=== PATIENT | male | born 1960 | race Caucasian/White ===

== ENCOUNTER 2020-10-26 06:40 | Outpatient (CLI) | payer OTHER, SELFPAY ==
[2020-10-26 07:15] LABS: Hematocrit 46.7 % (42.0-52.0); Hemoglobin 15.9 g/dL (14.0-18.0); Immature Platelet Fraction Pct 8.7 % (0.9-11.2); Mean Corpuscular Hemoglobin 32.8 pg (26-34); Mean Corpuscular Volume 96.3 fl (80-100); Mean Platelet Volume 10.9 fl (7.4-10.4); Platelet Count Result 134 k/mm3 (150-375); Red Blood Count 4.85 M/mm3 (4.6-6.20); Red Cell Distribution Width 12.6 % (11.5-14.5); White Blood Count 5.7 K/mm3 (4.5-10.0)
[2020-10-26 08:42] LABS: Alanine Aminotransferase 38 U/L (4-50); Albumin Level 4.2 g/dL (3.5-5.1); Alkaline Phosphatase 73 U/L (38-126); Anion Gap 7 mmol/L (8-16); Aspartate Amino Transferase 55 U/L (17-59); Blood Urea Nitrogen 16 mg/dL (9-20); Calcium 9.3 mg/dL (8.4-10.2); Carbon Dioxide 23 mmol/L (22-30); Chloride 107 mmol/L (98-107); Cholesterol 165 mg/dL (0-200); Estimated Glomerular Filt Rate 56; Glucose 143 mg/dL (75-110); HDL Direct 31 mg/dL; Potassium 4.2 mmol/L (3.4-5.0); Sodium 137 mmol/L (137-145); Triglycerides 310 mg/dL (<150)
[2020-10-26 08:54] LABS: LDL Cholesterol Direct 66 mg/dL
[2020-10-26 09:29] LABS: Prostate Specific Antigen 0.2 ng/mL (< OR = 4.0)
[2020-10-26 09:40] LABS: Hemoglobin A1C 5.9 % (<5.7)
[2020-10-31 12:25] LABS: Testosterone Free 77.5 pg/mL (35.0-155.0); Testosterone Total 871 ng/dL (250-1100)
== END 2020-10-26 09:24 | disposition home or self-care (01) ==
PROVIDERS: PCP Physician Assistant; Visit Provider Physician Assistant
DX: Z12.5 Encounter for screening for malignant neoplasm of prostate (principal); R73.9 Hyperglycemia, unspecified; I10 Essential (primary) hypertension; Z00.00 Encounter for general adult medical examination without abnormal findings
CPT/HCPCS: 36415; 80053; 80061; 83036; 83735; 84153; 84402; 84403; 84443; 85027; 85055; G0103

== ENCOUNTER 2022-03-13 07:41 | Outpatient (CLI) | payer OTHER, SELFPAY | END 2022-03-13 07:42 | disposition home or self-care (01) | LOC: ANHAUDASC 08:04 | PROVIDERS: PCP Physician Assistant; Visit Provider Physician Assistant | DX: H90.3 Sensorineural hearing loss, bilateral (principal) | CPT/HCPCS: 92557; 92567 ==

== ENCOUNTER 2022-05-23 00:15 | Day surgery (SDC) | payer OTHER, SELFPAY ==
[2022-05-22 14:51] VITALS: BMI 31.6
[2022-05-23] VITALS (8 sets, daily range): BP systolic 124–142; BP diastolic 81–93; PULSE 62–73; RESP 13–20; TEMP 36.6–36.7; O2SAT 94–98; BMI 31.4
[2022-05-23 08:57] LABS: Basophils Percent Auto 0.6 % (0.2-1.2); Eosinophils Absolute Auto 0.1 K/mm3 (0-0.3); Eosinophils Percent Auto 1.5 % (0-4.4); Hematocrit 44.1 % (42.0-52.0); Hemoglobin 15.3 g/dL (14.0-18.0); Immature Granulocyte Absolute 0.02 K/mm3 (0.00-0.031); Immature Granulocyte Percent A 0.4 % (0-0.5); Immature Platelet Fraction Pct 9.9 % (0.9-11.2); Lymphocytes Absolute Auto 1.78 K/mm3 (0.9-3.2); Lymphocytes Percent Auto 33.1 % (18.3-44.2); Mean Corpuscular HGB Conc 34.7 g/dl (32-36); Mean Corpuscular Hemoglobin 33.5 pg (26-34); Mean Corpuscular Volume 96.5 fl (80-100); Mean Platelet Volume 11.5 fl (7.4-10.4); Monocytes Absolute Auto 0.5 K/mm3 (0.1-0.6); Monocytes Percent Auto 8.9 % (2.6-8.5); Neutrophils Percent Auto 55.5 % (45.5-73.1); Platelet Count Result 138 k/mm3 (150-375); Red Blood Count 4.57 M/mm3 (4.6-6.20); Red Cell Distribution Width 13.2 % (11.5-14.5); White Blood Count 5.4 K/mm3 (4.5-10.0)
[2022-05-23 09:04] LABS: INR 1.2; Prothrombin Time 15.1 Seconds (11.1-14.7)
[2022-05-23 09:07] LABS: Anion Gap 10 mmol/L (8-16); Blood Urea Nitrogen 11 mg/dL (9-20); Calcium 9.1 mg/dL (8.4-10.2); Carbon Dioxide 24 mmol/L (22-30); Chloride 106 mmol/L (98-107); Estimated CRCL calculation 86 ml/min; Estimated Glomerular Filt Rate > 60; Glucose 151 mg/dL (65-110); Potassium 4.1 mmol/L (3.4-5.0); Sodium 140 mmol/L (137-145)
--- NOTE | 2022-05-23 11:33 | WPDMODSED ---
Moderate Sedation Note-Pt Data Patient Data Diagnosis: permanently implanted dual-chamber pacemaker at [facility] Present Complaint: no complaint Procedure to be performed/Plan: pacemaker generator change Allergies Allergy/AdvReac Type Severity Reaction Status Date / Time No Known Allergies Allergy Unverified 05/23/22 08:55 Home Medications Medication Instructions Recorded Confirmed Type aspirin 81 mg tablet,delayed 81 mg PO DAILY 05/02/20 05/22/22 History release hydrochlorothiazide 12.5 mg tablet 12.5 mg PO DAILY #30 tabs 11/06/21 05/22/22 Rx lisinopril 40 mg tablet 40 mg PO DAILY #30 tabs 11/06/21 05/22/22 Rx Sedation/Anesthesia: No previous sedation/anesthesia problems (including family history). [facility] Past Medical History Medical History Gout Heart disease Hypertension Inguinal hernia Pacemaker Umbilical hernia Family History Family History Sibling Family history of migraine headaches Patient's sister is in good health Patient's brother is in good health Father Hypertension Mother Family history of lung cancer Patient's mother is Other Cerebrovascular accident Family history of cardiovascular disease Social History Social History Smoking status: Never smoker Alcohol intake: current Alcohol use details: once a month Living arrangements: with family Additional living arrangements comments: Girl friend Gender identity (if verbalized by the patient): Male Spiritual care concerns: No Mod Sed Physical Exam Physical Exam Pre Procedural Exam: Normal: Neck, Throat, Airway, Lungs, Heart Size, Heart Rate, Heart Rhythm, Neuro Exam and Extremities and Variation: Appearance ( overweight gentleman no apparent distress) Hours since solid foods: 12 Hours since liquid intake: 12 Mallampati Classification: class II Internal Medicine - PN: Obj Da Vital Signs Vital Signs: Vital Signs - 24 hr 05/23/22 08:56 Temperature 36.7 C Pulse Rate 68 Respiratory Rate 13 Blood Pressure 142/91 H Pulse Oximetry 98 Oxygen Delivery Room Air Labs 05/23/22 08:50 05/23/22 08:50 Labs: Laboratory Results - last 24 hr 05/23/22 05/23/22 05/23/22 08:50 08:50 08:50 WBC 5.4 RBC 4.57 L Hgb 15.3 Hct 44.1 MCV 96.5 MCH 33.5 MCHC 34.7 RDW 13.2 Plt Count 138 L MPV 11.5 H Immature Gran % (Auto) 0.4 Neut % (Auto) 55.5 Lymph % (Auto) 33.1 Vilas % (Auto) 8.9 H Eos % (Auto) 1.5 Baso % (Auto) 0.6 Lymph # (Auto) 1.78 [place] # (Auto) 0.5 Eos # (Auto) 0.1 Baso # (Auto) 0.0 Abs Immat Gran (auto) 0.02 Absolute Neuts (auto) 3.0 Absolute Nucleated RBC 0.0 Nucleated RBC % 0.0 % Immature Plt Fraction 9.9 PT 15.1 H INR 1.2 Sodium 140 Potassium 4.1 Chloride 106 Carbon Dioxide 24 Anion Gap 10 BUN 11 D Creatinine 1.00 Estim Creat Clear Calc 86 Estimated GFR > 60 Glucose 151 H Calcium 9.1 ASA Classification/Sedation ASA Classification/Sedation ASA Class: II Emergent: No Risks: Risks, benefits and alternatives explained and patient/family accepted plan for sedation. Patient re-evaluated immediately prior to sedation.
--- NOTE | 2022-05-23 11:34 | WPDCARDPROC ---
Cardiac Cath Procedure Note Date of procedure:: 05/23/22 Performing physician:: Arron Mason MD Indication:: permanent pacemaker at [facility] Brief clinical history:: this is a 62-year-old man with chronic complete heart block who has a chronically implanted dual-chamber pacemaker. The device on routine follow-up is been found to be at [facility] admitted today electively for generator change Procedure Procedure performed:: placement of temporary transvenous pacemaker explantation of depleted pulse generator implantation of new pulse generator using existing leads Sedation/Medication given:: fentanyl 50 mg Versed 2 mg case start time 10:27 a.m. case end time case end time 11:29 a.m. sedation provided by Marielena Morales RN, trained observer Access site:: right femoral vein chronic left subclavian pocket Estimated blood loss:: minimal Procedure note:: patient was brought to the cardiac catheterization lab in the postabsorptive state where initially the right femoral triangle was prepared and draped in the normal fashion. Anesthesia was provided with 1% lidocaine infiltrated locally. Using the modified Seldinger technique the femoral vein was punctured and a 5 Estonian vascular sheath was placed. I then used 5 Estonian balloon tipped the temporary pacemaker wire under fluoroscopic visualization in the venous circulation advanced through the right atrium across the tricuspid valve and into the inferior free wall of the right ventricle. The pacing and sensing performance was demonstrated to be excellent. The device was then turned on at a backup rate of 50 beats per minute output of 2 mA. I then broke scrub while the thorax was being prepped. The left anterior chest wall was prepped and draped in the usual fashion. I was re scrubbing between the groin and thoracic portion of the procedure. I then provided 1% lidocaine infiltrated locally above the chronically implanted device. A PlasmaBlade was used to make an incision above that device and used to provide electrocautery as well. The fibrous capsule was encountered and opened with a PlasmaBlade. The device was removed there was a retention stitch that was cut. Following this the device in the attached leads were removed and block and where intact visually unremarkable in appearance. The leads were disconnected from the device using the torque wrench and the leads were placed into the new pulse generator and secured using the torque wrench. The pocket was then irrigated with Ancef infused saline. The new generator in the chronic leads were placed back into the pocket which was then closed in layers I used 2 0 Vicryl in interrupted fashion for the subcutaneous tissue and then 4-0 Vicryl in a running subcuticular fashion for the skin. The wound was then treated with some bio glue and covered with a Aquacel A dressing. The procedure was then terminated the patient tolerated procedure well. The temporary pacing wire was then removed under fluoroscopic visualization. The explanted device is a [employer] dual-chamber device originally implanted June 17, 2012. The new pacemaker is a OpTrip MRI 2272 dual-chamber pacemaker serial 3. [id number]. Device is programmed in the DDD mode lower rate limit 60 upper rate limit 120 av delay 200/150 millisecond. BET The chronically implanted atrial lead is a [employer] bipolar Optisense 1999/52cm serial number [id number]. The P-wave sensed at 1.5 threshold 0.5 volts at 0.4 milliseconds impedance 380 Ohms. Chronically implanted ventricular lead is a [employer] Tendril [id number]. serial number [id number]. R-waves are not sensed he is dependent threshold is 1.0 volts at 1 milliseconds impedance 380. Findings:: As above Conclusion:: 1. successful uncomplicated placement of temporary transvenous pacing wire from the right femoral vein to protect the rhythm during pacemaker generator change in this pacemaker
--- NOTE | 2022-05-23 14:35 | SUR.PHASEII ---
1417 Patient was discharged home via wheelchair to private vehicle. Discharge instructions were reviewed and patient and significant other Ayah had no further questions. VSS and patient had no complaints.
== END 2022-05-23 14:17 | disposition home or self-care (01) ==
PROVIDERS: PCP Physician Assistant; Visit Provider Specialist
PROC: 0JPT0PZ Removal of Cardiac Rhythm Related Device from Trunk Subcutaneous Tissue and Fascia, Open Approach (ICD-10-PCS; CPT 33228; principal; 2022-05-23 10:00)
DX: Z45.010 Encounter for checking and testing of cardiac pacemaker pulse generator [battery] (principal); I44.2 Atrioventricular block, complete; Z79.82 Long term (current) use of aspirin
CPT/HCPCS: 33228; 36415; 80048; 85025; 85055; 85610; C1785; C1894; J0690; J1644; J2250; J3010; J7040

== ENCOUNTER 2023-01-29 12:34 | Outpatient (CLI) | payer OTHER, SELFPAY ==
--- NOTE | 2023-02-19 14:49 | WPDSLEEPSTUD ---
Sleep Study Date of Study: 01/29/23 Ordering Provider: Piyush Peguero PA-C Interpreting Physician: Cici Valencia MD Sleep Study Type: Split Polysomnogram Height: 1.85 m Weight: 108.862 kg Body Mass Index: 31.6 Neck Circumference (inches): 18 [place]: 13 Reason for Sleep Study history of obstructive sleep apnea, needs a repeat study to requalify for CPAP Sleep History Tevin Huber is a 62-year-old man with history of obstructive sleep apnea, had a positive test in 2016. He could not adapt to using a CPAP mask. He has hypertension and a pacemaker. He is here for a split nght study to re-qualify for CPAP. He does not awaken from sleep feeling short of breath. He does not awaken at night with heartburn, belching or coughing. He always snores loudly enough that others complain. He frequently has difficulty sleeping with a cold. He constantly has breathing problems at night reported to him by others. He rarely sweats excessively at night. He does not notice his heart pounding or beating irregularly night. He occasionally falls asleep during the day, occasionally falls asleep involuntarily but never while driving. Does not have loss of muscle tone with strong emotion. Does not have daytime difficulties due to excessive sleepiness. 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 He does not feel paralyzed on waking or falling asleep. He does not have vivid dreamlike scenes upon awakening or falling asleep. Does not feel afraid to go to sleep. He rarely has nightmares. He rarely remembers his dreams. He occasionally has racing thoughts. He rarely feels sad or depressed. He occasionally has anxiety. He rarely has muscular tension. He rarely notices parts of his body jerking. He rarely kicks at night. He does not notice crawling or aching feelings in his legs. He has no leg pain during the night. He denies morning jaw pain or grinding his teeth during sleep. He rarely is bothered by pain during the day. He is not awakened by pain at night. He rarely wakes up feeling stiff in the morning. He rarely wakes up with sore or achy muscles. Does not wake up with pain in the neck, spine or other joints. He has fatigue. Normal bedtime is Between 10:00 p.m. and 11:00 p.m., falling asleep instantly. He wakes up between 2 and 3 times during the night to go to the bathroom, sometimes get something to drink such as limb in aid. He stays awake for 15-30 minutes. He returns to sleep, wakes for the day at 5:00 a.m.. His weekend schedule is similar, same bedtime between 10 and 11:00 p.m., waking at 6:00 a.m.. He estimates getting between 5-6 hours of sleep. He takes naps in the afternoon or evening. A short nap lasting 10 or 15 minutes may be refreshing. He feels better in the morning compared to other times of day. Habits: Never smoked tobacco. Caffeine 1-3 servings per day. No recreational substances. [facility] Past Medical History Medical History (Updated 02/19/23 @ 15:13 by Cici Valencia MD) Gout Heart disease Hypertension Inguinal hernia Obstructive sleep apnea Pacemaker Umbilical hernia Family History Family History Sibling Family history of migraine headaches Patient's sister is in good health Patient's brother is in good health Father Hypertension Mother Family history of lung cancer Patient's mother is Other Cerebrovascular accident Family history of cardiovascular disease Social History Social History Smoking status: Never smoker Alcohol intake: current Alcohol use details: once a month Substance use: unknown Lack of Transportation: No Lack of Food: Never True Current Housing: I Have Housing Concerned About Future Housing: No Difficulty Paying Gas/Electric Bills: No Difficulty Paying for Meds: No Currently Unemployed: No Education: High School Diploma/G
[2023-02-20 14:07] VITALS: BMI 31.6
== END 2023-01-30 08:11 | disposition home or self-care (01) ==
LOC: ANHCSM 12:35
PROVIDERS: PCP Physician Assistant; Visit Provider Physician Assistant
DX: G47.33 Obstructive sleep apnea (adult) (pediatric) (principal)
CPT/HCPCS: 95811

== ENCOUNTER 2023-04-02 09:12 | Outpatient (CLI) | payer OTHER, SELFPAY ==
--- NOTE | 2023-04-21 17:43 | WPDSLEEPSTUD ---
Sleep Study Date of Study: 04/02/23 Ordering Provider: Piyush Peguero PA-C Interpreting Physician: Patience Ramos, DO Sleep Study Type: BiPAP Titration Height: 1.85 m Weight: 104.78 kg Body Mass Index: 30.4 Neck Circumference (inches): 18 Butler: 13 Reason for Sleep Study The patient had a split night study on 01/29/2023 that showed an AHI of 52.2 with desaturation down to 75%. He was titrated to CPAP 19 cm H2O with incomplete resolution of his sleep apnea. It was recommended that he get a BPAP Titration starting at 10/6 cm H2O. Sleep History Tevin Huber is a? 62-year-old man with history of obstructive sleep apnea, had a positive test in 2016.? He could not adapt to using a CPAP mask. He has hypertension and a pacemaker.? He is here for a split nght study to re-qualify for CPAP.? He does not awaken from sleep feeling short of breath.? He does not awaken at night with heartburn, belching or coughing. ? He always snores loudly enough that others complain.? He frequently has difficulty sleeping with a cold.? He constantly has breathing problems at night reported to him by others.? He rarely sweats excessively at night.? He does not notice his heart pounding or beating irregularly night.? He occasionally falls asleep during the day, occasionally falls asleep involuntarily but never while driving.? Does not have loss of muscle tone with strong emotion.? Does not have daytime difficulties due to excessive sleepiness. ? 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 ? He does not feel paralyzed on waking or falling asleep.? He does not have vivid dreamlike scenes upon awakening or falling asleep.? Does not feel afraid to go to sleep.? He rarely has nightmares.? He rarely remembers his dreams.? He occasionally has racing thoughts.? He rarely feels sad or depressed.? He occasionally has anxiety.? He rarely has muscular tension.? He rarely notices parts of his body jerking.? He rarely kicks at night.? He does not notice crawling or aching feelings in his legs.? He has no leg pain during the night.? He denies morning jaw pain or grinding his teeth during sleep.? He rarely is bothered by pain during the day.? He is not awakened by pain at night.? He rarely wakes up feeling stiff in the morning.? He rarely wakes up with sore or achy muscles.? Does not wake up with pain in the neck, spine or other joints. He has fatigue. Normal bedtime is between 10:00 p.m. and 11:00 p.m., falling asleep instantly.? He wakes up between 2 and 3 times during the night to go to the bathroom, sometimes get something to drink such as lemonade.? He stays awake for 15-30 minutes.? He returns to sleep, wakes for the day at 5:00 a.m..? His weekend schedule is similar, same bedtime between 10 and 11:00 p.m., waking at 6:00 a.m..? He estimates getting between 5-6 hours of sleep.? He takes naps in the afternoon or evening.? A short nap lasting 10 or 15 minutes may be refreshing.? He feels better in the morning compared to other times of day. Habits:? ? Never smoked tobacco.? Caffeine 1-3 servings per day.? No recreational substances. [facility] Past Medical History Medical History Gout Heart disease Hypertension Inguinal hernia Obstructive sleep apnea Pacemaker Umbilical hernia Family History Family History Sibling Family history of migraine headaches Patient's sister is in good health Patient's brother is in good health Father Hypertension Mother Family history of lung cancer Patient's mother is Other Cerebrovascular accident Family history of cardiovascular disease Social History Social History Smoking status: Never smoker Alcohol intake: current Alcohol use details: once a month Substance use: unknown Lack of Transportation: No Lack of Food: Never True Current Housing: I Have Ho
[2023-04-21 17:58] VITALS: BMI 30.4
== END 2023-04-03 07:24 | disposition home or self-care (01) ==
LOC: ANHCSM 09:12
PROVIDERS: PCP Physician Assistant; Visit Provider Physician Assistant
DX: G47.61 Periodic limb movement disorder (principal); G47.33 Obstructive sleep apnea (adult) (pediatric)
CPT/HCPCS: 95811

== ENCOUNTER 2023-05-12 14:12 | Outpatient (CLI) | payer OTHER, SELFPAY ==
[2023-05-12 15:11] LABS: Iron 48 ug/dL (49-181)
[2023-05-12 15:20] LABS: Percent Iron Saturation 10 % (20-50)
== END 2023-05-12 14:13 | disposition home or self-care (01) ==
PROVIDERS: PCP Physician Assistant; Visit Provider Internal Medicine Gastroenterology
DX: K74.69 Other cirrhosis of liver (principal)
CPT/HCPCS: 36415; 83540; 83550

== ENCOUNTER 2023-06-03 00:24 | Day surgery (SDC) | payer OTHER, SELFPAY ==
[2023-05-19 14:18] VITALS: BMI 31.6
[2023-06-03 13:23] VITALS: BP 116/75; PULSE 78; RESP 16; TEMP 36.5; O2SAT 99; BMI 30.7
--- NOTE | 2023-06-03 13:26 | PM.HPGS ---
History of Present Illness History of Present Illness Consent: Risks, benefits, and alternatives have been discussed and questions answered. Patient agrees to proceed with procedure. Chief complaint: Esophageal varices Narrative: Tevin Huber is a 63 year old male Was recently found to have cirrhosis and esophageal varices. This happened While he was traveling and developed hematemesis. An emergency EGD revealed varices which were banded. He had a workup for liver disease and no etiology was found. He was advised to have a follow-up EGD within a few weeks. Review of Systems Review of Systems: All systems reviewed & are unremarkable except as noted in HPI and below PMFSH Past Medical History Medical History Gout Heart disease Hypertension Inguinal hernia Obstructive sleep apnea Pacemaker Umbilical hernia Family History Family History Sibling Family history of migraine headaches Patient's sister is in good health Patient's brother is in good health Father Hypertension Mother Family history of lung cancer Patient's mother is Other Cerebrovascular accident Family history of cardiovascular disease Social History Social History Smoking status: Never smoker Alcohol intake: current Alcohol use details: monthly Substance use: never Substance use type: does not use Lack of Transportation: No Lack of Food: Never True Current Housing: I Have Housing Concerned About Future Housing: No Difficulty Paying Gas/Electric Bills: No Difficulty Paying for Meds: No Currently Unemployed: No Education: High School Diploma/GED Difficulty w/ Childcare or Family Care: No Living arrangements: with family Additional living arrangements comments: Girl friend Gender identity (if verbalized by the patient): Male Spiritual care concerns: No Meds Home Medications and Allergies Home Medications Medication Instructions Recorded Confirmed Type aspirin 81 mg tablet,delayed 81 mg PO DAILY 05/02/20 06/03/23 History release hydrochlorothiazide 12.5 mg tablet 12.5 mg PO DAILY #30 tabs 12/05/22 06/03/23 Rx lisinopril 40 mg tablet 40 mg PO DAILY #30 tabs 12/31/22 06/03/23 Rx pantoprazole 40 mg tablet,delayed 40 mg PO QAM #90 tabs 04/21/23 06/03/23 Rx release Allergies Allergy/AdvReac Type Severity Reaction Status Date / Time No Known Allergies Allergy Verified 06/03/23 13:21 Vital Signs Vital Signs - 24 hr 06/03/23 13:23 Temperature 36.5 C Pulse Rate 78 Respiratory Rate 16 Blood Pressure 116/75 Pulse Oximetry 99 Oxygen Delivery Room Air Exam Const: General: alert Orientation/consciousness: patient oriented x3 Resp: Auscultation: clear to auscultation bilaterally Cardio: Rhythm: regular rhythm GI: GI Palp: Yes Soft to palpation and No Tenderness to palpation present (GI) Neuro: General: patient oriented x3 Assessment and Plan Assessment and plan (1) Esophageal varices: Qualifiers: Esophageal varices type: idiopathic Esophageal varices bleeding: with bleeding Qualified Code(s): I85.01 - Esophageal varices with bleeding Code(s): I85.00 - Esophageal varices without bleeding Status: Acute Assessment and Plan: EGD with possible biopsy or dilatation or cautery.
[2023-06-03] MEDS: LACTATED RINGERS 1,000 ML 150 ML IV CONT (13:37)
--- NOTE | 2023-06-03 14:07 | WPDANESEPPF ---
Anes - Initial Pre Proc Eval Procedure: Operation Date: 06/03/23 14:30 Proposed Procedures p Esophagogastroduodenoscopy - Jose Antonio Latham MD Date/Time: 06/03/23 14:07 Surgeon: Jose Antonio Latham MD Pre Op Diagnosis: Esophageal varices Patient Data Age: 63 Gender: M Height: 1.85 m Weight: 105.8 kg Last Vital Signs Temp 97.7 F 06/03/23 13:23 Pulse 78 06/03/23 13:23 Resp 16 06/03/23 13:23 BP 116/75 06/03/23 13:23 Pulse Ox 99 06/03/23 13:23 O2 Del Method Room Air 06/03/23 13:23 Allergies Allergy/AdvReac Type Severity Reaction Status Date / Time No Known Allergies Allergy Verified 06/03/23 13:21 Home Medications Medication Instructions Recorded Confirmed Type aspirin 81 mg tablet,delayed 81 mg PO DAILY 05/02/20 06/03/23 History release hydrochlorothiazide 12.5 mg tablet 12.5 mg PO DAILY #30 tabs 12/05/22 06/03/23 Rx lisinopril 40 mg tablet 40 mg PO DAILY #30 tabs 12/31/22 06/03/23 Rx pantoprazole 40 mg tablet,delayed 40 mg PO QAM #90 tabs 04/21/23 06/03/23 Rx release Patient hx anesthesia problems: none Family hx anesthesia problems: none Results Review: All pre-operative results and documents have been reviewed as part of the pre-operative evaluation. [facility] Past Medical History Medical History Gout Heart disease Hypertension Inguinal hernia Obstructive sleep apnea Pacemaker Umbilical hernia Family History Family History Sibling Family history of migraine headaches Patient's sister is in good health Patient's brother is in good health Father Hypertension Mother Family history of lung cancer Patient's mother is Other Cerebrovascular accident Family history of cardiovascular disease Social History Social History Smoking status: Never smoker Alcohol intake: current Alcohol use details: monthly Substance use: never Substance use type: does not use Lack of Transportation: No Lack of Food: Never True Current Housing: I Have Housing Concerned About Future Housing: No Difficulty Paying Gas/Electric Bills: No Difficulty Paying for Meds: No Currently Unemployed: No Education: High School Diploma/GED Difficulty w/ Childcare or Family Care: No Living arrangements: with family Additional living arrangements comments: Girl friend Gender identity (if verbalized by the patient): Male Spiritual care concerns: No Anes - Eval Final PreProcedure Day of Procedure 06/03/23 14:07 Patient weight: obese Heart: regular rate and rhythm Lungs: clear to auscultation Airway: Mallampati scale class II Neurological: alert and oriented Last oral intake: >/= 8 hours ASA classification: III Emergent: no Anesthetic plan: proceed Anesthesia type and monitoring: general GIVS and standard monitoring Results Review: All pre-operative results and documents have been reviewed as part of the pre-operative evaluation. Informed Consent: The patient's anesthetic plan and its attendant risks and benefits were discussed with the patient/family/POA. Questions were solicited and answers provided to the satisfaction of the patient/family/POA.
[2023-06-03 14:41] VITALS: BP 100/61; PULSE 72; RESP 16; O2SAT 92
[2023-06-03 14:51] VITALS: BP 109/64; PULSE 68; RESP 22; O2SAT 94
[2023-06-03 15:01] VITALS: BP 111/75; PULSE 60; RESP 18; O2SAT 96
== END 2023-06-03 15:16 | disposition home or self-care (01) ==
PROVIDERS: PCP Physician Assistant; Visit Provider Internal Medicine Gastroenterology
PROC: 0DJ08ZZ Inspection of Upper Intestinal Tract, Via Natural or Artificial Opening Endoscopic (ICD-10-PCS; CPT 43235; principal; 2023-06-03 14:30)
DX: I85.00 Esophageal varices without bleeding (principal); K29.70 Gastritis, unspecified, without bleeding; K74.60 Unspecified cirrhosis of liver; I10 Essential (primary) hypertension; G47.33 Obstructive sleep apnea (adult) (pediatric); E66.9 Obesity, unspecified; Z68.30 Body mass index [BMI] 30.0-30.9, adult; Z79.82 Long term (current) use of aspirin; Z95.0 Presence of cardiac pacemaker; Z86.79 Personal history of other diseases of the circulatory system; Z82.49 Family history of ischemic heart disease and other diseases of the circulatory system; Z80.1 Family history of malignant neoplasm of trachea, bronchus and lung
CPT/HCPCS: 43235; J2704; J7120

== ENCOUNTER 2023-06-26 08:26 | Outpatient (CLI) | payer OTHER, SELFPAY ==
[2023-06-26 12:10] LABS: Basophils Absolute Auto 0.1 K/mm3 (0.0-0.1); Basophils Percent Auto 1.2 % (0.2-1.2); Eosinophils Absolute Auto 0.1 K/mm3 (0-0.3); Eosinophils Percent Auto 1.6 % (0-4.4); Hematocrit 36.7 % (42.0-52.0); Hemoglobin 10.8 g/dL (14.0-18.0); Immature Granulocyte Absolute 0.01 K/mm3 (0.00-0.031); Immature Granulocyte Percent A 0.2 % (0-0.5); Lymphocytes Absolute Auto 1.46 K/mm3 (0.9-3.2); Lymphocytes Percent Auto 33.7 % (18.3-44.2); Mean Corpuscular HGB Conc 29.4 g/dl (32-36); Mean Corpuscular Hemoglobin 27.8 pg (26-34); Mean Corpuscular Volume 94.3 fl (80-100); Mean Platelet Volume 12.3 fl (7.4-10.4); Monocytes Absolute Auto 0.5 K/mm3 (0.1-0.6); Monocytes Percent Auto 10.4 % (2.6-8.5); Neutrophils Absolute Auto 2.3 K/mm3 (1.3-6.7); Neutrophils Percent Auto 52.9 % (45.5-73.1); Platelet Count Result 155 k/mm3 (150-375); Red Blood Count 3.89 M/mm3 (4.6-6.20); Red Cell Distribution Width 16.9 % (11.5-14.5); White Blood Count 4.3 K/mm3 (4.5-10.0)
[2023-06-26 12:28] LABS: Alanine Aminotransferase 26 U/L (6-50); Albumin Level 3.8 g/dL (3.5-5.1); Alkaline Phosphatase 107 U/L (38-126); Anion Gap 10 mmol/L (8-16); Aspartate Amino Transferase 64 U/L (17-59); Blood Urea Nitrogen 16 mg/dL (9-20); Calcium 8.6 mg/dL (8.4-10.2); Carbon Dioxide 23 mmol/L (22-30); Chloride 106 mmol/L (98-107); Cholesterol 136 mg/dL (0-200); Estimated Glomerular Filt Rate > 60; Glucose 151 mg/dL (65-110); HDL Direct 22 mg/dL; Potassium 4.3 mmol/L (3.4-5.0); Sodium 139 mmol/L (137-145); Triglycerides 388 mg/dL (<150)
[2023-06-26 12:37] LABS: Platelet Estimate Adequate (Adequate)
[2023-06-26 12:38] LABS: Anisocytosis 1+ (NORMAL); Hypochromasia 1+ (NORMAL); Polychromasia 1+ (NORMAL); Schistocytes None Seen (NORMAL)
[2023-06-26 13:13] LABS: Prostate Specific Antigen 0.2 ng/mL (< OR = 4.0)
[2023-06-26 13:14] LABS: Hemoglobin A1C 6.6 % (<5.7)
[2023-06-27 09:05] LABS: LDL Cholesterol Direct 47 mg/dL
== END 2023-06-26 08:27 | disposition home or self-care (01) ==
PROVIDERS: PCP Physician Assistant; Visit Provider Physician Assistant
DX: Z00.00 Encounter for general adult medical examination without abnormal findings (principal); R73.9 Hyperglycemia, unspecified; Z12.5 Encounter for screening for malignant neoplasm of prostate
CPT/HCPCS: 36415; 80053; 80061; 83036; 84153; 84443; 85025; G0103

== ENCOUNTER 2023-09-11 07:51 | Outpatient (CLI) | payer OTHER, SELFPAY ==
--- NOTE | ~2023-09-11 | CT_ITS ---
EXAMINATION: CT abdomen w con DATE: 09/11/2023 08:21 INDICATION: Cirrhosis of the liver. TECHNIQUE: Computed tomography (CT) of the abdomen was performed with 100 mL Omnipaque 350 intravenou s contrast. Automated exposure control and iterative reconstruction technique were employed. The dose -length product was 1922.48 mGy-cm. COMPARISON: None. FINDINGS: The visualized portions of the lung bases demonstrate mild atelectasis. No pleural effusion . Cardiomegaly is noted. There are coronary artery calcifications. No pericardial effusion. There are pacer wires in right atrium and right ventricle. Paraesophageal varices are noted. The liver demonst rates hypertrophy of left lateral segment and surface irregularity, consistent with cirrhosis. There is no evidence of hepatocellular carcinoma. There are gallstones in the gallbladder, which is normal in size. The spleen is moderately enlarged. The pancreas, adrenal glands, and kidneys are normal. The re are no dilated loops of bowel. There are no pathologically enlarged lymph nodes. There is no free intraperitoneal fluid. There is mild thoracic and lumbar spondylosis. IMPRESSION: 1. Cirrhosis of the liver with portal venous hypertension. 2. Cholelithiasis. Reviewed, dictated and finalized at location A.
[2023-09-11 08:15] LABS: Estimated Glomerular Filt Rate > 60
== END 2023-09-11 07:52 | disposition home or self-care (01) ==
LOC: ANHIMG 07:53
PROVIDERS: PCP Physician Assistant
DX: K74.60 Unspecified cirrhosis of liver (principal); K76.6 Portal hypertension; K80.20 Calculus of gallbladder without cholecystitis without obstruction
CPT/HCPCS: 74160; Q9967

== ENCOUNTER 2023-10-12 07:48 | Outpatient (CLI) | payer OTHER, SELFPAY ==
[2023-10-12 08:31] LABS: Basophils Percent Auto 0.5 % (0.2-1.2); Eosinophils Absolute Auto 0.1 K/mm3 (0-0.3); Hematocrit 39.6 % (42.0-52.0); Hemoglobin 12.1 g/dL (14.0-18.0); Immature Granulocyte Absolute 0.02 K/mm3 (0.00-0.031); Immature Granulocyte Percent A 0.5 % (0-0.5); Lymphocytes Absolute Auto 1.21 K/mm3 (0.9-3.2); Lymphocytes Percent Auto 29.7 % (18.3-44.2); Mean Corpuscular HGB Conc 30.6 g/dl (32-36); Mean Corpuscular Hemoglobin 28.3 pg (26-34); Mean Corpuscular Volume 92.5 fl (80-100); Mean Platelet Volume 12.2 fl (7.4-10.4); Monocytes Absolute Auto 0.5 K/mm3 (0.1-0.6); Monocytes Percent Auto 11.1 % (2.6-8.5); Neutrophils Absolute Auto 2.3 K/mm3 (1.3-6.7); Neutrophils Percent Auto 56.2 % (45.5-73.1); Platelet Count Result 109 k/mm3 (150-375); Red Blood Count 4.28 M/mm3 (4.6-6.20); Red Cell Distribution Width 15.9 % (11.5-14.5); White Blood Count 4.1 K/mm3 (4.5-10.0)
[2023-10-12 08:43] LABS: INR 1.3; Prothrombin Time 16.5 Seconds (11.1-14.7)
[2023-10-12 08:56] LABS: Alanine Aminotransferase 25 U/L (6-50); Albumin Level 4.2 g/dL (3.5-5.1); Alkaline Phosphatase 110 U/L (38-126); Anion Gap 11 mmol/L (4-12); Aspartate Amino Transferase 48 U/L (17-59); Bilirubin,Total 1.1 mg/dL (0.2-1.3); Blood Urea Nitrogen 12 mg/dL (9-20); Calcium 9.2 mg/dL (8.4-10.2); Carbon Dioxide 19 mmol/L (22-30); Chloride 108 mmol/L (98-107); Estimated Glomerular Filt Rate > 60; Glucose 188 mg/dL (65-110); Potassium 4.1 mmol/L (3.4-5.0); Sodium 138 mmol/L (137-145)
[2023-10-12 09:51] LABS: HAV RESULT Negative (Negative)
[2023-10-12 10:05] LABS: Hepatitis B Surface Anti Res Positive
[2023-10-14 11:19] LABS: Alpha Fetoprotein Tumor Marker 3.7 ng/mL (<6.1)
[2023-10-15 03:08] LABS: Hepatitis A Antibody Total REACTIVE (NON-REACTIVE)
== END 2023-10-12 07:49 | disposition home or self-care (01) ==
PROVIDERS: PCP Physician Assistant; Visit Provider Internal Medicine Gastroenterology
DX: Z11.59 Encounter for screening for other viral diseases (principal); K74.60 Unspecified cirrhosis of liver
CPT/HCPCS: 36415; 80053; 82105; 82248; 85025; 85610; 86706; 86708; 86709

== ENCOUNTER 2023-10-20 06:55 | Inpatient (IN) | payer OTHER, SELFPAY ==
[2023-10-20] VITALS (15 sets, daily range): BP systolic 98–139; BP diastolic 61–93; PULSE 65–89; RESP 11–23; TEMP 36.2–36.7; O2SAT 95–99; BMI 32.3
[2023-10-20] MEDS: ONDANSETRON INJ 4 MG/2 ML VIAL IV PUSH (07:29)
--- NOTE | 2023-10-20 07:29 | ED.ABDPAIN ---
HPI - Abdominal Pain General Chief Complaint: Abdominal Pain Stated Complaint: dark stools, abd pain, esophageal varasies Time Seen by Provider: 10/20/23 07:12 History of Present Illness HPI narrative: With history of non alcoholic cirrhosis presented to the emergency department for evaluation for dark tarry stool and upset stomach. Patient does have a prior history of esophageal varices and GI bleed. Patient's most recent bleed was back in March. Patient did have some varices banded in June. Patient follows up with Dr. Latham. Patient noticed some black tarry stool this morning and presented to the ED with complaint of nausea with out vomiting. Patient states he is not on any blood thinners. Related Data Home Medications Medication Instructions Recorded Confirmed aspirin 81 mg tablet,delayed 81 mg PO DAILY 05/02/20 10/20/23 release carvedilol 3.125 mg tablet 3.125 mg PO Q12H 10/15/23 10/20/23 Allergies Allergy/AdvReac Type Severity Reaction Status Date / Time No Known Allergies Allergy Verified 10/20/23 10:56 Review of Systems Review of Systems: All systems reviewed & are unremarkable except as noted in HPI and below PMFSH Past Medical History Medical History (Updated 10/20/23 @ 11:38 by Alberto Adamson MD) Acute blood loss anemia Gout Heart disease Hypertension Inguinal hernia Obstructive sleep apnea Pacemaker Thrombocytopenia Umbilical hernia Family History Family History Sibling Family history of migraine headaches Patient's sister is in good health Patient's brother is in good health Father Hypertension Mother Family history of lung cancer Patient's mother is Other Cerebrovascular accident Family history of cardiovascular disease Social History Social History Smoking status: Never smoker Alcohol intake: current Alcohol use details: monthly Substance use: never Substance use type: does not use Do You Feel Safe in your Home?: Yes Lack of Transportation: No Lack of Food: Never True Current Housing: I Have Housing Concerned About Future Housing: No Difficulty Paying Gas/Electric Bills: No Difficulty Paying for Meds: No Currently Unemployed: No Education: High School Diploma/GED Difficulty w/ Childcare or Family Care: No Living arrangements: with family Additional living arrangements comments: Girl friend Gender identity (if verbalized by the patient): Male Spiritual care concerns: No Exam Narrative: APPEARANCE: Well appearing, no pain, no distress, well-nourished. HEAD: normocephalic, atraumatic. EYES: PERRLA/EOMI, conjunctivae clear. NOSE: Normal no drainage EARS:TMS clear with good light reflex. THROAT: Pharynx clear, no exudate. NECK: Supple. No adenopathy, no masses. RESPIRATORY: Airway patent, respirations nonlabored. Clear to auscultation bilaterally, no rales, rhonchi, wheezing. CARDIOVASCULAR: Regular rate and rhythm without murmurs rubs or gallops. ABDOMINAL: Upper abdominal discomfort with palpation MUSCULOSKELETAL: Moves all extremities. Strength/ROM intact, No edema, No calf tenderness. NEURO: Alert. Cranial nerves II through XII intact. Grossly intact SKIN: Warm, dry. Normal Color Course Course Emergency Course: GI was consulted and patient was admitted for anticipated emergent upper endoscopy Vital Signs Vital signs: Vital Signs Temperature 97.6 F 10/20/23 07:16 Pulse Rate 70 10/20/23 07:16 Respiratory Rate 12 10/20/23 07:16 Blood Pressure 119/81 10/20/23 07:16 Pulse Oximetry 99 10/20/23 07:16 Oxygen Delivery Room Air 10/20/23 07:16 Temperature 97.2 F L 10/20/23 10:59 Pulse Rate 74 10/20/23 14:00 Respiratory Rate 18 10/20/23 12:28 Blood Pressure 109/65 10/20/23 12:28 Pulse Oximetry 97 10/20/23 12:28 Oxygen Delivery
[2023-10-20] MEDS: PANTOPRAZOLE SODIUM IV 40 MG VIAL 80 MG IV PUSH (07:33)
[2023-10-20 07:36] LABS: Basophils Percent Auto 0.6 % (0.2-1.2); Eosinophils Absolute Auto 0.1 K/mm3 (0-0.3); Eosinophils Percent Auto 0.9 % (0-4.4); Hematocrit 36.2 % (42.0-52.0); Hemoglobin 11.5 g/dL (14.0-18.0); Immature Granulocyte Absolute 0.03 K/mm3 (0.00-0.031); Immature Granulocyte Percent A 0.6 % (0-0.5); Lymphocytes Absolute Auto 1.19 K/mm3 (0.9-3.2); Mean Corpuscular HGB Conc 31.8 g/dl (32-36); Mean Corpuscular Hemoglobin 29.5 pg (26-34); Mean Corpuscular Volume 92.8 fl (80-100); Monocytes Absolute Auto 0.6 K/mm3 (0.1-0.6); Monocytes Percent Auto 10.5 % (2.6-8.5); Neutrophils Absolute Auto 3.6 K/mm3 (1.3-6.7); Neutrophils Percent Auto 65.4 % (45.5-73.1); Platelet Count Result 147 k/mm3 (150-375); Red Cell Distribution Width 16.2 % (11.5-14.5); White Blood Count 5.4 K/mm3 (4.5-10.0)
[2023-10-20] MEDS: SODIUM CHLORIDE 0.9% IV 1,000 ML 999 ML IV CONT (07:39)
[2023-10-20] MEDS: METOCLOPRAMIDE HCL INJ 10 MG/2 ML VIAL IV PUSH (07:40)
[2023-10-20 07:47] LABS: Alanine Aminotransferase 35 U/L (6-50); Albumin Level 3.9 g/dL (3.5-5.1); Alkaline Phosphatase 99 U/L (38-126); Anion Gap 8 mmol/L (4-12); Aspartate Amino Transferase 77 U/L (17-59); Bilirubin,Total 1.1 mg/dL (0.2-1.3); Blood Urea Nitrogen 21 mg/dL (9-20); Calcium 8.5 mg/dL (8.4-10.2); Carbon Dioxide 20 mmol/L (22-30); Chloride 106 mmol/L (98-107); Estimated CRCL calculation 86 ml/min; Estimated Glomerular Filt Rate > 60; Glucose 243 mg/dL (65-110); Sodium 134 mmol/L (137-145)
[2023-10-20 07:48] LABS: Lactic Acid Reflex 2.9 mmol/L (0.7-2.0)
[2023-10-20 07:53] LABS: INR 1.3; Prothrombin Time 17.1 Seconds (11.1-14.7)
[2023-10-20 07:54] LABS: Partial Thromboplastin Time 31.4 Seconds (22.3-36.8)
[2023-10-20] MEDS: OCTREOTIDE ACETATE 50 MCG/ML VIAL IV PUSH (08:17)
[2023-10-20] MEDS: PANTOPRAZOLE SODIUM IV 80 MG in SODIUM CHLORIDE 0.9% IV 500 ML 50 MG IV CONT (08:20)
--- NOTE | 2023-10-20 08:28 | PC.NURSE ---
Pt reports the last time he ate or drank was 189910/19/23
[2023-10-20] MEDS: SODIUM CHLORIDE 0.9% IV 1,000 ML 125 ML IV CONT (08:31)
[2023-10-20 09:28] LABS: Hematocrit 35.9 % (42.0-52.0); Hemoglobin 11.1 g/dL (14.0-18.0)
--- NOTE | 2023-10-20 10:31 | ADMGEN ---
This patient, Tevin Huber, was admitted to Intensive Care Unit-10 @ 1025. Patient/family oriented to hospital policies and general routines including ID bracelet, bed and alarms, visiting hours, pain management, procedures, bathroom and other care routines, personal items, smoking policy, room service/diet, and visiting hours. Information on how to activate the Rapid Response Team has been discussed. Patient/Family are encouraged to report perceived risks to care and to ask questions if they do not understand what they are told or what they should do.
[2023-10-20 10:34] LABS: Reflex Lactic Acid Yes or No Add Lactic
--- NOTE | 2023-10-20 10:45 | PC.NURSE ---
To GI Lab @ 3191, IV x2 18 gauge Locked. Report given to ZEE Nance
[2023-10-20] MEDS: LACTATED RINGERS 1,000 ML 150 ML IV CONT (10:55)
--- NOTE | 2023-10-20 11:13 | WPDANESEPPF ---
Anes - Initial Pre Proc Eval Procedure: Operation Date: 10/20/23 14:30 Proposed Procedures p Esophagogastroduodenoscopy - Alberto Adamson MD Date/Time: 10/20/23 11:13 Surgeon: Nelly Clemons MD Pre Op Diagnosis: bleeding Patient Data Age: 63 Gender: M Height: 1.85 m Weight: 111 kg Last Vital Signs Temp 97.2 F L 10/20/23 10:59 Pulse 70 10/20/23 10:59 Resp 18 10/20/23 10:59 BP 110/64 10/20/23 10:59 Pulse Ox 97 10/20/23 10:59 O2 Del Method Room Air 10/20/23 10:59 Allergies Allergy/AdvReac Type Severity Reaction Status Date / Time No Known Allergies Allergy Verified 10/20/23 10:56 Home Medications Medication Instructions Recorded Confirmed Type aspirin 81 mg tablet,delayed 81 mg PO DAILY 05/02/20 10/20/23 History release hydrochlorothiazide 12.5 mg tablet 12.5 mg PO DAILY #30 tabs 12/05/22 10/20/23 Rx lisinopril 40 mg tablet 40 mg PO DAILY #30 tabs 12/31/22 10/20/23 Rx pantoprazole 40 mg tablet,delayed 40 mg PO QAM #90 tabs 04/21/23 10/20/23 Rx release carvedilol 3.125 mg tablet 3.125 mg PO Q12H 10/15/23 10/20/23 History Laboratory Tests 10/20/23 10/20/23 07:25 09:06 WBC 5.4 K/mm3 (4.5-10.0) RBC 3.90 L M/mm3 (4.6-6.20) Hgb 11.5 L g/dL 11.1 L g/dL (14.0-18.0) (14.0-18.0) Hct 36.2 L % 35.9 L % (42.0-52.0) (42.0-52.0) MCV 92.8 fl (80-100) MCH 29.5 pg (26-34) MCHC 31.8 L g/dl (32-36) RDW 16.2 H % (11.5-14.5) Plt Count 147 L k/mm3 (150-375) MPV 12.0 H fl (7.4-10.4) Immature Gran % (Auto) 0.6 H % (0-0.5) Neut % (Auto) 65.4 % (45.5-73.1) Lymph % (Auto) 22.0 % (18.3-44.2) [place] % (Auto) 10.5 H % (2.6-8.5) Eos % (Auto) 0.9 % (0-4.4) Baso % (Auto) 0.6 % (0.2-1.2) Lymph # (Auto) 1.19 K/mm3 (0.9-3.2) [place] # (Auto) 0.6 K/mm3 (0.1-0.6) Eos # (Auto) 0.1 K/mm3 (0-0.3) Baso # (Auto) 0.0 K/mm3 (0.0-0.1) Abs Immat Gran (auto) 0.03 K/mm3 (0.00-0.031) Absolute Neuts (auto) 3.6 K/mm3 (1.3-6.7) Absolute Nucleated RBC 0.000 K/mm3 (0.0-0.012) Nucleated RBC % 0.0 % (0.0-0.2) PT 17.1 H Seconds (11.1-14.7) INR 1.3 APTT 31.4 Seconds (22.3-36.8) Sodium 134 L mmol/L (137-145) Potassium 5.0 mmol/L (3.4-5.0) Chloride 106 mmol/L (98-107) Carbon Dioxide 20 L mmol/L (22-30) Anion Gap 8 mmol/L (4-12) BUN 21 H mg/dL (9-20) Creatinine 1.00 mg/dL (0.7-1.3) Estim Creat Clear Calc 86 ml/min Estimated GFR > 60 (59 - ) Glucose 243 H mg/dL (65-110) Lactic Acid 2.9 H mmol/L (0.7-2.0) Calcium 8.5 mg/dL (8.4-10.2) Total Bilirubin 1.1 mg/dL (0.2-1.3) AST 77 H U/L (17-59) ALT 35 U/L (6-50) Alkaline Phosphatase 99 U/L (38-126) Total Protein 8.0 g/dL (6.3-8.2) Albumin 3.9 g/dL (3.5-5.1) Blood Type B Positive Antibody Screen Negative Patient hx anesthesia problems: none Family hx anesthesia problems: none Results Review: All pre-operative results and documents have been reviewed as part of the pre-operative evaluation. [facility] Past Medical History Medical History Gout Heart disease Hypertension Inguinal hernia Obstructive sleep apnea Pacemaker Umbilical hernia Family History Family History Sibling Family history of migraine headaches Patient's sister is in good health Patient's brother is in good health Father Hypertension Mother Family history of lung cancer Patient's mother is Other Cerebrovascular accident Family history of cardiovascular disease Social History Social History (Reviewed 09/09/23 @ 13:46 by Bobbi Cr CM
--- NOTE | 2023-10-20 11:32 | WPDGICN ---
Assessment and Plan Assessment and plan (1) Acute upper gastrointestinal bleeding: Code(s): K92.2 - Gastrointestinal hemorrhage, unspecified Status: Acute Assessment and Plan: will proceed with urgent EGD he has known bleeding from esophageal varices on iv octreotide and protonix, antibiotics ICU admission more recommendations after egd (2) Cryptogenic cirrhosis: Code(s): K74.69 - Other cirrhosis of liver Status: Acute Assessment and Plan: already established with hepatology at [facility] probably yadav (3) Esophageal varices: Qualifiers: Esophageal varices type: idiopathic Esophageal varices bleeding: with bleeding Qualified Code(s): I85.01 - Esophageal varices with bleeding Code(s): I85.00 - Esophageal varices without bleeding Status: Acute (4) Acute blood loss anemia: Code(s): D62 - Acute posthemorrhagic anemia Status: Acute Assessment and Plan: monitor for more signs of bleeding hgb 11 (5) Thrombocytopenia: Code(s): D69.6 - Thrombocytopenia, unspecified Status: Acute Assessment and Plan: from liver disease monitor (6) Hypertension: Qualifiers: Hypertension type: primary hypertension Qualified Code(s): I10 - Essential (primary) hypertension Code(s): I10 - Essential (primary) hypertension Status: Acute GI Consult Note Consult date/time: 10/20/23 11:32 Reason for consult: hematemesis, melena, cirrhosis, esophageal varices HPI: Tevin Huber is a 63 year old male with history of HTN, pre-DM, new diagnosis of cirrhosis 03/2023 when he was on vacation in [place] and presented with new onset of hematemesis that required hospitalization in ICU, EGD showed 4 cords of grade 2 esophageal varices with stigmata of bleeding. He has seen Dr Latham, complete work up negative for any etiology, last EGD 05/2023 with grade II EV required one banding, no more bleeding since. Last month he saw hepatology at [facility], etiology most likely is yadav (no alcohol use). He woke up to day with dark tarry stool and also hematemesis, came to ER. Started on octreotide and protonix drip and admitted to ICU. hgb 11, creat 1, bun 21, ast 77, plat 147, bili 1.1. Review of Systems Constitutional: Constitutional: Denies chills Eyes: Eyes: Denies blurry vision ENT: Reports Normal hearing present Cardiovascular: Cardiovascular: Denies chest pain Respiratory: Respiratory: Denies cough Gastrointestinal: Gastrointestinal: Reports hematemesis Genitourinary: Genitourinary: Denies dysuria Musculoskeletal: Musculoskeletal: Denies neck pain Integumentary/Breasts: Skin/Breast: Denies rash Neurologic: Denies Abnormal speech present Psychiatric: Psychiatric: Denies behavioral changes [facility] Past Medical History Medical History (Updated 10/20/23 @ 11:38 by Alberto Adamson MD) Acute blood loss anemia Gout Heart disease Hypertension Inguinal hernia Obstructive sleep apnea Pacemaker Thrombocytopenia Umbilical hernia Family History Family History Sibling Family history of migraine headaches Patient's sister is in good health Patient's brother is in good health Father Hypertension Mother Family history of lung cancer Patient's mother is Other Cerebrovascular accident Family history of cardiovascular disease Social History Social History Smoking status: Never smoker Alcohol intake: current Alcohol use details: monthly Substance use: never Substance use type: does not use Do You Feel Safe in your Home?: Yes Lack of Transportation: No Lack of Food: Never True Current Housing: I Have Housing Concerned About Future Housing: No Difficulty Paying Gas/Electric Bills: No Difficulty Paying for Meds: No Currently Unemployed: No Education: High Scho
[2023-10-20] MEDS: cefTRIAXone 2 GM/NS 100 ML 2 GM/100 ML BAG IVPB (12:42)
--- NOTE | 2023-10-20 12:55 | PC.NURSE ---
Returned from GI Lab @ 8052. Report received from EZE Nance
[2023-10-20 13:03] LABS: Lactic Acid 2.8 mmol/L (0.7-2.0)
--- NOTE | 2023-10-20 14:20 | PM.IMHP ---
H&P: HPI History of Present Illness Date/Time: 10/20/23 14:20 Chief Complaint: Abdominal pain and dark stools. Narrative: This is a very pleasant 63-year-old male with cirrhosis of the liver (suspected MUÑOZ) and history of GI bleed related to esophageal varices, hypertension, and prediabetes who presented to the emergency department for evaluation of abdominal pain dark stools. The patient provides the following history. She did not sleep well last night mild upset stomach which seemed to be worse when he got up this morning at 04:00 to get ready for work. He passed a dark, tarry stools and reports having significant nausea thereafter. He came to the ED immediately as he had similar symptoms last year due to variceal bleeding which led to his cirrhosis diagnosis. While in the emergency department he had an episode of hematemesis and he was taken for urgent EGD. In the ED: Vital signs were stable on arrival. Labs were significant for WBC count of 5.4, hemoglobin 11.1, platelet 147, INR 1.3, sodium 134, BUN 21, creatinine 1.00, glucose 243, lactic acid 2.9, AST 77. He was started on octreotide and pantoprazole and was taken for urgent EGD per Dr. Adamson. Grade 2 varices were present the distal esophagus with stigmata to suggest recent bleeding status post band ligation and mild gastritis. At the time of my evaluation he is resting comfortably and feels much better than he did earlier today. He has no current complaints and specifically denies chest pain, shortness of breath, abdominal pain, and nausea. He has not had any further episodes of dark stools. Review of Systems Review of Systems: 12 systems were reviewed and are negative except for as per HPI. [facility] Past Medical History Medical History (Updated 10/20/23 @ 22:24 by Evi Calhoun PA-C) Cirrhosis of liver Suspected MUÑOZ per [facility] hepatology Esophageal varices Heart disease Hypertension Obstructive sleep apnea on CPAP Prediabetes Pseudogout Thrombocytopenia Surgical History Surgical History (Updated 10/20/23 @ 17:52 by Evi Calhoun PA-C) History of inguinal hernia repair History of permanent cardiac pacemaker placement (2021) History of umbilical hernia repair History of vasectomy Family History Family History Sibling Family history of migraine headaches Patient's sister is in good health Patient's brother is in good health Father Hypertension Mother Family history of lung cancer Patient's mother is Other Cerebrovascular accident Family history of cardiovascular disease Social History Social History (Updated 10/20/23 @ 17:55 by Evi Calhoun PA-C) Social History: Surrogate medical decision maker: Ayah Mason, significant other. Code status: Full code. Smoking status: Never smoker Alcohol intake: current Alcohol use details: monthly Substance use: never Substance use type: does not use Do You Feel Safe in your Home?: Yes Lack of Transportation: No Lack of Food: Never True Current Housing: I Have Housing Concerned About Future Housing: No Difficulty Paying Gas/Electric Bills: No Difficulty Paying for Meds: No Currently Unemployed: No Education: High School Diploma/GED Difficulty w/ Childcare or Family Care: No Living arrangements: with family Additional living arrangements comments: Lives with significant other. 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 Spiritual care concerns: No Meds Home Medications and Allergies Home Medications Medication Instructions Recorded Confirmed Type aspirin 81 mg tablet,delayed 81 mg PO DAILY 05/02/20 10/20/23 History release hydrochlorothiazide 12.5 mg tablet 12.5 mg PO DAILY #30 tabs 12/05/22 10/20/23 Rx lisinopril 40 mg tablet 40 mg PO DAILY #30 tabs 12/31/22 10/20/23 Rx pantoprazole 40 mg tablet,delayed 40 mg PO QAM #90
[2023-10-20] MEDS: PANTOPRAZOLE SODIUM IV 40 MG VIAL IV PUSH (20:07)
[2023-10-20 20:18] LABS: Hematocrit 33.7 % (42.0-52.0); Hemoglobin 10.6 g/dL (14.0-18.0)
[2023-10-20 20:42] LABS: Glucose Point of Care 154 mg/dl (65-105)
[2023-10-20 21:29] LABS: Hemoglobin A1C 6.9 % (<5.7)
[2023-10-21] VITALS (20 sets, daily range): BP systolic 110–151; BP diastolic 53–73; PULSE 65–101; RESP 14–18; TEMP 36.1–37.1; O2SAT 94–99
[2023-10-21 04:21] LABS: Hematocrit 33.3 % (42.0-52.0); Hemoglobin 10.5 g/dL (14.0-18.0); Immature Platelet Fraction Pct 6.9 % (0.9-11.2); Mean Corpuscular HGB Conc 31.5 g/dl (32-36); Mean Corpuscular Hemoglobin 29.6 pg (26-34); Mean Corpuscular Volume 93.8 fl (80-100); Mean Platelet Volume 11.8 fl (7.4-10.4); Platelet Count Result 109 k/mm3 (150-375); Red Blood Count 3.55 M/mm3 (4.6-6.20); Red Cell Distribution Width 16.2 % (11.5-14.5); White Blood Count 5.5 K/mm3 (4.5-10.0)
[2023-10-21 04:31] LABS: Alanine Aminotransferase 91 U/L (6-50); Albumin Level 3.6 g/dL (3.5-5.1); Alkaline Phosphatase 107 U/L (38-126); Anion Gap 10 mmol/L (4-12); Aspartate Amino Transferase 227 U/L (17-59); Bilirubin,Total 1.9 mg/dL (0.2-1.3); Blood Urea Nitrogen 17 mg/dL (9-20); Calcium 8.5 mg/dL (8.4-10.2); Carbon Dioxide 21 mmol/L (22-30); Chloride 108 mmol/L (98-107); Estimated CRCL calculation 78 ml/min; Estimated Glomerular Filt Rate > 60; Glucose 182 mg/dL (65-110); Magnesium 1.8 mg/dL (1.6-2.3); Potassium 4.2 mmol/L (3.4-5.0); Sodium 139 mmol/L (137-145)
[2023-10-21] MEDS: carvediloL 3.125 MG TABLET PO ×2 (05:38→17:29)
[2023-10-21 08:15] LABS: Glucose Point of Care 189 mg/dl (65-105)
[2023-10-21] MEDS: PANTOPRAZOLE SODIUM IV 40 MG VIAL IV PUSH ×2 (09:30→21:03)
[2023-10-21 11:57] LABS: Glucose Point of Care 196 mg/dl (65-105)
[2023-10-21] MEDS: cefTRIAXone 2 GM/NS 100 ML 2 GM/100 ML BAG IVPB (13:52)
--- NOTE | 2023-10-21 14:31 | WPDGIPROGNO ---
Progress Note: A&P Assessment and Plan (1) Esophageal varices: Code(s): I85.00 - Esophageal varices without bleeding Status: Acute Assessment and Plan: this was cause of bleeding, no more active bleeding during scope, banded x2 octreotide another day protonix daily will advance diet egd in 6 weeks (2) Upper GI bleed: Code(s): K92.2 - Gastrointestinal hemorrhage, unspecified Status: Acute Assessment and Plan: resolved (3) Cirrhosis of liver: Code(s): K74.60 - Unspecified cirrhosis of liver Status: Acute Assessment and Plan: probably yadav already established with [facility] hepatology (4) Type 2 diabetes mellitus: Code(s): E11.9 - Type 2 diabetes mellitus without complications Status: Acute (5) Acute blood loss anemia: Code(s): D62 - Acute posthemorrhagic anemia Status: Acute Assessment and Plan: h/h stable at 10 (6) Hypertension: Qualifiers: Hypertension type: primary hypertension Qualified Code(s): I10 - Essential (primary) hypertension Code(s): I10 - Essential (primary) hypertension Status: Acute Subjective Date/time seen: 10/21/23 14:31 Interval history: urgent EGD yesterday with stigmata of bleeding (red wai sign) in esophageal varices s/p banding no more bleeding since and doing ok denies abdominal pain Review of Systems Review of Systems: All systems reviewed & are unremarkable except as noted in HPI and below Exam Const: General: comfortable HENMT: Face/Nose/Sinus: Normal nares present Eyes: Sclera: sclerae normal Neck: Neck: supple Resp: Effort & Inspection: normal respiratory effort Cardio: Rate: regular rate GI: GI Palp: Yes Soft to palpation and No Tenderness to palpation present (GI) Auscultation: normal bowel sounds Skin: General skin exam: no rashes or lesions noted Neuro: Speech: normal speech Motor exam (neuro): 5/5 motor strength present throughout Sensory Exam: normal sensation Extrem: General: normal to inspection Psych: Mental Status: mental status grossly normal Objective Data Vital Signs Vital Signs: Vital Signs - 24 hr 10/20/23 16:00 10/20/23 16:00 10/20/23 16:00 Temperature 97.8 F Pulse Rate 70 70 70 Respiratory Rate 15 15 Blood Pressure 138/93 H Pulse Oximetry 99 99 Oxygen Delivery Room Air 10/20/23 18:30 10/20/23 18:00 10/20/23 20:20 Temperature 98.0 F Pulse Rate 72 68 81 Respiratory Rate 15 Blood Pressure 139/76 Pulse Oximetry 97 Oxygen Delivery 10/20/23 20:00 10/20/23 22:00 10/20/23 20:00 Temperature Pulse Rate 85 89 89 Respiratory Rate 15 Blood Pressure Pulse Oximetry 97 Oxygen Delivery Room Air 10/21/23 00:00 10/21/23 00:00 10/21/23 00:00 Temperature 97.6 F Pulse Rate 89 94 96 Respiratory Rate 15 15 Blood Pressure 151/64 H Pulse Oximetry 97 99 Oxygen Delivery Room Air 10/21/23 04:00 10/21/23 04:16 10/21/23 05:38 Temperature 98.8 F Pulse Rate 96 89 98 Respiratory Rate 15 15 Blood Pressure 110/69 Pulse Oximetry 99 96 Oxygen Delivery Room Air 10/21/23 02:00 10/21/23 04:00 10/21/23 06:22 Temperature Pulse Rate 65 88 79 Respiratory Rate Blood Pressure Pulse Oximetry Oxygen Delivery 10/21/23 07:29 10/21/23 11:33 10/21/23 08:00 Temperature 97 F L 97.7 F Pulse Rate 78 73 77 Respiratory Rate 14 16 Blood Pressure 131/68 120/68 Pulse Oximetry 97 98 Oxygen Delivery 10/21/23 08:00 10/21/23 10:00 10/21/23 12:00 Temperature Pulse Rate 73 Respiratory Rate Blood Pressure Pulse Oximetry Oxygen Delivery Room Air Room Air 10/21/23 12:00 Temperature Pulse Rate 79 Respiratory Rate Blood Pressure Pulse Oximetry Oxygen Delivery Intake/Output Intake/Output: Intake & Output 10/18/23 10/19/23 10/20/23 10/21/23 23:59 23:59 23:59 23:59 Intake Total 2873.8 1787.8 Output Total 800 Balance
--- NOTE | 2023-10-21 16:51 | PM.IMPN ---
Progress Note: A&P Assessment and Plan (1) Upper GI bleed: Code(s): K92.2 - Gastrointestinal hemorrhage, unspecified Status: Acute Assessment and Plan: Pt had emergent EGD showing oscar varices with banding Pt is on protonix IV and octreotide IV and iv fluids Hb is stable at 10 GI rounding continue to watch in the hospital Pt denies alcohol history of MUÑOZ watch hb levels (2) Esophageal varices: Code(s): I85.00 - Esophageal varices without bleeding Status: Acute Assessment and Plan: Pt had emergent EGD showing oscar varices with banding Pt is on protonix IV and octreotide IV Hb is stable at 10 GI rounding continue to watch in the hospital Pt denies alcohol history of MUÑOZ (3) Cirrhosis of liver: Code(s): K74.60 - Unspecified cirrhosis of liver Status: Acute Assessment and Plan: history of MUÑOZ (4) Prediabetes: Code(s): R73.03 - Prediabetes Status: Acute Assessment and Plan: Watching blood sugar levels (5) Thrombocytopenia: Code(s): D69.6 - Thrombocytopenia, unspecified Status: Acute Assessment and Plan: Watching plts (6) Obstructive sleep apnea on CPAP: Code(s): G47.33 - Obstructive sleep apnea (adult) (pediatric) Status: Acute Plan The patient presented to the emergency department for evaluation of epigastric discomfort, dark stools, and hematemesis as detailed in HPI. Labs, imaging, EKG, and all reports were personally reviewed. He was taken for urgent EGD per Dr. Adamson who noted stigmata of recent bleeding from esophageal varices which were banded and mild gastritis. He recommends continuing octreotide drip for 72 hours in addition to ceftriaxone. Hemoglobin and hematocrit will be trended and he will be transfused if indicated. No evidence to suggest decompensated cirrhosis. Mild thrombocytopenia is related to his liver disease and will be monitored. Random glucose was 243. Subjective Date/time seen: 10/21/23 16:51 Interval history: Pt admitted with hematemesis Pt had emergent EGD showing oscar varices with banding Pt denies any compliants Review of Systems Review of Systems: Continue to watch on full liquids today No acute issues today Exam Narrative: General: Well-developed gentleman Respiratory: Lungs are clear to auscultation bilaterally. Cardiovascular: Regular rate and rhythm with S1-S2. Gastrointestinal: Abdomen is soft, nontender, and nondistended with positive bowel sounds. Skin: Warm and dry. Extremities: No cyanosis, clubbing, or edema. Radial and pedal pulses intact. Neurological: Alert. Cranial nerves 2-12 are grossly intact. No gross focal deficits to casual conversation. Psychiatric: Pleasant and cooperative with normal mood and affect. Judgment and insight intact. He is in good spirits. Objective Data Vital Signs Vital Signs: Vital Signs - 24 hr 10/20/23 18:30 10/20/23 18:00 10/20/23 20:20 Temperature 36.7 C Pulse Rate 72 68 81 Respiratory Rate 15 Blood Pressure 139/76 Pulse Oximetry 97 Oxygen Delivery 10/20/23 20:00 10/20/23 22:00 10/20/23 20:00 Temperature Pulse Rate 85 89 89 Respiratory Rate 15 Blood Pressure Pulse Oximetry 97 Oxygen Delivery Room Air 10/21/23 00:00 10/21/23 00:00 10/21/23 00:00 Temperature 36.4 C Pulse Rate 89 94 96 Respiratory Rate 15 15 Blood Pressure 151/64 H Pulse Oximetry 97 99 Oxygen Delivery Room Air 10/21/23 04:00 10/21/23 04:16 10/21/23 05:38 Temperature 37.1 C Pulse Rate 96 89 98 Respiratory Rate 15 15 Blood Pressure 110/69 Pulse Oximetry 99 96 Oxygen Delivery Room Air 10/21/23 02:00 10/21/23 04:00 10/21/23 06:22 Temperature Pulse Rate 65 88 79 Respiratory Rate Blood Pressure Pulse Oximetry Oxygen Delivery 10/21/23 07:29 10/21/23 11:33 10/21/23 08:00 Temperature 36.1 C L 36.5 C Pulse Rate 78 73 77
[2023-10-21 18:32] LABS: Glucose Point of Care 168 mg/dl (65-105)
[2023-10-21 20:52] LABS: Glucose Point of Care 196 mg/dl (65-105)
[2023-10-22] VITALS (12 sets, daily range): BP systolic 114–127; BP diastolic 60–69; PULSE 79–99; RESP 16–18; TEMP 36.2–37.5; O2SAT 92–96
[2023-10-22 04:57] LABS: Hematocrit 32.5 % (42.0-52.0); Hemoglobin 10.3 g/dL (14.0-18.0); Mean Corpuscular HGB Conc 31.7 g/dl (32-36); Mean Corpuscular Hemoglobin 29.6 pg (26-34); Mean Corpuscular Volume 93.4 fl (80-100); Mean Platelet Volume 12.1 fl (7.4-10.4); Platelet Count Result 106 k/mm3 (150-375); Red Blood Count 3.48 M/mm3 (4.6-6.20); Red Cell Distribution Width 16.3 % (11.5-14.5); White Blood Count 8.4 K/mm3 (4.5-10.0)
[2023-10-22] MEDS: carvediloL 3.125 MG TABLET PO (05:19)
[2023-10-22 05:20] LABS: Anion Gap 11 mmol/L (4-12); Blood Urea Nitrogen 15 mg/dL (9-20); Calcium 8.1 mg/dL (8.4-10.2); Carbon Dioxide 20 mmol/L (22-30); Chloride 104 mmol/L (98-107); Estimated CRCL calculation 71 ml/min; Estimated Glomerular Filt Rate > 60; Glucose 189 mg/dL (65-110); Potassium 3.7 mmol/L (3.4-5.0); Sodium 135 mmol/L (137-145)
[2023-10-22] MEDS: PANTOPRAZOLE SODIUM IV 40 MG VIAL IV PUSH (08:00)
[2023-10-22 09:16] LABS: Glucose Point of Care 194 mg/dl (65-105)
--- NOTE | 2023-10-22 11:52 | PM.IMPN ---
Progress Note: A&P Assessment and Plan (1) Obstructive sleep apnea on CPAP: Code(s): G47.33 - Obstructive sleep apnea (adult) (pediatric) Status: Acute (2) Upper GI bleed: Code(s): K92.2 - Gastrointestinal hemorrhage, unspecified Status: Acute Assessment and Plan: Pt had emergent EGD showing oscar varices with banding Pt is on protonix IV and octreotide IV and iv rocephin Hb is stable at 10 GI rounding continue to watch in the hospital Pt denies alcohol history of MUÑOZ watch hb levels pt doing well post banding advance diet today hopeful DC today or tomorrow continue present treatment (3) Esophageal varices: Code(s): I85.00 - Esophageal varices without bleeding Status: Acute Assessment and Plan: Pt had emergent EGD showing oscar varices with banding Pt is on protonix IV and octreotide IV Hb is stable at 10 GI rounding continue to watch in the hospital Pt denies alcohol history of MUÑOZ (4) Cirrhosis of liver: Code(s): K74.60 - Unspecified cirrhosis of liver Status: Acute Assessment and Plan: history of MUÑOZ (5) Prediabetes: Code(s): R73.03 - Prediabetes Status: Acute Assessment and Plan: Watching blood sugar levels (6) Thrombocytopenia: Code(s): D69.6 - Thrombocytopenia, unspecified Status: Acute Assessment and Plan: Watching plts Subjective Date/time seen: 10/22/23 11:52 Interval history: Pt admitted with hematemesis Pt had emergent EGD showing oscar varices with banding Pt denies any compliants Pt is advancing to DM diet today no mention of any abdominal pains Review of Systems Review of Systems: pt is doing well no acute issues Exam Narrative: General: Well-developed gentleman Respiratory: Lungs are clear to auscultation bilaterally. Cardiovascular: Regular rate and rhythm with S1-S2. Gastrointestinal: Abdomen is soft, nontender, and nondistended with positive bowel sounds. Skin: Warm and dry. Extremities: No cyanosis, clubbing, or edema. Radial and pedal pulses intact. Neurological: Alert. Cranial nerves 2-12 are grossly intact. No gross focal deficits to casual conversation. Psychiatric: Pleasant and cooperative with normal mood and affect. Judgment and insight intact. He is in good spirits. Objective Data Vital Signs Vital Signs: Vital Signs - 24 hr 10/21/23 12:00 10/21/23 12:00 10/21/23 15:25 Temperature 36.6 C Pulse Rate 79 79 Respiratory Rate 18 Blood Pressure 127/73 Pulse Oximetry 96 Oxygen Delivery Room Air 10/21/23 17:29 10/21/23 14:00 10/21/23 16:00 Temperature Pulse Rate 86 90 82 Respiratory Rate Blood Pressure Pulse Oximetry Oxygen Delivery 10/21/23 16:00 10/21/23 18:00 10/21/23 20:19 Temperature 37.0 C Pulse Rate 78 92 Respiratory Rate 18 Blood Pressure 127/68 Pulse Oximetry 95 Oxygen Delivery Room Air 10/21/23 20:00 10/21/23 20:00 10/21/23 21:34 Temperature Pulse Rate 98 98 100 Respiratory Rate 18 Blood Pressure Pulse Oximetry 95 Oxygen Delivery Room Air 10/21/23 23:50 10/22/23 00:00 10/22/23 00:00 Temperature 36.3 C L Pulse Rate 101 H 99 99 Respiratory Rate 18 18 Blood Pressure 116/53 L Pulse Oximetry 94 94 Oxygen Delivery CPAP 10/22/23 02:00 10/22/23 04:00 10/22/23 04:00 Temperature Pulse Rate 84 79 79 Respiratory Rate 18 Blood Pressure Pulse Oximetry 94 Oxygen Delivery CPAP 10/22/23 05:15 10/22/23 05:19 10/22/23 06:00 Temperature 36.2 C L Pulse Rate 81 94 87 Respiratory Rate 18 Blood Pressure 127/65 Pulse Oximetry 96 Oxygen Delivery 10/22/23 07:31 10/22/23 08:00 10/22/23 08:00 Temperature 37.0 C Pulse Rate 96 88 96 Respiratory Rate 16 16 Blood Pressure 114/69 Pulse Oximetry 95 95 Oxygen Delivery Room Air 10/22/23 08:40 Temperature Pulse Rate Respiratory Rate Blo
[2023-10-22] MEDS: cefTRIAXone 2 GM/NS 100 ML 2 GM/100 ML BAG IVPB (13:04)
--- NOTE | 2023-10-22 14:31 | WPDGIPROGNO ---
Progress Note: A&P Assessment and Plan (1) Esophageal varices: Code(s): I85.00 - Esophageal varices without bleeding Status: Acute Assessment and Plan: this was cause of bleeding, no more active bleeding during scope, banded x2 ok to discontinue octreotide today and he can go home protonix daily tolerating diet egd in 6 weeks (2) Upper GI bleed: Code(s): K92.2 - Gastrointestinal hemorrhage, unspecified Status: Acute Assessment and Plan: resolved (3) Cirrhosis of liver: Code(s): K74.60 - Unspecified cirrhosis of liver Status: Acute Assessment and Plan: probably yadav already established with [facility] hepatology, will need follow-up (4) Type 2 diabetes mellitus: Code(s): E11.9 - Type 2 diabetes mellitus without complications Status: Acute (5) Acute blood loss anemia: Code(s): D62 - Acute posthemorrhagic anemia Status: Acute Assessment and Plan: h/h stable at 10, no more bleeding (6) Hypertension: Qualifiers: Hypertension type: primary hypertension Qualified Code(s): I10 - Essential (primary) hypertension Code(s): I10 - Essential (primary) hypertension Status: Acute Subjective Date/time seen: 10/22/23 14:31 Interval history: doing great, no more bleeding since admission, tolerating diet Review of Systems Review of Systems: All systems reviewed & are unremarkable except as noted in HPI and below Exam Const: General: comfortable HENMT: Face/Nose/Sinus: Normal nares present Eyes: Sclera: sclerae normal Neck: Neck: supple Resp: Effort & Inspection: normal respiratory effort Cardio: Rate: regular rate GI: GI Palp: Yes Soft to palpation and No Tenderness to palpation present (GI) Auscultation: normal bowel sounds Skin: General skin exam: no rashes or lesions noted Neuro: Speech: normal speech Motor exam (neuro): 5/5 motor strength present throughout Sensory Exam: normal sensation Extrem: General: normal to inspection Psych: Mental Status: mental status grossly normal Objective Data Vital Signs Vital Signs: Vital Signs - 24 hr 10/21/23 15:25 10/21/23 17:29 10/21/23 16:00 Temperature 98 F Pulse Rate 79 86 82 Respiratory Rate 18 Blood Pressure 127/73 Pulse Oximetry 96 Oxygen Delivery 10/21/23 16:00 10/21/23 18:00 10/21/23 20:19 Temperature 98.6 F Pulse Rate 78 92 Respiratory Rate 18 Blood Pressure 127/68 Pulse Oximetry 95 Oxygen Delivery Room Air 10/21/23 20:00 10/21/23 20:00 10/21/23 21:34 Temperature Pulse Rate 98 98 100 Respiratory Rate 18 Blood Pressure Pulse Oximetry 95 Oxygen Delivery Room Air 10/21/23 23:50 10/22/23 00:00 10/22/23 00:00 Temperature 97.4 F L Pulse Rate 101 H 99 99 Respiratory Rate 18 18 Blood Pressure 116/53 L Pulse Oximetry 94 94 Oxygen Delivery CPAP 10/22/23 02:00 10/22/23 04:00 10/22/23 04:00 Temperature Pulse Rate 84 79 79 Respiratory Rate 18 Blood Pressure Pulse Oximetry 94 Oxygen Delivery CPAP 10/22/23 05:15 10/22/23 05:19 10/22/23 06:00 Temperature 97.2 F L Pulse Rate 81 94 87 Respiratory Rate 18 Blood Pressure 127/65 Pulse Oximetry 96 Oxygen Delivery 10/22/23 07:31 10/22/23 08:00 10/22/23 08:00 Temperature 98.6 F Pulse Rate 96 88 96 Respiratory Rate 16 16 Blood Pressure 114/69 Pulse Oximetry 95 95 Oxygen Delivery Room Air 10/22/23 08:40 10/22/23 12:00 Temperature 98.6 F Pulse Rate 83 Respiratory Rate 18 Blood Pressure 114/60 Pulse Oximetry 92 95 Oxygen Delivery Room Air Intake/Output Intake/Output: Intake & Output 10/19/23 10/20/23 10/21/23 10/22/23 23:59 23:59 23:59 23:59 Intake Total 2873.8 3727.8 1440 Output Total 800 Balance 2073.8 3727.8 1440 Meds/Results Medications: Active Medications Generic Name Dose Route Start Last Admin Trade Name Freq PRN Reason Stop Dose Admin Ca
[2023-10-22 16:26] LABS: Glucose Point of Care 183 mg/dl (65-105)
--- NOTE | 2023-10-22 17:26 | PM.DS ---
DS: Admitting Diagnosis Discharge Date 10/22/2023 Admitting Diagnosis Abdominal pain and dark stools. DS: Discharge Diagnosis Discharge Diagnosis (1) Obstructive sleep apnea on CPAP: Code(s): G47.33 - Obstructive sleep apnea (adult) (pediatric) Status: Acute (2) Upper GI bleed: Code(s): K92.2 - Gastrointestinal hemorrhage, unspecified Status: Acute Assessment and Plan: Pt had emergent EGD showing oscar varices with banding Pt is on protonix IV and octreotide IV and iv rocephin Hb is stable at 10 GI rounding continue to watch in the hospital Pt denies alcohol history of MUÑOZ watch hb levels pt doing well post banding advance diet today hopeful DC today stop iv s (3) Esophageal varices: Code(s): I85.00 - Esophageal varices without bleeding Status: Acute Assessment and Plan: Pt had emergent EGD showing oscar varices with banding Pt is on protonix IV and octreotide IV Hb is stable at 10 GI rounding continue to watch in the hospital Pt denies alcohol history of MUÑOZ (4) Cirrhosis of liver: Code(s): K74.60 - Unspecified cirrhosis of liver Status: Acute Assessment and Plan: history of MUÑOZ (5) Prediabetes: Code(s): R73.03 - Prediabetes Status: Acute Assessment and Plan: Watching blood sugar levels (6) Thrombocytopenia: Code(s): D69.6 - Thrombocytopenia, unspecified Status: Acute Assessment and Plan: Watching plts DS: Summary Hospital Course Hospital Course: Pt admitted with hematemesis Pt had emergent EGD showing oscar varices with banding Pt denies any compliants Pt is advancing to DM diet today no mention of any abdominal pains Time Spent with Patient Time attestation: Total time spent providing and/or coordinating discharge services:40 minutes on day of DC Exam Narrative: General: Well-developed gentleman Respiratory: Lungs are clear to auscultation bilaterally. Cardiovascular: Regular rate and rhythm with S1-S2. Gastrointestinal: Abdomen is soft, nontender, and nondistended with positive bowel sounds. Skin: Warm and dry. Extremities: No cyanosis, clubbing, or edema. Radial and pedal pulses intact. Neurological: Alert. Cranial nerves 2-12 are grossly intact. No gross focal deficits to casual conversation. Psychiatric: Pleasant and cooperative with normal mood and affect. Judgment and insight intact. He is in good spirits. DS: Data Data Completed and Pending Labs on day of discharge: Labs from last 24 hours 10/22/23 10/22/23 10/22/23 15:37 07:37 04:15 WBC 8.4 RBC 3.48 L Hgb 10.3 L Hct 32.5 L MCV 93.4 MCH 29.6 MCHC 31.7 L RDW 16.3 H Plt Count 106 L MPV 12.1 H Sodium 135 L Potassium 3.7 Chloride 104 Carbon Dioxide 20 L Anion Gap 11 BUN 15 Creatinine 1.20 Estim Creat Clear Calc 71 Estimated GFR > 60 Glucose 189 H POC Capillary Glucose 183 H 194 H Calcium 8.1 L 10/21/23 10/21/23 20:48 15:59 WBC RBC Hgb Hct MCV MCH MCHC RDW Plt Count MPV Sodium Potassium Chloride Carbon Dioxide Anion Gap BUN Creatinine Estim Creat Clear Calc Estimated GFR Glucose POC Capillary Glucose 196 H 168 H Calcium Discharge Plan Discharge Attending physician on discharge: Nelly Clemons Consulting providers: Alberto Adamson Discharging Clinician: Nelly Clemons Anticipated Discharge Date/Time: 10/22/23 17:24 Patient Disposition: Home, Self-Care Activity: as tolerated Diet: bland Patient Instructions: Antibiotic Form, Gastrointestinal Bleeding (DC), Cirrhosis of the Liver (DC), Hemochromatosis (DC) Stand Alone Forms: General Discharge Information Follow-up/Referrals: Piyush Peguero PA-C [Primary Care Provider] - Alberto Adamson MD [Physician] - (rpt EGD in 6 weeks time ) Disch
[2023-10-22 20:27] LABS: Glucose Point of Care 184 mg/dl (65-105)
== END 2023-10-22 18:14 | disposition home or self-care (01) | DRG 370 ==
LOC: ANHED 08:07 → ANHIMU 09:05 → ANHICU 09:46 → ANHIMU 18:50
PROVIDERS: Internal Medicine Gastroenterology; Physician Assistant; Admitting Provider Family Medicine; Emergency Provider Emergency Medicine; PCP Physician Assistant; Visit Provider Family Medicine
PROC: 0DJ08ZZ Inspection of Upper Intestinal Tract, Via Natural or Artificial Opening Endoscopic (ICD-10-PCS; CPT 43235; principal; 2023-10-20 14:30)
DX: I85.01 Esophageal varices with bleeding (principal); G47.33 Obstructive sleep apnea (adult) (pediatric); K75.81 Nonalcoholic steatohepatitis (NASH); R73.03 Prediabetes; D69.6 Thrombocytopenia, unspecified; K92.1 Melena; I10 Essential (primary) hypertension; K29.70 Gastritis, unspecified, without bleeding; K74.69 Other cirrhosis of liver; Z95.0 Presence of cardiac pacemaker; Z79.82 Long term (current) use of aspirin
CPT/HCPCS: 36415; 80048; 80053; 82948; 83036; 83605; 83735; 85014; 85018; 85025; 85027; 85055; 85610; 85730; 86850; 86900; 86901; 96361; 96374; 96375; 99285; A9270; C9113; J0330; J0696; J2354; J2405; J2704; J2765; J7030; J7040; J7120

== ENCOUNTER 2023-12-01 00:13 | Day surgery (SDC) | payer OTHER, SELFPAY ==
[2023-11-16 10:44] VITALS: BMI 31.1
[2023-12-01 13:45] VITALS: BP 116/74; PULSE 61; RESP 61; TEMP 36.1; O2SAT 98
[2023-12-01] MEDS: LACTATED RINGERS 1,000 ML 150 ML IV CONT (13:55)
--- NOTE | 2023-12-01 14:06 | WPDANESEPPF ---
Anes - Initial Pre Proc Eval Procedure: Operation Date: 12/01/23 15:00 Proposed Procedures p Esophagogastroduodenoscopy - Alberto Adamson MD Date/Time: 12/01/23 14:06 Surgeon: Alberto Adamson MD Pre Op Diagnosis: Esophageal varices Patient Data Age: 63 Gender: M Height: 1.85 m Weight: 107.3 kg Last Vital Signs Temp 97 F L 12/01/23 13:45 Pulse 61 12/01/23 13:45 Resp 61 H 12/01/23 13:45 BP 116/74 12/01/23 13:45 Pulse Ox 98 12/01/23 13:45 O2 Del Method Room Air 12/01/23 13:45 Allergies Allergy/AdvReac Type Severity Reaction Status Date / Time No Known Allergies Allergy Verified 12/01/23 13:44 Home Medications Medication Instructions Recorded Confirmed Type hydrochlorothiazide 12.5 mg tablet 12.5 mg PO DAILY #30 tabs 12/05/22 11/16/23 Rx lisinopril 40 mg tablet 40 mg PO DAILY #30 tabs 12/31/22 11/16/23 Rx carvedilol 3.125 mg tablet 3.125 mg PO Q12H 10/15/23 11/16/23 History pantoprazole 40 mg tablet,delayed 40 mg PO QAM #90 tabs 11/24/23 Rx release Patient hx anesthesia problems: none Family hx anesthesia problems: none Results Review: All pre-operative results and documents have been reviewed as part of the pre-operative evaluation. [facility] Past Medical History Medical History Cirrhosis of liver Suspected MUÑOZ per [facility] hepatology Esophageal varices Heart disease Hypertension Obstructive sleep apnea on CPAP Prediabetes Pseudogout Thrombocytopenia Surgical History Surgical History History of inguinal hernia repair History of permanent cardiac pacemaker placement (2021) History of umbilical hernia repair History of vasectomy Family History Family History Sibling Family history of migraine headaches Patient's sister is in good health Patient's brother is in good health Father Hypertension Mother Family history of lung cancer Patient's mother is Other Cerebrovascular accident Family history of cardiovascular disease Social History Social History Social History: Surrogate medical decision maker: Ayah Mason, significant other. Code status: Full code. Smoking status: Never smoker Alcohol intake: current Alcohol use details: monthly Substance use: never Substance use type: does not use Do You Feel Safe in your Home?: Yes Lack of Transportation: No Lack of Food: Never True Current Housing: I Have Housing Concerned About Future Housing: No Difficulty Paying Gas/Electric Bills: No Difficulty Paying for Meds: No Currently Unemployed: No Education: High School Diploma/GED Difficulty w/ Childcare or Family Care: No Living arrangements: with family Additional living arrangements comments: Lives with significant other. 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 Spiritual care concerns: No Anes - Eval Final PreProcedure Day of Procedure 12/01/23 14:06 Patient weight: obese Heart: regular rate and rhythm Lungs: clear to auscultation Airway: Mallampati scale and special considerations (Missing many in the post aspect, upper and lower. ) Neurological: alert and oriented Last oral intake: >/= 8 hours ASA classification: III Emergent: no Anesthetic plan: proceed Anesthesia type and monitoring: general GIVS and standard monitoring Results Review: All pre-operative results and documents have been reviewed as part of the pre-operative evaluation. Hx of MUÑOZ/varices, hx of anemia, now for f/u of varices. HTN, hyperlipidemia, YOGESH on CPAP (severe per pt). Informed Consent: The patient's anesthetic plan and its attendant risks and benefits were discussed with the patient/family/POA. Questions were solic
--- NOTE | 2023-12-01 14:11 | PM.HPGS ---
History of Present Illness History of Present Illness Consent: Risks, benefits, and alternatives have been discussed and questions answered. Patient agrees to proceed with procedure. Chief complaint: Esophageal varices Narrative: Tevin Huber is a 63 year old male with known history of bleeding EV s/p banding, no issues since last hospitalization. Here for another EGD to reassess. Review of Systems Review of Systems: All systems reviewed & are unremarkable except as noted in HPI and below PMFSH Past Medical History Medical History Cirrhosis of liver Suspected MUÑOZ per [facility] Esophageal varices Heart disease Hypertension Obstructive sleep apnea on CPAP Prediabetes Pseudogout Thrombocytopenia Surgical History Surgical History History of inguinal hernia repair History of permanent cardiac pacemaker placement (2021) History of umbilical hernia repair History of vasectomy Family History Family History Sibling Family history of migraine headaches Patient's sister is in good health Patient's brother is in good health Father Hypertension Mother Family history of lung cancer Patient's mother is Other Cerebrovascular accident Family history of cardiovascular disease Social History Social History Social History: Surrogate medical decision maker: Ayah Mason, significant other. Code status: Full code. Smoking status: Never smoker Alcohol intake: current Alcohol use details: monthly Substance use: never Substance use type: does not use Do You Feel Safe in your Home?: Yes Lack of Transportation: No Lack of Food: Never True Current Housing: I Have Housing Concerned About Future Housing: No Difficulty Paying Gas/Electric Bills: No Difficulty Paying for Meds: No Currently Unemployed: No Education: High School Diploma/GED Difficulty w/ Childcare or Family Care: No Living arrangements: with family Additional living arrangements comments: Lives with significant other. 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 Spiritual care concerns: No Meds Home Medications and Allergies Home Medications Medication Instructions Recorded Confirmed Type hydrochlorothiazide 12.5 mg tablet 12.5 mg PO DAILY #30 tabs 12/05/22 11/16/23 Rx lisinopril 40 mg tablet 40 mg PO DAILY #30 tabs 12/31/22 11/16/23 Rx carvedilol 3.125 mg tablet 3.125 mg PO Q12H 10/15/23 11/16/23 History pantoprazole 40 mg tablet,delayed 40 mg PO QAM #90 tabs 11/24/23 Rx release Allergies Allergy/AdvReac Type Severity Reaction Status Date / Time No Known Allergies Allergy Verified 12/01/23 13:44 Vital Signs Vital Signs - 24 hr 12/01/23 13:45 Temperature 97 F L Pulse Rate 61 Respiratory Rate 61 H Blood Pressure 116/74 Pulse Oximetry 98 Oxygen Delivery Room Air Exam Const: General: comfortable and no acute distress HENMT: Face/Nose/Sinus: Normal nares present Eyes: General: appearance normal, both eyes and all related structures Neck: Neck: no JVD Resp: Auscultation: clear to auscultation bilaterally Cardio: Rate: regular rate Rhythm: regular rhythm GI: Inspection: non-distended GI Palp: Yes Soft to palpation Skin: General skin exam: normal color Neuro: General: gait normal Speech: normal speech Extrem: General: normal to inspection Psych: Mental Status: mental status grossly normal Assessment and Plan Assessment and plan (1) Esophageal varices: Code(s): I85.00 - Esophageal varices without bleeding Status: Acute Assessment and Plan: egd to assess on coreg (2) Cirrhosis of liver: Code(s): K74.60 - Unspecified cirrhosis of liver
[2023-12-01 14:23] VITALS: BP 97/63; PULSE 68; RESP 17; O2SAT 97
[2023-12-01 14:33] VITALS: BP 102/61; PULSE 63; RESP 17; O2SAT 97
[2023-12-01 14:43] VITALS: BP 102/65; PULSE 60; RESP 16; O2SAT 97
== END 2023-12-01 14:52 | disposition home or self-care (01) ==
PROVIDERS: PCP Physician Assistant; Visit Provider Internal Medicine Gastroenterology
PROC: 0DJ08ZZ Inspection of Upper Intestinal Tract, Via Natural or Artificial Opening Endoscopic (ICD-10-PCS; CPT 43235; principal; 2023-12-01 15:00)
DX: K74.60 Unspecified cirrhosis of liver (principal); I85.10 Secondary esophageal varices without bleeding; K29.70 Gastritis, unspecified, without bleeding; I10 Essential (primary) hypertension; G47.33 Obstructive sleep apnea (adult) (pediatric); Z99.89 Dependence on other enabling machines and devices
CPT/HCPCS: 43235; J2001; J2704; J7120

== ENCOUNTER 2024-02-12 13:39 | Outpatient (CLI) | payer OTHER, SELFPAY ==
[2024-02-12 14:39] LABS: Iron 51 ug/dL (49-181)
[2024-02-12 14:44] LABS: Basophils Absolute Auto 0.1 K/mm3 (0.0-0.1); Basophils Percent Auto 1.3 % (0.2-1.2); Eosinophils Absolute Auto 0.1 K/mm3 (0-0.3); Eosinophils Percent Auto 1.8 % (0-4.4); Hematocrit 31.3 % (42.0-52.0); Hemoglobin 9.4 g/dL (14.0-18.0); Immature Granulocyte Absolute 0.02 K/mm3 (0.00-0.031); Immature Granulocyte Percent A 0.5 % (0-0.5); Lymphocytes Absolute Auto 1.08 K/mm3 (0.9-3.2); Mean Corpuscular Hemoglobin 26.9 pg (26-34); Mean Corpuscular Volume 89.4 fl (80-100); Mean Platelet Volume 11.8 fl (7.4-10.4); Monocytes Absolute Auto 0.4 K/mm3 (0.1-0.6); Neutrophils Absolute Auto 2.3 K/mm3 (1.3-6.7); Neutrophils Percent Auto 58.4 % (45.5-73.1); Platelet Count Result 142 k/mm3 (150-375); Red Cell Distribution Width 15.6 % (11.5-14.5)
[2024-02-12 14:45] LABS: Alanine Aminotransferase 23 U/L (6-50); Albumin Level 3.8 g/dL (3.5-5.1); Alkaline Phosphatase 117 U/L (38-126); Anion Gap 11 mmol/L (4-12); Aspartate Amino Transferase 64 U/L (17-59); Bilirubin,Total 1.2 mg/dL (0.2-1.3); Blood Urea Nitrogen 12 mg/dL (9-20); Calcium 8.7 mg/dL (8.4-10.2); Carbon Dioxide 23 mmol/L (22-30); Chloride 101 mmol/L (98-107); Estimated Glomerular Filt Rate > 60; Glucose 229 mg/dL (65-110); Potassium 4.3 mmol/L (3.4-5.0); Sodium 135 mmol/L (137-145)
[2024-02-12 14:50] LABS: Percent Iron Saturation 11 % (20-50)
[2024-02-12 15:07] LABS: Creatinine Urine 90.9 mg/dL
[2024-02-12 15:10] LABS: MALB Creatinine Ratio 9.8 mg/g (0-30); Microalbumin Urine Random 8.9 mg/L (0-16.7)
[2024-02-12 15:15] LABS: Ferritin 9.87 ng/mL (11.1-264)
[2024-02-12 15:46] LABS: Folic Acid 5.4 ng/mL (2.76->20)
[2024-02-15 13:21] LABS: Hemoglobin A1C 6.7 % (<5.7)
== END 2024-02-12 13:40 | disposition home or self-care (01) ==
LOC: ANHGOSHLAB 13:40
PROVIDERS: PCP Clinical Nurse Specialist; Visit Provider Clinical Nurse Specialist
DX: R74.8 Abnormal levels of other serum enzymes (principal); D64.9 Anemia, unspecified; D69.6 Thrombocytopenia, unspecified; E11.9 Type 2 diabetes mellitus without complications; I10 Essential (primary) hypertension; K74.60 Unspecified cirrhosis of liver
CPT/HCPCS: 36415; 80053; 82043; 82607; 82728; 82746; 83036; 83540; 83550; 84443; 85025

== ENCOUNTER 2024-02-24 14:21 | Outpatient (CLI) | payer OTHER, SELFPAY ==
--- NOTE | ~2024-02-24 | US_ITS ---
COMPLETE ABDOMINAL ULTRASOUND Ordering provider: Neena Conway History: . CIRRHOSIS OF LIVER WITHOUT ASCITES . Comparison: None. FINDINGS: LIVER: Hepatomegaly. Echogenicity suggestive of fat infiltration. No focal hepatic lesions or perihep atic fluid collections are identified. Portal vein flow is normal. GALLBLADDER: Distended. Unremarkable. No evidence for stones, sludge, gallbladder wall thickening or pericholecystic fluid collections. A negative sonographic Lagunas's sign was noted. BILIARY DUCTS: No evidence for intra or extrahepatic biliary dilation. Common bile duct measures 4 mm in diameter which is within normal limits. PANCREAS: Not well demonstrated. UPPER ABDOMINAL AORTA: Normal in caliber. IVC: Patent. FREE FLUID: None. IMPRESSION: Hepatomegaly with fat infiltration. Distended gallbladder with no stones. Otherwise, Unremarkable com plete ultrasound of the abdomen. Reviewed, dictated and finalized at location A. IMPRESSION: Hepatomegaly with fat infiltration. Distended gallbladder with no stones. Other laguerre, Unremarkable complete ultrasound of the abdomen.
== END 2024-02-24 14:22 | disposition home or self-care (01) ==
LOC: ANHIMG 14:22
PROVIDERS: PCP Clinical Nurse Specialist
DX: K74.60 Unspecified cirrhosis of liver (principal)
CPT/HCPCS: 76705

== ENCOUNTER 2024-05-13 10:19 | Outpatient (CLI) | payer OTHER, SELFPAY ==
[2024-05-13 14:36] LABS: Basophils Percent Auto 1.1 % (0.2-1.2); Eosinophils Absolute Auto 0.1 K/mm3 (0-0.3); Eosinophils Percent Auto 1.4 % (0-4.4); Hematocrit 33.1 % (42.0-52.0); Hemoglobin 9.7 g/dL (14.0-18.0); Immature Granulocyte Absolute 0.01 K/mm3 (0.00-0.031); Immature Granulocyte Percent A 0.3 % (0-0.5); Lymphocytes Absolute Auto 1.21 K/mm3 (0.9-3.2); Lymphocytes Percent Auto 33.2 % (18.3-44.2); Mean Corpuscular HGB Conc 29.3 g/dl (32-36); Mean Corpuscular Volume 88.7 fl (80-100); Mean Platelet Volume 12.2 fl (7.4-10.4); Monocytes Absolute Auto 0.4 K/mm3 (0.1-0.6); Monocytes Percent Auto 10.4 % (2.6-8.5); Neutrophils Percent Auto 53.6 % (45.5-73.1); Platelet Count Result 130 k/mm3 (150-375); Red Blood Count 3.73 M/mm3 (4.6-6.20); Red Cell Distribution Width 15.9 % (11.5-14.5); White Blood Count 3.7 K/mm3 (4.5-10.0)
[2024-05-13 15:01] LABS: Anion Gap 9 mmol/L (4-12); Blood Urea Nitrogen 16 mg/dL (9-20); Calcium 8.8 mg/dL (8.4-10.2); Carbon Dioxide 23 mmol/L (22-30); Chloride 103 mmol/L (98-107); Estimated Glomerular Filt Rate 55; Glucose 242 mg/dL (65-110); Potassium 4.5 mmol/L (3.4-5.0); Sodium 135 mmol/L (137-145)
[2024-05-13 15:04] LABS: Hypochromasia 1+; Platelet Estimate Slightly Decreased (Adequate); Schistocytes None Seen
[2024-05-13 15:28] LABS: Hemoglobin A1C 8.3 % (<5.7)
== END 2024-05-13 10:20 | disposition home or self-care (01) ==
LOC: ANHGOSHLAB 10:21
PROVIDERS: PCP Clinical Nurse Specialist; Visit Provider Clinical Nurse Specialist
DX: D69.6 Thrombocytopenia, unspecified (principal); D64.9 Anemia, unspecified; E11.9 Type 2 diabetes mellitus without complications
CPT/HCPCS: 36415; 80048; 83036; 85025

== ENCOUNTER 2024-06-27 15:25 | Outpatient (CLI) | payer OTHER, SELFPAY ==
[2024-06-27 16:16] LABS: Basophils Percent Auto 0.7 % (0.2-1.2); Eosinophils Percent Auto 0.7 % (0-4.4); Hematocrit 24.7 % (42.0-52.0); Hemoglobin 7.1 g/dL (14.0-18.0); Immature Granulocyte Absolute 0.02 K/mm3 (0.00-0.031); Immature Granulocyte Percent A 0.4 % (0-0.5); Lymphocytes Absolute Auto 1.51 K/mm3 (0.9-3.2); Lymphocytes Percent Auto 26.7 % (18.3-44.2); Mean Corpuscular HGB Conc 28.7 g/dl (32-36); Mean Corpuscular Hemoglobin 25.5 pg (26-34); Mean Corpuscular Volume 88.8 fl (80-100); Mean Platelet Volume 11.7 fl (7.4-10.4); Monocytes Absolute Auto 0.7 K/mm3 (0.1-0.6); Monocytes Percent Auto 11.5 % (2.6-8.5); Neutrophils Absolute Auto 3.4 K/mm3 (1.3-6.7); Platelet Count Result 155 k/mm3 (150-375); Red Blood Count 2.78 M/mm3 (4.6-6.20); White Blood Count 5.7 K/mm3 (4.5-10.0)
[2024-06-27 17:04] LABS: Anion Gap 12 mmol/L (4-12); Blood Urea Nitrogen 19 mg/dL (9-20); Calcium 8.4 mg/dL (8.4-10.2); Carbon Dioxide 20 mmol/L (22-30); Chloride 106 mmol/L (98-107); Estimated Glomerular Filt Rate 58; Glucose 123 mg/dL (65-110); Potassium 4.5 mmol/L (3.4-5.0); Sodium 138 mmol/L (137-145)
[2024-06-27 17:13] LABS: Anisocytosis 2+; Hypochromasia 1+; Platelet Estimate Adequate (Adequate)
[2024-06-27 17:14] LABS: Schistocytes None Seen
--- OUTSIDE RECORDS SUMMARY | 2024-06-30 14:34 | XMS_ITS | Encounter Summary ---
Author Organization [facility] Address [address] [place] [id number] Care Team Providers Care Plumbing Hardware Assembler Name Role Phone Yeyo Barrera MD Primary Care Provider [phone] No, Physician Primary Care Provider [phone] Piyush Peguero Primary Care Provider Encounter Details Date Type Department Care Team (Late st Contact Info) Description 06/17/2016 Orders Only [facility] ProviderKriss MD [address] [place] [id number] Social History Tobacco Use Types Packs/Day Years Used Date Smoking Tobacco: Never Alcohol Use Standard Drinks/Week Comments Yes 0 (1 standard drink = 0.6 oz pur e alcohol) Sex and Gender Information Value Date Recorded Sex Assigned at Not on file 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 Historical Provider [facility] Final Result documented in this encounter Visit Diagnoses Not on filedocumented in this encounter Care Teams Plumbing Hardware Assembler Relationship Specialty Start Date End Date Yeyo Barrera MD PCP - General 07/13/12 09/28/18 No, Physician PCP - General 09/29/18 11/26/20 Piyush Peguero PA [address] [address] PCP - General Physician Poultry Offal Worker 11/27/20 documented as of this encounter
--- OUTSIDE RECORDS SUMMARY | 2024-06-30 14:34 | XMS_ITS | Clinical Summary ---
Author Organization [facility] Address [address] [place] [phone] Care Team Providers Care Team Truck Driver Name Role Phone Piyush Peguero Primary Care Provider Allergies No known active allergies Medications aspirin 81 mg enteric coated tablet Take 81 mg by mouth daily Active lisinopriL (PRINIVIL,ZESTRI L) 40 mg tablet Take 40 mg by mouth daily 11/23/2020 Active hydroCHLOROthiaz ashwin (HYDRODIURIL) 12.5 mg tablet Take 12.5 mg by mouth daily 11/23/2020 Active Active Problems Problem Noted Date Diagnosed Date Presence of cardiac pacemaker 11/18/2018 Overview (12/17/2023): Otoole Assurity Dual Pacemaker. Dx: CHB. DOI 05/23/2022. Chronic leads 06/17/2012. [place] remote monitoring, office pacer checks Q1 yr. Complete atrioventricular block (CMS/HCC) 2013 Overview (09/11/2016): Complete atrioventricular block Patient with cardiac pacemaker 05/23/2014 Overview (05/23/2022): Otoole Assurity Dual Pacemaker. Dx: CHB. DOI 05/23/2022. Chronic leads 06/17/2012. [place] remote monitoring, office pacer checks Q1 yr. Essential hypertension 05/23/2014 Overview (09/11/2016): Essential hypertension Encounters Date Type Department Care Team Description 06/22/2024 Orders Only [facility] Cardiology [address] [place] [address] [place] [phone] Arron Mason MD NICM (nonischemic cardiomyopathy) (CMS/HCC) (HCC) (Primary Dx); ICD (implantable cardioverter-defibrilla tor) in place; Ventricular fibrillation (CMS/HCC) (HCC); NSVT (nonsustained ventricular tachycardia) (HCC) 06/21/2024 8:00 AM CLAIMS COORDINATOR Ancillary Procedure [facility] Cardiology [address] [place] [address] [place] [phone] Complete atrioventricular block (CMS/HCC) (HCC) from Last 3 Months Surgical History Surgery Date Site/Laterality Comments VENTRAL HERNIA REPAIR Ventral Hernia Repair INSERT / REPLACE / REMOVE PACEMAKER Medical History Medical History Date Comments Hypertension Family History Relation Name Status Comments Mother (Age 54) lung/brain cancer Social History Tobacco Use Types Packs/Day Years Used Date Smoking Tobacco: Never Smokeless Tobacco: Never Alcohol Use Standard Drinks/Week Comments Yes 0 (1 standard drink = 0.6 oz pur e alcohol) Personal Safety Answer Date Recorded Getting School Help Needed Not on file 05/21 Sex and Gender Information Value Date Recorded Sex Assigned at Not on file Legal Sex Male 12:19 AM CLAIMS COORDINATOR Gender Identity Not on file Sexual Orientation Not on file Obstetrics History Last Filed Vital Signs Vital Sign Reading Time Taken Comments Blood Pressure 120/80 05/14/2022 12:07 PM CLAIMS COORDINATOR Pulse 76 05/14/2022 12:07 PM CLAIMS COORDINATOR Temperature - - Respiratory Rate - - Oxygen Saturation 96% 05/14/2022 12:07 PM CLAIMS COORDINATOR Inhaled Oxygen Concentration - - Weight 108.9 kg (240 lb) 05/14/2022 12:07 PM CLAIMS COORDINATOR per pt Height 185.4 cm (6' 1 ) 05/14/2022 12:07 PM CLAIMS COORDINATOR Body Mass Index 31.66 05/14/2022 12:07 PM CLAIMS COORDINATOR Plan of Treatment Health Maintenance Due Date Last Done Comments Colon Cancer Screening-Colonoscopy 1959 Depression Screening 1959 Fall Risk Assessment 1959 Hepatitis C Screening 1959 Prostate Cancer Screening-PSA 1959 Hepatitis B Screening 1977 Zoster Vaccine (1 of 2) 2009 Influenza Vaccine (#1) 2024 06/18/2010 Abdominal Aortic Aneurysm (AAA) Screen 2024 Pneumococcal vaccine 65+ (1 of 1 - PCV) 2024 Well Visit 65+ 2024 DTaP/Tdap/Td Vaccine (2 - Td or Tdap) 10/03/2028 Insurance [facility] H[facility]/PPO Address: [address] [place] [address] [place] [address] [facility] HMO/PPO Address: [address] [address] [place] [address] [facility] HMO/PPO Address: [address] [address] Care Teams Team Truck Driver Relationship Specialty Start Date End Date Piyush Peguero PA [address] [facility] [address] [place], [place] [id number] PCP - General Physician Depot Agent 11/27/20
--- OUTSIDE RECORDS SUMMARY | 2024-06-30 14:34 | XMS_ITS | Patient Health Summary ---
Author Organization [facility] Address [address] [place] [address] Care Team Providers Care Nitro Man Name Role Phone Piyush Peguero PA-C Primary Care Provide r Note from [facility],non-owned Affiliates and Associated Physician Practices is amultiple site organization consisting of ambulatory clinics and hospital sitesin [place], [place], [place] and [place]. This disclosure is being madepursuant to the Care Everywhere program and may not contain all information available regarding this patient. Last updated 18.[facility] Allergies No known active allergies Medications * Be aware that medications may not be up to date on this document. Alwaysverify current medications with the patient. * lisinopril (Prinivil; Zestril) 40 MG tablet(Started 08/16/2023) Take 1 (one) tablet by mouth once daily * hydroCHLOROthiazide 12.5 MG(Started 08/16/2023) Take 1 (one) tablet by mouth once daily * pantoprazole EC (Protonix) 40 MG tablet(Started 08/17/2023) Take 1 (one) tablet by mouth every morning * Magnesium 500 MG * carvedilol (Coreg) 3.125 MG tablet(Started 09/01/2023) Take 1 (one) tablet by mouth 2 times daily 11 refills by 08/31/2024 Social History Tobacco Use Types Packs/Day Years Used Date Smoking Tobacco: Never Smokeless Tobacco: Never Tobacco Cessation:Counseling Given: Not Answered Alcohol Use Standard Drinks/Week Comments Not Currently 0 (1 standard drink = 0.6 oz pur e alcohol) Sex and Gender Information Value Date Recorded Sex Assigned at Not on file Gender Identity Not on file Sexual Orientation Not on file Last Filed Vital Signs Vital Sign Reading Time Taken Comments Blood Pressure 123/83 03/08/2024 9:47 AM CDT Pulse 66 03/08/2024 9:47 AM CDT Temperature 36.8 ??C (98.2 ??F) 09/01/2023 11:24 AM C DT Respiratory Rate - - Oxygen Saturation 99% 03/08/2024 9:47 AM CDT Inhaled Oxygen Concentration - - Weight 110 kg (242 lb 6.4 oz) 03/08/2024 9:47 AM CDT Height 185.4 cm (6' 1 ) 03/08/2024 9:47 AM CDT Body Mass Index 31.98 03/08/2024 9:47 AM CDT Procedures * TSH (EXTERNAL RESULT ENTRY)(Performed 06/26/2023) * PSA TOTAL (EXTERNAL RESULT ENTRY)(Performed 06/26/2023) * LIPID PROFILE (EXTERAL RESULT ENTRY)(Performed 06/26/2023) * HEMOGLOBIN A1C (EXTERNAL RESULT ENTRY)(Performed 06/26/2023) * COMP MET PANEL (EXTERNAL RESULT ENTRY)(Performed 06/26/2023) * CBC W DIFF (EXTERNAL RESULT ENTRY)(Performed 06/26/2023) * IRON/SATURATION (EXTERNAL RESULT ENTRY)(Performed 05/12/2023) Results * (ABNORMAL) CBC W DIFF (EXTERNAL RESULT ENTRY) (06/26/2023 8:42 AM GM MOBILE) WBC (EXTERNAL RESULT) 4.3(A) 10^3/ul OTHER LAB Hemoglobin (EXTERNAL RESULT) 10.8(A) g/dl OTHER LAB Hematocrit (EXTERNAL RESULT) 36.7(A) % OTHER LAB Platelets (EXTERNAL RESULT) 155 10^3/ul OTHER LAB Neutrophil Absolute (EXTERNAL RESULT) 2.3 10^3/ul OTHER LAB Blood BLOOD SPECIMEN / Unknown 06/26/2023 8:42 AM GM MOBILE Historical Provider MD LAB - HEMATOLOGY ORDERABLES OTHER LAB * (ABNORMAL) COMP MET PANEL (EXTERNAL RESULT ENTRY) (06/26/2023 8:42 AM GM MOBILE) Glucose (EXTERNAL) 151(A) mg/dL OTHER LAB Sodium (EXTERNAL RESULT) 139 mmol/L OTHER LAB Potassium (EXTERNAL RESULT) 4.3 mmol/L OTHER LAB Chloride (EXTERNAL RESULT) 106 mmol/L OTHER LAB CO2 (EXTERNAL) 23 mmol/L OTHER LAB Calcium (EXTERNAL RESULT) 8.6 mg/dL OTHER LAB Anion Gap (EXTERNAL RESULT) 10 mmol/L OTHER LAB BUN (EXTERNAL RESULT) 16 mg/dL OTHER LAB Creatinine (EXTERNAL RESULT) 1.10 mg/dl OTHER LAB Alkaline Phosphatase (EXTERNAL RESULT) 107 U/L OTHER LAB ALT (EXTERNAL RESULT) 26 U/L OTHER LAB AST (EXTERNAL RESULT) 64(A) U/L OTHER LAB Protein Total (EXTERNAL RESULT) 8.0 gm/dL OTHER LAB Albumin (EXTERNAL RESULT) 3.8 gm/dL OTHER LAB Bilirubin Total (EXTERNAL RESULT) 1.0 mg/dL OTHER LAB eGFR MDRD (EXTERNAL RESULT) >60 mL/min/1.7 3m2 OTHER LAB eGFR (EXTERNAL) OTHER LAB Blood BLOOD SPECIMEN / Unknown 06/26/2023 8:42 AM GM MOBILE Historical Provider LAB - CHEMISTRY O SCOTT Performing Organization Address City/[facility] Co de Phone Number OTHER LAB * PSA TOTAL (EXTERNAL RESULT ENTRY) (06/26/2023 8:42 AM GM MOBILE) Pathologist [facility] PSA Total (EXTERNAL RESULT) 0.2 0.00 - 4.00 NG/ML OTHER LAB Blood BLOOD SPECIMEN / Unknown 06/26/2023 8:42 AM GM MOBILE Historical Provider LAB - CHEMISTRY O RDERAJORGE OTHER LAB * (ABNORMAL) LIPID PROFILE (EXTERAL RESULT ENTRY) (06/26/2023 8:42 AM GM MOBILE) Cholesterol (EXTERNAL RESULT) 136 mg/dL OTHER LAB Triglycerides (EXTERNAL RESULT) 388(A) mg/dL OTHER LAB HDL (EXTERNAL RESULT) 22 mg/dL OTHER LAB LDL (EXTERNAL RESULT) 47 mg/dL OTHER LAB VLDL (EXTERNAL RESULT) OTHER LAB Chol HDL Ratio (External Result) OTHER LAB Blood BLOOD SPECIMEN / Unknown 06/26/2023 8:42 AM GM MOBILE Historical Provider MD LAB - CHEMISTRY O RDERABLES OTHER LAB * TSH (EXTERNAL RESULT ENTRY) (06/26/2023 8:42 AM GM MOBILE) TSH (EXTERNAL RESULT) 1.770 uIU/mL OTHER LAB Blood BLOOD SPECIMEN / Unknown 06/26/2023 8:42 AM GM MOBILE Historical Provider LAB - CHEMISTRY O RDERABLES OTHER LAB * (ABNORMAL) HEMOGLOBIN A1C (EXTERNAL RESULT ENTRY) (06/26/2023 8:42 AM GM MOBILE) Hemoglobin A1c (EXTERNAL RESULT) 6.6(A) % OTHER LAB Blood BLOOD SPECIMEN / Unknown 06/26/2023 8:42 AM GM MOBILE Historical Provider LAB - CHEMISTRY O RDERABLES Performing Organization Address City/[facility]/ZIP Co de Phone Number OTHER LAB * (ABNORMAL) IRON/SATURATION (EXTERNAL RESULT ENTRY) (05/12/2023 2:21 PM GM MOBILE) Iron (EXTERNAL RESULT) 48(A) mcg/dl OTHER LAB Transferrin (EXTERNAL RESULT) OTHER LAB Transferrin Saturation (EXTERNAL RESULT) 10(A) % OTHER LAB Blood BLOOD SPECIMEN / Unknown 05/12/2023 2:21 PM GM MOBILE Historical Provider LAB - CHEMISTRY O RDERABLES OTHER LAB Care Teams Nitro Man Relationship Specialty Start Date End Date Piyush Peguero PA-C [address] [place] [address] PCP - General Physician Staff Radiologist 06/04/23
--- OUTSIDE RECORDS SUMMARY | 2024-06-30 14:34 | XMS_ITS | Referral Summary ---
Author Organization [facility] Address [address] [place] [phone] Care Team Providers Care Diet Counselor Name Role Phone Piyush Peguero Primary Care Provider Encounters Date Type Department Care Team Description 06/22/2024 Orders Only [facility] Cardiology [address] [place] [phone] Arron Mason MD NICM (nonischemic cardiomyopathy) (CMS/HCC) (HCC) (Primary Dx); ICD (implantable cardioverter-defibrilla tor) in place; Ventricular fibrillation (CMS/HCC) (HCC); NSVT (nonsustained ventricular tachycardia) (HCC) 06/21/2024 8:00 AM ASSISTANT STRENGTH COACH Ancillary Procedure [facility] Cardiology [address] [place] [phone] Complete atrioventricular block (CMS/HCC) (HCC) from Last 3 Months Allergies No known active allergies Medications aspirin [...] Dx: CHB. DOI 05/23/2022. Chronic leads 06/17/2012. [place] remote monitoring, office pacer checks Q1 yr. Complete atrioventricular block (CMS/HCC) 2013 Overview (09/11/2016): Complete atrioventricular block Patient with cardiac pacemaker 05/23/2014 Overview (05/23/2022): Otoole Assurity Dual Pacemaker. Dx: CHB. DOI 05/23/2022. Chronic leads 06/17/2012. [place] remote monitoring, office pacer checks Q1 yr. Essential hypertension 05/23/2014 Overview (09/11/2016): Essential hypertension Social History Tobacco Use Types Packs/Day Years Used Date Smoking Tobacco: Never Smokeless Tobacco: Never Alcohol Use Standard Drinks/Week Comments Yes 0 (1 standard drink = 0.6 oz pur e alcohol) Personal Safety Answer Date Recorded Getting School Help Needed Not on file 05/21 Sex and Gender Information Value Date Recorded Sex Assigned at Not on file Legal Sex Male 12:19 AM ASSISTANT STRENGTH COACH Gender Identity Not on file Sexual Orientation Not on file Last Filed Vital Signs Vital Sign Reading Time Taken Comments Blood Pressure 120/80 05/14/2022 12:07 PM ASSISTANT STRENGTH COACH Pulse 76 05/14/2022 12:07 PM ASSISTANT STRENGTH COACH Temperature - - Respiratory Rate - - Oxygen Saturation 96% 05/14/2022 12:07 PM ASSISTANT STRENGTH COACH Inhaled Oxygen Concentration - - Weight 108.9 kg (240 lb) 05/14/2022 12:07 PM ASSISTANT STRENGTH COACH per pt Height 185.4 cm (6' 1 ) 05/14/2022 12:07 PM ASSISTANT STRENGTH COACH Body Mass Index 31.66 05/14/2022 12:07 PM ASSISTANT STRENGTH COACH Plan of Treatment Not on file Insurance [facility] H[facility]/PPO Address: [address] [address] [facility] H[facility]/PPO Address: [place] [address] [facility] H[facility]/PPO Address: [place] [address] Care Teams Diet Counselor Relationship Specialty Start Date End Date Piyush Peguero PA [address] [address] PCP - General Physician Information Systems Audit Manager 11/27/20
--- OUTSIDE RECORDS SUMMARY | 2024-06-30 14:34 | XMS_ITS | Clinical Summary ---
Author Organization [facility] Address [address] [address] Care Team Providers Care Speech Clinician Name Role Phone Piyush Peguero PA-C Primary Care Provide r Source Comments [facility],non-owned Affiliates and Associated Physician Practices is amultiple site organization consisting of ambulatory clinics and hospital sitesin [place] and [place]. This disclosure is being madepursuant to the Care Everywhere program and may not contain all information available regarding this patient. Last updated 18.[facility] Allergies No known active allergies Medications * Be aware that medications may not be up to date on this document. Alwaysverify current medications with the patient. Medication Sig Dispensed Refills Start Date End Date Status lisinopril (Prinivil; Zestril) 40 MG tablet Take 1 (one) tablet by mouth once daily 08/16/2023 Active hydroCHLOROthiazide 12.5 MG Take 1 (one) tablet by mouth once daily 08/16/2023 Active pantoprazole EC (Protonix) 40 MG tablet Take 1 (one) tablet by mouth every morning 08/17/2023 Active Magnesium 500 MG Active carvedilol (Coreg) 3.125 MG tablet Take 1 (one) tablet by mouth 2 times daily 60 tablet 11 09/01/2023 08/31/2024 Active Social History Tobacco Use Types Packs/Day Years [...] Mass Index 31.98 03/08/2024 9:47 AM CDT Plan of Treatment Upcoming Encounters Date Type Department Care Team (Late st Contact Info) Description 09/13/2024 10:00 AM CDT Office Visit [facility] [address] [place] [address], [facility] [place] [address] Jerrell Ashley MD [address] [place] [phone] Health Maintenance Due Date Last Done Comments COLOGUARD (AGES 45-75) - COL ON CA SCREENING 1959 COLON MONITORING 1959 COLONOSCOPY - COLON CA SCREENING 1959 CT COLONOGRAPHY - COLON CA SCREENING 1959 Colorectal Cancer Screening 1959 FIT - COLON CA SCREENING 1959 FLEX SIG - COLON CA SCREENING 1959 HIV SCREENING 1974 HEPATITIS C SCREENING 04/29/1977 DTAP/TDAP/TD VACCINES (1 - Tdap) 1978 PNEUMOCOCCAL VACCINE 50+ (1 of 2 - PCV) 1978 ZOSTER VACCINE (1 of 2) 2009 HEPATITIS B VACCINE (1 of 3 - Risk 3-dose series) 2019 Respiratory Syncytial Virus (RSV) Vaccine Pt: or over 60 yrs (1 - Risk 60-74 years 1-dose series) 2019 COVID-19 VACCINE (1 - 2023-2 5 season) 2024 INFLUENZA VACCINE (#1) 2024 DEPRESSION SCREENING 06/08/2024 SCREENING FOR DIABETES 06/26/2026 06/26/2023 LIPID TESTING 06/26/2028 06/26/2023 HIB VACCINE Aged Out No longer eligi ble based on patient's age to complete this topic HPV VACCINE Aged Out No longer eligi ble based on patient's age to complete this topic MENINGOCOCCAL (Group B) VACCINE Aged Out No longer eligible based on patient's age to complete this topic MENINGOCOCCAL VACCINE Aged Out No joellen sung eligible based on patient's age to complete this topic Goals Goal Patient Goal Type Associated Problems Recent Progress Patient-Stated? Author Medication Management General On track( 024 11:19 AM CDT) Gabbie Mueller RN Note: Expected end date: ongoing Interventions: Take all medications as prescribed Let your doctor know right away about any changes in your medications Make sure to request a refill of your medication at least one week prior to your last dose Procedures Procedure Name Priority Date/Time Associated Diagnosis Comments HEMOGLOBIN A1C (EXTERNAL RESULT ENTRY) Routine 06/26/2023 8:42 AM BIOLOGICAL SCIENCES INSTRUCTOR LIPID PROFILE (EXTERAL RESULT ENTRY) Routine 06/26/2023 8:42 AM BIOLOGICAL SCIENCES INSTRUCTOR from Last 3 Months or Most Recently Relevant to Health Maintenance Results * (ABNORMAL) LIPID PROFILE (EXTERAL RESULT ENTRY) (06/26/2023 8:42 AM BIOLOGICAL SCIENCES INSTRUCTOR) Cholesterol (EXTERNAL RESULT) 136 mg/dL OTHER LAB Triglycerides (EXTERNAL RESULT) 388(A) mg/dL OTHER LAB HDL (EXTERNAL RESULT) 22 mg/dL OTHER LAB LDL (EXTERNAL RESULT) 47 mg/dL OTHER LAB VLDL (EXTERNAL RESULT) OTHER LAB Chol HDL Ratio (External Result) OTHER LAB Blood BLOOD SPECIMEN / Unknown 06/26/2023 8:42 AM BIOLOGICAL SCIENCES INSTRUCTOR Historical Provider LAB - CHEMISTRY O RDERABLES OTHER LAB * (ABNORMAL) HEMOGLOBIN A1C (EXTERNAL RESULT ENTRY) (06/26/2023 8:42 AM BIOLOGICAL SCIENCES INSTRUCTOR) Hemoglobin A1c (EXTERNAL RESULT) 6.6(A) % OTHER LAB Blood BLOOD SPECIMEN / Unknown 06/26/2023 8:42 AM BIOLOGICAL SCIENCES INSTRUCTOR Historical Provider LAB - CHEMISTRY O RDERABLES OTHER LAB from Last 3 Months or Most Recently Relevant to Health Maintenance Care Teams Speech Clinician Relationship Specialty Start Date End Date Piyush Peguero PA-C [address] [place] [address] PCP - General Physician Dairy Helper 06/04/23
--- OUTSIDE RECORDS SUMMARY | 2024-06-30 14:34 | XMS_ITS | Referral Summary ---
Author Organization [facility] Address [address] [place] [address] Care Team Providers Care Senior Loan Officer Name Role Phone Piyush Peguero PA-C Primary Care Provide r Source Comments [facility] [employer],non-owned Affiliates and Associated Physician Practices is amultiple site organization consisting of ambulatory clinics and hospital sitesin [place], [place], [place] and [place]. This disclosure is being madepursuant to the Care Everywhere program and may not contain all information available regarding this patient. Last updated 18.[facility] Allergies No known active allergies Medications * [...] Description 09/13/2024 10:00 AM CDT Office Visit [facility] [address] [place] [address], [facility] [place] [address] Jerrell Ashley MD [address] [place] [phone] Goals Goal Patient Goal Type Associated Problems Recent Progress Patient-Stated? Author Medication Management General On track( 024 11:19 AM CDT) Gabbie Mueller, RN Note: Expected end date: ongoing Interventions: Take all medications as prescribed Let your doctor know right away about any changes in your medications Make sure to request a refill of your medication at least one week prior to your last dose Procedures Procedure Name Priority Date/Time Associated Diagnosis Comments HEMOGLOBIN A1C (EXTERNAL RESULT ENTRY) Routine 06/26/2023 8:42 AM CARGO ROUTER LIPID PROFILE (EXTERAL RESULT ENTRY) Routine 06/26/2023 8:42 AM CARGO ROUTER from Last 3 Months or Most Recently Relevant to Health Maintenance Results * (ABNORMAL) LIPID PROFILE (EXTERAL RESULT ENTRY) (06/26/2023 8:42 AM CARGO ROUTER) Cholesterol (EXTERNAL RESULT) 136 mg/dL OTHER LAB Triglycerides (EXTERNAL RESULT) 388(A) mg/dL OTHER LAB HDL (EXTERNAL RESULT) 22 mg/dL OTHER LAB LDL (EXTERNAL RESULT) 47 mg/dL OTHER LAB VLDL (EXTERNAL RESULT) OTHER LAB Chol HDL Ratio (External Result) OTHER LAB Blood BLOOD SPECIMEN / Unknown 06/26/2023 8:42 AM CARGO ROUTER Historical Provider LAB - CHEMISTRY O RDERABLES OTHER LAB * (ABNORMAL) HEMOGLOBIN A1C (EXTERNAL RESULT ENTRY) (06/26/2023 8:42 AM CARGO ROUTER) Hemoglobin A1c (EXTERNAL RESULT) 6.6(A) % OTHER LAB Blood BLOOD SPECIMEN / Unknown 06/26/2023 8:42 AM CARGO ROUTER Historical Provider LAB - CHEMISTRY O RDERABLES Performing Organization Address City/[facility] Co de Phone Number OTHER LAB from Last 3 Months or Most Recently Relevant to Health Maintenance Care Teams Senior Loan Officer Relationship Specialty Start Date End Date Piyush Peguero PA-C [address] [place] [address] PCP - General Physician Automation Software Engineer 06/04/23
== END 2024-06-27 15:26 | disposition home or self-care (01) ==
LOC: ANHGOSHLAB 15:27
PROVIDERS: PCP Internal Medicine; Visit Provider Internal Medicine
DX: E11.65 Type 2 diabetes mellitus with hyperglycemia (principal); I85.01 Esophageal varices with bleeding; D69.6 Thrombocytopenia, unspecified
CPT/HCPCS: 36415; 80048; 85025

== ENCOUNTER 2024-06-28 16:16 | Outpatient (CLI) | payer OTHER, SELFPAY ==
[2024-06-28 16:49] LABS: Hemoglobin A1C 7.2 % (<5.7)
[2024-06-28 17:04] LABS: Creatinine Urine 73.2 mg/dL
[2024-06-28 18:08] LABS: Microalbumin Urine Random < 6.0 mg/L (0-16.7)
[2024-06-28 20:52] LABS: MALB Creatinine Ratio < 8.2 mg/g (0-30)
--- OUTSIDE RECORDS SUMMARY | 2024-06-30 20:01 | XMS_ITS | Referral Summary ---
Author Organization [facility] Address [address] [place] [phone] Care Team Providers Care Stagecraft Professor Name Role Phone Piyush Peguero Primary Care Provider Encounters Date Type Department Care Team Description 06/22/2024 Orders Only [facility] Cardiology [address] [place] [phone] Arron Mason MD NICM (nonischemic cardiomyopathy) (CMS/HCC) (HCC) (Primary Dx); ICD (implantable cardioverter-defibrilla tor) in place; Ventricular fibrillation (CMS/HCC) (HCC); NSVT (nonsustained ventricular tachycardia) (HCC) 06/21/2024 8:00 AM WIND TURBINE SERVICE TECHNICIAN Ancillary Procedure [facility] Cardiology [address] [place] [phone] Complete atrioventricular block (CMS/HCC) (HCC) from [...] on file Legal Sex Male 12:19 AM WIND TURBINE SERVICE TECHNICIAN Gender Identity Not on file Sexual Orientation Not on file Last Filed Vital Signs Vital Sign Reading Time Taken Comments Blood Pressure 120/80 05/14/2022 12:07 PM WIND TURBINE SERVICE TECHNICIAN Pulse 76 05/14/2022 12:07 PM WIND TURBINE SERVICE TECHNICIAN Temperature - - Respiratory Rate - - Oxygen Saturation 96% 05/14/2022 12:07 PM WIND TURBINE SERVICE TECHNICIAN Inhaled Oxygen Concentration - - Weight 108.9 kg (240 lb) 05/14/2022 12:07 PM WIND TURBINE SERVICE TECHNICIAN per pt Height 185.4 cm (6' 1 ) 05/14/2022 12:07 PM WIND TURBINE SERVICE TECHNICIAN Body Mass Index 31.66 05/14/2022 12:07 PM WIND TURBINE SERVICE TECHNICIAN Plan of Treatment Not on file Insurance [facility] Care Teams Stagecraft Professor Relationship Specialty Start Date End Date Piyush Peguero PA [address] [address] PCP - General Physician Pressroom Foreman 11/27/20
--- OUTSIDE RECORDS SUMMARY | 2024-06-30 20:01 | XMS_ITS | Clinical Summary ---
Author Organization [facility] Address [address] [place] [phone] Care Team Providers Care Chemical Laboratory Technician Name Role Phone Piyush Peguero Primary Care [...] Dx: CHB. DOI 05/23/2022. Chronic leads 06/17/2012. [place] remote monitoring, office pacer checks Q1 yr. Complete atrioventricular block (CMS/HCC) 2013 Overview (09/11/2016): Complete atrioventricular block Patient with cardiac pacemaker 05/23/2014 Overview (05/23/2022): [place] Assurity Dual Pacemaker. Dx: CHB. DOI 05/23/2022. Chronic leads 06/17/2012. [place] remote monitoring, office pacer checks Q1 yr. Essential hypertension 05/23/2014 Overview (09/11/2016): Essential hypertension Encounters Date Type Department Care Team Description 06/22/2024 Orders Only [facility] Cardiology [address] [place] [address] [place] [phone] Arron Mason MD NICM (nonischemic cardiomyopathy) (CMS/HCC) (HCC) (Primary Dx); ICD (implantable cardioverter-defibrilla tor) in place; Ventricular fibrillation (CMS/HCC) (HCC); NSVT (nonsustained ventricular tachycardia) (HCC) 06/21/2024 8:00 AM DIRECTOR OF UNDERGRADUATE ADMISSIONS Ancillary Procedure [facility] Cardiology [address] [place] [address] [place] [phone] Complete atrioventricular block (CMS/HCC) (HCC) from Last [...] on file Legal Sex Male 12:19 AM DIRECTOR OF UNDERGRADUATE ADMISSIONS Gender Identity Not on file Sexual Orientation Not on file Obstetrics History Last Filed Vital Signs Vital Sign Reading Time Taken Comments Blood Pressure 120/80 05/14/2022 12:07 PM DIRECTOR OF UNDERGRADUATE ADMISSIONS Pulse 76 05/14/2022 12:07 PM DIRECTOR OF UNDERGRADUATE ADMISSIONS Temperature - - Respiratory Rate - - Oxygen Saturation 96% 05/14/2022 12:07 PM DIRECTOR OF UNDERGRADUATE ADMISSIONS Inhaled Oxygen Concentration - - Weight 108.9 kg (240 lb) 05/14/2022 12:07 PM DIRECTOR OF UNDERGRADUATE ADMISSIONS per pt Height 185.4 cm (6' 1 ) 05/14/2022 12:07 PM DIRECTOR OF UNDERGRADUATE ADMISSIONS Body Mass Index 31.66 05/14/2022 12:07 PM DIRECTOR OF UNDERGRADUATE ADMISSIONS Plan of Treatment Health Maintenance Due Date [...] (2 - Td or Tdap) 10/03/2028 Insurance [facility] [address] [place] [address] [facility] [place] [address] [facility] Care Teams Chemical Laboratory Technician Relationship Specialty Start Date End Date Piyush Peguero PA [address] [facility] [address] [place], [place] [id number] PCP - General Physician Discotheque Dancer 11/27/20
--- OUTSIDE RECORDS SUMMARY | 2024-06-30 20:01 | XMS_ITS | Patient Health Summary ---
Author Organization [facility] Address [address] [place] [address] Care Team Providers Care Certified Dietary Manager Name Role Phone Piyush Peguero PA-C Primary Care Provide r Note from [facility],non-owned Affiliates and Associated Physician Practices is amultiple site organization consisting of ambulatory clinics and hospital sitesin [place], [place], [place] and [place]. This disclosure is being madepursuant to the Care Everywhere program and may not contain all information available regarding this patient. Last updated 18.[facility] Allergies No known active allergies Medications * [...] DIFF (EXTERNAL RESULT ENTRY) (06/26/2023 8:42 AM SALES AGENT CASUALTY INSURANCE) WBC (EXTERNAL RESULT) 4.3(A) 10^3/ul OTHER LAB Hemoglobin (EXTERNAL RESULT) 10.8(A) g/dl OTHER LAB Hematocrit (EXTERNAL RESULT) 36.7(A) % OTHER LAB Platelets (EXTERNAL RESULT) 155 10^3/ul OTHER LAB Neutrophil Absolute (EXTERNAL RESULT) 2.3 10^3/ul OTHER LAB Blood BLOOD SPECIMEN / Unknown 06/26/2023 8:42 AM SALES AGENT CASUALTY INSURANCE Historical Provider MD LAB - HEMATOLOGY ORDERABLES OTHER LAB * (ABNORMAL) COMP MET PANEL (EXTERNAL RESULT ENTRY) (06/26/2023 8:42 AM SALES AGENT CASUALTY INSURANCE) Glucose (EXTERNAL) 151(A) mg/dL OTHER LAB Sodium [...] BLOOD SPECIMEN / Unknown 06/26/2023 8:42 AM SALES AGENT CASUALTY INSURANCE Historical Provider LAB - CHEMISTRY O SCOTT Performing Organization Address City/[facility] Co de Phone Number OTHER LAB * PSA TOTAL (EXTERNAL RESULT ENTRY) (06/26/2023 8:42 AM SALES AGENT CASUALTY INSURANCE) Pathologist [facility] PSA Total (EXTERNAL RESULT) 0.2 0.00 - 4.00 NG/ML OTHER LAB Blood BLOOD SPECIMEN / Unknown 06/26/2023 8:42 AM SALES AGENT CASUALTY INSURANCE Historical Provider LAB - CHEMISTRY O RDERAJORGE OTHER LAB * (ABNORMAL) LIPID PROFILE (EXTERAL RESULT ENTRY) (06/26/2023 8:42 AM SALES AGENT CASUALTY INSURANCE) Cholesterol (EXTERNAL RESULT) 136 mg/dL OTHER LAB Triglycerides (EXTERNAL RESULT) 388(A) mg/dL OTHER LAB HDL (EXTERNAL RESULT) 22 mg/dL OTHER LAB LDL (EXTERNAL RESULT) 47 mg/dL OTHER LAB VLDL (EXTERNAL RESULT) OTHER LAB Chol HDL Ratio (External Result) OTHER LAB Blood BLOOD SPECIMEN / Unknown 06/26/2023 8:42 AM SALES AGENT CASUALTY INSURANCE Historical Provider MD LAB - CHEMISTRY O RDERABLES OTHER LAB * TSH (EXTERNAL RESULT ENTRY) (06/26/2023 8:42 AM SALES AGENT CASUALTY INSURANCE) TSH (EXTERNAL RESULT) 1.770 uIU/mL OTHER LAB Blood BLOOD SPECIMEN / Unknown 06/26/2023 8:42 AM SALES AGENT CASUALTY INSURANCE Historical Provider LAB - CHEMISTRY O RDERABLES OTHER LAB * (ABNORMAL) HEMOGLOBIN A1C (EXTERNAL RESULT ENTRY) (06/26/2023 8:42 AM SALES AGENT CASUALTY INSURANCE) Hemoglobin A1c (EXTERNAL RESULT) 6.6(A) % OTHER LAB Blood BLOOD SPECIMEN / Unknown 06/26/2023 8:42 AM SALES AGENT CASUALTY INSURANCE Historical Provider LAB - CHEMISTRY O RDERABLES Performing Organization Address City/[facility]/ZIP Co de Phone Number OTHER LAB * (ABNORMAL) IRON/SATURATION (EXTERNAL RESULT ENTRY) (05/12/2023 2:21 PM SALES AGENT CASUALTY INSURANCE) Iron (EXTERNAL RESULT) 48(A) mcg/dl OTHER LAB Transferrin (EXTERNAL RESULT) OTHER LAB Transferrin Saturation (EXTERNAL RESULT) 10(A) % OTHER LAB Blood BLOOD SPECIMEN / Unknown 05/12/2023 2:21 PM SALES AGENT CASUALTY INSURANCE Historical Provider LAB - CHEMISTRY O RDERABLES OTHER LAB Care Teams Certified Dietary Manager Relationship Specialty Start Date End Date Piyush Peguero PA-C [address] [place] [address] PCP - General Physician Director Of Communications 06/04/23
--- OUTSIDE RECORDS SUMMARY | 2024-06-30 20:01 | XMS_ITS | Encounter Summary ---
Author Organization [facility] Address [address] [facility] [address] [place] [address] Care Team Providers Care Stock Mover Name Role Phone Yeyo Barrera MD Primary Care Provider [phone] No, Physician Primary Care Provider [phone] Piyush Peguero Primary Care Provider Encounter Details Date Type Department Care Team (Late st Contact Info) Description 06/17/2016 Orders Only [facility] ProviderKriss MD [address] [place] [address] Social History Tobacco Use Types Packs/Day Years Used Date Smoking Tobacco: Never Alcohol Use Standard Drinks/Week Comments Yes 0 (1 standard drink = 0.6 oz pur e alcohol) Sex and Gender Information Value Date Recorded Sex Assigned at Not on file Legal Sex Male 12:19 AM LIGHTING DESIGNER Gender Identity Not on file Sexual Orientation [...] on filedocumented in this encounter Care Teams Stock Mover Relationship Specialty Start Date End Date Yeyo Barrera MD PCP - General 07/13/12 09/28/18 No, Physician PCP - General 09/29/18 11/26/20 Piyush Peguero PA [address] [address] PCP - General Physician Web Development Manager 11/27/20 documented as of this encounter
--- OUTSIDE RECORDS SUMMARY | 2024-06-30 20:01 | XMS_ITS | Referral Summary ---
Author Organization [facility] Address [address] [place] [address] Care Team Providers Care Carpet Binder Name Role Phone Piyush Peguero PA-C Primary Care Provide r Source Comments [facility],non-owned Affiliates and Associated Physician Practices is amultiple site organization consisting of ambulatory clinics and hospital sitesin [place], [place], [place] and [place]. This disclosure is being madepursuant to the Care Everywhere program and may not contain all information available regarding this patient. Last updated 18.[facility] Allergies No known active allergies Medications * [...] Office Visit [facility] [address] [place] [address], [facility] [place] [address] Jerrell Ashley MD [address] [place] [phone] Goals Goal Patient Goal Type Associated Problems [...] (EXTERNAL RESULT ENTRY) Routine 06/26/2023 8:42 AM FILM LOADER LIPID PROFILE (EXTERAL RESULT ENTRY) Routine 06/26/2023 8:42 AM FILM LOADER from Last 3 Months or Most Recently Relevant to Health Maintenance Results * (ABNORMAL) LIPID PROFILE (EXTERAL RESULT ENTRY) (06/26/2023 8:42 AM FILM LOADER) Cholesterol (EXTERNAL RESULT) 136 mg/dL OTHER LAB Triglycerides (EXTERNAL RESULT) 388(A) mg/dL OTHER LAB HDL (EXTERNAL RESULT) 22 mg/dL OTHER LAB LDL (EXTERNAL RESULT) 47 mg/dL OTHER LAB VLDL (EXTERNAL RESULT) OTHER LAB Chol HDL Ratio (External Result) OTHER LAB Blood BLOOD SPECIMEN / Unknown 06/26/2023 8:42 AM FILM LOADER Historical Provider LAB - CHEMISTRY O RDERABLES OTHER LAB * (ABNORMAL) HEMOGLOBIN A1C (EXTERNAL RESULT ENTRY) (06/26/2023 8:42 AM FILM LOADER) Hemoglobin A1c (EXTERNAL RESULT) 6.6(A) % OTHER LAB Blood BLOOD SPECIMEN / Unknown 06/26/2023 8:42 AM FILM LOADER Historical Provider LAB - CHEMISTRY O RDERABLES Performing Organization Address City/[facility] Co de Phone Number OTHER LAB from Last 3 Months or Most Recently Relevant to Health Maintenance Care Teams Carpet Binder Relationship Specialty Start Date End Date Piyush Peguero PA-C [address] [facility] [address] [place] [address] PCP - General Physician Construction Rigger 06/04/23
--- OUTSIDE RECORDS SUMMARY | 2024-06-30 20:01 | XMS_ITS | Clinical Summary ---
Author Organization [facility] Address [address] [place] [address] Care Team Providers Care Oracle Database Manager Name Role Phone Piyush Peguero PA-C Primary Care Provide r Source Comments [facility],non-owned Affiliates and Associated Physician Practices is amultiple site organization consisting of ambulatory clinics and hospital sitesin [place], [place], [place] and [place]. This disclosure is being madepursuant to the Care Everywhere program and may not contain all information available regarding this patient. Last updated 18.[facility] Allergies No known active allergies Medications * [...] Office Visit [facility] - [facility] [address] [place] [address], [facility] [place] [address] Jerrell Ashley MD [address] [place] [phone] Health Maintenance Due Date Last Done Comments [...] (EXTERNAL RESULT ENTRY) Routine 06/26/2023 8:42 AM SPECIAL INSPECTOR LIPID PROFILE (EXTERAL RESULT ENTRY) Routine 06/26/2023 8:42 AM SPECIAL INSPECTOR from Last 3 Months or Most Recently Relevant to Health Maintenance Results * (ABNORMAL) LIPID PROFILE (EXTERAL RESULT ENTRY) (06/26/2023 8:42 AM SPECIAL INSPECTOR) Cholesterol (EXTERNAL RESULT) 136 mg/dL OTHER LAB Triglycerides (EXTERNAL RESULT) 388(A) mg/dL OTHER LAB HDL (EXTERNAL RESULT) 22 mg/dL OTHER LAB LDL (EXTERNAL RESULT) 47 mg/dL OTHER LAB VLDL (EXTERNAL RESULT) OTHER LAB Chol HDL Ratio (External Result) OTHER LAB Blood BLOOD SPECIMEN / Unknown 06/26/2023 8:42 AM SPECIAL INSPECTOR Historical Provider LAB - CHEMISTRY O RDERABLES OTHER LAB * (ABNORMAL) HEMOGLOBIN A1C (EXTERNAL RESULT ENTRY) (06/26/2023 8:42 AM SPECIAL INSPECTOR) Hemoglobin A1c (EXTERNAL RESULT) 6.6(A) % OTHER LAB Blood BLOOD SPECIMEN / Unknown 06/26/2023 8:42 AM SPECIAL INSPECTOR Historical Provider LAB - CHEMISTRY O RDERABLES OTHER LAB from Last 3 Months or Most Recently Relevant to Health Maintenance Care Teams Oracle Database Manager Relationship Specialty Start Date End Date Piyush Peguero PA-C [address] [place] [address] PCP - General Physician Order Puller 06/04/23
== END 2024-06-28 16:17 | disposition home or self-care (01) ==
LOC: ANHLAB 16:19
PROVIDERS: PCP Internal Medicine; Visit Provider Clinical Nurse Specialist
DX: E11.9 Type 2 diabetes mellitus without complications (principal)
CPT/HCPCS: 36415; 82043; 83036

== ENCOUNTER 2024-06-29 07:09 | Outpatient (RCR) | payer OTHER, SELFPAY ==
[2024-06-29] VITALS (10 sets, daily range): BP systolic 110–142; BP diastolic 55–76; PULSE 63–85; RESP 14–20; TEMP 36.6–37.1; O2SAT 96–100
--- NOTE | 2024-06-29 16:15 | PC.NURSE ---
Transfusion complete at 1600. No s/s transfusion reaction. No resp distress or c/o. Post transfusion instructions reviewed and given to pt
== END 2024-09-27 23:59 | disposition home or self-care (01) ==
LOC: ANHCPCTRAN 07:09
PROVIDERS: PCP Internal Medicine; Visit Provider Internal Medicine
DX: D64.9 Anemia, unspecified (principal)
CPT/HCPCS: 36415; 36430; 86850; 86900; 86901; 86923; P9016

== ENCOUNTER 2024-07-05 11:44 | Outpatient (CLI) | payer OTHER, SELFPAY ==
--- OUTSIDE RECORDS SUMMARY | 2024-07-05 12:50 | XMS_ITS | Referral Summary ---
Author Organization [facility] Address [address] [place] [address] Care Team Providers Care Multimedia Developer Name Role Phone Piyush Peguero PA-C Primary Care Provide r Source Comments [facility],non-owned Affiliates and Associated Physician Practices is amultiple site organization consisting of ambulatory clinics and hospital sitesin [place], [place], [place] and [place]. This disclosure is being madepursuant to the Care Everywhere program and may not contain all information available regarding this patient. Last updated 18.[facility] Allergies No known active allergies Medications * [...] Office Visit [facility] [address] [place] [address], [facility] [place] [address] Jerrell Ashley MD [address] [place] [phone] Goals Goal Patient Goal Type Associated Problems [...] (EXTERNAL RESULT ENTRY) Routine 06/26/2023 8:42 AM OUTBOUND TELEMARKETING REPRESENTATIVE LIPID PROFILE (EXTERAL RESULT ENTRY) Routine 06/26/2023 8:42 AM OUTBOUND TELEMARKETING REPRESENTATIVE from Last 3 Months or Most Recently Relevant to Health Maintenance Results * (ABNORMAL) LIPID PROFILE (EXTERAL RESULT ENTRY) (06/26/2023 8:42 AM OUTBOUND TELEMARKETING REPRESENTATIVE) Cholesterol (EXTERNAL RESULT) 136 mg/dL OTHER LAB Triglycerides (EXTERNAL RESULT) 388(A) mg/dL OTHER LAB HDL (EXTERNAL RESULT) 22 mg/dL OTHER LAB LDL (EXTERNAL RESULT) 47 mg/dL OTHER LAB VLDL (EXTERNAL RESULT) OTHER LAB Chol HDL Ratio (External Result) OTHER LAB Blood BLOOD SPECIMEN / Unknown 06/26/2023 8:42 AM OUTBOUND TELEMARKETING REPRESENTATIVE Historical Provider LAB - CHEMISTRY O RDERABLES OTHER LAB * (ABNORMAL) HEMOGLOBIN A1C (EXTERNAL RESULT ENTRY) (06/26/2023 8:42 AM OUTBOUND TELEMARKETING REPRESENTATIVE) Hemoglobin A1c (EXTERNAL RESULT) 6.6(A) % OTHER LAB Blood BLOOD SPECIMEN / Unknown 06/26/2023 8:42 AM OUTBOUND TELEMARKETING REPRESENTATIVE Historical Provider LAB - CHEMISTRY O RDERABLES Performing Organization Address City/[facility] Co de Phone Number OTHER LAB from Last 3 Months or Most Recently Relevant to Health Maintenance Care Teams Multimedia Developer Relationship Specialty Start Date End Date Piyush Peguero PA-C [address] [place] [address] PCP - General Physician Automatic Packer Operator 06/04/23
--- OUTSIDE RECORDS SUMMARY | 2024-07-05 12:50 | XMS_ITS | Patient Health Summary ---
Author Organization [facility] Address [address] [place] [address] Care Team Providers Care Buckle Sewer Name Role Phone Piyush Peguero PA-C Primary Care Provide r Note from [facility],non-owned Affiliates and Associated Physician Practices is amultiple site organization consisting of ambulatory clinics and hospital sitesin [place], [place], [place]. This disclosure is being madepursuant to the Care Everywhere program and may not contain all information available regarding this patient. Last updated 18.[facility] Allergies No known active allergies Medications * [...] DIFF (EXTERNAL RESULT ENTRY) (06/26/2023 8:42 AM RESOURCE MANAGEMENT SPECIALIST) WBC (EXTERNAL RESULT) 4.3(A) 10^3/ul OTHER LAB Hemoglobin (EXTERNAL RESULT) 10.8(A) g/dl OTHER LAB Hematocrit (EXTERNAL RESULT) 36.7(A) % OTHER LAB Platelets (EXTERNAL RESULT) 155 10^3/ul OTHER LAB Neutrophil Absolute (EXTERNAL RESULT) 2.3 10^3/ul OTHER LAB Blood BLOOD SPECIMEN / Unknown 06/26/2023 8:42 AM RESOURCE MANAGEMENT SPECIALIST Historical Provider MD LAB - HEMATOLOGY ORDERABLES OTHER LAB * (ABNORMAL) COMP MET PANEL (EXTERNAL RESULT ENTRY) (06/26/2023 8:42 AM RESOURCE MANAGEMENT SPECIALIST) Glucose (EXTERNAL) 151(A) mg/dL OTHER LAB Sodium [...] BLOOD SPECIMEN / Unknown 06/26/2023 8:42 AM RESOURCE MANAGEMENT SPECIALIST Historical Provider LAB - CHEMISTRY O SCOTT Performing Organization Address City/[facility] Co de Phone Number OTHER LAB * PSA TOTAL (EXTERNAL RESULT ENTRY) (06/26/2023 8:42 AM RESOURCE MANAGEMENT SPECIALIST) Pathologist [facility] PSA Total (EXTERNAL RESULT) 0.2 0.00 - 4.00 NG/ML OTHER LAB Blood BLOOD SPECIMEN / Unknown 06/26/2023 8:42 AM RESOURCE MANAGEMENT SPECIALIST Historical Provider LAB - CHEMISTRY O RDERAJORGE OTHER LAB * (ABNORMAL) LIPID PROFILE (EXTERAL RESULT ENTRY) (06/26/2023 8:42 AM RESOURCE MANAGEMENT SPECIALIST) Cholesterol (EXTERNAL RESULT) 136 mg/dL OTHER LAB Triglycerides (EXTERNAL RESULT) 388(A) mg/dL OTHER LAB HDL (EXTERNAL RESULT) 22 mg/dL OTHER LAB LDL (EXTERNAL RESULT) 47 mg/dL OTHER LAB VLDL (EXTERNAL RESULT) OTHER LAB Chol HDL Ratio (External Result) OTHER LAB Blood BLOOD SPECIMEN / Unknown 06/26/2023 8:42 AM RESOURCE MANAGEMENT SPECIALIST Historical Provider MD LAB - CHEMISTRY O RDERABLES OTHER LAB * TSH (EXTERNAL RESULT ENTRY) (06/26/2023 8:42 AM RESOURCE MANAGEMENT SPECIALIST) TSH (EXTERNAL RESULT) 1.770 uIU/mL OTHER LAB Blood BLOOD SPECIMEN / Unknown 06/26/2023 8:42 AM RESOURCE MANAGEMENT SPECIALIST Historical Provider LAB - CHEMISTRY O RDERABLES OTHER LAB * (ABNORMAL) HEMOGLOBIN A1C (EXTERNAL RESULT ENTRY) (06/26/2023 8:42 AM RESOURCE MANAGEMENT SPECIALIST) Hemoglobin A1c (EXTERNAL RESULT) 6.6(A) % OTHER LAB Blood BLOOD SPECIMEN / Unknown 06/26/2023 8:42 AM RESOURCE MANAGEMENT SPECIALIST Historical Provider LAB - CHEMISTRY O RDERABLES Performing Organization Address City/[facility]/ZIP Co de Phone Number OTHER LAB * (ABNORMAL) IRON/SATURATION (EXTERNAL RESULT ENTRY) (05/12/2023 2:21 PM RESOURCE MANAGEMENT SPECIALIST) Iron (EXTERNAL RESULT) 48(A) mcg/dl OTHER LAB Transferrin (EXTERNAL RESULT) OTHER LAB Transferrin Saturation (EXTERNAL RESULT) 10(A) % OTHER LAB Blood BLOOD SPECIMEN / Unknown 05/12/2023 2:21 PM RESOURCE MANAGEMENT SPECIALIST Historical Provider LAB - CHEMISTRY O RDERABLES OTHER LAB Care Teams Buckle Sewer Relationship Specialty Start Date End Date Piyush Peguero PA-C [address] [place] [address] PCP - General Physician Cryptozoologist 06/04/23
--- OUTSIDE RECORDS SUMMARY | 2024-07-05 12:50 | XMS_ITS | Clinical Summary ---
Author Organization [facility] Address [address] [place] [phone] Care Team Providers Care Mc Kay Machine Operator Name Role Phone Piyush Peguero Primary Care [...] Dx: CHB. DOI 05/23/2022. Chronic leads 06/17/2012. [place] remote monitoring, office pacer checks Q1 yr. Complete atrioventricular block (CMS/HCC) 2013 Overview (09/11/2016): Complete atrioventricular block Patient with cardiac pacemaker 05/23/2014 Overview (05/23/2022): [place] Assurity Dual Pacemaker. Dx: CHB. DOI 05/23/2022. Chronic leads 06/17/2012. [place] remote monitoring, office pacer checks Q1 yr. Essential hypertension 05/23/2014 Overview (09/11/2016): Essential hypertension Encounters Date Type Department Care Team Description 06/22/2024 Orders Only [facility] Cardiology [address] [place] [address] [place] [phone] Arron Mason MD NICM (nonischemic cardiomyopathy) (CMS/HCC) (HCC) (Primary Dx); ICD (implantable cardioverter-defibrilla tor) in place; Ventricular fibrillation (CMS/HCC) (HCC); NSVT (nonsustained ventricular tachycardia) (HCC) 06/21/2024 8:00 AM MACHINE STONE POLISHER Ancillary Procedure [facility] Cardiology [address] [place] [address] [place] [phone] Complete atrioventricular block (CMS/HCC) (HCC) from Last [...] on file Legal Sex Male 12:19 AM MACHINE STONE POLISHER Gender Identity Not on file Sexual Orientation Not on file Obstetrics History Last Filed Vital Signs Vital Sign Reading Time Taken Comments Blood Pressure 120/80 05/14/2022 12:07 PM MACHINE STONE POLISHER Pulse 76 05/14/2022 12:07 PM MACHINE STONE POLISHER Temperature - - Respiratory Rate - - Oxygen Saturation 96% 05/14/2022 12:07 PM MACHINE STONE POLISHER Inhaled Oxygen Concentration - - Weight 108.9 kg (240 lb) 05/14/2022 12:07 PM MACHINE STONE POLISHER per pt Height 185.4 cm (6' 1 ) 05/14/2022 12:07 PM MACHINE STONE POLISHER Body Mass Index 31.66 05/14/2022 12:07 PM MACHINE STONE POLISHER Plan of Treatment Health Maintenance Due Date [...] (2 - Td or Tdap) 10/03/2028 Insurance [facility] H[facility]/PPO Address: [address] [place] [address] [place] [address] [facility] H[facility]/PPO Address: [address] [address] [place] [address] [facility] H[facility]/PPO Address: [address] [address] Care Teams Mc Kay Machine Operator Relationship Specialty Start Date End Date Piyush Peguero PA [address] [facility] [address] [place], [place] [phone] PCP - General Physician Member Services Coordinator 11/27/20
--- OUTSIDE RECORDS SUMMARY | 2024-07-05 12:50 | XMS_ITS | Encounter Summary ---
Author Organization [facility] Address [address] [facility] [address] [place] [address] Care Team Providers Care Social Services Coordinator Name Role Phone Yeyo Barrera MD Primary Care Provider [phone] No, Physician Primary Care Provider Piyush Peguero Primary Care Provider Encounter Details Date Type Department Care Team (Late st Contact Info) Description 06/17/2016 Orders Only [facility] ProviderKriss MD [address] [place] [address] Social History Tobacco Use Types Packs/Day Years Used Date Smoking Tobacco: Never Alcohol Use Standard Drinks/Week Comments Yes 0 (1 standard drink = 0.6 oz pur e alcohol) Sex and Gender Information Value Date Recorded Sex Assigned at Not on file Legal Sex Male 12:19 AM MANAGER ED Gender Identity Not on file Sexual Orientation [...] on filedocumented in this encounter Care Teams Social Services Coordinator Relationship Specialty Start Date End Date Yeyo Barrera MD PCP - General 07/13/12 09/28/18 No, Physician PCP - General 09/29/18 11/26/20 Piyush Peguero PA [address] [address] PCP - General Physician Power And Recovery Supervisor 11/27/20 documented as of this encounter
--- OUTSIDE RECORDS SUMMARY | 2024-07-05 12:50 | XMS_ITS | Clinical Summary ---
Author Organization [facility] Address [address] [place] [address] Care Team Providers Care Counter Caser Name Role Phone Piyush Peguero PA-C Primary Care Provide r Source Comments [facility],non-owned Affiliates and Associated Physician Practices is amultiple site organization consisting of ambulatory clinics and hospital sitesin [place], [place], [place] and [place]. This disclosure is being madepursuant to the Care Everywhere program and may not contain all information available regarding this patient. Last updated 18.[facility] Allergies No known active allergies Medications * [...] Office Visit [facility] [address] [place] [address], [facility] [place] [address] Jerrell Ashley MD [address] [place] [phone] Health Maintenance Due Date Last Done Comments [...] (EXTERNAL RESULT ENTRY) Routine 06/26/2023 8:42 AM GUNITE NOZZLE OPERATOR LIPID PROFILE (EXTERAL RESULT ENTRY) Routine 06/26/2023 8:42 AM GUNITE NOZZLE OPERATOR from Last 3 Months or Most Recently Relevant to Health Maintenance Results * (ABNORMAL) LIPID PROFILE (EXTERAL RESULT ENTRY) (06/26/2023 8:42 AM GUNITE NOZZLE OPERATOR) Cholesterol (EXTERNAL RESULT) 136 mg/dL OTHER LAB Triglycerides (EXTERNAL RESULT) 388(A) mg/dL OTHER LAB HDL (EXTERNAL RESULT) 22 mg/dL OTHER LAB LDL (EXTERNAL RESULT) 47 mg/dL OTHER LAB VLDL (EXTERNAL RESULT) OTHER LAB Chol HDL Ratio (External Result) OTHER LAB Blood BLOOD SPECIMEN / Unknown 06/26/2023 8:42 AM GUNITE NOZZLE OPERATOR Historical Provider LAB - CHEMISTRY O RDERABLES OTHER LAB * (ABNORMAL) HEMOGLOBIN A1C (EXTERNAL RESULT ENTRY) (06/26/2023 8:42 AM GUNITE NOZZLE OPERATOR) Hemoglobin A1c (EXTERNAL RESULT) 6.6(A) % OTHER LAB Blood BLOOD SPECIMEN / Unknown 06/26/2023 8:42 AM GUNITE NOZZLE OPERATOR Historical Provider LAB - CHEMISTRY O RDERABLES OTHER LAB from Last 3 Months or Most Recently Relevant to Health Maintenance Care Teams Counter Caser Relationship Specialty Start Date End Date Piyush Peguero PA-C [address] [place] [address] PCP - General Physician Appraiser Real Estate 06/04/23
--- OUTSIDE RECORDS SUMMARY | 2024-07-05 12:50 | XMS_ITS | Referral Summary ---
Author Organization [facility] Address [address] [place] [phone] Care Team Providers Care Chinchilla Machine Operator Name Role Phone Piyush Peguero Primary Care Provider Encounters Date Type Department Care Team Description 06/22/2024 Orders Only [facility] [address] [place] [phone] Arron Mason MD NICM (nonischemic cardiomyopathy) (CMS/HCC) (HCC) (Primary Dx); ICD (implantable cardioverter-defibrilla tor) in place; Ventricular fibrillation (CMS/HCC) (HCC); NSVT (nonsustained ventricular tachycardia) (HCC) 06/21/2024 8:00 AM BULLDOZER MECHANIC Ancillary Procedure [facility] [address] [place] [phone] Complete atrioventricular block (CMS/HCC) (HCC) from [...] on file Legal Sex Male 12:19 AM BULLDOZER MECHANIC Gender Identity Not on file Sexual Orientation Not on file Last Filed Vital Signs Vital Sign Reading Time Taken Comments Blood Pressure 120/80 05/14/2022 12:07 PM BULLDOZER MECHANIC Pulse 76 05/14/2022 12:07 PM BULLDOZER MECHANIC Temperature - - Respiratory Rate - - Oxygen Saturation 96% 05/14/2022 12:07 PM BULLDOZER MECHANIC Inhaled Oxygen Concentration - - Weight 108.9 kg (240 lb) 05/14/2022 12:07 PM BULLDOZER MECHANIC per pt Height 185.4 cm (6' 1 ) 05/14/2022 12:07 PM BULLDOZER MECHANIC Body Mass Index 31.66 05/14/2022 12:07 PM BULLDOZER MECHANIC Plan of Treatment Not on file Insurance [facility] Care Teams Chinchilla Machine Operator Relationship Specialty Start Date End Date Piyush Peguero PA [address] [address] PCP - General Physician Die Cast Engineer 11/27/20
[2024-07-05 19:39] LABS: Hematocrit 28.7 % (42.0-52.0); Hemoglobin 9.1 g/dL (14.0-18.0)
[2024-07-05 20:13] LABS: Anion Gap 10 mmol/L (4-12); Blood Urea Nitrogen 11 mg/dL (9-20); Calcium 8.7 mg/dL (8.4-10.2); Carbon Dioxide 22 mmol/L (22-30); Chloride 103 mmol/L (98-107); Estimated Glomerular Filt Rate > 60; Glucose 145 mg/dL (65-110); Potassium 4.1 mmol/L (3.4-5.0); Sodium 135 mmol/L (137-145)
== END 2024-07-05 11:45 | disposition home or self-care (01) ==
LOC: ANHASCLAB 11:46
PROVIDERS: Clinical Nurse Specialist; Internal Medicine Gastroenterology; PCP Internal Medicine; Visit Provider Internal Medicine
DX: D64.9 Anemia, unspecified (principal); E11.9 Type 2 diabetes mellitus without complications
CPT/HCPCS: 36415; 80048; 85014; 85018

== ENCOUNTER 2024-07-08 03:05 | Day surgery (SDC) | payer OTHER, SELFPAY ==
[2024-07-04 10:05] VITALS: BMI 31.0
--- OUTSIDE RECORDS SUMMARY | 2024-07-08 03:08 | XMS_ITS | Clinical Summary ---
Author Organization [facility] Address [address] [place] [phone] Care Team Providers Care Selenium Plant Operator Name Role Phone Piyush Peguero Primary [...] Dx: CHB. DOI 05/23/2022. Chronic leads 06/17/2012. [place] remote monitoring, office pacer checks Q1 yr. Complete atrioventricular block (CMS/HCC) 2013 Overview (09/11/2016): Complete atrioventricular block Patient with cardiac pacemaker 05/23/2014 Overview (05/23/2022): [place] Assurity Dual Pacemaker. Dx: CHB. DOI 05/23/2022. Chronic leads 06/17/2012. [place] remote monitoring, office pacer checks Q1 yr. Essential hypertension 05/23/2014 Overview (09/11/2016): Essential hypertension Encounters Date Type Department Care Team Description 07/07/2024 Telephone [facility] [address] [place] [address] Arron Mason MD 06/22/2024 Orders Only [facility] [address] [place] [address] [place] [phone] Arron Mason MD NICM (nonischemic cardiomyopathy) (CMS/HCC) (HCC) (Primary Dx); ICD (implantable cardioverter-defibrilla tor) in place; Ventricular fibrillation (CMS/HCC) (HCC); NSVT (nonsustained ventricular tachycardia) (HCC) 06/21/2024 8:00 AM SEQUINS SLINGER Ancillary Procedure [facility] [address] [place] [address] [place] [phone] Complete atrioventricular block (CMS/HCC) (HCC) from [...] on file Legal Sex Male 12:19 AM SEQUINS SLINGER Gender Identity Not on file Sexual Orientation Not on file Obstetrics History Last Filed Vital Signs Vital Sign Reading Time Taken Comments Blood Pressure 120/80 05/14/2022 12:07 PM SEQUINS SLINGER Pulse 76 05/14/2022 12:07 PM SEQUINS SLINGER Temperature - - Respiratory Rate - - Oxygen Saturation 96% 05/14/2022 12:07 PM SEQUINS SLINGER Inhaled Oxygen Concentration - - Weight 108.9 kg (240 lb) 05/14/2022 12:07 PM SEQUINS SLINGER per pt Height 185.4 cm (6' 1 ) 05/14/2022 12:07 PM SEQUINS SLINGER Body Mass Index 31.66 05/14/2022 12:07 PM SEQUINS SLINGER Plan of Treatment Health Maintenance Due Date [...] (2 - Td or Tdap) 10/03/2028 Insurance [facility] Address: [address] [address] [place] [address] [facility] Address: [address] [address] [place] [address] [facility] Address: [address] [address] Care Teams Selenium Plant Operator Relationship Specialty Start Date End Date Piyush Peguero PA [address] [facility] [address] [place] [address] PCP - General Physician Iron Bender 11/27/20
--- OUTSIDE RECORDS SUMMARY | 2024-07-08 03:09 | XMS_ITS | Referral Summary ---
Author Organization [facility] Address [address] [place] [address] Care Team Providers Care Loom Doffer Name Role Phone Piyush Peguero PA-C Primary Care Provide r Source Comments [facility],non-owned Affiliates and Associated Physician Practices is amultiple site organization consisting of ambulatory clinics and hospital sitesin [place], [place], [place] and [place]. This disclosure is being madepursuant to the Care Everywhere program and may not contain all information available regarding this patient. Last updated 18.[facility] Allergies No known active allergies Medications * [...] Office Visit [facility] [address] [place] [address], [facility] [place] [address] Jerrell Ashley MD [address] [place] [phone] Goals Goal Patient Goal Type Associated Problems [...] (EXTERNAL RESULT ENTRY) Routine 06/26/2023 8:42 AM PROCESSING ANALYST LIPID PROFILE (EXTERAL RESULT ENTRY) Routine 06/26/2023 8:42 AM PROCESSING ANALYST from Last 3 Months or Most Recently Relevant to Health Maintenance Results * (ABNORMAL) LIPID PROFILE (EXTERAL RESULT ENTRY) (06/26/2023 8:42 AM PROCESSING ANALYST) Cholesterol (EXTERNAL RESULT) 136 mg/dL OTHER LAB Triglycerides (EXTERNAL RESULT) 388(A) mg/dL OTHER LAB HDL (EXTERNAL RESULT) 22 mg/dL OTHER LAB LDL (EXTERNAL RESULT) 47 mg/dL OTHER LAB VLDL (EXTERNAL RESULT) OTHER LAB Chol HDL Ratio (External Result) OTHER LAB Blood BLOOD SPECIMEN / Unknown 06/26/2023 8:42 AM PROCESSING ANALYST Historical Provider LAB - CHEMISTRY O RDERABLES OTHER LAB * (ABNORMAL) HEMOGLOBIN A1C (EXTERNAL RESULT ENTRY) (06/26/2023 8:42 AM PROCESSING ANALYST) Hemoglobin A1c (EXTERNAL RESULT) 6.6(A) % OTHER LAB Blood BLOOD SPECIMEN / Unknown 06/26/2023 8:42 AM PROCESSING ANALYST Historical Provider LAB - CHEMISTRY O RDERABLES Performing Organization Address City/[facility] Co de Phone Number OTHER LAB from Last 3 Months or Most Recently Relevant to Health Maintenance Care Teams Loom Doffer Relationship Specialty Start Date End Date Piyush Peguero PA-C [address] [facility] [address] [facility] [address] [place] [address] PCP - General Physician Reverser 06/04/23
--- OUTSIDE RECORDS SUMMARY | 2024-07-08 03:09 | XMS_ITS | Referral Summary ---
Author Organization [facility] Address [address] [place] [phone] Care Team Providers Care Manager Of Applications Development Name Role Phone Piyush Peguero Primary Care Provider Encounters Date Type Department Care Team Description 07/07/2024 Telephone [facility] [address] [facility] [address] [place] [phone] Arron Mason MD 06/22/2024 Orders Only [facility]iology [address] [place] [address] [place] [phone] Arron Mason MD NICM (nonischemic cardiomyopathy) (CMS/HCC) (HCC) (Primary Dx); ICD (implantable cardioverter-defibrilla tor) in place; Ventricular fibrillation (CMS/HCC) (HCC); NSVT (nonsustained ventricular tachycardia) (HCC) 06/21/2024 8:00 AM FLOWER GROWER Ancillary Procedure [facility] [address] [place] [address] [place] [phone] Complete atrioventricular block (CMS/HCC) (HCC) from [...] on file Legal Sex Male 12:19 AM FLOWER GROWER Gender Identity Not on file Sexual Orientation Not on file Last Filed Vital Signs Vital Sign Reading Time Taken Comments Blood Pressure 120/80 05/14/2022 12:07 PM FLOWER GROWER Pulse 76 05/14/2022 12:07 PM FLOWER GROWER Temperature - - Respiratory Rate - - Oxygen Saturation 96% 05/14/2022 12:07 PM FLOWER GROWER Inhaled Oxygen Concentration - - Weight 108.9 kg (240 lb) 05/14/2022 12:07 PM FLOWER GROWER per pt Height 185.4 cm (6' 1 ) 05/14/2022 12:07 PM FLOWER GROWER Body Mass Index 31.66 05/14/2022 12:07 PM FLOWER GROWER Plan of Treatment Not on file Insurance [facility] Care Teams Manager Of Applications Development Relationship Specialty Start Date End Date Piyush Peguero PA [address] [facility] [address] [place] [address] PCP - General Physician Senior Salesforce Developer 11/27/20
--- OUTSIDE RECORDS SUMMARY | 2024-07-08 03:09 | XMS_ITS | Encounter Summary ---
Author Organization [facility] Address [address] [place] [address] Care Team Providers Care Newsperson Name Role Phone Piyush Peguero Primary Care Provider Encounter Details Date Type Department Care Team (Late st Contact Info) Description 07/07/2024 Telephone [facility] Cardiology [address] [place] [address] Arron Mason MD [address] [place] [address] Social History Tobacco Use Types Packs/Day Years Used Date Smoking Tobacco: Never Smokeless Tobacco: Never Alcohol Use Standard Drinks/Week Comments Yes 0 (1 standard drink = 0.6 oz pur e alcohol) Personal Safety Answer Date Recorded Getting School Help Needed Not on file 05/21 Sex and Gender Information Value Date Recorded Sex Assigned at Not on file Legal Sex Male 12:19 AM COMPUTER PROJECT MANAGER Gender Identity Not on file Sexual Orientation Not on file documented as of this encounter Miscellaneous Notes * Telephone Encounter - Kierra Dillon RN - 07/07/2024 11:51 AM COMPUTER PROJECT MANAGER Will forward to Abi for assistance. UTER PROJECT MANAGER * Telephone Encounter - Kyra Holloway - 07/07/2024 11:45 AM CST Jeannine called from [facility] states she faxed a CRMD form on 07/04 and 07/06. Pt is scheduledtomorrow at 9:30 am. Requesting call with an update. Contact: UTER PROJECT MANAGER documented in this encounter Plan of Treatment Not on file documented as of this encounter Visit Diagnoses Not on filedocumented in this encounter Care Teams Newsperson Relationship Specialty Start Date End Date Piyush Peguero PA [address] [facility] [address] [place] [address] PCP - General Physician Stacker Attendant 11/27/20 documented as of this encounter
--- OUTSIDE RECORDS SUMMARY | 2024-07-08 03:09 | XMS_ITS | Clinical Summary ---
Author Organization [facility] Address [address] [place] [address] Care Team Providers Care Pilot Safety Inspector Name Role Phone Piyush Peguero PA-C Primary Care Provide r Source Comments [facility] [employer],non-owned Affiliates and Associated Physician Practices is amultiple site organization consisting of ambulatory clinics and hospital sitesin [place], [place], [place] and [place]. This disclosure is being madepursuant to the Care Everywhere program and may not contain all information available regarding this patient. Last updated 18.[facility] Allergies No known active allergies Medications * [...] Office Visit [facility] [address] [place] [address], [facility] [place] [address] Jerrell Ashley MD [address] [place] [phone] Health Maintenance Due Date Last Done Comments [...] (EXTERNAL RESULT ENTRY) Routine 06/26/2023 8:42 AM GIS ANALYST LIPID PROFILE (EXTERAL RESULT ENTRY) Routine 06/26/2023 8:42 AM GIS ANALYST from Last 3 Months or Most Recently Relevant to Health Maintenance Results * (ABNORMAL) LIPID PROFILE (EXTERAL RESULT ENTRY) (06/26/2023 8:42 AM GIS ANALYST) Cholesterol (EXTERNAL RESULT) 136 mg/dL OTHER LAB Triglycerides (EXTERNAL RESULT) 388(A) mg/dL OTHER LAB HDL (EXTERNAL RESULT) 22 mg/dL OTHER LAB LDL (EXTERNAL RESULT) 47 mg/dL OTHER LAB VLDL (EXTERNAL RESULT) OTHER LAB Chol HDL Ratio (External Result) OTHER LAB Blood BLOOD SPECIMEN / Unknown 06/26/2023 8:42 AM GIS ANALYST Historical Provider LAB - CHEMISTRY O RDERABLES OTHER LAB * (ABNORMAL) HEMOGLOBIN A1C (EXTERNAL RESULT ENTRY) (06/26/2023 8:42 AM GIS ANALYST) Hemoglobin A1c (EXTERNAL RESULT) 6.6(A) % OTHER LAB Blood BLOOD SPECIMEN / Unknown 06/26/2023 8:42 AM GIS ANALYST Historical Provider LAB - CHEMISTRY O RDERABLES OTHER LAB from Last 3 Months or Most Recently Relevant to Health Maintenance Care Teams Pilot Safety Inspector Relationship Specialty Start Date End Date Piyush Peguero PA-C [address] [place] [address] PCP - General Physician Carrier Blower 06/04/23
--- OUTSIDE RECORDS SUMMARY | 2024-07-08 03:09 | XMS_ITS | Encounter Summary ---
Author Organization [facility] Address [address] [facility] [address] [place] [address] Care Team Providers Care Thermodynamicist Name Role Phone Yeyo Barrera MD Primary Care Provider [phone] No, Physician Primary Care Provider [phone] Piyush Peguero Primary Care Provider Encounter Details Date Type Department Care Team (Late st Contact Info) Description 06/17/2016 Orders Only [facility] ProviderKriss MD [address] [place] [address] Social History Tobacco Use Types Packs/Day Years Used Date Smoking Tobacco: Never Alcohol Use Standard Drinks/Week Comments Yes 0 (1 standard drink = 0.6 oz pur e alcohol) Sex and Gender Information Value Date Recorded Sex Assigned at Not on file Legal Sex Male 12:19 AM METAL SHAPING MACHINE OPERATOR Gender Identity Not on file Sexual Orientation [...] on filedocumented in this encounter Care Teams Thermodynamicist Relationship Specialty Start Date End Date Yeyo Barrera MD PCP - General 07/13/12 09/28/18 No, Physician PCP - General 09/29/18 11/26/20 Piyush Peguero PA [address] [address] PCP - General Physician School Janitor 11/27/20 documented as of this encounter
--- OUTSIDE RECORDS SUMMARY | 2024-07-08 03:09 | XMS_ITS | Patient Health Summary ---
Author Organization [facility] Address [address] [place] [address] Care Team Providers Care Radio/Tv Technician Name Role Phone Piyush Peguero PA-C Primary Care Provide r Note from [facility],non-owned Affiliates and Associated Physician Practices is amultiple site organization consisting of ambulatory clinics and hospital sitesin [place], [place], [place] and [place]. This disclosure is being madepursuant to the Care Everywhere program and may not contain all information available regarding this patient. Last updated 18.[facility] Allergies No known active allergies Medications [...] DIFF (EXTERNAL RESULT ENTRY) (06/26/2023 8:42 AM CONDOMINIUM PROPERTY MANAGER) WBC (EXTERNAL RESULT) 4.3(A) 10^3/ul OTHER LAB Hemoglobin (EXTERNAL RESULT) 10.8(A) g/dl OTHER LAB Hematocrit (EXTERNAL RESULT) 36.7(A) % OTHER LAB Platelets (EXTERNAL RESULT) 155 10^3/ul OTHER LAB Neutrophil Absolute (EXTERNAL RESULT) 2.3 10^3/ul OTHER LAB Blood BLOOD SPECIMEN / Unknown 06/26/2023 8:42 AM CONDOMINIUM PROPERTY MANAGER Historical Provider MD LAB - HEMATOLOGY ORDERABLES OTHER LAB * (ABNORMAL) COMP MET PANEL (EXTERNAL RESULT ENTRY) (06/26/2023 8:42 AM CONDOMINIUM PROPERTY MANAGER) Glucose (EXTERNAL) 151(A) mg/dL OTHER LAB Sodium [...] BLOOD SPECIMEN / Unknown 06/26/2023 8:42 AM CONDOMINIUM PROPERTY MANAGER Historical Provider LAB - CHEMISTRY O SCOTT Performing Organization Address City/[facility] Co de Phone Number OTHER LAB * PSA TOTAL (EXTERNAL RESULT ENTRY) (06/26/2023 8:42 AM CONDOMINIUM PROPERTY MANAGER) Pathologist [facility] PSA Total (EXTERNAL RESULT) 0.2 0.00 - 4.00 NG/ML OTHER LAB Blood BLOOD SPECIMEN / Unknown 06/26/2023 8:42 AM CONDOMINIUM PROPERTY MANAGER Historical Provider LAB - CHEMISTRY O RDERAJORGE OTHER LAB * (ABNORMAL) LIPID PROFILE (EXTERAL RESULT ENTRY) (06/26/2023 8:42 AM CONDOMINIUM PROPERTY MANAGER) Cholesterol (EXTERNAL RESULT) 136 mg/dL OTHER LAB Triglycerides (EXTERNAL RESULT) 388(A) mg/dL OTHER LAB HDL (EXTERNAL RESULT) 22 mg/dL OTHER LAB LDL (EXTERNAL RESULT) 47 mg/dL OTHER LAB VLDL (EXTERNAL RESULT) OTHER LAB Chol HDL Ratio (External Result) OTHER LAB Blood BLOOD SPECIMEN / Unknown 06/26/2023 8:42 AM CONDOMINIUM PROPERTY MANAGER Historical Provider MD LAB - CHEMISTRY O RDERABLES OTHER LAB * TSH (EXTERNAL RESULT ENTRY) (06/26/2023 8:42 AM CONDOMINIUM PROPERTY MANAGER) TSH (EXTERNAL RESULT) 1.770 uIU/mL OTHER LAB Blood BLOOD SPECIMEN / Unknown 06/26/2023 8:42 AM CONDOMINIUM PROPERTY MANAGER Historical Provider LAB - CHEMISTRY O RDERABLES OTHER LAB * (ABNORMAL) HEMOGLOBIN A1C (EXTERNAL RESULT ENTRY) (06/26/2023 8:42 AM CONDOMINIUM PROPERTY MANAGER) Hemoglobin A1c (EXTERNAL RESULT) 6.6(A) % OTHER LAB Blood BLOOD SPECIMEN / Unknown 06/26/2023 8:42 AM CONDOMINIUM PROPERTY MANAGER Historical Provider LAB - CHEMISTRY O RDERABLES Performing Organization Address City/[facility]/ZIP Co de Phone Number OTHER LAB * (ABNORMAL) IRON/SATURATION (EXTERNAL RESULT ENTRY) (05/12/2023 2:21 PM CONDOMINIUM PROPERTY MANAGER) Iron (EXTERNAL RESULT) 48(A) mcg/dl OTHER LAB Transferrin (EXTERNAL RESULT) OTHER LAB Transferrin Saturation (EXTERNAL RESULT) 10(A) % OTHER LAB Blood BLOOD SPECIMEN / Unknown 05/12/2023 2:21 PM CONDOMINIUM PROPERTY MANAGER Historical Provider LAB - CHEMISTRY O RDERABLES OTHER LAB Care Teams Radio/Tv Technician Relationship Specialty Start Date End Date Piyush Peguero PA-C [address] [place] [address] PCP - General Physician Deputy Attorney General 06/04/23
[2024-07-08 09:05] VITALS: BP 123/71; PULSE 65; RESP 20; TEMP 36.4; O2SAT 97; BMI 30.7
[2024-07-08] MEDS: LACTATED RINGERS 1,000 ML 150 ML IV CONT (09:16)
[2024-07-08 09:18] LABS: Glucose Point of Care 138 mg/dl (65-105)
--- NOTE | 2024-07-08 09:37 | P.PNAN_ITS ---
Anes - Initial Pre Proc Eval Procedure: Operation Date: 07/08/24 10:00 Proposed Procedures p Esophagogastroduodenoscopy & Colonoscopy - Alberto Adamson MD Date/Time: 07/08/24 09:37 Surgeon: Alberto Adamson MD Pre Op Diagnosis: Cirrhosis of liver,anemia,esophageal varices Patient Data Age: 64 Gender: M Height: 1.85 m Weight: 105.56 kg Last Vital Signs Temp 36.4 C 07/08/24 09:05 Pulse 65 07/08/24 09:05 Resp 20 07/08/24 09:05 BP 123/71 07/08/24 09:05 Pulse Ox 97 07/08/24 09:05 O2 Del Method Room Air 07/08/24 09:05 Allergies Allergy/AdvReac Type Severity Reaction Status Date / Time No Known Allergies Allergy Verified 07/08/24 09:03 Home Medications ?Medication ?Instructions ?Recorded ?Confirmed ?Type carvedilol 3.125 mg tablet 3.125 mg PO Q12H 10/15/23 07/08/24 History blood sugar diagnostic (Blood #50 ea 12/07/23 06/27/24 Rx Glucose Test strips) blood-glucose meter #1 ea 12/07/23 06/27/24 Rx lancets 30 gauge (OneTouch Delica #100 ea 01/05/24 06/27/24 Rx Plus Lancet) pantoprazole 40 mg tablet,delayed 40 mg PO QAM #30 tabs 05/13/24 07/08/24 Rx release lisinopril 40 mg tablet 20 mg (1/2 x 40 mg) PO DAILY #30 06/27/24 07/08/24 Rx tabs semaglutide 0.25 mg or 0.5 mg (2 0.25 mg (0.368 mL) subcut WEEKLY 06/27/24 07/04/24 Rx mg/3 mL) subcutaneous pen injector #3 mL (OzTriPlayic) Laboratory Tests 07/08/24 09:15 POC Capillary Glucose 138 H mg/dl (65-105) Patient hx anesthesia problems: none Family hx anesthesia problems: none Results Review: All pre-operative results and documents have been reviewed as part of the pre- operative evaluation. [facility] Past Medical History Medical History Non-alcoholic cirrhosis Pancytopenia Prediabetes Pseudogout Esophageal varices Obstructive sleep apnea on CPAP Cirrhosis of liver Suspected MUÑOZ per [facility]ology Thrombocytopenia Hypertension Heart disease Surgical History Surgical History History of vasectomy History of inguinal hernia repair History of umbilical hernia repair History of permanent cardiac pacemaker placement (2021) Family History Family History Sibling Family history of migraine headaches Patient's sister is in good health Patient's brother is in good health Father Hypertension Mother Family history of lung cancer Patient's mother is Other Cerebrovascular accident Family history of cardiovascular disease Social History Social History Social History: Surrogate medical decision maker: Ayah Mason, significant other. Code status: Full code. Caffeine: pepsi Smoking status: Never smoker Alcohol intake: former Substance use: never Substance use type: does not use Do You Feel Safe in your Home?: Yes Lack of Transportation: No Lack of Food: Never True Current Housing: I Have Housing Concerned About Future Housing: No Difficulty Paying Gas/Electric Bills: No Difficulty Paying for Meds: No Currently Unemployed: No Education: High School Diploma/GED Difficulty w/ Childcare or Family Care: No Living arrangements: with family Additional living arrangements comments: Lives with significant other. 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 Gender identity (if verbalized by the patient): Male Sexual Orientation (if Verbalized by the Patient): Straight or Heterosexual Spiritual care concerns: No Agree to blood products: Yes Anes - Eval Final PreProcedure Day of Procedure 07/08/24 09:37 Patient weight: overweight Heart: regular rate and rhythm Lungs: clear to auscultation Airway: Mallampati scale class II Neurological: alert and oriented Last oral intake: >/= 8 hours ASA classification: IV Emergent: no Anesthetic plan: proceed Anesthesia type and monitoring: general GIVS and standard monitoring Results Review: All pre-operative results and documents have been reviewed as part of the pre- operative evaluation. Informed Consent: The patient's anesthetic plan and its attendant risks and benefits were discussed with the patient/family/POA. Questions were solicited and answers pro vided to the satisfaction of the patient/family/POA.
--- NOTE | 2024-07-08 09:49 | WPDHPUPDATE1 ---
History and Physical Update Update Date/Time: 07/08/24 09:49 History and Physical has been reviewed, including an updated exam of the patient. There are NO changes in the patient's condition. Risks, benefits, and alternatives have been discussed and questions answered. Patient agrees to proceed with procedure.
--- NOTE | 2024-07-08 10:02 | SUR.OPER ---
EGD END 856 COLONOSCOPY [id number]
[2024-07-08 10:37] VITALS: BP 103/58; PULSE 55; RESP 20; O2SAT 99
[2024-07-08 10:47] VITALS: BP 108/68; PULSE 62; RESP 14; O2SAT 99
[2024-07-08 10:57] VITALS: BP 114/69; PULSE 60; RESP 20; O2SAT 99
== END 2024-07-08 11:11 | disposition home or self-care (01) ==
PROVIDERS: PCP Internal Medicine; Visit Provider Internal Medicine Gastroenterology
PROC: 0DJ08ZZ Inspection of Upper Intestinal Tract, Via Natural or Artificial Opening Endoscopic (ICD-10-PCS; CPT 45378; principal; 2024-07-08 10:00)
DX: I85.00 Esophageal varices without bleeding (principal); D12.0 Benign neoplasm of cecum; D64.9 Anemia, unspecified; K75.81 Nonalcoholic steatohepatitis (NASH); E11.65 Type 2 diabetes mellitus with hyperglycemia; D61.818 Other pancytopenia; I11.9 Hypertensive heart disease without heart failure; D69.6 Thrombocytopenia, unspecified; G47.33 Obstructive sleep apnea (adult) (pediatric); Z79.85 Long-term (current) use of injectable non-insulin antidiabetic drugs; Z99.89 Dependence on other enabling machines and devices; Z98.890 Other specified postprocedural states; Z95.0 Presence of cardiac pacemaker; Z87.19 Personal history of other diseases of the digestive system; Z80.1 Family history of malignant neoplasm of trachea, bronchus and lung; Z82.49 Family history of ischemic heart disease and other diseases of the circulatory system
CPT/HCPCS: 43235; 45385; 82948; 88305; J2003; J2704; J7120

== ENCOUNTER 2024-07-19 10:36 | Outpatient (CLI) | payer OTHER, SELFPAY ==
--- OUTSIDE RECORDS SUMMARY | 2024-07-19 11:53 | XMS_ITS | Clinical Summary ---
Author Organization [facility] Address [address] [place] [address] Care Team Providers Care Riverine Assault Craft Crewman Name Role Phone Piyush Peguero PA-C Primary Care Provide r Source Comments [facility] Takes,non-owned Affiliates and Associated Physician Practices is amultiple site organization consisting of ambulatory clinics and hospital sitesin [place], [place], [place] and [place]. This disclosure is being madepursuant to the Care Everywhere program and may not contain all information available regarding this patient. Last updated 18.[facility] Takes Allergies No known active allergies Medications * [...] 66 03/08/2024 9:47 AM CDT Temperature 36.8 C (98.2 F) 09/01/2023 11:24 AM CDT Respiratory Rate - - Oxygen Saturation 99% 03/08/2024 9:47 AM CDT Inhaled Oxygen Concentration - - Weight 110 kg (242 lb 6.4 oz) 03/08/2024 9:47 AM CDT Height 185.4 cm (6' 1 ) 03/08/2024 9:47 AM CDT Body Mass Index 31.98 03/08/2024 9:47 AM CDT Plan of Treatment Upcoming Encounters Date Type Department Care Team (Late st Contact Info) Description 07/28/2024 9:15 AM YARD SWITCH OPERATOR Procedure visit [facility] - Dermatology [address] [place] [phone] Chantal Barton MD [address] [place] [address] [place] [address] 09/13/2024 10:00 AM CDT Office Visit [facility] - GI [address] [place] [phone] Jerrell Ashley MD [address] [place] [phone] Health Maintenance Due Date Last Done Comments [...] (EXTERNAL RESULT ENTRY) Routine 06/26/2023 8:42 AM YARD SWITCH OPERATOR LIPID PROFILE (EXTERAL RESULT ENTRY) Routine 06/26/2023 8:42 AM YARD SWITCH OPERATOR from Last 3 Months or Most Recently Relevant to Health Maintenance Results * (ABNORMAL) LIPID PROFILE (EXTERAL RESULT ENTRY) (06/26/2023 8:42 AM YARD SWITCH OPERATOR) Cholesterol (EXTERNAL RESULT) 136 mg/dL OTHER LAB Triglycerides (EXTERNAL RESULT) 388(A) mg/dL OTHER LAB HDL (EXTERNAL RESULT) 22 mg/dL OTHER LAB LDL (EXTERNAL RESULT) 47 mg/dL OTHER LAB VLDL (EXTERNAL RESULT) OTHER LAB Chol HDL Ratio (External Result) OTHER LAB Blood BLOOD SPECIMEN / Unknown 06/26/2023 8:42 AM YARD SWITCH OPERATOR Historical Provider LAB - CHEMISTRY O RDERAJORGE OTHER LAB * (ABNORMAL) HEMOGLOBIN A1C (EXTERNAL RESULT ENTRY) (06/26/2023 8:42 AM YARD SWITCH OPERATOR) Hemoglobin A1c (EXTERNAL RESULT) 6.6(A) % OTHER LAB Blood BLOOD SPECIMEN / Unknown 06/26/2023 8:42 AM YARD SWITCH OPERATOR Historical Provider LAB - CHEMISTRY O RDERAJORGE OTHER LAB from Last 3 Months or Most Recently Relevant to Health Maintenance Care Teams Riverine Assault Craft Crewman Relationship Specialty Start Date End Date Piyush Peguero PA-C [address] [place] [address] PCP - General Physician Belt Builder 06/04/23
--- OUTSIDE RECORDS SUMMARY | 2024-07-19 11:53 | XMS_ITS | Referral Summary ---
Author Organization [facility] Address [address] [place] [address] Care Team Providers Care Fish Cake Maker Name Role Phone Piyush Peguero PA-C Primary Care Provide r Source Comments [facility],non-owned Affiliates and Associated Physician Practices is amultiple site organization consisting of ambulatory clinics and hospital sitesin [place], [place], [place] and [place]. This disclosure is being madepursuant to the Care Everywhere program and may not contain all information available regarding this patient. Last updated 18.[facility] Allergies No known active allergies Medications * [...] st Contact Info) Description 07/28/2024 9:15 AM LITHOGRAPH DESIGNER Procedure visit [facility] - Dermatology [address] [place] [phone] Chantal Barton MD [address] [place] [address] [place] [address] 09/13/2024 10:00 AM CDT Office Visit [facility] - GI [address] [place] [phone] Jerrell Ashley MD [address] [place] [phone] Goals Goal Patient Goal Type Associated Problems [...] (EXTERNAL RESULT ENTRY) Routine 06/26/2023 8:42 AM LITHOGRAPH DESIGNER LIPID PROFILE (EXTERAL RESULT ENTRY) Routine 06/26/2023 8:42 AM LITHOGRAPH DESIGNER from Last 3 Months or Most Recently Relevant to Health Maintenance Results * (ABNORMAL) LIPID PROFILE (EXTERAL RESULT ENTRY) (06/26/2023 8:42 AM LITHOGRAPH DESIGNER) Cholesterol (EXTERNAL RESULT) 136 mg/dL OTHER LAB Triglycerides (EXTERNAL RESULT) 388(A) mg/dL OTHER LAB HDL (EXTERNAL RESULT) 22 mg/dL OTHER LAB LDL (EXTERNAL RESULT) 47 mg/dL OTHER LAB VLDL (EXTERNAL RESULT) OTHER LAB Chol HDL Ratio (External Result) OTHER LAB Blood BLOOD SPECIMEN / Unknown 06/26/2023 8:42 AM LITHOGRAPH DESIGNER Historical Provider LAB - CHEMISTRY O RDERABLES Performing Organization Address City/[facility]/ZIP Co de Phone Number OTHER LAB * (ABNORMAL) HEMOGLOBIN A1C (EXTERNAL RESULT ENTRY) (06/26/2023 8:42 AM LITHOGRAPH DESIGNER) Hemoglobin A1c (EXTERNAL RESULT) 6.6(A) % OTHER LAB Blood BLOOD SPECIMEN / Unknown 06/26/2023 8:42 AM LITHOGRAPH DESIGNER Historical Provider LAB - CHEMISTRY O RDERABLES OTHER LAB from Last 3 Months or Most Recently Relevant to Health Maintenance Care Teams Fish Cake Maker Relationship Specialty Start Date End Date Piyush Peguero PA-C [address] [place] [address] PCP - General Physician Games Dealer 06/04/23
--- OUTSIDE RECORDS SUMMARY | 2024-07-19 11:53 | XMS_ITS | Clinical Summary ---
Author Organization [facility] Address [address] [place] [phone] Care Team Providers Care Partnership Development Manager Name Role Phone Griffin Plaza DO Primary Care Provider [phone] Allergies No known active allergies Medications lisinopriL (PRINIVIL,ZEST RIL) 40 mg tablet Take 1 tablet (40 mg total) by mouth daily 1 Active hydroCHLOROthi azide (HYDRODIURIL) 12.5 mg tablet Take 1 tablet (12.5 mg total) by mouth daily 1 Active carvediloL (COREG) 3.125 mg tablet Take 1 tablet (3.125 mg total) by mouth 2 (two) times a day Active pantoprazole DR (PROTONIX) 40 mg EC tablet Take 1 tablet (40 mg total) by mouth every morning Active magnesium oxide 500 mg capsule Take by mouth Active Ozempic 0.25 mg or 0.5 mg (2 mg/3 mL) pen injector injection ADMINISTER 0.25 MG UNDER THE SKIN WEEKLY FOR 4 WEEKS 5 Active aspirin 81 mg enteric coated tablet Take 81 mg by mouth daily 07/15/19 25 Discontinu ed(Therapy completed) Active Problems Problem Noted Date Diagnosed Date [...] Encounters Date Type Department Care Team Description 07/15/2024 11:00 AM CHILD PROTECTIVE SERVICES SPECIALIST Office Visit [facility] Cardiology [address] [place] [address] [place] [phone] Arron Mason MD Essential hypertension (Primary Dx); Complete atrioventricular block (CMS/HCC) (HCC); Presence of cardiac pacemaker 07/15/2024 10:30 AM CHILD PROTECTIVE SERVICES SPECIALIST Ancillary Procedure [facility] Cardiology [address] [place] [address] [place] [phone] Complete atrioventricular block (CMS/HCC) (HCC); Presence of cardiac pacemaker 07/07/2024 Telephone [facility] Cardiology [address] [place] [address] [place] [phone] Arron Mason MD 06/22/2024 Orders Only [facility] Cardiology [address] [place] [address] [place] [phone] Arron Mason MD NICM (nonischemic cardiomyopathy) (CMS/HCC) (HCC) (Primary Dx); ICD (implantable cardioverter-defibrilla tor) in place; Ventricular fibrillation (CMS/HCC) (HCC); NSVT (nonsustained ventricular tachycardia) (HCC) 06/21/2024 8:00 AM CHILD PROTECTIVE SERVICES SPECIALIST Ancillary Procedure [facility] Cardiology [address] [place] [address] [place] [phone] Presence of cardiac pacemaker (Primary Dx); Complete atrioventricular block (CMS/HCC) (HCC) from Last 3 Months Surgical History Surgery Date Site/Laterality Comments VENTRAL HERNIA REPAIR Ventral Hernia Repair INSERT / REPLACE / REMOVE PACEMAKER Medical History Medical History Date Comments Hypertension NAFL (nonalcoholic fatty liver) Family History Relation Name Status Comments Mother (Age 54) lung/brain cancer Social History Tobacco Use Types Packs/Day Years Used Date Smoking Tobacco: Never Smokeless Tobacco: Never Alcohol Use Standard Drinks/Week Comments Yes 0 (1 standard drink = 0.6 oz pur e alcohol) Sex and Gender Information Value Date Recorded Sex Assigned at Not on file Legal Sex Male 12:19 AM CHILD PROTECTIVE SERVICES SPECIALIST Gender Identity Not on file Sexual Orientation Not on file Obstetrics History Last Filed Vital Signs Vital Sign Reading Time Taken Comments Blood Pressure 118/78 07/15/2024 10:51 AM CHILD PROTECTIVE SERVICES SPECIALIST Pulse 66 07/15/2024 10:51 AM CHILD PROTECTIVE SERVICES SPECIALIST Temperature - - Respiratory Rate - - Oxygen Saturation 97% 07/15/2024 10: 51 AM CHILD PROTECTIVE SERVICES SPECIALIST Inhaled Oxygen Concentration - - Weight 108.8 kg (239 lb 15.4 oz) 2024 10:51 AM CHILD PROTECTIVE SERVICES SPECIALIST Height 185.4 cm (6' 1 ) 07/15/2024 10:5 1 AM CHILD PROTECTIVE SERVICES SPECIALIST Body Mass Index 31.66 07/15/2024 10:51 AM CHILD PROTECTIVE SERVICES SPECIALIST Plan of Treatment Health Maintenance Due Date Last Done Comments Colon Cancer Screening-Colonoscopy 1959 Depression Screening 1959 Fall Risk Assessment 1959 Hepatitis C Screening 1959 Prostate Cancer Screening-PSA 1959 Hepatitis B Screening 1977 Zoster Vaccine (1 of 2) 2009 Influenza Vaccine (#1) 2024 06/18/2010 Pneumococcal vaccine 65+ (1 of 1 - PCV) 2024 Well Visit 65+ 2024 DTaP/Tdap/Td Vaccine (2 - Td or Tdap) 10/03/2028 Procedures Procedure Name Priority Date/Time Associated Diagnosis Comments POCT LIPID PANEL Routine 07/15/2024 10:5 5 AM CHILD PROTECTIVE SERVICES SPECIALIST Essential hypertension from Last 3 Months Results * POCT lipid panel (07/15/2024 10:55 AM CHILD PROTECTIVE SERVICES SPECIALIST) Cholesterol, POC 104 mg/dL Comment:GLU = 151 HDL, POC 17 mg/dL Triglycerides, POC 303 mg/dL LDL Cholesterol POC 26 mg/dL Chol/HDL Ratio, POC 1.6 Non-HDL Cholesterol, POC 187 mg/dL Cholesterol Total, POC 104 mg/dL Capillary blood 07/15/2024 1 0:55 AM CHILD PROTECTIVE SERVICES SPECIALIST Arron Mason MD POINT OF CARE TEST ORDER RUDOLPH Final Result from Last 3 Months Insurance [facility] Care Teams Partnership Development Manager Relationship Specialty Start Date End Date Griffin Plaza DO [address] [phone] PCP - General Internal Medicine 07/15/24
--- OUTSIDE RECORDS SUMMARY | 2024-07-19 11:53 | XMS_ITS | Encounter Summary ---
Author Organization [facility] Healthcare Address [address] [place] [address] Care Team Providers Care Keyboard Instrument Repairer Name Role Phone Piyush Peguero Primary Care Provider Griffin Plaza DO Primary Care Provider [phone] Encounter Details Date Type Department Care Team (Late st Contact Info) Description 07/07/2024 Telephone [facility] Cardiology [address] [place] [phone] Arron Mason MD [address] [place] [address] Social History Tobacco Use Types Packs/Day Years Used Date Smoking Tobacco: Never Smokeless Tobacco: Never Alcohol Use Standard Drinks/Week Comments Yes 0 (1 standard drink = 0.6 oz pur e alcohol) Sex and Gender Information Value Date Recorded Sex Assigned at Not on file Legal Sex Male 12:19 AM IT SUPPORT CONSULTANT Gender Identity Not on file Sexual Orientation Not on file documented as of this encounter Miscellaneous Notes * Telephone Encounter - Kierra Dillon RN - 07/07/2024 11:51 AM IT SUPPORT CONSULTANT Will forward to Abi for assistance. SUPPORT CONSULTANT * Telephone Encounter - Kyra Holloway - 07/07/2024 11:45 AM CST Jeannine called from [facility] she faxed a CRMD form on 07/04 and 07/06. Pt is scheduledtomorrow at 9:30 am. Requesting call with an update. Contact: SUPPORT CONSULTANT documented in this encounter Plan of Treatment Not on file documented as of this encounter Visit Diagnoses Not on filedocumented in this encounter Care Teams Keyboard Instrument Repairer Relationship Specialty Start Date End Date Piyush Peguero PA [address] [place], [place] [phone] PCP - General Physician Respiratory Physician 11/27/20 07/14/24 Griffin Plaza DO [address] [place] [address] PCP - General Internal Medicine 07/15/24 documented as of this encounter
--- OUTSIDE RECORDS SUMMARY | 2024-07-19 11:53 | XMS_ITS | Encounter Summary ---
Author Organization [facility] Address [address] [place] [address] [place] [phone] Care Team Providers Care Enterprise Account Manager Name Role Phone Yeyo Barrera MD Primary Care Provider No, Physician Primary Care Provider [phone] Piyush Peguero Primary Care Provider Griffin Plaza DO Primary Care Provider [phone] Encounter Details Date Type Department Care Team (Late st Contact Info) Description 06/17/2016 Orders Only [facility] ProviderKriss MD [address] [place] [phone] Social History Tobacco Use Types Packs/Day Years Used Date Smoking Tobacco: Never Alcohol Use Standard Drinks/Week Comments Yes 0 (1 standard drink = 0.6 oz pur e alcohol) Sex and Gender Information Value Date Recorded Sex Assigned at Not on file Legal Sex Male 12:19 AM VP CUSTOMER DEVELOPMENT Gender Identity Not on file Sexual Orientation [...] on filedocumented in this encounter Care Teams Enterprise Account Manager Relationship Specialty Start Date End Date Yeyo Barrera MD PCP - General 07/13/12 09/28/18 No, Physician PCP - General 09/29/18 11/26/20 Piyush Peguero PA [address] [facility] [address] [place] [address] PCP - General Physician Laundry Aide 11/27/20 07/14/24 Griffin Plaza DO [address] [facility] [address] [place] [address] PCP - General Internal Medicine 07/15/24 documented as of this encounter
--- OUTSIDE RECORDS SUMMARY | 2024-07-19 11:53 | XMS_ITS | Patient Health Summary ---
Author Organization [facility] Address [address] [place] [address] Care Team Providers Care Circular Shear Operator Name Role Phone Piyush Peguero PA-C Primary Care Provide r Note from [facility],non-owned Affiliates and Associated Physician Practices is amultiple site organization consisting of ambulatory clinics and hospital sitesin [place], [place], [place] and [place]. This disclosure is being madepursuant to the Care Everywhere program and may not contain all information available regarding this patient. Last updated 18.[facility] Allergies No known active allergies Medications * [...] DIFF (EXTERNAL RESULT ENTRY) (06/26/2023 8:42 AM RESTAURANT HOURLY TEAM MEMBER) WBC (EXTERNAL RESULT) 4.3(A) 10^3/ul OTHER LAB Hemoglobin (EXTERNAL RESULT) 10.8(A) g/dl OTHER LAB Hematocrit (EXTERNAL RESULT) 36.7(A) % OTHER LAB Platelets (EXTERNAL RESULT) 155 10^3/ul OTHER LAB Neutrophil Absolute (EXTERNAL RESULT) 2.3 10^3/ul OTHER LAB Blood BLOOD SPECIMEN / Unknown 06/26/2023 8:42 AM RESTAURANT HOURLY TEAM MEMBER Historical Provider LAB - HEMATOLOGY ORDERABLES OTHER LAB * (ABNORMAL) COMP MET PANEL (EXTERNAL RESULT ENTRY) (06/26/2023 8:42 AM RESTAURANT HOURLY TEAM MEMBER) Glucose (EXTERNAL) 151(A) mg/dL OTHER LAB Sodium [...] BLOOD SPECIMEN / Unknown 06/26/2023 8:42 AM RESTAURANT HOURLY TEAM MEMBER Historical Provider LAB - CHEMISTRY O TabletKioskERAJORGE OTHER LAB * PSA TOTAL (EXTERNAL RESULT ENTRY) (06/26/2023 8:42 AM RESTAURANT HOURLY TEAM MEMBER) Pathologist [facility] PSA Total (EXTERNAL RESULT) 0.2 0.00 - 4.00 NG/ML OTHER LAB Blood BLOOD SPECIMEN / Unknown 06/26/2023 8:42 AM RESTAURANT HOURLY TEAM MEMBER Historical Provider LAB - CHEMISTRY O RDERABLES OTHER LAB * (ABNORMAL) LIPID PROFILE (EXTERAL RESULT ENTRY) (06/26/2023 8:42 AM RESTAURANT HOURLY TEAM MEMBER) Pathologist [facility] Cholesterol (EXTERNAL RESULT) 136 mg/dL OTHER LAB Triglycerides (EXTERNAL RESULT) 388(A) mg/dL OTHER LAB HDL (EXTERNAL RESULT) 22 mg/dL OTHER LAB LDL (EXTERNAL RESULT) 47 mg/dL OTHER LAB VLDL (EXTERNAL RESULT) OTHER LAB Chol HDL Ratio (External Result) OTHER LAB Blood BLOOD SPECIMEN / Unknown 06/26/2023 8:42 AM RESTAURANT HOURLY TEAM MEMBER Historical Provider MD LAB - CHEMISTRY O RDERABLES OTHER LAB * TSH (EXTERNAL RESULT ENTRY) (06/26/2023 8:42 AM RESTAURANT HOURLY TEAM MEMBER) TSH (EXTERNAL RESULT) 1.770 uIU/mL OTHER LAB Blood BLOOD SPECIMEN / Unknown 06/26/2023 8:42 AM RESTAURANT HOURLY TEAM MEMBER Historical Provider LAB - CHEMISTRY O RDERABLES OTHER LAB * (ABNORMAL) HEMOGLOBIN A1C (EXTERNAL RESULT ENTRY) (06/26/2023 8:42 AM RESTAURANT HOURLY TEAM MEMBER) Hemoglobin A1c (EXTERNAL RESULT) 6.6(A) % OTHER LAB Blood BLOOD SPECIMEN / Unknown 06/26/2023 8:42 AM RESTAURANT HOURLY TEAM MEMBER Historical Provider LAB - CHEMISTRY O RDERABLES OTHER LAB * (ABNORMAL) IRON/SATURATION (EXTERNAL RESULT ENTRY) (05/12/2023 2:21 PM RESTAURANT HOURLY TEAM MEMBER) Iron (EXTERNAL RESULT) 48(A) mcg/dl OTHER LAB Transferrin (EXTERNAL RESULT) OTHER LAB Transferrin Saturation (EXTERNAL RESULT) 10(A) % OTHER LAB Blood BLOOD SPECIMEN / Unknown 05/12/2023 2:21 PM RESTAURANT HOURLY TEAM MEMBER Historical Provider LAB - CHEMISTRY O RDERABLES OTHER LAB Care Teams Circular Shear Operator Relationship Specialty Start Date End Date Piyush Peguero PA-C [address] [place] [address] PCP - General Physician Applications System Analyst 06/04/23
--- OUTSIDE RECORDS SUMMARY | 2024-07-19 11:53 | XMS_ITS | Referral Summary ---
Author Organization [facility] Address [address] [place] [phone] Care Team Providers Care Research Phlebotomist Name Role Phone Griffin Plaza DO Primary Care Provider [phone]- [phone] Encounters Date Type Department Care Team Description 07/15/2024 10:30 AM ANESTHESIA TECHNICIAN Ancillary Procedure [facility] Cardiology [address] [place] [phone] Complete atrioventricular block (CMS/HCC) (HCC); Presence of cardiac pacemaker 07/15/2024 11:00 AM ANESTHESIA TECHNICIAN Office Visit [facility] [address] [facility] [address] [place] [phone] Arron Mason MD Essential hypertension (Primary Dx); Complete atrioventricular block (CMS/HCC) (HCC); Presence of cardiac pacemaker 07/07/2024 Telephone [facility] [address] [place] [phone] Arron Mason MD 06/22/2024 Orders Only [facility]iology [address] [place] [address] [place] [phone] Arron Mason MD NICM (nonischemic cardiomyopathy) (CMS/HCC) (HCC) (Primary Dx); ICD (implantable cardioverter-defibrilla tor) in place; Ventricular fibrillation (CMS/HCC) (HCC); NSVT (nonsustained ventricular tachycardia) (HCC) 06/21/2024 8:00 AM ANESTHESIA TECHNICIAN Ancillary Procedure [facility] [address] [phone] Presence of cardiac pacemaker (Primary Dx); Complete atrioventricular block (CMS/HCC) (HCC) from Last 3 Months Allergies No known active allergies Medications lisinopriL [...] Dx: CHB. DOI 05/23/2022. Chronic leads 06/17/2012. [place] remote monitoring, office pacer checks Q1 yr. [...] on file Legal Sex Male 12:19 AM ANESTHESIA TECHNICIAN Gender Identity Not on file Sexual Orientation Not on file Last Filed Vital Signs Vital Sign Reading Time Taken Comments Blood Pressure 118/78 07/15/2024 10:51 AM ANESTHESIA TECHNICIAN Pulse 66 07/15/2024 10:51 AM ANESTHESIA TECHNICIAN Temperature - - Respiratory Rate - - Oxygen Saturation 97% 07/15/2024 10: 51 AM ANESTHESIA TECHNICIAN Inhaled Oxygen Concentration - - Weight 108.8 kg (239 lb 15.4 oz) 2024 10:51 AM ANESTHESIA TECHNICIAN Height 185.4 cm (6' 1 ) 07/15/2024 10:5 1 AM ANESTHESIA TECHNICIAN Body Mass Index 31.66 07/15/2024 10:51 AM ANESTHESIA TECHNICIAN Plan of Treatment Not on file Procedures Procedure Name Priority Date/Time Associated Diagnosis Comments POCT LIPID PANEL Routine 07/15/2024 10:5 5 AM ANESTHESIA TECHNICIAN Essential hypertension from Last 3 Months Results * POCT lipid panel (07/15/2024 10:55 AM ANESTHESIA TECHNICIAN) Cholesterol, POC 104 mg/dL Comment:GLU = 151 HDL, POC 17 mg/dL Triglycerides, POC 303 mg/dL LDL Cholesterol POC 26 mg/dL Chol/HDL Ratio, POC 1.6 Non-HDL Cholesterol, POC 187 mg/dL Cholesterol Total, POC 104 mg/dL Capillary blood 07/15/2024 1 0:55 AM ANESTHESIA TECHNICIAN Arron Mason MD POINT OF CARE TEST ORDER RUDOLPH Final Result from Last 3 Months Insurance [facility]PPO Address: [place] [address] [facility] Address: [place] [address] [facility]/PPO Address: [place] [address] Care Teams Research Phlebotomist Relationship Specialty Start Date End Date Griffin Plaza DO [address] [address] PCP - General Internal Medicine 07/15/24
[2024-07-19 19:31] LABS: Basophils Absolute Auto 0.1 K/mm3 (0.0-0.1); Basophils Percent Auto 1.2 % (0.2-1.2); Eosinophils Absolute Auto 0.1 K/mm3 (0-0.3); Eosinophils Percent Auto 2.5 % (0-4.4); Hematocrit 29.8 % (42.0-52.0); Hemoglobin 8.7 g/dL (14.0-18.0); Immature Granulocyte Absolute 0.01 K/mm3 (0.00-0.031); Immature Granulocyte Percent A 0.2 % (0-0.5); Lymphocytes Absolute Auto 1.15 K/mm3 (0.9-3.2); Lymphocytes Percent Auto 26.6 % (18.3-44.2); Mean Corpuscular HGB Conc 29.2 g/dl (32-36); Monocytes Absolute Auto 0.5 K/mm3 (0.1-0.6); Monocytes Percent Auto 12.3 % (2.6-8.5); Neutrophils Absolute Auto 2.5 K/mm3 (1.3-6.7); Neutrophils Percent Auto 57.2 % (45.5-73.1); Platelet Count Result 145 k/mm3 (150-375); Red Blood Count 3.35 M/mm3 (4.6-6.20); Red Cell Distribution Width 16.2 % (11.5-14.5); White Blood Count 4.3 K/mm3 (4.5-10.0)
[2024-07-19 20:19] LABS: Anisocytosis 1+; Ovalocytes 1+; Platelet Estimate Adequate (Adequate); Schistocytes None Seen
== END 2024-07-19 10:37 | disposition home or self-care (01) ==
LOC: ANHGOSHLAB 10:37
PROVIDERS: PCP Internal Medicine; Visit Provider Internal Medicine
DX: D61.818 Other pancytopenia (principal); R06.09 Other forms of dyspnea; R53.83 Other fatigue; D64.9 Anemia, unspecified
CPT/HCPCS: 36415; 82728; 84402; 84403; 85025

== ENCOUNTER 2024-08-19 06:01 | Outpatient (CLI) | payer OTHER, SELFPAY ==
--- NOTE | 2024-08-08 14:32 | PC.NURSE ---
Called patient and gave instructions for GIVENS capsule. Patient has a pacemaker. Dr. Youngblood made aware.
--- OUTSIDE RECORDS SUMMARY | 2024-08-19 06:03 | XMS_ITS | Clinical Summary ---
Author Organization [facility] Address [address] [place] [address] Care Team Providers Care Mac Developer Name Role Phone Piyush Peguero PA-C Primary Care Provide r Source Comments [facility],non-owned Affiliates and Associated Physician Practices is amultiple site organization consisting of ambulatory clinics and hospital sitesin [place], [place], [place] and [place]. This disclosure is being madepursuant to the Care Everywhere program and may not contain all information available regarding this patient. Last updated 18.[facility] Allergies No known active allergies Medications * Be aware that medications may not be up to date on this document. Alwaysverify current medications with the patient. Medication Sig Dispensed Refills Start Date End Date Status lisinopril (Prinivil; Zestril) 40 MG tablet Take 1 (one) tablet by mouth once daily 08/16/2023 Active hydroCHLOROthiazi de 12.5 MG Take 1 (one) tablet by mouth once daily 08/16/2023 Active pantoprazole EC (Protonix) 40 MG tablet Take 1 (one) tablet by mouth every morning 08/17/2023 Active Magnesium 500 MG Active carvedilol (Coreg) 3.125 MG tablet Take 1 (one) tablet by mouth 2 times daily 60 tablet 08/01/2024 08/01/2025 Active carvedilol (Coreg) 3.125 MG tablet Take 1 (one) tablet by mouth 2 times daily 60 tablet 11 09/01/2023 08/01/2024 Discontinued (Reorder) Encounters Date Type Department Care Team Description 08/01/2024 Refill [facility] [address] [place] [phone] Jerrell Ashley MD MEDICATION REFILL from Last 3 Months Social History Tobacco Use Types Packs/Day Years [...] Care Team (Late st Contact Info) Description 08/30/2024 9:30 AM CDT Procedure visit [facility] - Dermatology [facility], [facility] [address] [place] [phone] Chantal Barton MD [address] [place] [address] [address] [place] [address] 09/13/2024 10:00 AM CDT Office Visit [facility] [address] [place] [phone] Jerrell Ashley MD [address] [place] [phone] Health Maintenance Due Date Last Done Comments [...] to complete this topic MENINGOCOCCAL (Group B) VACC INE SHARED DECISION-MAKING Aged Out No longer eligibl e based on patient's age to complete this topic MENINGOCOCCAL GROUPS A/C/Y/W VACCINE Aged Out No longer eligible b ased on patient's age to complete this topic [...] (EXTERNAL RESULT ENTRY) Routine 06/26/2023 8:42 AM PIGS FEET CLEANER LIPID PROFILE (EXTERAL RESULT ENTRY) Routine 06/26/2023 8:42 AM PIGS FEET CLEANER from Last 3 Months or Most Recently Relevant to Health Maintenance Results * (ABNORMAL) LIPID PROFILE (EXTERAL RESULT ENTRY) (06/26/2023 8:42 AM PIGS FEET CLEANER) Cholesterol (EXTERNAL RESULT) 136 mg/dL OTHER LAB Triglycerides (EXTERNAL RESULT) 388(A) mg/dL OTHER LAB HDL (EXTERNAL RESULT) 22 mg/dL OTHER LAB LDL (EXTERNAL RESULT) 47 mg/dL OTHER LAB VLDL (EXTERNAL RESULT) OTHER LAB Chol HDL Ratio (External Result) OTHER LAB Blood BLOOD SPECIMEN / Unknown 06/26/2023 8:42 AM PIGS FEET CLEANER Historical Provider MD LAB - CHEMISTRY O RDERABLES Performing Organization Address City/[facility]/ZIP Co de Phone Number OTHER LAB * (ABNORMAL) HEMOGLOBIN A1C (EXTERNAL RESULT ENTRY) (06/26/2023 8:42 AM PIGS FEET CLEANER) Hemoglobin A1c (EXTERNAL RESULT) 6.6(A) % OTHER LAB Blood BLOOD SPECIMEN / Unknown 06/26/2023 8:42 AM PIGS FEET CLEANER Historical Provider MD LAB - CHEMISTRY O RDERABLES Performing Organization Address City/[facility]/ZIP Co de Phone Number OTHER LAB from Last 3 Months or Most Recently Relevant to Health Maintenance Care Teams Mac Developer Relationship Specialty Start Date End Date Piyush Peguero PA-C [address] [place] [address] PCP - General Physician Bakery Associate 06/04/23
--- OUTSIDE RECORDS SUMMARY | 2024-08-19 06:03 | XMS_ITS | Referral Summary ---
Author Organization [facility] Address [address] [place] [address] Care Team Providers Care Law Instructor Name Role Phone Piyush Peguero PA-C Primary Care Provide r Source Comments [facility],non-owned Affiliates and Associated Physician Practices is amultiple site organization consisting of ambulatory clinics and hospital sitesin [place], [place], [place] and [place]. This disclosure is being madepursuant to the Care Everywhere program and may not contain all information available regarding this patient. Last updated 18.[facility] Encounters Date Type Department Care Team Description 08/01/2024 Refill [facility] - [address] [place] [phone] Jerrell Ashley MD MEDICATION REFILL from Last 3 Months Allergies No known active allergies Medications * [...] mouth 2 times daily 60 tablet 11 08/01/2024 08/01/2025 Active carvedilol (Coreg) 3.125 MG tablet Take 1 (one) tablet by mouth 2 times daily 60 tablet 11 09/01/2023 08/01/2024 Discontinued (Reorder) Social History Tobacco Use Types Packs/Day Years [...] Procedure visit [facility] - Dermatology [facility] [address], [facility] [address] [place] [phone] Chantal Barton MD [address] [place] [address] [address] [place] [address] 09/13/2024 10:00 AM CDT Office Visit [facility] [place] [address] [place] [address], [place] [address] Jerrell Ashley MD [address] [place] [phone] Goals Goal Patient Goal Type Associated Problems [...] (EXTERNAL RESULT ENTRY) Routine 06/26/2023 8:42 AM TECHNICIANS AND TRADES WORKERS LIPID PROFILE (EXTERAL RESULT ENTRY) Routine 06/26/2023 8:42 AM TECHNICIANS AND TRADES WORKERS from Last 3 Months or Most Recently Relevant to Health Maintenance Results * (ABNORMAL) LIPID PROFILE (EXTERAL RESULT ENTRY) (06/26/2023 8:42 AM TECHNICIANS AND TRADES WORKERS) Cholesterol (EXTERNAL RESULT) 136 mg/dL OTHER LAB Triglycerides (EXTERNAL RESULT) 388(A) mg/dL OTHER LAB HDL (EXTERNAL RESULT) 22 mg/dL OTHER LAB LDL (EXTERNAL RESULT) 47 mg/dL OTHER LAB VLDL (EXTERNAL RESULT) OTHER LAB Chol HDL Ratio (External Result) OTHER LAB Blood BLOOD SPECIMEN / Unknown 06/26/2023 8:42 AM TECHNICIANS AND TRADES WORKERS Historical Provider MD LAB - CHEMISTRY O RDERABLES Performing Organization Address City/[facility] Co de Phone Number OTHER LAB * (ABNORMAL) HEMOGLOBIN A1C (EXTERNAL RESULT ENTRY) (06/26/2023 8:42 AM TECHNICIANS AND TRADES WORKERS) Hemoglobin A1c (EXTERNAL RESULT) 6.6(A) % OTHER LAB Blood BLOOD SPECIMEN / Unknown 06/26/2023 8:42 AM TECHNICIANS AND TRADES WORKERS Historical Provider MD LAB - CHEMISTRY O RDERABLES OTHER LAB from Last 3 Months or Most Recently Relevant to Health Maintenance Care Teams Law Instructor Relationship Specialty Start Date End Date Piyush Peguero PA-C [address] [place] [address] PCP - General Physician Tractor Operator Helper 06/04/23
--- OUTSIDE RECORDS SUMMARY | 2024-08-19 06:03 | XMS_ITS | Patient Health Summary ---
Author Organization [facility] Address [address] [place] [address] Care Team Providers Care Patients Transporter Name Role Phone Piyush Peguero PA-C Primary Care Provide r Note from [facility],non-owned Affiliates and Associated Physician Practices is amultiple site organization consisting of ambulatory clinics and hospital sitesin [place], [place], [place] and [place]. This disclosure is being madepursuant to the Care Everywhere program and may not contain all information available regarding this patient. Last updated 18.[facility] [employer] Allergies No known active allergies Medications * [...] MG * carvedilol (Coreg) 3.125 MG tablet(Started 08/01/2024) Take 1 (one) tablet by mouth 2 times daily 11 refills by 08/01/2025 Ended Medications* carvedilol (Coreg) 3.125 MG tablet(Started 09/01/2023) (Discontinued) Take 1 (one) tablet by mouth 2 [...] DIFF (EXTERNAL RESULT ENTRY) (06/26/2023 8:42 AM RCP) WBC (EXTERNAL RESULT) 4.3(A) 10^3/ul OTHER LAB Hemoglobin (EXTERNAL RESULT) 10.8(A) g/dl OTHER LAB Hematocrit (EXTERNAL RESULT) 36.7(A) % OTHER LAB Platelets (EXTERNAL RESULT) 155 10^3/ul OTHER LAB Neutrophil Absolute (EXTERNAL RESULT) 2.3 10^3/ul OTHER LAB Blood BLOOD SPECIMEN / Unknown 06/26/2023 8:42 AM RCP Historical Provider LAB - HEMATOLOGY ORDERABLES OTHER LAB * (ABNORMAL) COMP MET PANEL (EXTERNAL RESULT ENTRY) (06/26/2023 8:42 AM RCP) Glucose (EXTERNAL) 151(A) mg/dL OTHER LAB Sodium [...] BLOOD SPECIMEN / Unknown 06/26/2023 8:42 AM RCP Historical Provider LAB - CHEMISTRY O SCOTT Performing Organization Address City/[facility] Co de Phone Number OTHER LAB * PSA TOTAL (EXTERNAL RESULT ENTRY) (06/26/2023 8:42 AM RCP) Pathologist [facility] PSA Total (EXTERNAL RESULT) 0.2 0.00 - 4.00 NG/ML OTHER LAB Blood BLOOD SPECIMEN / Unknown 06/26/2023 8:42 AM RCP Historical Provider LAB - CHEMISTRY O RDERAJORGE OTHER LAB * (ABNORMAL) LIPID PROFILE (EXTERAL RESULT ENTRY) (06/26/2023 8:42 AM RCP) Cholesterol (EXTERNAL RESULT) 136 mg/dL OTHER LAB Triglycerides (EXTERNAL RESULT) 388(A) mg/dL OTHER LAB HDL (EXTERNAL RESULT) 22 mg/dL OTHER LAB LDL (EXTERNAL RESULT) 47 mg/dL OTHER LAB VLDL (EXTERNAL RESULT) OTHER LAB Chol HDL Ratio (External Result) OTHER LAB Blood BLOOD SPECIMEN / Unknown 06/26/2023 8:42 AM RCP Historical Provider LAB - CHEMISTRY O RDERABLES Performing Organization Address City/[facility] Co de Phone Number OTHER LAB * TSH (EXTERNAL RESULT ENTRY) (06/26/2023 8:42 AM RCP) TSH (EXTERNAL RESULT) 1.770 uIU/mL OTHER LAB Blood BLOOD SPECIMEN / Unknown 06/26/2023 8:42 AM RCP Historical Provider LAB - CHEMISTRY O RDERABLES Performing Organization Address [facility] Co de Phone Number OTHER LAB * (ABNORMAL) HEMOGLOBIN A1C (EXTERNAL RESULT ENTRY) (06/26/2023 8:42 AM RCP) Hemoglobin A1c (EXTERNAL RESULT) 6.6(A) % OTHER LAB Blood BLOOD SPECIMEN / Unknown 06/26/2023 8:42 AM RCP Historical Provider LAB - CHEMISTRY O RDERABLES Performing Organization Address [facility] de Phone Number OTHER LAB * (ABNORMAL) IRON/SATURATION (EXTERNAL RESULT ENTRY) (05/12/2023 2:21 PM RCP) Iron (EXTERNAL RESULT) 48(A) mcg/dl OTHER LAB Transferrin (EXTERNAL RESULT) OTHER LAB Transferrin Saturation (EXTERNAL RESULT) 10(A) % OTHER LAB Blood BLOOD SPECIMEN / Unknown 05/12/2023 2:21 PM RCP Historical Provider LAB - CHEMISTRY O RDERABLES Performing Organization Address [facility] Co de Phone Number OTHER LAB Care Teams Patients Transporter Relationship Specialty Start Date End Date Piyush Peguero PA-C [address] [place] [phone] PCP - General Physician Activity Leader 06/04/23
--- OUTSIDE RECORDS SUMMARY | 2024-08-19 06:03 | XMS_ITS | Clinical Summary ---
Author Organization [facility] Address [address] [place] [phone] Care Team Providers Care Sinker Winder Name Role Phone Griffin Plaza DO Primary Care Provider [phone]- [phone] Allergies No known active allergies Medications lisinopriL (PRINIVIL,ZESTR IL) 40 mg tablet Take 1 tablet (40 mg total) by mouth daily 1 Active hydroCHLOROthia zide (HYDRODIURIL) 12.5 mg tablet Take 1 tablet (12.5 mg total) by mouth daily 1 Active carvediloL (COREG) 3.125 mg tablet Take 1 tablet (3.125 mg total) by mouth 2 (two) times a day Active pantoprazole DR (PROTONIX) 40 mg EC tablet Take 1 tablet (40 mg total) by mouth every morning Active magnesium oxide 500 mg capsule Take by mouth A ctive Ozempic 0.25 mg or 0.5 mg (2 mg/3 mL) pen injector injection ADMINISTER 0.25 MG UNDER THE SKIN WEEKLY FOR 4 WEEKS 5 Active Active Problems Problem Noted Date Diagnosed Date Presence of cardiac pacemaker 11/18/2018 Overview (12/17/2023): [place] [employer] Dual Pacemaker. Dx: CHB. DOI 05/23/2022. Chronic leads 06/17/2012. [place] remote monitoring, office pacer checks Q1 yr. 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 Dx: CHB. DOI 05/23/2022. Chronic leads 06/17/2012. [place] remote monitoring, office pacer checks Q1 yr. Essential hypertension 05/23/2014 Overview (09/11/2016): Essential hypertension Encounters Date Type Department Care Team Description 07/15/2024 11:00 AM JUNIOR ACCOUNTANT Office Visit [facility] Cardiology [facility] [address] [place] [phone] Arron Mason MD Essential hypertension (Primary Dx); Complete atrioventricular block (HCC); Presence of cardiac pacemaker 07/15/2024 10:30 AM JUNIOR ACCOUNTANT Ancillary Procedure [facility] Cardiology [address] [place] [address] [address] [place] [phone] Complete atrioventricular block (HCC); Presence of cardiac pacemaker 07/07/2024 Telephone [facility] Cardiology [facility] [address] [place] [phone] Arron Mason MD 06/22/2024 Orders Only [facility] Cardiology [address] [place] [address] [place] [phone] Arron Mason MD NICM (nonischemic cardiomyopathy) (HCC) (Primary Dx); ICD (implantable cardioverter-defibrilla tor) in place; Ventricular fibrillation (HCC); NSVT (nonsustained ventricular tachycardia) (HCC) 06/21/2024 8:00 AM JUNIOR ACCOUNTANT Ancillary Procedure [facility] Cardiology [address] [place] [address] [place] [phone] Presence of cardiac pacemaker (Primary Dx); Complete atrioventricular block (HCC) from Last 3 Months Surgical History [...] on file Legal Sex Male 12:19 AM JUNIOR ACCOUNTANT Gender Identity Not on file Sexual Orientation Not on file Obstetrics History Last Filed Vital Signs Vital Sign Reading Time Taken Comments Blood Pressure 118/78 07/15/2024 10:51 AM JUNIOR ACCOUNTANT Pulse 66 07/15/2024 10:51 AM JUNIOR ACCOUNTANT Temperature - - Respiratory Rate - - Oxygen Saturation 97% 07/15/2024 10: 51 AM JUNIOR ACCOUNTANT Inhaled Oxygen Concentration - - Weight 108.8 kg (239 lb 15.4 oz) 2024 10:51 AM JUNIOR ACCOUNTANT Height 185.4 cm (6' 1 ) 07/15/2024 10:5 1 AM JUNIOR ACCOUNTANT Body Mass Index 31.66 07/15/2024 10:51 AM JUNIOR ACCOUNTANT Plan of Treatment Health Maintenance Due Date Last Done Comments Colon Cancer Screening-Colonoscopy 1959 Depression Screening 1959 Fall Risk Assessment 1959 Hepatitis C Screening 1959 Prostate Cancer Screening-PSA 1959 Hepatitis B Screening 1977 Pneumococcal vaccine 65+ (1 of 1 - PCV) 2009 Zoster Vaccine (1 of 2) 2009 Influenza Vaccine (#1) 2024 06/18/2010 Well Visit 65+ 2024 DTaP/Tdap/Td Vaccine (2 - Td or Tdap) 10/03/2028 Procedures Procedure Name Priority Date/Time Associated Diagnosis Comments POCT LIPID PANEL Routine 07/15/2024 10:5 5 AM JUNIOR ACCOUNTANT Essential hypertension DEVICE CHECK - REMOTE Routine 06/22/2024 11:02 AM JUNIOR ACCOUNTANT Complete atrioventricular block (HCC) from Last 3 Months Results * POCT lipid panel (07/15/2024 10:55 AM JUNIOR ACCOUNTANT) Cholesterol, POC 104 mg/dL Comment:GLU = 151 HDL, POC 17 mg/dL Triglycerides, POC 303 mg/dL LDL Cholesterol POC 26 mg/dL Chol/HDL Ratio, POC 1.6 Non-HDL Cholesterol, POC 187 mg/dL Cholesterol Total, POC 104 mg/dL Capillary blood 07/15/2024 1 0:55 AM JUNIOR ACCOUNTANT Arron Mason MD POINT OF CARE TEST ORDER RUDOLPH Final Result * DEVICE CHECK - REMOTE (06/22/2024 11:02 AM JUNIOR ACCOUNTANT) Anatomical Region Laterality Modality Other Narrative 07/22/2024 7:51 AM JUNIOR ACCOUNTANT [place] [employer] Dual Pacemaker. Dx: CHB. DOI 05/23/2022. Chronic leads 06/17/2012. [place] remote monitoring, office pacer checks Q1 yr. Routine DDD Pacemaker Remote. Transmission attached. Battery status: 2.99 V, 6.4 years remaining battery life to [employer]IER. Stable lead impedances, pacing and sensing thresholds. Presenting rhythm: A sensed/V paced AP-1.1%, WEAVER HAND-> 99% No AT/AF episodes noted. No Ventricular high rate episodes detected. Medications: Carvedilol 3.125 mg, lisinopril 40 mg See scanned report. Office pacemaker follow up: 13 months [place] remote f/u 10/18/24. Yuan Blackwell RN Arron Mason MD [facility] PROC EDURES Final Result from Last [place] [address] [facility] Member Subscriber Plan / Payer ( fective 2012-Present) Name:Tevin Huber Relation to Subscriber:Self Name:MayoTevin Aby Payer ID:[id number] (NAIC) Type:[facility] HMO/PPO Address: [place] [phone] Care Teams Sinker Winder Relationship Specialty Start Date End Date Griffin Plaza DO [address] [address] PCP - General Internal Medicine 07/15/24
--- OUTSIDE RECORDS SUMMARY | 2024-08-19 06:03 | XMS_ITS | Encounter Summary ---
Author Organization [facility] Address [address] [facility] [address] [place] [address] Care Team Providers Care Wildlife Enforcement Major Name Role Phone Yeyo Barrera MD Primary Care Provider [phone] No, Physician Primary Care Provider [phone] Piyush Peguero Primary Care Provider Griffin Plaza DO Primary Care Provider [phone] Encounter Details Date Type Department Care Team (Late st Contact Info) Description 06/17/2016 Orders Only [facility] ProviderKriss MD [address] [place] [address] Social History Tobacco Use Types Packs/Day Years Used Date Smoking Tobacco: Never Alcohol Use Standard Drinks/Week Comments Yes 0 (1 standard drink = 0.6 oz pur e alcohol) Sex and Gender Information Value Date Recorded Sex Assigned at Not on file Legal 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
--- OUTSIDE RECORDS SUMMARY | 2024-08-19 06:03 | XMS_ITS | Clinical Summary ---
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 Gender Identity Not on file Sexual Orientation Not on file Plan of Treatment Upcoming Encounters Date Type Department Care Team (Late st Contact Info) Description 09/20/2024 3:00 PM CDT Office Visit [facility] Oncology and Hematology - [place] [address] [facility] [address] [place] [address] Adryan Kauffman MD [address] [facility] [address] [place] [address] Health Maintenance Due Date Last Done Comments DTAP/TDAP/TD VACCINES (1 - Tdap) 1978 COLORECTAL SCREENING 2004 Colorectal Cancer Screening 2004 FIT-DNA Q 3 years 2004 FIT/FOBT Q 1 year 2004 Flex Sig/CT Colonography Q 5 years 2004 PNEUMOCOCCAL VACCINE 50+ YEARS (1 of 1 - PCV) 05/04/20 09 ZOSTER VACCINE (1 of 2) 2009 INFLUENZA VACCINE (#1) 2024 RSV VACCINE (60+ or ) (1 - 1-dose 75+ series) 2034 Insurance [facility] CHOICE [id number]
--- OUTSIDE RECORDS SUMMARY | 2024-08-19 06:03 | XMS_ITS | Referral Summary ---
Author Organization [facility] Address [address] [place] [phone] Care Team Providers Care Program Therapist Name Role Phone Griffin Plaza DO Primary Care Provider +1- [phone] Encounters Date Type Department Care Team Description 07/15/2024 10:30 AM NUTTER UP Ancillary Procedure [facility] Cardiology [address] [place] [address] [place] [phone] Complete atrioventricular block (HCC); Presence of cardiac pacemaker 07/15/2024 11:00 AM NUTTER UP Office Visit [facility] Cardiology [address] [place] [address] [place] [phone] Arron Mason MD Essential hypertension (Primary Dx); Complete atrioventricular block (HCC); Presence of cardiac pacemaker 07/07/2024 Telephone [facility] Cardiology [address] [place] [address] [place] [phone] Arron Mason MD 06/22/2024 Orders Only [facility] Cardiology [address] [place] [address] [place] [phone] Arron Mason MD NICM (nonischemic cardiomyopathy) (HCC) (Primary Dx); ICD (implantable cardioverter-defibrilla tor) in place; Ventricular fibrillation (HCC); NSVT (nonsustained ventricular tachycardia) (HCC) 06/21/2024 8:00 AM NUTTER UP Ancillary Procedure [facility] Cardiology [address] [place] [address] [place] [phone] Presence of cardiac pacemaker (Primary Dx); Complete atrioventricular block (HCC) from Last 3 Months Allergies No [...] on file Legal Sex Male 12:19 AM NUTTER UP Gender Identity Not on file Sexual Orientation Not on file Last Filed Vital Signs Vital Sign Reading Time Taken Comments Blood Pressure 118/78 07/15/2024 10:51 AM NUTTER UP Pulse 66 07/15/2024 10:51 AM NUTTER UP Temperature - - Respiratory Rate - - Oxygen Saturation 97% 07/15/2024 10: 51 AM NUTTER UP Inhaled Oxygen Concentration - - Weight 108.8 kg (239 lb 15.4 oz) 2024 10:51 AM NUTTER UP Height 185.4 cm (6' 1 ) 07/15/2024 10:5 1 AM NUTTER UP Body Mass Index 31.66 07/15/2024 10:51 AM NUTTER UP Plan of Treatment Not on file Procedures Procedure Name Priority Date/Time Associated Diagnosis Comments POCT LIPID PANEL Routine 07/15/2024 10:5 5 AM NUTTER UP Essential hypertension DEVICE CHECK - REMOTE Routine 06/22/2024 11:02 AM NUTTER UP Complete atrioventricular block (HCC) from Last 3 Months Results * POCT lipid panel (07/15/2024 10:55 AM NUTTER UP) Cholesterol, POC 104 mg/dL Comment:GLU = 151 HDL, POC 17 mg/dL Triglycerides, POC 303 mg/dL LDL Cholesterol POC 26 mg/dL Chol/HDL Ratio, POC 1.6 Non-HDL Cholesterol, POC 187 mg/dL Cholesterol Total, POC 104 mg/dL Capillary blood 07/15/2024 1 0:55 AM NUTTER UP Arron Mason MD POINT OF CARE TEST ORDER RUDOLPH Final Result * DEVICE CHECK - REMOTE (06/22/2024 11:02 AM NUTTER UP) Anatomical Region Laterality Modality Other Narrative 07/22/2024 7:51 AM NUTTER UP Otoole Assurity Dual Pacemaker. Dx: CHB. DOI 05/23/2022. Chronic leads 06/17/2012. [place] remote monitoring, office pacer checks Q1 yr. Routine DDD Pacemaker Remote. Transmission attached. Battery status: 2.99 V, 6.4 years remaining battery life to XAVIER. Stable lead impedances, pacing and sensing thresholds. Presenting rhythm: A sensed/V paced AP-1.1%, POLICE CAPTAIN SENIOR-> 99% No AT/AF episodes noted. No Ventricular high rate episodes detected. Medications: Carvedilol 3.125 mg, lisinopril 40 mg See scanned report. Office pacemaker follow up: 13 months [facility] f/u 10/18/24. Yuan Blackwell RN Arron Mason MD CV CARDIAC SERVICES PROC EDURES Final Result from Last [address] [place] [address] [facility] [place] [address] [facility] [place] [address] [place] [address] [facility] Care Teams Program Therapist Relationship Specialty Start Date End Date Griffin Plaza DO [address] [facility] [address] [place] [address] PCP - General Internal Medicine 07/15/24
--- NOTE | 2024-08-19 07:09 | SUR.OPER ---
Patient brought to GI Lab. Instructions for patient undergoing Capsule Endoscopy reviewed with patient. Consent form signed. Sensor array applied to patient's abdomen and connected to recorded. Patient swallowed capsule with 2 cups of water infused with Simethicone. Patient instructed they may have clear liquids at 0830 this AM and eat or drink at 1030 this AM. Patient instructed to return to GI Lab at 1500 this afternoon for removal of recording device and to call [phone] or to return to the hospital if any nausea and vomiting or abdominal pain is experienced.
--- NOTE | 2024-08-19 15:17 | SUR.PHASEII ---
Patient returned to the GI Lab at 1500 for recorder box removal. Patient voiced no complaints. States they have understanding of instructions. Patient left ambulatory.
== END 2024-08-19 06:02 | disposition home or self-care (01) ==
PROVIDERS: PCP Internal Medicine; Referring Provider Internal Medicine Gastroenterology; Visit Provider Internal Medicine Gastroenterology
PROC: 0DJ07ZZ Inspection of Upper Intestinal Tract, Via Natural or Artificial Opening (ICD-10-PCS; CPT 91110; principal; 2024-08-19 07:00)
DX: K74.60 Unspecified cirrhosis of liver (principal); D50.9 Iron deficiency anemia, unspecified
CPT/HCPCS: 91110

== ENCOUNTER 2024-09-08 13:47 | Outpatient (CLI) | payer OTHER, SELFPAY ==
--- OUTSIDE RECORDS SUMMARY | 2024-09-08 14:10 | XMS_ITS | Clinical Summary ---
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 Gender Identity Not on file Sexual Orientation Not on file Plan of Treatment Upcoming Encounters Date Type Department Care Team (Late st Contact Info) Description 09/20/2024 3:00 PM CDT Office Visit [facility] Oncology and Hematology - [place] [address] [facility] [address] [place] [address] Adryan Kauffman MD [address] [facility] [address] [place] [address] Health Maintenance Due Date Last Done Comments Pre-Diabetes and Diabetes Screening 1959 DTAP/TDAP/TD VACCINES (1 - Tdap) 1978 COLORECTAL SCREENING 2004 Colorectal Cancer Screening 2004 FIT-DNA Q 3 years 2004 FIT/FOBT Q 1 year 2004 Flex Sig/CT Colonography Q 5 years 2004 PNEUMOCOCCAL VACCINE 50+ YEARS (1 of 1 - PCV) 05/04/20 09 ZOSTER VACCINE (1 of 2) 2009 INFLUENZA VACCINE (#1) 2024 RSV VACCINE (60+ or ) (1 - 1-dose 75+ series) 2034 Insurance [facility] CHOICE [id number]
--- OUTSIDE RECORDS SUMMARY | 2024-09-08 14:10 | XMS_ITS | Encounter Summary ---
Author Organization [facility] Address [address] [facility] [address] [place] [address] Care Team Providers Care Kitman Name Role Phone Yeyo Barrera MD Primary Care Provider [phone] No, Physician Primary Care Provider [phone] Piyush Peguero Primary Care Provider Griffin Plaza DO Primary Care Provider [phone]- [phone] Encounter Details Date Type Department Care Team (Late st Contact Info) Description 06/17/2016 Orders Only [facility] ProviderKriss MD [address] [place] [phone] Social History Tobacco Use Types Packs/Day Years Used Date Smoking Tobacco: Never Alcohol Use Standard Drinks/Week Comments Yes 0 (1 standard drink = 0.6 oz pur e alcohol) Sex and Gender Information Value Date Recorded Sex Assigned at Not on file 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
--- OUTSIDE RECORDS SUMMARY | 2024-09-08 14:10 | XMS_ITS | Encounter Summary ---
Author Organization [facility] Address [address] [facility] [place] [address] Care Team Providers Care Front Desk Representative Name Role Phone Griffin Plaza DO Primary Care Provider [phone] Encounter Details Date Type Department Care Team (Late Contact Info) Description 09/02/2024 Orders Only [facility] - GI [address] [place] [phone] Jerrell Ashley MD [address] [place] [phone] Cirrhosis of liver without ascites, unspecified hepatic cirrhosis type Social History Tobacco Use Types Packs/Day Years Used Date Smoking Tobacco: Never Smokeless Tobacco: Never Alcohol Use Standard Drinks/Week Comments Not Currently 0 (1 standard drink = 0.6 oz pur e alcohol) Sex and Gender Information Value Date Recorded Sex Assigned at Not on file Gender Identity Not on file Sexual Orientation Not on file documented as of this encounter Plan of Treatment Upcoming Encounters Date Type Department Care Team (Late st Contact Info) Description 09/13/2024 10:00 AM CDT Office Visit [facility] - GI [address] [place] [address] Jerrell Ashley MD [address] [place] [phone] documented as of this encounter Goals Goal Patient Goal Type Associated Problems Recent Progress Patient-Stated? Author Medication Management General On track(03/26/2 024 11:19 AM CDT) No Gravagna, Gabbie M, RN Note: Expected end date: ongoing Interventions: Take all medications as prescribed Let your doctor know right away about any changes in your medications Make sure to request a refill of your medication at least one week prior to your last dose documented as of this encounter Visit Diagnoses Diagnosis Cirrhosis of liver without ascites, unspecified hepatic cirrhosis type (HCC) documented in this encounter Care Teams Front Desk Representative Relationship Specialty Start Date End Date Griffin Plaza DO [address] [place] [address] PCP - General Internal Medicine 08/30/24 documented as of this encounter
--- OUTSIDE RECORDS SUMMARY | 2024-09-08 14:10 | XMS_ITS | Referral Summary ---
Author Organization [facility] Address [address] [place] [phone] Care Team Providers Care Sales Operations Assistant Name Role Phone Griffin Plaza DO Primary Care Provider [phone] Encounters Date Type Department Care Team Description 07/15/2024 10:30 AM SHERIFFS OFFICER Ancillary Procedure [facility] Cardiology [address] [place] [address] [place] [phone] Complete atrioventricular block (HCC); Presence of cardiac pacemaker 07/15/2024 11:00 AM SHERIFFS OFFICER Office Visit [facility] Cardiology [address] [place] [address] [place] [phone] Arron Mason MD Essential hypertension (Primary Dx); Complete atrioventricular block (HCC); Presence of cardiac pacemaker 07/07/2024 Telephone [facility] Cardiology [address] [place] [address] [place] [phone] Arron Mason MD 06/22/2024 Orders Only [facility] Cardiology [address] [place] [address] [place] [phone] Arron Mason MD NICM (nonischemic cardiomyopathy) (HCC) (Primary Dx); ICD (implantable cardioverter-defibrilla tor) in place; Ventricular fibrillation (HCC); NSVT (nonsustained ventricular tachycardia) (HCC) 06/21/2024 8:00 AM SHERIFFS OFFICER Ancillary Procedure [facility] Cardiology [address] [place] [address] [place] [phone] Presence of cardiac pacemaker (Primary Dx); [...] Dx: CHB. DOI 05/23/2022. Chronic leads 06/17/2012. [place] remote monitoring, office pacer checks Q1 yr. [...] on file Legal Sex Male 12:19 AM SHERIFFS OFFICER Gender Identity Not on file Sexual Orientation Not on file Last Filed Vital Signs Vital Sign Reading Time Taken Comments Blood Pressure 118/78 07/15/2024 10:51 AM SHERIFFS OFFICER Pulse 66 07/15/2024 10:51 AM SHERIFFS OFFICER Temperature - - Respiratory Rate - - Oxygen Saturation 97% 07/15/2024 10: 51 AM SHERIFFS OFFICER Inhaled Oxygen Concentration - - Weight 108.8 kg (239 lb 15.4 oz) 2024 10:51 AM SHERIFFS OFFICER Height 185.4 cm (6' 1 ) 07/15/2024 10:5 1 AM SHERIFFS OFFICER Body Mass Index 31.66 07/15/2024 10:51 AM SHERIFFS OFFICER Plan of Treatment Not on file Procedures Procedure Name Priority Date/Time Associated Diagnosis Comments POCT LIPID PANEL Routine 07/15/2024 10:5 5 AM SHERIFFS OFFICER Essential hypertension DEVICE CHECK - REMOTE Routine 06/22/2024 11:02 AM SHERIFFS OFFICER Complete atrioventricular block (HCC) from Last 3 Months Results * POCT lipid panel (07/15/2024 10:55 AM SHERIFFS OFFICER) Cholesterol, POC 104 mg/dL Comment:GLU = 151 HDL, POC 17 mg/dL Triglycerides, POC 303 mg/dL LDL Cholesterol POC 26 mg/dL Chol/HDL Ratio, POC 1.6 Non-HDL Cholesterol, POC 187 mg/dL Cholesterol Total, POC 104 mg/dL Capillary blood 07/15/2024 1 0:55 AM SHERIFFS OFFICER Arron Mason MD POINT OF CARE TEST ORDER RUDOLPH Final Result * DEVICE CHECK - REMOTE (06/22/2024 11:02 AM SHERIFFS OFFICER) Anatomical Region Laterality Modality Other Narrative 07/22/2024 7:51 AM SHERIFFS OFFICER Otoole Assurity Dual Pacemaker. Dx: CHB. DOI 05/23/2022. Chronic leads 06/17/2012. [place] remote monitoring, office pacer checks Q1 yr. Routine DDD Pacemaker Remote. Transmission attached. Battery status: 2.99 V, 6.4 years remaining battery life to XAVIER. Stable lead impedances, pacing and sensing thresholds. Presenting rhythm: A sensed/V paced AP-1.1%, ASSISTANT BOILER OPERATOR-> 99% No AT/AF episodes noted. No Ventricular high rate episodes detected. Medications: Carvedilol 3.125 mg, lisinopril 40 mg See scanned report. Office pacemaker follow up: 13 months [facility] f/u 10/18/24. Yuan Blackwell RN Arron Mason MD CV CARDIAC SERVICES PROC EDURES Final Result from Last [address] [place] [address] [place] [place] [address] [facility] [address] [facility] [place] [address] [facility] Care Teams Sales Operations Assistant Relationship Specialty Start Date End Date Griffin Plaza DO [address] [facility] [address] [place] [address] PCP - General Internal Medicine 07/15/24
--- OUTSIDE RECORDS SUMMARY | 2024-09-08 14:10 | XMS_ITS | Clinical Summary ---
Author Organization [facility] Address [address] [place] [phone] Care Team Providers Care Floor Inspector Name Role Phone Griffin Plaza DO Primary Care Provider +1- [phone] Allergies No known active allergies Medications lisinopriL [...] Department Care Team Description 07/15/2024 11:00 AM VOCATIONAL CASE MANAGER Office Visit [facility] Cardiology [facility] [address] [place] [phone] Arron Mason MD Essential hypertension (Primary Dx); Complete atrioventricular block (HCC); Presence of cardiac pacemaker 07/15/2024 10:30 AM VOCATIONAL CASE MANAGER Ancillary Procedure [facility] Cardiology [address] [place] [address] [address] [place] [phone] Complete atrioventricular block (HCC); Presence of cardiac pacemaker 07/07/2024 Telephone [facility] Cardiology [facility] [address] [place] [phone] Arron Mason MD 06/22/2024 Orders Only [facility] Cardiology [address] [place] [address] [place] [phone] Arron Mason MD NICM (nonischemic cardiomyopathy) (HCC) (Primary Dx); ICD (implantable cardioverter-defibrilla tor) in place; Ventricular fibrillation (HCC); NSVT (nonsustained ventricular tachycardia) (HCC) 06/21/2024 8:00 AM VOCATIONAL CASE MANAGER Ancillary Procedure [facility] Cardiology [address] [place] [address] [place] [phone] Presence of cardiac pacemaker (Primary Dx); [...] on file Legal Sex Male 12:19 AM VOCATIONAL CASE MANAGER Gender Identity Not on file Sexual Orientation Not on file Obstetrics History Last Filed Vital Signs Vital Sign Reading Time Taken Comments Blood Pressure 118/78 07/15/2024 10:51 AM VOCATIONAL CASE MANAGER Pulse 66 07/15/2024 10:51 AM VOCATIONAL CASE MANAGER Temperature - - Respiratory Rate - - Oxygen Saturation 97% 07/15/2024 10: 51 AM VOCATIONAL CASE MANAGER Inhaled Oxygen Concentration - - Weight 108.8 kg (239 lb 15.4 oz) 2024 10:51 AM VOCATIONAL CASE MANAGER Height 185.4 cm (6' 1 ) 07/15/2024 10:5 1 AM VOCATIONAL CASE MANAGER Body Mass Index 31.66 07/15/2024 10:51 AM VOCATIONAL CASE MANAGER Plan of Treatment Health Maintenance Due Date Last Done Comments Colon Cancer Screening-Colonoscopy 1959 Depression Screening 1959 Fall Risk Assessment 1959 Hepatitis C Screening 1959 Prostate Cancer Screening-PSA 1959 Hepatitis B Screening 1977 Pneumococcal vaccine 65+ (1 of 1 - PCV) 2009 Zoster Vaccine (1 of 2) 2009 Well Visit 65+ 2024 Influenza Vaccine (Season Ended) 2025 06/18/19 11 DTaP/Tdap/Td Vaccine (2 - Td or Tdap) 10/03/2028 Procedures Procedure Name Priority Date/Time Associated Diagnosis Comments POCT LIPID PANEL Routine 07/15/2024 10:5 5 AM VOCATIONAL CASE MANAGER Essential hypertension DEVICE CHECK - REMOTE Routine 06/22/2024 11:02 AM VOCATIONAL CASE MANAGER Complete atrioventricular block (HCC) from Last 3 Months Results * POCT lipid panel (07/15/2024 10:55 AM VOCATIONAL CASE MANAGER) Cholesterol, POC 104 mg/dL Comment:GLU = 151 HDL, POC 17 mg/dL Triglycerides, POC 303 mg/dL LDL Cholesterol POC 26 mg/dL Chol/HDL Ratio, POC 1.6 Non-HDL Cholesterol, POC 187 mg/dL Cholesterol Total, POC 104 mg/dL Capillary blood 07/15/2024 1 0:55 AM VOCATIONAL CASE MANAGER Arron Mason MD POINT OF CARE TEST ORDER RUDOLPH Final Result * DEVICE CHECK - REMOTE (06/22/2024 11:02 AM VOCATIONAL CASE MANAGER) Anatomical Region Laterality Modality Other Narrative 07/22/2024 7:51 AM VOCATIONAL CASE MANAGER Otoole Assurity Dual Pacemaker. Dx: CHB. DOI 05/23/2022. Chronic leads 06/17/2012. [place] remote monitoring, office pacer checks Q1 yr. Routine DDD Pacemaker Remote. Transmission attached. Battery status: 2.99 V, 6.4 years remaining battery life to XAVIER. Stable lead impedances, pacing and sensing thresholds. Presenting rhythm: A sensed/V paced AP-1.1%, VASCULAR NEUROLOGIST-> 99% No AT/AF episodes noted. No Ventricular high rate episodes detected. Medications: Carvedilol 3.125 mg, lisinopril 40 mg See scanned report. Office pacemaker follow up: 13 months [place] remote f/u 10/18/24. Yuan Blackwell RN Arron Mason MD CV CARDIAC SERVICES PROC EDURES Final Result from Last [place] [address] [facility] Member Subscriber Plan / Payer (Ef fective 2012-Present) Name:Tevin Huber Relation to Subscriber:Self Name:Mayo Tevin Aby Payer ID:[id number] (NAIC) Type:[facility] HMO/PPO Address: [place] [id number] Care Teams Floor Inspector Relationship Specialty Start Date End Date Griffin Plaza DO [address] [address] PCP - General Internal Medicine 07/15/24
--- OUTSIDE RECORDS SUMMARY | 2024-09-08 14:10 | XMS_ITS | Clinical Summary ---
Author Organization [facility] Address [address] [facility] [place] [address] Care Team Providers Care Sql Programmer Analyst Name Role Phone Griffin Plaza DO Primary Care Provider +1 [phone] Source Comments [facility],non-owned Affiliates and Associated Physician Practices is amultiple site organization consisting of ambulatory clinics and hospital sitesin [place], [place], [place] and [place]. This disclosure is being madepursuant to the Care Everywhere program and may not contain all information available regarding this patient. Last updated 18.[facility] Allergies No known active allergies Medications * [...] daily 60 tablet 11 08/01/2024 08/01/2025 Active Semaglutide (Ozempic, 0.25 or 0.5 MG/DOSE,) 2 MG/1.5ML SOPN Active Encounters Date Type Department Care Team Description 09/02/2024 Orders Only [facility] - GI [address] [facility], [place] [phone] Jerrell Ashley MD Cirrhosis of liver without ascites, unspecified hepatic cirrhosis type 08/30/2024 9:30 AM CDT Procedure visit [facility] - Dermatology [address] [place] [address] Chantal Barton MD 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 08/30/2024 Travel 08/01/2024 Refill [facility] - GI [address] [place] [phone] Jerrell Ashley MD MEDICATION REFILL from Last [...] Description 09/13/2024 10:00 AM CDT Office Visit [facility] - [address] [phone] Jerrell Ashley MD [address] [place] [phone] Health Maintenance Due Date Last Done Comments [...] VACCINE (1 - 2023-2 5 season) 2024 DEPRESSION SCREENING 06/08/2024 INFLUENZA VACCINE (Season Ended) 2025 SCREENING FOR DIABETES 06/26/2026 06/26/2023 LIPID TESTING 07/15/2029 07/15/2024, 06/26/2023, 05/14/2022 HIB VACCINE Aged Out No longer eligi ble based on patient's age to complete this topic HPV VACCINE Aged Out No longer eligi ble based on patient's age to complete this topic MENINGOCOCCAL (Group B) VACCINE SHARED DECISION-MAKING Aged Out No longer eligible based on [...] Procedure Name Priority Date/Time Associated Diagnosis Comments [place] INTMD WND REPAIR FACE,FACIAL 5.1-7.5 Routine 08/30/2024 1:17 PM CDT 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 [place] [facility] MOHS MG TQ H/N/H/F/G EA ADDL STAG Routine 08/30/2024 1:17 PM CDT 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 [place] [facility] MOHS MG TQ H/N/H/F/G 1ST STAG 5 BLOC Routine 08/30/2024 1:17 PM CDT 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 HEMOGLOBIN A1C (EXTERNAL RESULT ENTRY) Routine 06/26/2023 8:42 AM HOG CUTTER LIPID PROFILE (EXTERAL RESULT ENTRY) Routine 06/26/2023 8:42 AM HOG CUTTER from Last 3 Months or Most Recently Relevant to Health Maintenance Results * [place] [facility] MOHS MG TQ H/N/H/F/G 1ST STAG 5 BLOC, [place] [facility] MOHS MG TQ H/N/H/F/G EA ADDL STAG, [place] INTMD WND REPAIR FACE,FACIAL 5.1-7.5 (08/30/2024 1:17 PM CDT) Chantal Archer MD - 08/30/2024 1:17 PM CDT Chantal Barton MD 08/30/2024 5:01 PM Mohs Micrographic Surgery Operative Note Procedure: Mohs micrographic surgery Date of service: 08/30/2024 Location: left superior central malar cheek 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 No other physician was involved in the cancer removal or pathology interpretation. Assistants: N/A Indications for Mohs Surgery Removal of the patient's tumor is complicated by the following clinical features: Clinical area critical for tissue conservation (Area M: cheeks, forehead, scalp, neck, jawline, pretibial surface). Based on my medical judgement, Mohs surgery is the most appropriate treatment for this cancer compared to other treatments. I discussed alternative treatments to Mohs surgery and specifically discussed the risks and benefits of curettage, excision with permanent sections, and foregoing treatment. The rationale for Mohs was explained to the patient and consent was obtained. The risks, benefits and alternatives to therapy were discussed in detail. Specifically, the risks of infection, scarring, bleeding, prolonged wound healing, incomplete removal, allergy to anesthesia, nerve injury and recurrence were addressed. Prior to the procedure, the treatment site was clearly identified and confirmed by the patient. All components of [place] Protocol/PAUSE Rule completed. STAGE I: The patient was placed on the operating table. The cancer was identified and outlined. The entire surgical field was prepped with hibiclens. The surgical site was anesthetized using Lidocaine 1% with epinephrine 1:100,000 buffered with sodium bicarbonate 8.4% in a 1:10 ratio.The area of clinically apparent tumor was debulked with a 2 mm curette. The layer of tissue was then surgically excised using a #15 blade and was then transferred onto a specimen sheet maintaining the orientation of the specimen. Hemostasis was obtained using monopolar electrodesiccation. The wound site was then covered with a dressing while the tissue samples were processed for examination. The specimen was oriented, mapped and divided. Each section was then inked and processed in the Mohs lab using the Mohs protocol and submitted for frozen section. The histopathologic sections were reviewed by the surgeon in conjunction with the reference map. Total blocks: 1 Total slides: 3 Frozen sections were examined by the surgeon and revealed residual tumor. Tumor was indicated in red on the reference map. Cell morphology: full thickness epidermal squamous cell atypia with cellular pleomorphism (SCCis) Pathological pattern: Squamous cell carcinoma in situ Depth of invasion: Epidermis Scar tissue: Not Present Perineural invasion: Not Present Inflammation obscuring possible tumor presence: Not Present STAGE II: The patient was prepped in the same fashion as the first stage. Using a similar technique to that described above, a thin layer of tissue was removed from all areas where tumor was visible on the previous stage. The tissue was again oriented, mapped, dyed, and processed as above. Histopathologic sections were reviewed in conjunction with the reference map. Total blocks: 1 Total slides: 2 Frozen sections were examined by the surgeon and revealed: No additional tumor. Histology: No malignant cells seen in the sections examined. No additional histologic findings appreciated. [facility] CLIA # [id number] [facility] Train System Operator: Chantal Barton MD REPAIR: Intermediate Primary Surgeon: Chantal Barton MD Diesel Lube Tech: N/A Repair Size: 6.8 cm Sutures: 4-0 monocryl, 6-0 prolene The defect was identified and a marking pen was used to plan the repair. The area was infiltrated with Lidocaine 1% with epinephrine 1:100,000 buffered with sodium bicarbonate 8.4% in a 1:10 ratio, prepped with hibiclens and draped with sterile towels. The wound was debeveled and undermined widely. Cones were excised within relaxed skin tension lines on both sides of the defect. Hemostasis was obtained using monopolar electrodesiccation. The dermis and subcutaneous tissue were then approximated using buried vertical mattress sutures. Running percutaneous sutures were carefully placed for maximum eversion and meticulous wound edge approximation. Careful attention was paid to avoid distorting any nearby free margins. The wound was cleansed with saline and ointment was applied along the wound surface. A sterile pressure dressing was applied. Wound care instructions were given verbally and in writing. The patient left the operating suite in stable condition. Patient was informed that additional refinement of the resulting surgical scar may be used as a second stage of this reconstruction. No postoperative medications were prescribed. The patient will follow up in 1 week(s) for suture removal. Outside of office Dr. Barton performed the entire surgery, and documentation used to initiate this operative report. I entered the information in our [employer] DocFlowsheet with the information provided by Dr. Barton on her handwritten, paper format, surgical worksheet, which was then used to initiate the create of this note. Dr. Barton then reviewed and edited the note as needed to complete the note. Chitra Alvarado CMA I have reviewed the note, edited it as necessary and performed the entire procedure. Chantal Barton MD Crab Steamer 08/30/2024 Chantal Barton MD PROCEDURE/MINOR SURG ICAL ORDERABLES * (ABNORMAL) LIPID PROFILE (EXTERAL RESULT ENTRY) (06/26/2023 8:42 AM HOG CUTTER) Cholesterol (EXTERNAL RESULT) 136 mg/dL OTHER LAB Triglycerides (EXTERNAL RESULT) 388(A) mg/dL OTHER LAB HDL (EXTERNAL RESULT) 22 mg/dL OTHER LAB LDL (EXTERNAL RESULT) 47 mg/dL OTHER LAB VLDL (EXTERNAL RESULT) OTHER LAB Chol HDL Ratio (External Result) OTHER LAB Blood BLOOD SPECIMEN / Unknown 06/26/2023 8:42 AM HOG CUTTER Historical Provider MD LAB - CHEMISTRY O RDERABLES OTHER LAB * (ABNORMAL) HEMOGLOBIN A1C (EXTERNAL RESULT ENTRY) (06/26/2023 8:42 AM HOG CUTTER) Hemoglobin A1c (EXTERNAL RESULT) 6.6(A) % OTHER LAB Blood BLOOD SPECIMEN / Unknown 06/26/2023 8:42 AM HOG CUTTER Historical Provider MD LAB - CHEMISTRY O RDERABLES OTHER LAB from Last 3 Months or Most Recently Relevant to Health Maintenance Care Teams Sql Programmer Analyst Relationship Specialty Start Date End Date Griffin Plaza DO [address] [place] [address] PCP - General Internal Medicine 08/30/24
[2024-09-08 19:17] LABS: Eosinophils Absolute Auto 0.1 K/mm3 (0-0.3); Eosinophils Percent Auto 1.5 % (0-4.4); Hematocrit 29.1 % (42.0-52.0); Hemoglobin 8.2 g/dL (14.0-18.0); Immature Granulocyte Absolute 0.01 K/mm3 (0.00-0.031); Immature Granulocyte Percent A 0.3 % (0-0.5); Lymphocytes Absolute Auto 1.18 K/mm3 (0.9-3.2); Lymphocytes Percent Auto 30.3 % (18.3-44.2); Mean Corpuscular HGB Conc 28.2 g/dl (32-36); Mean Corpuscular Hemoglobin 24.1 pg (26-34); Mean Corpuscular Volume 85.6 fl (80-100); Mean Platelet Volume 11.6 fl (7.4-10.4); Monocytes Absolute Auto 0.5 K/mm3 (0.1-0.6); Monocytes Percent Auto 11.6 % (2.6-8.5); Neutrophils Absolute Auto 2.2 K/mm3 (1.3-6.7); Neutrophils Percent Auto 55.3 % (45.5-73.1); Platelet Count Result 125 k/mm3 (150-375); Red Cell Distribution Width 15.9 % (11.5-14.5); White Blood Count 3.9 K/mm3 (4.5-10.0)
[2024-09-08 19:20] LABS: INR 1.3; Prothrombin Time 16.5 Seconds (11.1-14.7)
[2024-09-08 19:26] LABS: Alanine Aminotransferase 22 U/L (6-50); Albumin Level 3.7 g/dL (3.5-5.1); Alkaline Phosphatase 119 U/L (38-126); Anion Gap 12 mmol/L (4-12); Aspartate Amino Transferase 47 U/L (17-59); Bilirubin,Total 1.1 mg/dL (0.2-1.3); Blood Urea Nitrogen 15 mg/dL (9-20); Calcium 8.4 mg/dL (8.4-10.2); Carbon Dioxide 19 mmol/L (22-30); Chloride 109 mmol/L (98-107); Estimated Glomerular Filt Rate > 60; Glucose 130 mg/dL (65-110); Sodium 140 mmol/L (137-145)
[2024-09-08 19:39] LABS: Anisocytosis 1+; Band Neutrophils Percent 1 % (0-6); Hypochromasia 1+; Platelet Estimate Adequate (Adequate); Schistocytes None Seen
[2024-09-08 20:27] LABS: HAV RESULT Negative (Negative)
[2024-09-12 06:58] LABS: Alpha Fetoprotein Tumor Marker 2.4 ng/mL (<6.1)
== END 2024-09-08 13:48 | disposition home or self-care (01) ==
LOC: ANHGOSHLAB 13:48
PROVIDERS: PCP Internal Medicine; Visit Provider Internal Medicine Gastroenterology
DX: K74.60 Unspecified cirrhosis of liver (principal)
CPT/HCPCS: 36415; 80053; 82105; 82248; 85025; 85610; 86709

== ENCOUNTER 2024-09-20 15:24 | Outpatient (CLI) | payer OTHER, SELFPAY ==
[2024-09-20 15:45] LABS: Basophils Absolute Auto 0.1 K/mm3 (0.0-0.1); Basophils Percent Auto 1.2 % (0.2-1.2); Eosinophils Absolute Auto 0.1 K/mm3 (0-0.3); Hematocrit 29.2 % (42.0-52.0); Hemoglobin 8.3 g/dL (14.0-18.0); Immature Granulocyte Absolute 0.01 K/mm3 (0.00-0.031); Immature Granulocyte Percent A 0.2 % (0-0.5); Immature Platelet Fraction Pct 6.2 % (0.9-11.2); Lymphocytes Absolute Auto 1.21 K/mm3 (0.9-3.2); Lymphocytes Percent Auto 30.1 % (18.3-44.2); Mean Corpuscular HGB Conc 28.4 g/dl (32-36); Mean Corpuscular Hemoglobin 23.2 pg (26-34); Mean Corpuscular Volume 81.8 fl (80-100); Mean Platelet Volume 9.9 fl (7.4-10.4); Monocytes Absolute Auto 0.4 K/mm3 (0.1-0.6); Monocytes Percent Auto 10.7 % (2.6-8.5); Neutrophils Absolute Auto 2.2 K/mm3 (1.3-6.7); Neutrophils Percent Auto 55.8 % (45.5-73.1); Platelet Count Result 132 k/mm3 (150-375); Red Blood Count 3.57 M/mm3 (4.6-6.20); Red Cell Distribution Width 15.9 % (11.5-14.5)
[2024-09-20 15:48] LABS: Platelet Estimate Decreased (Adequate)
[2024-09-20 15:49] LABS: Schistocytes None Seen
[2024-09-20 15:52] LABS: Anisocytosis 1+; Hypochromasia 1+
[2024-09-20 15:53] LABS: Ovalocytes 1+
--- OUTSIDE RECORDS SUMMARY | 2024-09-20 16:28 | XMS_ITS | Referral Summary ---
Author Organization [facility] Address [address] [place] [phone] Care Team Providers Care Certified Alcohol Counselor Name Role Phone Griffin Plaza DO Primary Care Provider [phone]- [phone] Encounters Date Type Department Care Team Description 07/15/2024 10:30 AM ENTRY LEVEL BUYER Ancillary Procedure [facility] Cardiology [address] [place] [address] [place] [phone] Complete atrioventricular block (HCC); Presence of cardiac pacemaker 07/15/2024 11:00 AM ENTRY LEVEL BUYER Office Visit [facility] Cardiology [address] [place] [address] [place] [phone] Arron Mason MD Essential hypertension (Primary Dx); Complete atrioventricular block (HCC); Presence of cardiac pacemaker 07/07/2024 Telephone [facility] Cardiology [address] [place] [address] [place] [phone] Arron Mason MD 06/22/2024 Orders Only [facility] Cardiology [address] [place] [address] [place] [phone] Arron Mason MD NICM (nonischemic cardiomyopathy) (HCC) (Primary Dx); ICD (implantable cardioverter-defibrilla tor) in place; Ventricular fibrillation (HCC); NSVT (nonsustained ventricular tachycardia) (HCC) from Last 3 Months Allergies No known active allergies Medications lisinopriL (PRINIVIL,ZESTR FL) 40 mg tablet Take 1 tablet (40 [...] on file Legal Sex Male 12:19 AM ENTRY LEVEL BUYER Gender Identity Not on file Sexual Orientation Not on file Last Filed Vital Signs Vital Sign Reading Time Taken Comments Blood Pressure 118/78 07/15/2024 10:51 AM ENTRY LEVEL BUYER Pulse 66 07/15/2024 10:51 AM ENTRY LEVEL BUYER Temperature - - Respiratory Rate - - Oxygen Saturation 97% 07/15/2024 10: 51 AM ENTRY LEVEL BUYER Inhaled Oxygen Concentration - - Weight 108.8 kg (239 lb 15.4 oz) 2024 10:51 AM ENTRY LEVEL BUYER Height 185.4 cm (6' 1 ) 07/15/2024 10:5 1 AM ENTRY LEVEL BUYER Body Mass Index 31.66 07/15/2024 10:51 AM ENTRY LEVEL BUYER Plan of Treatment Not on file Procedures Procedure Name Priority Date/Time Associated Diagnosis Comments POCT LIPID PANEL Routine 07/15/2024 10:5 5 AM ENTRY LEVEL BUYER Essential hypertension DEVICE CHECK - REMOTE Routine 06/22/2024 11:02 AM ENTRY LEVEL BUYER Complete atrioventricular block (HCC) from Last 3 Months Results * POCT lipid panel (07/15/2024 10:55 AM ENTRY LEVEL BUYER) Cholesterol, POC 104 mg/dL Comment:GLU = 151 HDL, POC 17 mg/dL Triglycerides, POC 303 mg/dL LDL Cholesterol POC 26 mg/dL Chol/HDL Ratio, POC 1.6 Non-HDL Cholesterol, POC 187 mg/dL Cholesterol Total, POC 104 mg/dL Capillary blood 07/15/2024 1 0:55 AM ENTRY LEVEL BUYER Arron Mason MD POINT OF CARE TEST ORDER RUDOLPH Final Result * DEVICE CHECK - REMOTE (06/22/2024 11:02 AM ENTRY LEVEL BUYER) Anatomical Region Laterality Modality Other Narrative 07/22/2024 7:51 AM ENTRY LEVEL BUYER Otoole Assurity Dual Pacemaker. Dx: CHB. DOI 05/23/2022. Chronic leads 06/17/2012. Marek remote monitoring, office pacer checks Q1 yr. Routine DDD Pacemaker Remote. Transmission attached. Battery status: 2.99 V, 6.4 years remaining battery life to [employer]. Stable lead impedances, pacing and sensing thresholds. Presenting rhythm: A sensed/V paced AP-1.1%, ASSISTANT THERAPY AIDE-> 99% No AT/AF episodes noted. No Ventricular high rate episodes detected. Medications: Carvedilol 3.125 mg, lisinopril 40 mg See scanned report. Office pacemaker follow up: 13 months [facility] f/u 10/18/24. Yuan Blackwell RN us Arron Mason MD CV CARDIAC SERVICES PROC EDURES Final Result from Last 3 Months Insurance [facility] Care Teams Certified Alcohol Counselor Relationship Specialty Start Date End Date Griffin Plaza DO [address] [address] PCP - General Internal Medicine 07/15/24
--- OUTSIDE RECORDS SUMMARY | 2024-09-20 16:28 | XMS_ITS | Clinical Summary ---
Author Organization [facility] Address [address] [place] [phone] Care Team Providers Care Facilities Mechanical Design Engineer Name Role Phone Griffin Plaza DO Primary Care Provider +1- [phone] Allergies No known active allergies Medications lisinopriL [...] Department Care Team Description 07/15/2024 11:00 AM ROLLING UP MACHINE OPERATOR Office Visit [facility] Cardiology [address] [facility] [address] [place] [phone] Arron Mason MD Essential hypertension (Primary Dx); Complete atrioventricular block (HCC); Presence of cardiac pacemaker 07/15/2024 10:30 AM ROLLING UP MACHINE OPERATOR Ancillary Procedure [facility] Cardiology [address] [place] [address] [place] [phone] Complete atrioventricular block (HCC); Presence of cardiac pacemaker 07/07/2024 Telephone [facility] Cardiology [facility] [address] [place] [phone] Arron Mason MD 06/22/2024 Orders Only [facility] Cardiology [address] [facility] [address] [place] [phone] Arron Mason MD NICM (nonischemic cardiomyopathy) (HCC) (Primary Dx); ICD (implantable cardioverter-defibrilla tor) in place; Ventricular fibrillation (HCC); NSVT (nonsustained ventricular tachycardia) (HCC) from Last 3 Months Surgical History [...] on file Legal Sex Male 12:19 AM ROLLING UP MACHINE OPERATOR Gender Identity Not on file Sexual Orientation Not on file Obstetrics History Last Filed Vital Signs Vital Sign Reading Time Taken Comments Blood Pressure 118/78 07/15/2024 10:51 AM ROLLING UP MACHINE OPERATOR Pulse 66 07/15/2024 10:51 AM ROLLING UP MACHINE OPERATOR Temperature - - Respiratory Rate - - Oxygen Saturation 97% 07/15/2024 10: 51 AM ROLLING UP MACHINE OPERATOR Inhaled Oxygen Concentration - - Weight 108.8 kg (239 lb 15.4 oz) 2024 10:51 AM ROLLING UP MACHINE OPERATOR Height 185.4 cm (6' 1 ) 07/15/2024 10:5 1 AM ROLLING UP MACHINE OPERATOR Body Mass Index 31.66 07/15/2024 10:51 AM ROLLING UP MACHINE OPERATOR Plan of Treatment Health Maintenance Due Date [...] LIPID PANEL Routine 07/15/2024 10:5 5 AM ROLLING UP MACHINE OPERATOR Essential hypertension DEVICE CHECK - REMOTE Routine 06/22/2024 11:02 AM ROLLING UP MACHINE OPERATOR Complete atrioventricular block (HCC) from Last 3 Months Results * POCT lipid panel (07/15/2024 10:55 AM ROLLING UP MACHINE OPERATOR) Cholesterol, POC 104 mg/dL Comment:GLU = 151 HDL, POC 17 mg/dL Triglycerides, POC 303 mg/dL LDL Cholesterol POC 26 mg/dL Chol/HDL Ratio, POC 1.6 Non-HDL Cholesterol, POC 187 mg/dL Cholesterol Total, POC 104 mg/dL Capillary blood 07/15/2024 1 0:55 AM ROLLING UP MACHINE OPERATOR us Arron Mason MD POINT OF CARE TEST ORDER RUDOLPH Final Result * DEVICE CHECK - REMOTE (06/22/2024 11:02 AM ROLLING UP MACHINE OPERATOR) Anatomical Region Laterality Modality Other Narrative 07/22/2024 7:51 AM ROLLING UP MACHINE OPERATOR Otoole Assurity Dual Pacemaker. Dx: CHB. DOI 05/23/2022. Chronic leads 06/17/2012. Marek remote monitoring, office pacer checks Q1 yr. Routine DDD Pacemaker Remote. Transmission attached. Battery status: 2.99 V, 6.4 years remaining battery life to [employer]. Stable lead impedances, pacing and sensing thresholds. Presenting rhythm: A sensed/V paced AP-1.1%, DIRECTOR OF PROCUREMENT-> 99% No AT/AF episodes noted. No Ventricular high rate episodes detected. Medications: Carvedilol 3.125 mg, lisinopril 40 mg See scanned report. Office pacemaker follow up: 13 months Marek remote f/u 10/18/24. Yuan Blackwell RN Arron Mason MD CV CARDIAC SERVICES PROC EDURES Final Result from Last [address] [place] [address] [facility] Care Teams Facilities Mechanical Design Engineer Relationship Specialty Start Date End Date Griffin Plaza DO [address] [address] PCP - General Internal Medicine 07/15/24
--- OUTSIDE RECORDS SUMMARY | 2024-09-20 16:29 | XMS_ITS | Clinical Summary ---
Author Organization [facility] Address [address] [place] [address] Care Team Providers Care Environmental Conservation Officer Name Role Phone Griffin Plaza DO Primary Care Provider Source Comments [facility] [employer],non-owned Affiliates and Associated Physician Practices is amultiple site organization consisting of ambulatory clinics and hospital sitesin [place], [place], [place] and [place]. This disclosure is being madepursuant to the Care Everywhere program and may not contain all information available regarding this patient. Last updated 18.[facility] Allergies No known active allergies Medications * Be aware that medications may not be up to date on this document. Alwaysverify current medications with the patient. lisinopril (Prinivil; Zestril) 40 MG tablet Take 1 (one) tablet by mouth once daily 08/16/2023 Active hydroCHLOROthia zide 12.5 MG Take 1 (one) tablet by mouth once daily 08/16/2023 Active pantoprazole EC (Protonix) 40 MG tablet Take 1 (one) tablet by mouth every morning 08/17/2023 Active Magnesium 500 MG Active carvedilol (Coreg) 3.125 MG tablet Take 1 (one) tablet by mouth 2 times daily 60 tablet 11 08/01/2024 Active Semaglutide (Ozempic, 0.25 or 0.5 MG/DOSE,) 2 MG/1.5ML SOPN Active Encounters Date Type Department Care Team Description 09/02/2024 Orders Only [facility] - [facility] [address] [facility], [place] [phone] Jerrell Ashley MD Cirrhosis of liver without ascites, unspecified hepatic cirrhosis type 08/30/2024 9:30 AM CDT Procedure visit [facility] - Dermatology [address] [place] [phone] Chantal Barton MD 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 08/30/2024 Travel 08/01/2024 Refill [facility] - GI [address] [facility] [place] [phone] Jerrell Ashley MD MEDICATION REFILL from Last 3 Months Social History Tobacco Use Types Packs/Day Years Used Date Smoking Tobacco: Never Smokeless Tobacco: Never Tobacco Cessation:Counseling Given: Not Answered Alcohol Use Standard Drinks/Week Comments Not Currently 0 (1 standard drink = 0.6 oz pur e alcohol) Sex and Gender Information Value Date Recorded Sex Assigned at Not on file Legal Sex Male 2:10 PM ROOFER GYPSUM Gender Identity Not on file Sexual Orientation [...] 03/08/2024 9:47 AM CDT Plan of Treatment Health Maintenance Due Date [...] Procedure Name Priority Date/Time Associated Diagnosis Comments [place] INTMD WND REPAIR FACE,FACIAL 5.1-7.5 Routine 08/30/2024 1:17 PM CDT 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 [facility] MOHS MG TQ H/N/H/F/G EA ADDL STAG Routine 08/30/2024 1:17 PM CDT 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 [facility] MOHS MG TQ H/N/H/F/G 1ST STAG 5 BLOC Routine 08/30/2024 1:17 PM CDT 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 All components of [place] Protocol/PAUSE Rule completed. STAGE I: The patient [...] sections examined. No additional histologic findings appreciated. [facility] CLIA # [id number] [facility] Doughnut Icer: Chantal Barton MD REPAIR: Intermediate Primary Surgeon: Chnatal Barton MD Alteration Tailor Apprentice: N/A Repair Size: 6.8 cm Sutures: 4-0 [...] report. I entered the information in our [employer] DocFlowsheet with the information provided by Dr. Barton on her handwritten, paper format, surgical worksheet, which was then used to initiate the create of this note. Dr. Barton then reviewed and edited the note as needed to complete the note. Chitra Alvarado CMA I have reviewed the note, edited it as necessary and performed the entire procedure. Chantal Barton MD Gasoline Tractor Operator 08/30/2024 Chantal Barton MD PROCEDURE/MINOR SURGICAL ORDER RUDOLPH Final Result * (ABNORMAL) LIPID PROFILE (EXTERAL RESULT ENTRY) (06/26/2023 8:42 AM ROOFER GYPSUM) Cholesterol (EXTERNAL RESULT) 136 mg/dL OTHER LAB Triglycerides (EXTERNAL RESULT) 388(A) mg/dL OTHER LAB HDL (EXTERNAL RESULT) 22 mg/dL OTHER LAB LDL (EXTERNAL RESULT) 47 mg/dL OTHER LAB VLDL (EXTERNAL RESULT) OTHER LAB Chol HDL Ratio (External Result) OTHER LAB Blood BLOOD SPECIMEN / Unknown 06/26/2023 8:42 AM ROOFER GYPSUM Historical Provider LAB - CHEMISTRY ORDERABLE S Final Result OTHER LAB * (ABNORMAL) HEMOGLOBIN A1C (EXTERNAL RESULT ENTRY) (06/26/2023 8:42 AM ROOFER GYPSUM) Hemoglobin A1c (EXTERNAL RESULT) 6.6(A) % OTHER LAB Blood BLOOD SPECIMEN / Unknown 06/26/2023 8:42 AM ROOFER GYPSUM Historical Provider LAB - CHEMISTRY ORDERABLE S Final Result OTHER LAB from Last 3 Months or Most Recently Relevant to Health Maintenance [place] [address] [place] [address] [facility] Address: [address] [phone] Care Teams Environmental Conservation Officer Relationship Specialty Start Date End Date Griffin Plaza DO [address] [place] [address] PCP - General Internal Medicine 08/30/24
--- OUTSIDE RECORDS SUMMARY | 2024-09-20 16:29 | XMS_ITS | Clinical Summary ---
Author Organization [facility] Address [address] [place] [address] Care Team Providers Care Notereader Name Role Phone Unavailable Primary Care Provider Unavailabl e Allergies No known active allergies Medications lisinopriL (PRINIVIL) 40 mg tablet Take 20 mg by mouth daily. 4 Active pantoprazole (PROTONIX) 40 mg Tablet, Delayed Release (E.C.) Take 40 mg by mouth daily in the morning. Active carvediloL (COREG) 3.125 mg tablet Take 3.125 mg by mouth 2 times daily. 5 08/01/19 26 Active Ozempic 0.25 mg or 0.5 mg (2 mg/3 mL) Pen Injector Inject 0.05 mg by subcutaneous injection every 7 days. Active Active Problems No known active problems Encounters Date Type Department Care Team Description 09/20/2024 3:00 PM CDT Office Visit [facility] Oncology and Hematology - [place] [address] [facility] [address] [address] Adryan Kauffman MD Chronic anemia (Primary Dx) from Last 3 Months Family History Medical History Relation Name Comments Diabetes Brother 1 Diabetes Brother 2 No Known Problems Brother 3 No Known Problems Child 1 No Known Problems Child 2 No Known Problems Child 3 No Known Problems Child 4 Heart Disease Father Brain Cancer Mother Lung Cancer Mother No Known Problems Sister 1 No Known Problems Sister 2 Relation Name Status Comments Brother 1 Alive Brother 2 Alive Brother 3 Alive Child 1 Alive Child 2 Alive Child 3 Alive Child 4 Alive Father Mother Sister 1 Alive Sister 2 Social History Tobacco Use Types Packs/Day Years Used Date Smoking Tobacco: Never Smokeless Tobacco: Never Alcohol Use Standard Drinks/Week Comments Never 0 (1 standard drink = 0.6 oz pur e alcohol) Sex and Gender Information Value Date Recorded Sex Assigned at Not on file Legal Sex Male 9:26 AM MANAGER ONLINE Gender Identity Not on file Sexual Orientation Not on file Last Filed Vital Signs Vital Sign Reading Time Taken Comments Blood Pressure 125/74 09/20/2024 2:47 PM CDT Pulse 72 09/20/2024 2:47 PM CDT Temperature 36.2 C (97.2 F) 09/20/2024 2:47 PM CDT Respiratory Rate 15 09/20/2024 2:47 PM CDT Oxygen Saturation 97% 09/20/2024 2: 47 PM CDT Inhaled Oxygen Concentration - - Weight 108.6 kg (239 lb 6.4 oz) 09/20/2024 2:47 PM CDT Height 185.4 cm (6' 1 ) 09/20/2024 2:47 PM CDT Body Mass Index 31.59 09/20/2024 2:47 PM CDT Plan of Treatment Upcoming Encounters Date Type Department Care Team (Late st Contact Info) Description 10/06/2024 4:30 PM CDT Telephone Check Up [facility] Oncology and Hematology - [place] [address] [facility] [address] [place] [address] Adryan Kauffman MD [address] [facility] [address] [place] [address] Health Maintenance Due Date Last [...] of 2) 2009 INFLUENZA VACCINE (#1) 2024 Preventative Visit- Commercial 06/08/2024 RSV VACCINE (60+ or ) (1 - 1-dose 75+ series) 2034 Insurance [facility] CHOICE [id number] [place] [id number]
--- OUTSIDE RECORDS SUMMARY | 2024-09-20 16:29 | XMS_ITS | Encounter Summary ---
Author Organization [facility] Address [address] [place] [address] Care Team Providers Care Journeyman Pressman Name Role Phone Unavailable Primary Care Provider Unavailabl e Encounter Details Date Type Department Care Team (Late st Contact Info) Description 09/20/2024 3:00 PM CDT Office Visit [facility] Oncology and Hematology - [place] [address] [facility] [address] [place] [address] Adryan Kauffman MD [address] [facility] [address] [place] [address] Chronic anemia (Primary Dx) Social History Tobacco Use Types Packs/Day Years Used Date Smoking Tobacco: Never Smokeless Tobacco: Never Alcohol Use Standard Drinks/Week Comments Never 0 (1 standard drink = 0.6 oz pur e alcohol) Sex and Gender Information Value Date Recorded Sex Assigned at Not on file Legal Sex Male 9:26 AM RESIDENCE COUNSELOR Gender Identity Not on file Sexual Orientation Not on file documented as of this encounter Last Filed Vital Signs Vital Sign Reading Time Taken Comments Blood Pressure 125/74 09/20/2024 2:47 PM CDT Pulse 72 09/20/2024 2:47 PM CDT Temperature 36.2 C (97.2 F) 09/20/2024 2:47 PM CDT Respiratory Rate 15 09/20/2024 2:47 PM CDT Oxygen Saturation 97% 09/20/2024 2:47 PM CDT Inhaled Oxygen Concentration - - Weight 108.6 kg (239 lb 6.4 oz) 09/20/2024 2:47 PM CDT Height 185.4 cm (6' 1 ) 09/20/2024 2:47 PM CDT Body Mass Index 31.59 09/20/2024 2:47 PM CDT documented in this encounter Plan of Treatment Upcoming Encounters Date Type Department Care Team (Late st Contact Info) Description 10/06/2024 4:30 PM CDT Telephone Check Up [facility] Oncology and Hematology - [place] [address] [facility] [address] [place] [address] Adryan Kauffman MD [address] [facility] [address] [place] [address] Scheduled Orders Name Type Priority Associated Diagnoses Orde r Schedule CBC WITH DIFFERENTIAL Lab Stat Chronic anemia Expected: 09/20/2024, Expires: 09/20/2025 COMPREHENSIVE METABOLIC PANEL Lab Stat Chronic anemia Expected: 09/20/2024, Expires: 09/20/2025 FERRITIN Lab Routine Chronic anemia Expected: 09/20/2024, Expires: 09/20/2025 IRON, TIBC, AND PERCENT SATURATION Lab Routine Chronic anemia Expected: 09/20/2024, Expires: 09/20/2025 LACTATE DEHYDROGENASE Lab Routine Chronic anemia Expected: 09/20/2024, Expires: 09/20/2025 METHYLMALONIC ACID Lab Routine Chronic anemia Expected: 09/20/2024, Expires: 09/20/2025 TRANSFERRIN RECEPTOR TFR SOLUBLE Lab Routine Chronic anemia Expected: 09/20/2024, Expires: 09/20/2025 VITAMIN B12 AND FOLATE Lab Routine Chronic anemia Expected: 09/20/2024, Expires: 09/20/2025 documented as of this encounter Visit Diagnoses Diagnosis Chronic anemia- Primary Anemia, unspecified documented in this encounter
--- OUTSIDE RECORDS SUMMARY | 2024-09-20 16:29 | XMS_ITS | Encounter Summary ---
Author Organization [facility] Address [address] [facility] [address] [place] [address] Care Team Providers Care Remote Ruby On Rails Developer Name Role Phone Yeyo Barrera MD Primary Care Provider [phone] No, Physician Primary Care Provider [phone] Piyush Peguero Primary Care Provider Griffin Plaza DO Primary Care Provider [phone] Encounter Details Date Type Department Care Team (Late st Contact Info) Description 06/17/2016 Orders Only [facility] ProviderKriss MD [address] [place] [address] Social History Tobacco Use Types Packs/Day Years Used Date Smoking Tobacco: Never Alcohol Use Standard Drinks/Week Comments Yes 0 (1 standard drink = 0.6 oz pur e alcohol) Sex and Gender Information Value Date Recorded Sex Assigned at Not on file Legal Sex Male 12:19 AM HEAD IRRIGATOR Gender Identity Not on file Sexual Orientation [...] on filedocumented in this encounter Care Teams Remote Ruby On Rails Developer Relationship Specialty Start Date End Date Yeyo Barrera MD PCP - General 07/13/12 09/28/18 No, Physician PCP - General 09/29/18 11/26/20 Piyush Peguero PA [address] [facility] [address] [place] [address] PCP - General Physician Bookstore Clerk 11/27/20 07/14/24 Griffin Plaza DO [address] [facility] [address] [place] [address] PCP - General Internal Medicine 07/15/24 documented as of this encounter
[2024-09-20 16:39] LABS: Alanine Aminotransferase 25 U/L (6-50); Albumin Level 3.9 g/dL (3.5-5.1); Alkaline Phosphatase 128 U/L (38-126); Anion Gap 9 mmol/L (4-12); Aspartate Amino Transferase 64 U/L (17-59); Bilirubin,Total 1.5 mg/dL (0.2-1.3); Blood Urea Nitrogen 12 mg/dL (9-20); Calcium 8.5 mg/dL (8.4-10.2); Carbon Dioxide 24 mmol/L (22-30); Chloride 107 mmol/L (98-107); Estimated Glomerular Filt Rate > 60; Glucose 106 mg/dL (65-110); Lactate Dehydrogenase 174 U/L (120-246); Potassium 3.8 mmol/L (3.4-5.0); Sodium 140 mmol/L (137-145)
[2024-09-20 16:41] LABS: Iron 72 ug/dL (49-181)
[2024-09-20 16:53] LABS: Percent Iron Saturation 14 % (20-50)
[2024-09-20 17:18] LABS: Ferritin 6.84 ng/mL (11.1-264)
[2024-09-20 17:53] LABS: Folic Acid 5.9 ng/mL (2.76->20)
[2024-09-23 09:53] LABS: Soluble Transferrin Receptor 4.99 mg/L (0.76-1.76)
[2024-09-24 02:43] LABS: Methylmalonic Acid 271 nmol/L (69-390)
== END 2024-09-20 15:25 | disposition home or self-care (01) ==
LOC: ANHLAB 15:27
PROVIDERS: PCP Internal Medicine; Visit Provider Internal Medicine Hematology & Oncology
DX: D64.9 Anemia, unspecified (principal)
CPT/HCPCS: 36415; 80053; 82607; 82728; 82746; 83540; 83550; 83615; 83921; 84238; 85025; 85055

== ENCOUNTER 2024-09-22 09:53 | Emergency (ER) | payer OTHER, SELFPAY ==
[2024-09-22 10:01] VITALS: BP 106/65; PULSE 70; RESP 15; TEMP 36.6; O2SAT 100
--- NOTE | 2024-09-22 10:01 | ECG_ITS ---
Test Date: 2024-09-22 10:05:50 Measurements Intervals [place] Rate: 67 P: 70 PA: 196 QRS: -70 QRSD: 208 T: 97 QT: 506 QTc: 537 Interpretive Statements ELECTRONIC VENTRICULAR PACEMAKER BASELINE ARTIFACT- I, II, III, AVR, AVL, AVF NO FURTHER INTERPRETATION IS POSSIBLE ATYPICAL ECG No previous ECG available for comparison Electronically Signed On 09-22-2024 10:17:23 CDT by Andres Jordan D.O.
[2024-09-22 10:03] LABS: Glucose Point of Care 160 mg/dl (65-105)
--- OUTSIDE RECORDS SUMMARY | 2024-09-22 10:31 | XMS_ITS | Clinical Summary ---
Author Organization [facility] Address [address] [place] [address] Care Team Providers Care Subscription Clerk Name Role Phone Unavailable Primary Care Provider [...] Encounters Date Type Department Care Team Description 09/21/2024 Orders Only [facility] Oncology and Hematology [place] [address] [place] [phone] Adryan Kauffman MD 09/20/2024 3:00 PM CDT Office Visit [facility] Oncology and Hematology - [place] [address] [place] [address] Adryan Kauffman MD Chronic anemia (Primary Dx) [...] on file Legal Sex Male 9:26 AM FISHER OYSTER Gender Identity Not on file Sexual Orientation [...] 10/06/2024 4:30 PM CDT Telephone Check Up [facility] Oncology and Hematology - [place] [address] [facility] [address] [place] [address] Adryan Kauffman MD [address] [facility] [address] [place] [address] Health Maintenance Due Date Last [...] ) (1 - 1-dose 75+ series) 2034 Procedures Procedure Name Priority Date/Time Associated Diagnosis Comments COMPREHENSIVE METABOLIC PANEL Routine 09/20/2024 9:09 AM CDT from Last 3 Months Results * COMPREHENSIVE METABOLIC PANEL (09/20/2024 9:09 AM CDT) Blood us Adryan Kauffman MD CHEMISTRY ORDERABLES Final Resu lt from Last 3 [place] [address] [facility] CHOICE [id number] [place] [id number]
--- OUTSIDE RECORDS SUMMARY | 2024-09-22 10:31 | XMS_ITS | Referral Summary ---
Author Organization [facility] Address [address] [place] [address] Care Team Providers Care Hardwood Floor Layer Name Role Phone Griffin Plaza DO Primary Care Provider [phone] Encounters Date Type Department Care Team Description 07/15/2024 10:30 AM TRANSIT PLANNING MANAGER Ancillary Procedure [facility] [address] [place] [phone] Complete atrioventricular block (HCC); Presence of cardiac pacemaker 07/15/2024 11:00 AM TRANSIT PLANNING MANAGER Office Visit [facility] [address] [place] [phone] Arron Mason MD Essential hypertension (Primary Dx); Complete atrioventricular block (HCC); Presence of cardiac pacemaker 07/07/2024 Telephone [facility] [address] [place] [phone] Arron Mason MD from Last 3 Months Allergies No known [...] Dx: CHB. DOI 05/23/2022. Chronic leads 06/17/2012. [employer] remote monitoring, office pacer checks Q1 yr. Essential hypertension 05/23/2014 Overview (09/11/2016): Essential hypertension Social History Tobacco Use Types Packs/Day Years Used Date Smoking Tobacco: Never Smokeless Tobacco: Never Alcohol Use Standard Drinks/Week Comments Yes 0 (1 standard drink = 0.6 oz pur e alcohol) Sex and Gender Information Value Date Recorded Sex Assigned at Not on file Legal Sex Male 12:19 AM TRANSIT PLANNING MANAGER Gender Identity Not on file Sexual Orientation Not on file Last Filed Vital Signs Vital Sign Reading Time Taken Comments Blood Pressure 118/78 07/15/2024 10:51 AM TRANSIT PLANNING MANAGER Pulse 66 07/15/2024 10:51 AM TRANSIT PLANNING MANAGER Temperature - - Respiratory Rate - - Oxygen Saturation 97% 07/15/2024 10: 51 AM TRANSIT PLANNING MANAGER Inhaled Oxygen Concentration - - Weight 108.8 kg (239 lb 15.4 oz) 2024 10:51 AM TRANSIT PLANNING MANAGER Height 185.4 cm (6' 1 ) 07/15/2024 10:5 1 AM TRANSIT PLANNING MANAGER Body Mass Index 31.66 07/15/2024 10:51 AM TRANSIT PLANNING MANAGER Plan of Treatment Not on file Procedures Procedure Name Priority Date/Time Associated Diagnosis Comments POCT LIPID PANEL Routine 07/15/2024 10:5 5 AM TRANSIT PLANNING MANAGER Essential hypertension from Last 3 Months Results * POCT lipid panel (07/15/2024 10:55 AM TRANSIT PLANNING MANAGER) Cholesterol, POC 104 mg/dL Comment:GLU = 151 HDL, POC 17 mg/dL Triglycerides, POC 303 mg/dL LDL Cholesterol POC 26 mg/dL Chol/HDL Ratio, POC 1.6 Non-HDL Cholesterol, POC 187 mg/dL Cholesterol Total, POC 104 mg/dL Capillary blood 07/15/2024 1 0:55 AM TRANSIT PLANNING MANAGER Arron Mason MD POINT OF CARE TEST ORDER RUDOLPH Final Result from Last 3 Months Insurance [facility] Care Teams Hardwood Floor Layer Relationship Specialty Start Date End Date Griffin Plaza DO [address] [facility] [address] [place], [place] [phone] PCP - General Internal Medicine 07/15/24
--- OUTSIDE RECORDS SUMMARY | 2024-09-22 10:31 | XMS_ITS | Clinical Summary ---
Author Organization [facility] Address [address] [place] [address] Care Team Providers Care Pet Care Attendant Name Role Phone Griffin Plaza DO Primary Care Provider [phone] Allergies No known active allergies Medications lisinopriL [...] Department Care Team Description 07/15/2024 11:00 AM TOMBSTONE SETTER Office Visit [facility] [address] [place] [phone] Arron Mason MD Essential hypertension (Primary Dx); Complete atrioventricular block (HCC); Presence of cardiac pacemaker 07/15/2024 10:30 AM TOMBSTONE SETTER Ancillary Procedure [facility] [address] [place] [phone] Complete atrioventricular block (HCC); Presence of cardiac pacemaker 07/07/2024 Telephone [facility] [address] [place] [phone] Arron Mason MD from Last 3 Months Surgical History Surgery [...] on file Legal Sex Male 12:19 AM TOMBSTONE SETTER Gender Identity Not on file Sexual Orientation Not on file Obstetrics History Last Filed Vital Signs Vital Sign Reading Time Taken Comments Blood Pressure 118/78 07/15/2024 10:51 AM TOMBSTONE SETTER Pulse 66 07/15/2024 10:51 AM TOMBSTONE SETTER Temperature - - Respiratory Rate - - Oxygen Saturation 97% 07/15/2024 10: 51 AM TOMBSTONE SETTER Inhaled Oxygen Concentration - - Weight 108.8 kg (239 lb 15.4 oz) 2024 10:51 AM TOMBSTONE SETTER Height 185.4 cm (6' 1 ) 07/15/2024 10:5 1 AM TOMBSTONE SETTER Body Mass Index 31.66 07/15/2024 10:51 AM TOMBSTONE SETTER Plan of Treatment Health Maintenance Due Date [...] LIPID PANEL Routine 07/15/2024 10:5 5 AM TOMBSTONE SETTER Essential hypertension from Last 3 Months Results * POCT lipid panel (07/15/2024 10:55 AM TOMBSTONE SETTER) Cholesterol, POC 104 mg/dL Comment:GLU = 151 HDL, POC 17 mg/dL Triglycerides, POC 303 mg/dL LDL Cholesterol POC 26 mg/dL Chol/HDL Ratio, POC 1.6 Non-HDL Cholesterol, POC 187 mg/dL Cholesterol Total, POC 104 mg/dL Capillary blood 07/15/2024 1 0:55 AM TOMBSTONE SETTER Arron Mason MD POINT OF CARE TEST ORDER RUDOLPH Final Result from Last 3 Months Insurance [facility] H[facility]/PPO Address: [place] [phone] [facility]/PPO Address: [place] [address] [facility] HMO/PPO Address: [place] [phone] Care Teams Pet Care Attendant Relationship Specialty Start Date End Date Griffin Plaza DO [address] [facility] [address] [place] [employer] [place], [place] [phone] PCP - General Internal Medicine 07/15/24
--- OUTSIDE RECORDS SUMMARY | 2024-09-22 10:31 | XMS_ITS | Encounter Summary ---
Author Organization [facility] [employer] Address [address] [place] [address] Care Team Providers Care Electrician Elevator Maintenance Name Role Phone Unavailable Primary Care Provider Unavailabl e Encounter Details Date Type Department Care Team (Late st Contact Info) Description 09/21/2024 Orders Only [facility] Oncology and Hematology [facility] [address] [place] [address] [place] [address] [place] [address] [employer] [address] [place] [phone] Social History Tobacco Use Types Packs/Day Years Used Date Smoking Tobacco: Never Smokeless Tobacco: Never Alcohol Use Standard Drinks/Week Comments Never 0 (1 standard drink = 0.6 oz pur e alcohol) Sex and Gender Information Value Date Recorded Sex Assigned at Not on file 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 [address] [place] [address] documented as of this encounter Procedures Procedure Name Priority Date/Time Associated Diagnosis Comments COMPREHENSIVE METABOLIC PANEL Routine 09/20/2024 9:09 AM CDT documented in this encounter Results * COMPREHENSIVE METABOLIC PANEL (09/20/2024 9:09 AM CDT) Blood us Adryan Kauffman MD CHEMISTRY ORDERABLES Final Resu lt documented in this encounter Visit Diagnoses Not on filedocumented in this encounter
--- OUTSIDE RECORDS SUMMARY | 2024-09-22 10:31 | XMS_ITS | Clinical Summary ---
Author Organization [facility] Address [address] [facility] [place] [address] Care Team Providers Care Donor Services Technician Name Role Phone Griffin Plaza DO Primary Care Provider Source Comments [facility] [employer],non-owned Affiliates and Associated Physician Practices is amultiple site organization consisting of ambulatory clinics and hospital sitesin [place], [place], [place] and [place]. This disclosure is being madepursuant to the Care Everywhere program and may not contain all information available regarding this patient. 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 08/30/2024 Travel 08/01/2024 Refill [facility] [address] [facility] [place] [phone] Jerrell Ashley MD MEDICATION REFILL from Last [...] on file Legal Sex Male 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 Gender Identity Not on file Sexual Orientation [...] Procedure Name Priority Date/Time Associated Diagnosis Comments CO INTMD WND REPAIR FACE,FACIAL 5.1-7.5 Routine 08/30/2024 1:17 PM CDT 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 CO [facility] MOHS MG TQ H/N/H/F/G EA ADDL STAG Routine 08/30/2024 1:17 PM CDT 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 CO [facility] MOHS MG TQ H/N/H/F/G 1ST STAG 5 BLOC Routine 08/30/2024 1:17 PM CDT 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 All components of [place] Protocol/PAUSE Rule completed. STAGE I: The patient [...] sections examined. No additional histologic findings appreciated. [place] [facility] CLIA # [id number] [facility] Gravure Press Set Up Operator: Chantal Barton MD REPAIR: Intermediate Primary Surgeon: Chantal Barton MD Section Laborer: N/A Repair Size: 6.8 cm Sutures: 4-0 [...] report. I entered the information in our [employer] DocFlowsheet with the information provided by Dr. Barton on her handwritten, paper format, surgical worksheet, which was then used to initiate the create of this note. Dr. Barton then reviewed and edited the note as needed to complete the note. Chitra Alvarado CMA I have reviewed the note, edited it as necessary and performed the entire procedure. Chantal Barton MD Dust Box Worker 08/30/2024 Chantal Barton MD PROCEDURE/MINOR SURGICAL ORDER RUDOLPH Final Result * (ABNORMAL) LIPID PROFILE (EXTERAL RESULT ENTRY) (06/26/2023 8:42 AM DAILY SALES AUDIT CLERK) Cholesterol (EXTERNAL RESULT) 136 mg/dL OTHER LAB Triglycerides (EXTERNAL RESULT) 388(A) mg/dL OTHER LAB HDL (EXTERNAL RESULT) 22 mg/dL OTHER LAB LDL (EXTERNAL RESULT) 47 mg/dL OTHER LAB VLDL (EXTERNAL RESULT) OTHER LAB Chol HDL Ratio (External Result) OTHER LAB Blood BLOOD SPECIMEN / Unknown 06/26/2023 8:42 AM DAILY SALES AUDIT CLERK Historical Provider LAB - CHEMISTRY ORDERABLE S Final Result OTHER LAB * (ABNORMAL) HEMOGLOBIN A1C (EXTERNAL RESULT ENTRY) (06/26/2023 8:42 AM DAILY SALES AUDIT CLERK) Hemoglobin A1c (EXTERNAL RESULT) 6.6(A) % OTHER LAB Blood BLOOD SPECIMEN / Unknown 06/26/2023 8:42 AM DAILY SALES AUDIT CLERK Historical Provider LAB - CHEMISTRY ORDERABLE S Final Result OTHER LAB from Last 3 Months or Most Recently Relevant to Health Maintenance [place] [address] [id number] Care Teams Donor Services Technician Relationship Specialty Start Date End Date Griffin Plaza DO [address] [place] [address] PCP - General Internal Medicine 08/30/24
--- OUTSIDE RECORDS SUMMARY | 2024-09-22 10:31 | XMS_ITS | Encounter Summary ---
Author Organization [facility] Address [address] [facility] [address] [place] [address] Care Team Providers Care Service Desk Associate Name Role Phone Yeyo Barrera MD Primary Care Provider [phone] No, Physician Primary Care Provider [phone] Piyush Peguero Primary Care Provider Griffin Plaza DO Primary Care Provider [phone] Encounter Details Date Type Department Care Team (Late st Contact Info) Description 06/17/2016 Orders Only [facility] ProviderKriss MD [address] [place] [address] Social History Tobacco Use Types Packs/Day Years Used Date Smoking Tobacco: Never Alcohol Use Standard Drinks/Week Comments Yes 0 (1 standard drink = 0.6 oz pur e alcohol) Sex and Gender Information Value Date Recorded Sex Assigned at Not on file 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
[2024-09-22 11:36] VITALS: BP 118/76; PULSE 70
[2024-09-22 11:37] VITALS: BP 110/81; PULSE 71
[2024-09-22 11:39] VITALS: BP 102/72; PULSE 69
[2024-09-22] MEDS: LACTATED RINGERS 1,000 ML 999 ML IV CONT (12:17)
--- NOTE | 2024-09-22 12:23 | ED.GENADULT ---
HPI - General Adult General Chief complaint: Syncope Stated complaint: syncope Time Seen by Provider: 09/22/24 11:57 History of Present Illness HPI narrative: 64-year-old male history of MUÑOZ and anemia presented to the emergency department for evaluation after having a syncopal episode today at work. Patient states he did not have breakfast or have anything to eat or drink this morning. Patient was at work and felt dizzy lightheaded. Patient was able to sit down and rest but then did have a suspected syncopal episode. Patient's blood pressure was 70 at the time. Patient was treated with a L of IV fluid prior to arrival to the emergency department. Upon arrival to the ED patient states he does feel improved. Patient denies any ear pain or complaints. Patient is alert and orientated. Related Data Home Medications ?Medication ?Instructions ?Recorded ?Confirmed ?Last Taken ?Type carvedilol 3.125 mg tablet 3.125 mg PO Q12H 10/15/23 08/08/24 07/08/24 History Allergies Allergy/AdvReac Type Severity Reaction Status Date / Time No Known Allergies Allergy Verified 08/19/24 07:02 Review of Systems Review of Systems: All systems reviewed & are unremarkable except as noted in HPI and below PMFSH Past Medical History Medical History Type 2 diabetes mellitus with hyperglycemia Non-alcoholic cirrhosis Pancytopenia Prediabetes Pseudogout Esophageal varices Obstructive sleep apnea on CPAP Cirrhosis of liver Suspected MUÑOZ per [facility] hepatology Thrombocytopenia Hypertension Heart disease Surgical History Surgical History History of vasectomy History of inguinal hernia repair History of umbilical hernia repair History of permanent cardiac pacemaker placement (2021) Family History Family History Sibling Family history of migraine headaches Patient's sister is in good health Patient's brother is in good health Father Hypertension Mother Family history of lung cancer Patient's mother is Other Cerebrovascular accident Family history of cardiovascular disease Social History Social History Social History: Surrogate medical decision maker: Ayah Mason, significant other. Code status: Full code. Caffeine: pepsi Smoking status: Never smoker Alcohol intake: former Substance use: never Substance use type: does not use Do You Feel Safe in your Home?: Yes Lack of Transportation: No Lack of Food: Never True Current Housing: I Have Housing Concerned About Future Housing: No Difficulty Paying Gas/Electric Bills: No Difficulty Paying for Meds: No Currently Unemployed: No Education: High School Diploma/GED Difficulty w/ Childcare or Family Care: No Living arrangements: with family Additional living arrangements comments: Lives with significant other. 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 Gender identity (if verbalized by the patient): Male Sexual Orientation (if Verbalized by the Patient): Straight or Heterosexual Spiritual care concerns: No Agree to blood products: Yes Exam Narrative: APPEARANCE: Well appearing, no pain, no distress, well-nourished. HEAD: normocephalic, atraumatic. EYES: PERRLA/EOMI, conjunctivae clear. NOSE: Normal no drainage EARS:TMS clear with good light reflex. THROAT: Pharynx clear, no exudate. NECK: Supple. No adenopathy, no masses. RESPIRATORY: Airway patent, respirations nonlabored. Clear to auscultation bilaterally, no rales, rhonchi, wheezing. CARDIOVASCULAR: Regular rate and rhythm without murmurs rubs or gallops. ABDOMINAL: Soft, nontender, nondistended, normal bowel sounds MUSCULOSKELETAL: Moves all extremities. Strength/ROM intact, No edema, No calf tenderness. NEURO: Alert. Cranial nerves II through XII intact. Good gait. Good coordination SKIN: Warm, dry. Normal Color Course Vital Signs Vital signs: Vital Signs Temperature 97.9 F 09/22/24 10:01 Pulse Rate 70 09/22/24 10:01 Respiratory Rate 15 09/22/24 10:01 Blood Pressure 106/65 09/22/24 10:01 Pulse Oximetry 100 09/22/24 10:01 Oxygen Delivery Room Air 09/22/24 10:01 Temperature 97.9 F 09/22/24 10:01 Pulse Rate 71 09/22/24 15:36 Respiratory Rate 15 09/22/24 15:36 Blood Pressure 109/73 09/22/24 15:36 Pulse Oximetry 100 09/22/24 15:36 Oxygen Delivery Room Air 09/22/24 10:01 Medical Decision Making [facility] Narrative Medical decision making narrative: 64-year-old male presents emergency department for evaluation for a near syncopal episode. Patient was still mildly orthostatic upon arrival to the emergency department and was treated with a 2 L of lactated Ringer's. Patient is currently afebrile with no leukocytosis and hemoglobin of 7.8 which is similar to his baseline. Patient denies any active bleeding. No acute abnormalities on his CMP. Patient states he does feel improved is able to ambulate is baseline. Patient prefers to be discharged home. Differential Diagnosis Differential Diagnosis: Anemia, dehydration, orthostatic hypotension, GI bleed, cardiac arrhythmia Vital Signs Vital Signs: Vital Signs Temperature 97.9 F 09/22/24 10:01 Pulse Rate 70 09/22/24 10:01 Respiratory Rate 15 09/22/24 10:01 Blood Pressure 106/65 09/22/24 10:01 Pulse Oximetry 100 09/22/24 10:01 Oxygen Delivery Room Air 09/22/24 10:01 Temperature 97.9 F 09/22/24 10:01 Pulse Rate 71 09/22/24 15:36 Respiratory Rate 15 09/22/24 15:36 Blood Pressure 109/73 09/22/24 15:36 Pulse Oximetry 100 09/22/24 15:36 Oxygen Delivery Room Air 09/22/24 10:01 Lab Data Lab results reviewed: Yes I reviewed the patient's lab results. 09/22/24 13:35 09/22/24 13:35 Labs: Lab Results 09/22/24 09/22/24 Range/Units 10:01 13:35 WBC 3.2 L (4.5-10.0) K/mm3 RBC 3.41 L (4.6-6.20) M/mm3 Hgb 7.8 L (14.0-18.0) g/dL Hct 28.4 L (42.0-52.0) % MCV 83.3 (80-100) fl MCH 22.9 L (26-34) pg MCHC 27.5 L (32-36) g/dl RDW 16.2 H (11.5-14.5) % Plt Count 101 L (150-375) k/mm3 MPV 11.0 H (7.4-10.4) fl Immature Gran % (Auto) 0.3 (0-0.5) % Neut % (Auto) 65.1 (45.5-73.1) % Lymph % (Auto) 25.3 (18.3-44.2) % Douglas % (Auto) 7.8 (2.6-8.5) % Eos % (Auto) 0.6 (0-4.4) % Baso % (Auto) 0.9 (0.2-1.2) % Lymph # (Auto) 0.81 L (0.9-3.2) K/mm3 Douglas # (Auto) 0.3 (0.1-0.6) K/mm3 Eos # (Auto) 0.0 (0-0.3) K/mm3 Baso # (Auto) 0.0 (0.0-0.1) K/mm3 Abs Immat Gran (auto) 0.01 (0.00-0.031) K/mm3 Absolute Neuts (auto) 2.1 (1.3-6.7) K/mm3 Absolute Nucleated RBC 0.000 (0.0-0.012) K/mm3 Band Neutrophils % Not Reportable Nucleated RBC % 0.0 (0.0-0.2) % Platelet Estimate Slightly decreased (Adequate) Hypochromasia 2+ Anisocytosis 1+ Schistocytes None seen Sodium 139 (137-145) mmol/L Potassium 3.8 (3.4-5.0) mmol/L Chloride 109 H (98-107) mmol/L Carbon Dioxide 22 (22-30) mmol/L Anion Gap 8 (4-12) mmol/L BUN 14 (9-20) mg/dL Creatinine 1.19 (0.7-1.3) mg/dL Estim Creat Clear Calc 71 ml/min Estimated GFR > 60 (59 - ) Glucose 119 H (65-110) mg/dL POC Capillary Glucose 160 H (65-105) mg/dl Calcium 8.3 L (8.4-10.2) mg/dL Total Bilirubin 1.6 H (0.2-1.3) mg/dL AST 39 (17-59) U/L ALT 23 (6-50) U/L Alkaline Phosphatase 122 (38-126) U/L Total Protein 8.0 (6.3-8.2) g/dL Albumin 3.6 (3.5-5.1) g/dL Discharge Plan Discharge Clinical Impression: Anemia, Syncope, Orthostatic hypotension Patient Disposition: Home Condition: Stable Instructions: Antibiotic Form, Syncope (ED) Additional Instructions: Follow-up plans diet and drink plenty of fluids. Have close follow-up with your dermatologist and your primary care physician. If you have any worsening symptoms then please call or return to the emergency department. Patient Language: Taiwanese Prescriptions: No Action carvedilol 3.125 mg tablet 3.125 mg PO Q12H Rx Instructions: must administer with a meal/food pantoprazole 40 mg tablet,delayed release (DR/EC) 40 mg PO QAM Qty: 30 11RF lisinopril 40 mg tablet 20 mg PO DAILY Qty: 30 11RF (DME) blood-glucose meter Misc See Rx Instructions .ROUTE .MEDSUPPLY Qty: 1 0RF Rx Instructions: To check glucose three times per day (DME) Blood Glucose Test Strip See Rx Instructions .ROUTE .MEDSUPPLY Qty: 50 1RF Rx Instructions: To check glucose three times per day Ozempic 0.25 mg or 0.5 mg (2 mg/3 mL) pen injector 0.5 mg subcut WEEKLY Qty: 3 1RF Patient Comments: as of 06/29/24 pt has not started amoxicillin 875 mg tablet 875 mg PO Q12H Qty: 20 0RF (DME) lancets [OneTouch Delica Plus Lancet] 30 gauge misc See Rx Instructions .ROUTE .COMPLEX Qty: 100 5RF Dose Instruction: USE TO TEST BLOOD SUGAR THREE TIMES DAILY Rx Instructions: USE TO TEST BLOOD SUGAR THREE TIMES DAILY Follow-up/Referrals: Griffin Plaza, [Primary Care Provider] -
--- OUTSIDE RECORDS SUMMARY | 2024-09-22 12:33 | XMS_ITS | Clinical Summary ---
Author Organization [facility] Address [address] [place] [phone] Care Team Providers Care Vocational Placement Specialist Name Role Phone Griffin Plaza DO Primary Care Provider [phone] Allergies No known active allergies Medications lisinopriL [...] Department Care Team Description 07/15/2024 11:00 AM FUR REMODELER Office Visit [facility] [place] [facility] Cardiology [address] [place] [phone] Arron Mason MD Essential hypertension (Primary Dx); Complete atrioventricular block (HCC); Presence of cardiac pacemaker 07/15/2024 10:30 AM FUR REMODELER Ancillary Procedure [facility] [place] [facility] Cardiology [address] [place] [phone] Complete atrioventricular block (HCC); Presence of cardiac pacemaker 07/07/2024 Telephone [facility] [place] [facility] Cardiology [address] [place] [phone] Arron Mason MD from Last 3 Months [...] on file Legal Sex Male 12:19 AM FUR REMODELER Gender Identity Not on file Sexual Orientation Not on file Obstetrics History Last Filed Vital Signs Vital Sign Reading Time Taken Comments Blood Pressure 118/78 07/15/2024 10:51 AM FUR REMODELER Pulse 66 07/15/2024 10:51 AM FUR REMODELER Temperature - - Respiratory Rate - - Oxygen Saturation 97% 07/15/2024 10: 51 AM FUR REMODELER Inhaled Oxygen Concentration - - Weight 108.8 kg (239 lb 15.4 oz) 2024 10:51 AM FUR REMODELER Height 185.4 cm (6' 1 ) 07/15/2024 10:5 1 AM FUR REMODELER Body Mass Index 31.66 07/15/2024 10:51 AM FUR REMODELER Plan of Treatment Health Maintenance Due Date [...] LIPID PANEL Routine 07/15/2024 10:5 5 AM FUR REMODELER Essential hypertension from Last 3 Months Results * POCT lipid panel (07/15/2024 10:55 AM FUR REMODELER) Cholesterol, POC 104 mg/dL Comment:GLU = 151 HDL, POC 17 mg/dL Triglycerides, POC 303 mg/dL LDL Cholesterol POC 26 mg/dL Chol/HDL Ratio, POC 1.6 Non-HDL Cholesterol, POC 187 mg/dL Cholesterol Total, POC 104 mg/dL Capillary blood 07/15/2024 1 0:55 AM FUR REMODELER Arron Mason MD POINT OF CARE TEST ORDER RUDOLPH Final Result from Last 3 Months Insurance [facility] Care Teams Vocational Placement Specialist Relationship Specialty Start Date End Date Griffin Plaza DO [address] [facility] [address] [place], [place] [phone] PCP - General Internal Medicine 07/15/24
--- OUTSIDE RECORDS SUMMARY | 2024-09-22 12:33 | XMS_ITS | Encounter Summary ---
Author Organization [facility] Address [address] [place] [address] Care Team Providers Care Surfacer Operator Name Role Phone Unavailable Primary Care Provider Unavailabl e Encounter Details Date Type Department Care Team (Late st Contact Info) Description 09/21/[address] [facility] Oncology and Hematology 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 Oncology and Hematology [facility] [address] [place] [address] Adryan Kauffman MD [address] [address] [place] [address] documented as of this encounter [...]
--- OUTSIDE RECORDS SUMMARY | 2024-09-22 12:33 | XMS_ITS | Clinical Summary ---
Author Organization [facility] Address [address] [place] [address] Care Team Providers Care Business Office Coordinator Name Role Phone Unavailable Primary Care Provider [...] Department Care Team Description 09/21/2024 Orders Only [facility] Oncology and Hematology [place] [address] [place] [phone] Adryan Kauffman MD 09/20/2024 3:00 PM CDT Office Visit [facility] Oncology and Hematology - [place] [address] [place] [phone] Adryan Kauffman MD Chronic anemia (Primary Dx) [...] on file 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
--- OUTSIDE RECORDS SUMMARY | 2024-09-22 12:33 | XMS_ITS | Clinical Summary ---
Author Organization [facility] Address [address] [place] [address] Care Team Providers Care Maintenance Technician 2Nd Shift Name Role Phone Griffin Plaza DO Primary Care Provider Source Comments [facility],non-owned Affiliates and Associated Physician Practices is amultiple site organization consisting of ambulatory clinics and hospital sitesin [place], [place], [place] and [place]. This disclosure is being madepursuant to the Care Everywhere program and may not contain all information available regarding this patient. 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 08/30/2024 Travel 08/01/2024 Refill [facility] [address] [facility] [place], [place] [phone] Jerrell Ashley MD MEDICATION REFILL from Last [...] on file Legal Sex Male 2:10 PM ROUTE DELIVERER Gender Identity Not on file Sexual Orientation [...] Procedure Name Priority Date/Time Associated Diagnosis Comments ND INTMD WND REPAIR FACE,FACIAL 5.1-7.5 Routine 08/30/2024 1:17 PM CDT 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 ND [facility] MOHS MG TQ H/N/H/F/G EA ADDL STAG Routine 08/30/2024 1:17 PM CDT 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 ND [facility] MOHS MG TQ H/N/H/F/G 1ST STAG 5 BLOC Routine 08/30/2024 1:17 PM CDT 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 All components of [place] Protocol/PAUSE Rule completed. STAGE I: The patient [...] sections examined. No additional histologic findings appreciated. Flor Del [place] Mohs CLIA # [id number] [facility] Specimen Preparation Assistant: Chantal Barton MD REPAIR: Intermediate Primary Surgeon: Chantal Barton MD Recovery Coach: N/A Repair Size: 6.8 cm Sutures: 4-0 [...] report. I entered the information in our [employer] DocFlowsheet with the information provided by Dr. Barton on her handwritten, paper format, surgical worksheet, which was then used to initiate the create of this note. Dr. Barton then reviewed and edited the note as needed to complete the note. Chitra Alvarado CMA I have reviewed the note, edited it as necessary and performed the entire procedure. Chantal Barton MD Area Operations Director 08/30/2024 Chantal Barton MD PROCEDURE/MINOR SURGICAL ORDER RUDOLPH Final Result * (ABNORMAL) LIPID PROFILE (EXTERAL RESULT ENTRY) (06/26/2023 8:42 AM ROUTE DELIVERER) Cholesterol (EXTERNAL RESULT) 136 mg/dL OTHER LAB Triglycerides (EXTERNAL RESULT) 388(A) mg/dL OTHER LAB HDL (EXTERNAL RESULT) 22 mg/dL OTHER LAB LDL (EXTERNAL RESULT) 47 mg/dL OTHER LAB VLDL (EXTERNAL RESULT) OTHER LAB Chol HDL Ratio (External Result) OTHER LAB Blood BLOOD SPECIMEN / Unknown 06/26/2023 8:42 AM ROUTE DELIVERER Historical Provider LAB - CHEMISTRY ORDERABLE S Final Result OTHER LAB * (ABNORMAL) HEMOGLOBIN A1C (EXTERNAL RESULT ENTRY) (06/26/2023 8:42 AM ROUTE DELIVERER) Hemoglobin A1c (EXTERNAL RESULT) 6.6(A) % OTHER LAB Blood BLOOD SPECIMEN / Unknown 06/26/2023 8:42 AM ROUTE DELIVERER Historical Provider LAB - CHEMISTRY ORDERABLE S Final Result OTHER LAB from Last 3 Months or Most Recently Relevant to Health Maintenance Insurance [place] [id number] Care Teams Maintenance Technician 2Nd Shift Relationship Specialty Start Date End Date Griffin Plaza DO [address] [place] [address] PCP - General Internal Medicine 08/30/24
--- OUTSIDE RECORDS SUMMARY | 2024-09-22 12:33 | XMS_ITS | Referral Summary ---
Author Organization [facility] Address [address] [place] [phone] Care Team Providers Care Community Chest Officer Name Role Phone Griffin Plaza DO Primary Care Provider [phone] Encounters Date Type Department Care Team Description 07/15/2024 10:30 AM ALIGNING INSPECTOR Ancillary Procedure [facility] Cardiology [address] [place] [phone] Complete atrioventricular block (HCC); Presence of cardiac pacemaker 07/15/2024 11:00 AM ALIGNING INSPECTOR Office Visit [facility] Cardiology [address] [place] [phone] Arron Mason MD Essential hypertension (Primary Dx); Complete atrioventricular block (HCC); Presence of cardiac pacemaker 07/07/2024 Telephone [facility] Cardiology [address] [place] [phone] Arron Mason MD from Last 3 Months [...] Dx: CHB. DOI 05/23/2022. Chronic leads 06/17/2012. [place] remote monitoring, office pacer checks Q1 yr. Essential hypertension 05/23/2014 Overview (09/11/2016): Essential hypertension Social History Tobacco Use Types Packs/Day Years Used Date Smoking Tobacco: Never Smokeless Tobacco: Never Alcohol Use Standard Drinks/Week Comments Yes 0 (1 standard drink = 0.6 oz pur e alcohol) Sex and Gender Information Value Date Recorded Sex Assigned at Not on file Legal Sex Male 12:19 AM ALIGNING INSPECTOR Gender Identity Not on file Sexual Orientation Not on file Last Filed Vital Signs Vital Sign Reading Time Taken Comments Blood Pressure 118/78 07/15/2024 10:51 AM ALIGNING INSPECTOR Pulse 66 07/15/2024 10:51 AM ALIGNING INSPECTOR Temperature - - Respiratory Rate - - Oxygen Saturation 97% 07/15/2024 10: 51 AM ALIGNING INSPECTOR Inhaled Oxygen Concentration - - Weight 108.8 kg (239 lb 15.4 oz) 2024 10:51 AM ALIGNING INSPECTOR Height 185.4 cm (6' 1 ) 07/15/2024 10:5 1 AM ALIGNING INSPECTOR Body Mass Index 31.66 07/15/2024 10:51 AM ALIGNING INSPECTOR Plan of Treatment Not on file Procedures Procedure Name Priority Date/Time Associated Diagnosis Comments POCT LIPID PANEL Routine 07/15/2024 10:5 5 AM ALIGNING INSPECTOR Essential hypertension from Last 3 Months Results * POCT lipid panel (07/15/2024 10:55 AM ALIGNING INSPECTOR) Cholesterol, POC 104 mg/dL Comment:GLU = 151 HDL, POC 17 mg/dL Triglycerides, POC 303 mg/dL LDL Cholesterol POC 26 mg/dL Chol/HDL Ratio, POC 1.6 Non-HDL Cholesterol, POC 187 mg/dL Cholesterol Total, POC 104 mg/dL Capillary blood 07/15/2024 1 0:55 AM ALIGNING INSPECTOR Arron Mason MD POINT OF CARE TEST ORDER RUDOLPH Final Result from Last 3 Months Insurance [facility] Care Teams Community Chest Officer Relationship Specialty Start Date End Date Griffin Plaza DO [address] [facility] [address] [place], [place] [phone] PCP - General Internal Medicine 07/15/24
--- OUTSIDE RECORDS SUMMARY | 2024-09-22 12:33 | XMS_ITS | Encounter Summary ---
Author Organization [facility] Address [address] [facility] [address] [place] [id number] Care Team Providers Care Holistic Health Practitioner Name Role Phone Yeyo Barrera MD Primary Care Provider [phone] No, Physician Primary Care Provider [phone] Piyush Peguero Primary Care Provider Griffin Plaza DO Primary Care Provider [phone] Encounter Details Date Type Department Care Team (Late st Contact Info) Description 06/17/2016 Orders Only [facility] ProviderKriss MD [address] [place] [phone] Social History Tobacco Use Types Packs/Day Years Used Date Smoking Tobacco: Never Alcohol Use Standard Drinks/Week Comments Yes 0 (1 standard drink = 0.6 oz pur e alcohol) Sex and Gender Information Value Date Recorded Sex Assigned at Not on file Legal Sex Male 12:19 AM ENVIRONMENTAL DIRECTOR Gender Identity Not on file Sexual [...] on filedocumented in this encounter Care Teams Holistic Health Practitioner Relationship Specialty Start Date End Date Yeyo Barrera MD PCP - General 07/13/12 09/28/18 No, Physician PCP - General 09/29/18 11/26/20 Piyush Peguero PA [address] [facility] [address] [place] [address] PCP - General Physician Head Inspector And Center Marker 11/27/20 07/14/24 Griffin Plaza DO [address] [facility] [address] [place] [address] PCP - General Internal Medicine 07/15/24 documented as of this encounter
[2024-09-22 13:41] LABS: Basophils Percent Auto 0.9 % (0.2-1.2); Eosinophils Percent Auto 0.6 % (0-4.4); Hematocrit 28.4 % (42.0-52.0); Hemoglobin 7.8 g/dL (14.0-18.0); Immature Granulocyte Absolute 0.01 K/mm3 (0.00-0.031); Immature Granulocyte Percent A 0.3 % (0-0.5); Lymphocytes Absolute Auto 0.81 K/mm3 (0.9-3.2); Lymphocytes Percent Auto 25.3 % (18.3-44.2); Mean Corpuscular HGB Conc 27.5 g/dl (32-36); Mean Corpuscular Hemoglobin 22.9 pg (26-34); Mean Corpuscular Volume 83.3 fl (80-100); Monocytes Absolute Auto 0.3 K/mm3 (0.1-0.6); Monocytes Percent Auto 7.8 % (2.6-8.5); Neutrophils Absolute Auto 2.1 K/mm3 (1.3-6.7); Neutrophils Percent Auto 65.1 % (45.5-73.1); Platelet Count Result 101 k/mm3 (150-375); Red Blood Count 3.41 M/mm3 (4.6-6.20); Red Cell Distribution Width 16.2 % (11.5-14.5); White Blood Count 3.2 K/mm3 (4.5-10.0)
[2024-09-22 13:51] LABS: Alanine Aminotransferase 23 U/L (6-50); Albumin Level 3.6 g/dL (3.5-5.1); Alkaline Phosphatase 122 U/L (38-126); Anion Gap 8 mmol/L (4-12); Aspartate Amino Transferase 39 U/L (17-59); Bilirubin,Total 1.6 mg/dL (0.2-1.3); Blood Urea Nitrogen 14 mg/dL (9-20); Calcium 8.3 mg/dL (8.4-10.2); Carbon Dioxide 22 mmol/L (22-30); Chloride 109 mmol/L (98-107); Estimated CRCL calculation 71 ml/min; Estimated Glomerular Filt Rate > 60; Glucose 119 mg/dL (65-110); Potassium 3.8 mmol/L (3.4-5.0); Sodium 139 mmol/L (137-145)
[2024-09-22 13:59] LABS: Platelet Estimate Slightly Decreased (Adequate)
[2024-09-22 14:00] LABS: Anisocytosis 1+; Hypochromasia 2+; Schistocytes None Seen
[2024-09-22 15:36] VITALS: BP 109/73; PULSE 71; RESP 15; O2SAT 100
== END 2024-09-22 15:35 | disposition home or self-care (01) ==
PROVIDERS: Emergency Provider Emergency Medicine; PCP Internal Medicine
DX: I95.9 Hypotension, unspecified (principal); D64.9 Anemia, unspecified; G47.33 Obstructive sleep apnea (adult) (pediatric); I10 Essential (primary) hypertension; E11.9 Type 2 diabetes mellitus without complications; K74.60 Unspecified cirrhosis of liver; Z99.89 Dependence on other enabling machines and devices
CPT/HCPCS: 36415; 80053; 82948; 85025; 93005; 96360; 99283; J7120

== ENCOUNTER 2024-11-11 10:07 | Outpatient (CLI) | payer OTHER, SELFPAY ==
--- OUTSIDE RECORDS SUMMARY | 2024-11-11 10:15 | XMS_ITS | Encounter Summary ---
Author Organization [facility] Address [address] [place] [address] Care Team Providers Care Outside Machinist Name Role Phone Yeyo Barrera MD Primary Care Provider [phone] No, Physician Primary Care Provider [phone] Piyush Peguero Primary Care Provider Griffin Plaza DO Primary Care Provider [phone] Encounter Details Date Type Department Care Team (Late st Contact Info) Description 06/17/2016 Orders Only [facility] ProviderKriss MD [address] [place] [address] Social History Tobacco Use Types Packs/Day Years Used Date Smoking Tobacco: Never Alcohol Use Standard Drinks/Week Comments Yes 0 (1 standard drink = 0.6 oz pur e alcohol) Sex and Gender Information Value Date Recorded Sex Assigned at Not on file Legal Sex Male 12:19 AM PINKED EDGE SEWING MACHINE OPERATOR Gender Identity Not on file [...] on filedocumented in this encounter Care Teams Outside Machinist Relationship Specialty Start Date End Date Yeyo Barrera MD PCP - General 07/13/12 09/28/18 No, Physician PCP - General 09/29/18 11/26/20 Piyush Peguero PA [address] [facility] [address] [place] [address] PCP - General Physician Dewaxer 11/27/20 07/14/24 Griffin Plaza DO [address] [facility] [address] [place] [address] PCP - General Internal Medicine 07/15/24 documented as of this encounter
--- OUTSIDE RECORDS SUMMARY | 2024-11-11 10:15 | XMS_ITS | Clinical Summary ---
Author Organization [facility] Address [address] [place] [address] Care Team Providers Care Utility Tender Carding Name Role Phone Griffin Plaza DO Primary Care Provider [phone] Source Comments [facility] [email or web address],non-owned Affiliates and Associated Physician Practices is amultiple site organization consisting of ambulatory clinics and hospital sitesin [place], [place] and [place]. This disclosure is being madepursuant to the Care Everywhere program and may not contain all information available regarding this patient. Last updated 18.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 08/30/2024 Travel from Last 3 Months Social History Tobacco Use Types Packs/Day Years Used Date Smoking Tobacco: Never Smokeless Tobacco: Never Tobacco Cessation:Counseling Given: Not Answered Alcohol Use Standard Drinks/Week Comments Not Currently 0 (1 standard drink = 0.6 oz pur e alcohol) Sex and Gender Information Value Date Recorded Sex Assigned at Not on file Legal Sex Male 2:10 PM RECYCLE DRIVER Gender Identity Not on file Sexual Orientation [...] 9:47 AM CDT Height 185.4 cm (6' 1) 03/08/2024 9:47 AM CDT Body Mass Index [...] Procedure Name Priority Date/Time Associated Diagnosis Comments IN INTMD WND REPAIR FACE,FACIAL 5.1-7.5 Routine 08/30/2024 1:17 PM CDT 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 IN [facility] MOHS MG TQ H/N/H/F/G EA ADDL STAG Routine 08/30/2024 1:17 PM CDT 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.] final defect: adipose Previous dermpath accession #: [id number] Repair type: intermediate Mohs accession #: [id number] [...] confirmed by the patient. All components of [place] Protocol/PAUSE Rule completed. STAGE I: The patient [...] sections examined. No additional histologic findings appreciated. Supai Mohs CLIA # [id number] Mohs Payroll Assistant: Chantal Barton MD REPAIR: Intermediate Primary Surgeon: Chantal Barton MD Club Attendant: N/A Repair Size: 6.8 cm Sutures: 4-0 [...] report. I entered the information in our [employer] DocFlowsheet with the information provided by Dr. Barton on her handwritten, paper format, surgical worksheet, which was then used to initiate the create of this note. Dr. Barton then reviewed and edited the note as needed to complete the note. Chitra Alvarado CMA I have reviewed the note, edited it as necessary and performed the entire procedure. Chantal Barton MD Marketing Ambassador 08/30/2024 us Chantal Barton MD PROCEDURE/MINOR SURGICAL ORDER RUDOLPH Final Result * (ABNORMAL) LIPID PROFILE (EXTERAL RESULT ENTRY) (06/26/2023 8:42 AM RECYCLE DRIVER) Cholesterol (EXTERNAL RESULT) 136 mg/dL OTHER LAB Triglycerides (EXTERNAL RESULT) 388(A) mg/dL OTHER LAB HDL (EXTERNAL RESULT) 22 mg/dL OTHER LAB LDL (EXTERNAL RESULT) 47 mg/dL OTHER LAB VLDL (EXTERNAL RESULT) OTHER LAB Chol HDL Ratio (External Result) OTHER LAB Blood BLOOD SPECIMEN / Unknown 06/26/2023 8:42 AM RECYCLE DRIVER us Historical Provider LAB - CHEMISTRY ORDERABLE S Final Result OTHER LAB * (ABNORMAL) HEMOGLOBIN A1C (EXTERNAL RESULT ENTRY) (06/26/2023 8:42 AM RECYCLE DRIVER) Hemoglobin A1c (EXTERNAL RESULT) 6.6(A) % OTHER LAB Blood BLOOD SPECIMEN / Unknown 06/26/2023 8:42 AM RECYCLE DRIVER us Historical Provider LAB - CHEMISTRY ORDERABLE S Final Result Performing Organization Address City/[facility]/ZIP Co de Phone Number OTHER LAB from Last 3 Months or Most Recently Relevant to Health Maintenance Insurance Care Teams Utility Tender Carding Relationship Specialty Start Date End Date Griffin Plaza DO [address] [place] [phone] PCP - General Internal Medicine 08/30/24
--- OUTSIDE RECORDS SUMMARY | 2024-11-11 10:15 | XMS_ITS | Referral Summary ---
Author Organization [facility] Address [address] [place] [address] Care Team Providers Care Plastic Outfitter Name Role Phone Griffin Plaza DO Primary Care Provider [phone] Encounters Date Type Department Care Team Description 10/18/2024 8:45 AM CDT Ancillary Procedure [facility] Cardiology [address] [place] [address] [address], [place] [address] NICM (nonischemic cardiomyopathy) (HCC); ICD (implantable cardioverter-defibrill ator) in place; Ventricular fibrillation (HCC); NSVT (nonsustained [...] on file Legal Sex Male 12:19 AM RETURNED MATERIALS INSPECTOR Gender Identity Not on file Sexual Orientation Not on file Last Filed Vital Signs Vital Sign Reading Time Taken Comments Blood Pressure 118/78 07/15/2024 10:51 AM RETURNED MATERIALS INSPECTOR Pulse 66 07/15/2024 10:51 AM RETURNED MATERIALS INSPECTOR Temperature - - Respiratory Rate - - Oxygen Saturation 97% 07/15/2024 10: 51 AM RETURNED MATERIALS INSPECTOR Inhaled Oxygen Concentration - - Weight 108.8 kg (239 lb 15.4 oz) 2024 10:51 AM RETURNED MATERIALS INSPECTOR Height 185.4 cm (6' 1) 07/15/2024 10:5 1 AM RETURNED MATERIALS INSPECTOR Body Mass Index 31.66 07/15/2024 10:51 AM RETURNED MATERIALS INSPECTOR Plan of Treatment Not on file Insurance [facility] [place] [address] [facility] Care Teams Plastic Outfitter Relationship Specialty Start Date End Date Griffin Plaza DO [address] [place] [address] PCP - General Internal Medicine 07/15/24
--- OUTSIDE RECORDS SUMMARY | 2024-11-11 10:15 | XMS_ITS | Clinical Summary ---
Author Organization [facility] Address [address] [place] [address] Care Team Providers Care Recreation Professor Name Role Phone Griffin Plaza DO Primary Care Provider [phone] Allergies No known active allergies Medications lisinopriL [...] Description 10/18/2024 8:45 AM CDT Ancillary Procedure [facility] Cardiology [address] [place] [phone] NICM (nonischemic cardiomyopathy) (HCC); ICD (implantable [...] on file Legal Sex Male 12:19 AM BATTERY LOADER Gender Identity Not on file Sexual Orientation Not on file Obstetrics History Last Filed Vital Signs Vital Sign Reading Time Taken Comments Blood Pressure 118/78 07/15/2024 10:51 AM BATTERY LOADER Pulse 66 07/15/2024 10:51 AM BATTERY LOADER Temperature - - Respiratory Rate - - Oxygen Saturation 97% 07/15/2024 10: 51 AM BATTERY LOADER Inhaled Oxygen Concentration - - Weight 108.8 kg (239 lb 15.4 oz) 2024 10:51 AM BATTERY LOADER Height 185.4 cm (6' 1) 07/15/2024 10:5 1 AM BATTERY LOADER Body Mass Index 31.66 07/15/2024 10:51 AM BATTERY LOADER Plan of Treatment Health Maintenance Due Date [...] (2 - Td or Tdap) 10/03/2028 Insurance [facility] Care Teams Recreation Professor Relationship Specialty Start Date End Date Griffin Plaza DO [address] [id number] PCP - General Internal Medicine 07/15/24
--- OUTSIDE RECORDS SUMMARY | 2024-11-11 10:15 | XMS_ITS | Clinical Summary ---
Author Organization [facility] Sanju lópez Jo Address [address] [place] [address] Care Team Providers Care Preservative Filler Machine Operator Name Role Phone Unavailable Primary Care [...] Encounters Date Type Department Care Team Description 10/06/2024 4:30 PM CDT Telephone Check Up [facility] Oncology and Hematology - [place] [address] [place] [address] Adryan Kauffman MD Chronic anemia (Primary Dx) 09/27/2024 External Device Data STL ABSTRACTION Provider, Abstract 09/27/2024 External Device Data STL ABSTRACTION Provider, Abstract 09/27/2024 External Device Data STL ABSTRACTION Provider, Abstract 09/26/2024 Orders Only [facility] Oncology and Hematology - [place] [address] [place] [address] Adryan Kauffman MD 09/21/2024 Orders Only [facility] Oncology and Hematology - [place] [address] [place] [address] Adryan Kauffman MD 09/20/2024 3:00 PM CDT Office Visit [facility] Oncology and Hematology - [place] [address] [place] [address] Adryan Kauffman MD Chronic anemia (Primary Dx) [...] on file Legal Sex Male 9:26 AM AIR TRAFFIC CONTROL SPECIALIST Gender Identity Not on file Sexual [...] 2:47 PM CDT Height 185.4 cm (6' 1) 09/20/2024 2:47 PM CDT Body Mass Index 31.59 09/20/2024 2:47 PM CDT Plan of Treatment Upcoming Encounters Date Type Department Care Team (Late st Contact Info) Description 01/10/2025 2:30 PM CDT Office Visit [facility] Oncology and Hematology - [place] [address] [place] [address] Adryan Kauffman MD [address] [facility] [address] [place] [address] Health Maintenance Due Date Last Done Comments Pre-Diabetes and Diabetes Screening 1959 DTAP/TDAP/TD VACCINES (1 - Tdap) 1978 PNEUMOCOCCAL VACCINE 50+ YEARS (1 of 2 - PCV) 05/04/19 78 COLORECTAL SCREENING 2004 Colorectal Cancer Screening 2004 FIT-DNA Q 3 years 2004 FIT/FOBT Q 1 year 2004 Flex Sig/CT Colonography Q 5 years 2004 ZOSTER VACCINE (1 of 2) 2009 RSV VACCINE (60+ or ) (1 - Risk 60-74 years 1-dose series) 2019 INFLUENZA VACCINE (#1) 2024 Procedures Procedure Name Priority Date/Time Associated Diagnosis Comments TRANSFERRIN RECEPTOR TFR SOLUBLE Routine 09/20/2024 1:17 PM CDT COMPREHENSIVE METABOLIC PANEL Routine 09/20/2024 9:09 AM CDT from Last 3 Months Results * TRANSFERRIN RECEPTOR TFR SOLUBLE (09/20/2024 1:17 PM CDT) Blood Adryan Kauffman MD CHEMISTRY ORDERABLES Final Resu lt * COMPREHENSIVE METABOLIC PANEL (09/20/2024 9:09 AM CDT) Blood Adryan Kauffman MD CHEMISTRY ORDERABLES Final Resu lt from Last 3 Months Insurance [facility] CHOICE [id number]
[2024-11-11 12:17] LABS: Hematocrit 34.3 % (42.0-52.0); Hemoglobin 10.4 g/dL (14.0-18.0); Immature Platelet Fraction Pct 7.3 % (0.9-11.2); Mean Corpuscular HGB Conc 30.3 g/dl (32-36); Mean Corpuscular Hemoglobin 27.6 pg (26-34); Mean Platelet Volume 11.9 fl (7.4-10.4); Platelet Count Result 96 k/mm3 (150-375); Red Blood Count 3.77 M/mm3 (4.6-6.20); Red Cell Distribution Width 21.7 % (11.5-14.5); White Blood Count 2.7 K/mm3 (4.5-10.0)
[2024-11-11 12:43] LABS: Alanine Aminotransferase 28 U/L (6-50); Albumin Level 3.5 g/dL (3.5-5.1); Alkaline Phosphatase 132 U/L (38-126); Anion Gap 7 mmol/L (4-12); Aspartate Amino Transferase 61 U/L (17-59); Bilirubin,Total 1.4 mg/dL (0.2-1.3); Blood Urea Nitrogen 10 mg/dL (9-20); Calcium 8.5 mg/dL (8.4-10.2); Carbon Dioxide 24 mmol/L (22-30); Chloride 107 mmol/L (98-107); Estimated Glomerular Filt Rate > 60; Glucose 195 mg/dL (65-110); Iron 43 ug/dL (49-181); Potassium 3.4 mmol/L (3.4-5.0); Sodium 138 mmol/L (137-145); Total Protein 7.4 g/dL (6.3-8.2)
[2024-11-11 12:58] LABS: Percent Iron Saturation 10 % (20-50)
[2024-11-11 13:14] LABS: Band Neutrophils Percent 0 % (0-6); Basophils Percent Manual 0 % (0-1); Eosinophils Absolute Manual 0.05 K/mm3 (0.02-0.50); Eosinophils Percent Manual 2 % (0-4); Giant Platelets Present; Large Platelets Present; Lymphocytes Absolute Manual 0.86 K/mm3 (1.1-4.5); Lymphocytes Percent Manual 32 % (18-44); Monocytes Absolute Manual 0.16 K/mm3 (0.1-0.90); Monocytes Percent Manual 6 % (3-9); Neutrophils Absolute Manual 1.62 K/mm3 (1.3-6.7); Neutrophils Percent Manual 60 % (46-73); Platelet Estimate Decreased (Adequate); Total Cells Counted 100
[2024-11-11 13:15] LABS: Anisocytosis 2+; Schistocytes None Seen
[2024-11-11 13:22] LABS: Microalbumin Urine Random 6.7 mg/L (0-16.7)
[2024-11-11 13:25] LABS: Hemoglobin A1C 5.7 % (<5.7)
== END 2024-11-11 10:08 | disposition home or self-care (01) ==
LOC: ANHGOSHLAB 10:08
PROVIDERS: PCP Clinical Nurse Specialist; Visit Provider Clinical Nurse Specialist
DX: R74.8 Abnormal levels of other serum enzymes (principal); I10 Essential (primary) hypertension; D69.6 Thrombocytopenia, unspecified; E11.65 Type 2 diabetes mellitus with hyperglycemia; I85.01 Esophageal varices with bleeding; K74.69 Other cirrhosis of liver; D50.9 Iron deficiency anemia, unspecified; D61.818 Other pancytopenia; G47.61 Periodic limb movement disorder; R53.82 Chronic fatigue, unspecified
CPT/HCPCS: 36415; 80053; 82043; 82607; 82728; 83036; 83540; 83550; 85025; 85055

== ENCOUNTER 2025-01-09 15:36 | Outpatient (CLI) | payer OTHER, SELFPAY ==
--- OUTSIDE RECORDS SUMMARY | 2025-01-09 15:39 | XMS_ITS | Encounter Summary ---
Author Organization [facility] Address [address] [facility] [address] [place] [address] Care Team Providers Care Science Consultant Name Role Phone Yeyo Barrera MD Primary Care Provider [phone] No, Physician Primary Care Provider [phone] Piyush Peguero Primary Care Provider Griffin Plaza DO Primary Care Provider [phone] Encounter Details Date Type Department Care Team (Late st Contact Info) Description 06/17/2016 Orders Only [facility] ProviderKriss MD [address] [place] [address] Social History Tobacco Use Types Packs/Day Years Used Date Smoking Tobacco: Never Alcohol Use Standard Drinks/Week Comments Yes 0 (1 standard drink = 0.6 oz pur e alcohol) Sex and Gender Information Value Date Recorded Sex Assigned at Not on file Legal Sex Male 12:19 AM ORACLE FUSION MIDDLEWARE ARCHITECT Gender Identity Not on file Sexual Orientation [...] on filedocumented in this encounter Care Teams Science Consultant Relationship Specialty Start Date End Date Yeyo Barrera MD PCP - General 07/13/12 09/28/18 No, Physician PCP - General 09/29/18 11/26/20 Piyush Peguero PA [address] [facility] [address] [place] [address] PCP - General Physician Provider Network Manager 11/27/20 07/14/24 Griffin Plaza DO [address] [facility] [address] [place] [address] PCP - General Internal Medicine 07/15/24 documented as of this encounter
--- OUTSIDE RECORDS SUMMARY | 2025-01-09 15:39 | XMS_ITS | Clinical Summary ---
Author Organization [facility] Address [address] [place] [address] Care Team Providers Care Area Supervisor Name Role Phone Griffin Plaza DO Primary Care Provider Source Comments [facility] [employer],non-owned Affiliates and Associated Physician Practices is amultiple site organization consisting of ambulatory clinics and hospital sitesin [place], [place], [place] and [place]. This disclosure is being madepursuant to the Care Everywhere program and may not contain all information available regarding this patient. Last updated 18.[facility] [employer] Allergies No known active allergies Medications * [...] or 0.5 MG/DOSE,) 2 MG/1.5ML SOPN Active Social History Tobacco Use Types Packs/Day Years Used Date Smoking Tobacco: Never Smokeless Tobacco: Never Tobacco Cessation:Counseling Given: Not Answered Alcohol Use Standard Drinks/Week Comments Not Currently 0 (1 standard drink = 0.6 oz pur e alcohol) Sex and Gender Information Value Date Recorded Sex Assigned at Not on file Legal Sex Male 2:10 PM RECRUITING ADMINISTRATOR Gender Identity Not on file Sexual Orientation [...] season) 2024 DEPRESSION SCREENING 06/08/2024 INFLUENZA VACCINE (#1) 2025 SCREENING FOR DIABETES 07/15/2027 , 06/26/2023, 05/14/2022 LIPID TESTING 07/15/2029 07/15/2024, 06/26/2023, 05/14/2022 HIB [...] (EXTERNAL RESULT ENTRY) Routine 06/26/2023 8:42 AM RECRUITING ADMINISTRATOR LIPID PROFILE (EXTERAL RESULT ENTRY) Routine 06/26/2023 8:42 AM RECRUITING ADMINISTRATOR from Last 3 Months or Most Recently Relevant to Health Maintenance Results * (ABNORMAL) LIPID PROFILE (EXTERAL RESULT ENTRY) (06/26/2023 8:42 AM RECRUITING ADMINISTRATOR) Cholesterol (EXTERNAL RESULT) 136 mg/dL OTHER LAB Triglycerides (EXTERNAL RESULT) 388(A) mg/dL OTHER LAB HDL (EXTERNAL RESULT) 22 mg/dL OTHER LAB LDL (EXTERNAL RESULT) 47 mg/dL OTHER LAB VLDL (EXTERNAL RESULT) OTHER LAB Chol HDL Ratio (External Result) OTHER LAB Blood BLOOD SPECIMEN / Unknown 06/26/2023 8:42 AM RECRUITING ADMINISTRATOR us Historical Provider LAB - CHEMISTRY ORDERABLE S Final Result OTHER LAB * (ABNORMAL) HEMOGLOBIN A1C (EXTERNAL RESULT ENTRY) (06/26/2023 8:42 AM RECRUITING ADMINISTRATOR) Hemoglobin A1c (EXTERNAL RESULT) 6.6(A) % OTHER LAB Blood BLOOD SPECIMEN / Unknown 06/26/2023 8:42 AM RECRUITING ADMINISTRATOR us Historical Provider LAB - CHEMISTRY ORDERABLE S Final Result OTHER LAB from Last 3 Months or Most Recently Relevant to Health [place] [address] [facility] Care Teams Area Supervisor Relationship Specialty Start Date End Date Griffin Plaza DO [address] [place] [id number] PCP - General Internal Medicine 08/30/24
--- OUTSIDE RECORDS SUMMARY | 2025-01-09 15:39 | XMS_ITS | Encounter Summary ---
Author Organization [facility] [employer] [facility] Address [address] [place] [address] Care Team Providers Care Paratransit Driver Name Role Phone Unavailable Primary Care Provider Unavailabl e Reason for Visit * Reason Onset Date Comments Labs for appt 01/09/2025 Encounter Details Date Type Department Care Team (Late Contact Info) Description 01/09/2025 Telephone [facility] Oncology and Hematology [facility] [address] [place] [address] Adryan Kauffman MD [address] [facility] [address] [place] [address] Labs for appt Social History Tobacco Use Types Packs/Day Years Used Date Smoking Tobacco: Never Smokeless Tobacco: Never Alcohol Use Standard Drinks/Week Comments Never 0 (1 standard drink = 0.6 oz pur e alcohol) Sex and Gender Information Value Date Recorded Sex Assigned at Not on file 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 He will need those labs prior to appointment. documented in this encounter Plan of Treatment Upcoming Encounters Date Type Department Care Team (Late Contact Info) Description 01/10/2025 2:30 PM CDT Office Visit [facility] Oncology and Hematology [facility] [address] [place] [address] Adryan Kauffman MD [facility] [address] [address] documented as of this encounter Visit Diagnoses Not on filedocumented in this encounter
--- OUTSIDE RECORDS SUMMARY | 2025-01-09 15:39 | XMS_ITS | Clinical Summary ---
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 CHOICE [id number] [place] [id number]
--- OUTSIDE RECORDS SUMMARY | 2025-01-09 15:39 | XMS_ITS | Referral Summary ---
Author Organization [facility] Address [address] [place] [address] Care Team Providers Care Senior Applications Analyst Name Role Phone Griffin Plaza DO Primary Care Provider [phone] Encounters Date Type Department Care Team Description 10/18/2024 8:45 AM CDT Ancillary Procedure [facility] Medical Group Cardiology [address] [place] [address] [address] [address] Complete atrioventricular block (HCC) (Primary Dx); NICM (nonischemic cardiomyopathy) (HCC); ICD (implantable cardioverter-defibrillato r) in place; Ventricular fibrillation (HCC); NSVT (nonsustained ventricular tachycardia) (HCC); Presence of cardiac pacemaker from Last 3 Months Allergies No known [...] Dx: CHB. DOI 05/23/2022. Chronic leads 06/17/2012. [place] remote monitoring, office pacer checks Q1 yr. 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 Gender Identity Not on file Sexual Orientation Not on file Last Filed Vital Signs Vital Sign Reading Time Taken Comments Blood Pressure 118/78 07/15/2024 10:51 AM MICROBIOLOGY LAB ASSISTANT Pulse 66 07/15/2024 10:51 AM MICROBIOLOGY LAB ASSISTANT Temperature - - Respiratory Rate - - Oxygen Saturation 97% 07/15/2024 10: 51 AM MICROBIOLOGY LAB ASSISTANT Inhaled Oxygen Concentration - - Weight 108.8 kg (239 lb 15.4 oz) 2024 10:51 AM MICROBIOLOGY LAB ASSISTANT Height 185.4 cm (6' 1) 07/15/2024 10:5 1 AM MICROBIOLOGY LAB ASSISTANT Body Mass Index 31.66 07/15/2024 10:51 AM MICROBIOLOGY LAB ASSISTANT Plan of Treatment Not on file Procedures Procedure Name Priority Date/Time Associated Diagnosis Comments DEVICE CHECK - REMOTE Routine 10/18/2024 2:13 PM CDT NICM (nonischemic cardiomyopathy) (HCC) ICD (implantable cardioverter-defibril lator) in place Ventricular fibrillation (HCC) NSVT (nonsustained ventricular tachycardia) (HCC) from Last 3 Months Results * DEVICE CHECK - REMOTE (10/18/2024 2:13 PM CDT) Anatomical Region Laterality Modality Other Narrative 12/30/2024 12:16 PM CDT [place] Assurity Dual Pacemaker. Dx: CHB. DOI 05/23/2022. Chronic leads 06/17/2012. [place] remote monitoring, office pacer checks Q1 yr. Routine DDD Pacemaker Remote. Transmission attached. Battery status: 2.99 V, 5.7-5.9 years remaining battery life to XAVIER. Stable lead impedances, pacing and sensing thresholds. Presenting rhythm: /CASSANDRA DEVELOPER AP-< 1%, CASSANDRA DEVELOPER-> 99% No AMS episodes noted. No Ventricular high rate episodes detected. Medications: Carvedilol 3.125 mg, hydrochlorothiazide 12.5 mg, lisinopril 40 mg See scanned report. Office pacemaker follow up: 9 months [place] remote f/u 01/17/25. Yuan Blackwell RN Arron Mason MD [facility] C[facility] PROC EDURES Final Result from Last [address] [place] [phone] [facility] Care Teams Senior Applications Analyst Relationship Specialty Start Date End Date Griffin Plaza DO [address] [address] PCP - General Internal Medicine 07/15/24
--- OUTSIDE RECORDS SUMMARY | 2025-01-09 15:39 | XMS_ITS | Clinical Summary ---
Author Organization [facility] Address [address] [place] [id number] Care Team Providers Care Shearing Supervisor Name Role Phone Griffin Plaza DO Primary Care Provider +1- [phone] Allergies No known active allergies Medications lisinopriL [...] Description 10/18/2024 8:45 AM CDT Ancillary Procedure [facility] Cardiology [address] [place] [phone] Complete atrioventricular block (HCC) (Primary Dx); NICM (nonischemic cardiomyopathy) (HCC); ICD (implantable cardioverter-defibrillato r) in place; Ventricular fibrillation (HCC); NSVT (nonsustained ventricular tachycardia) (HCC); Presence of cardiac pacemaker from Last 3 Months Surgical History Surgery [...] on file Legal Sex Male 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 Gender Identity Not on file Sexual Orientation Not on file Obstetrics History Last Filed Vital Signs Vital Sign Reading Time Taken Comments Blood Pressure 118/78 07/15/2024 10:51 AM MIRROR FRAMER Pulse 66 07/15/2024 10:51 AM MIRROR FRAMER Temperature - - Respiratory Rate - - Oxygen Saturation 97% 07/15/2024 10: 51 AM MIRROR FRAMER Inhaled Oxygen Concentration - - Weight 108.8 kg (239 lb 15.4 oz) 2024 10:51 AM MIRROR FRAMER Height 185.4 cm (6' 1) 07/15/2024 10:5 1 AM MIRROR FRAMER Body Mass Index 31.66 07/15/2024 10:51 AM MIRROR FRAMER Plan of Treatment Health Maintenance Due Date Last Done Comments Colon Cancer Screening-Colonoscopy 1959 Depression Screening 1959 Fall Risk Assessment 1959 Hepatitis C Screening 1959 Prostate Cancer Screening-PSA 1959 Hepatitis B Screening 1977 Pneumococcal vaccine 65+ (1 of 1 - PCV) 2009 Zoster Vaccine (1 of 2) 2009 Well Visit 65+ 2024 Influenza Vaccine (#1) 2025 06/18/2010 DTaP/Tdap/Td Vaccine (2 - Td or Tdap) [...] Modality Other Narrative 12/30/2024 12:16 PM CDT Funky Moves Assurity Dual Pacemaker. Dx: CHB. DOI 05/23/2022. Chronic leads 06/17/2012. Marek remote monitoring, office pacer checks Q1 yr. Routine DDD Pacemaker Remote. Transmission attached. Battery status: 2.99 V, 5.7-5.9 years remaining battery life to XAVIER. Stable lead impedances, pacing and sensing thresholds. Presenting rhythm: /SUPERVISOR WIRE ROPE FABRICATION AP-< 1%, SUPERVISOR WIRE ROPE FABRICATION-> 99% No AMS episodes noted. No Ventricular high rate episodes detected. Medications: Carvedilol 3.125 mg, hydrochlorothiazide 12.5 mg, lisinopril 40 mg See scanned report. Office pacemaker follow up: 9 months [place] remote f/u 01/17/25. Yuan Blackwell RN Arron Mason MD CV CARDIAC SERVICES PROC EDURES Final Result from Last 3 Months Insurance [facility] H[facility]/PPO Address: [place] [address] [facility] H[facility]/PPO Address: [place] [address] [facility] H[facility]/PPO Address: [place] [address] Care Teams Shearing Supervisor Relationship Specialty Start Date End Date Griffin Plaza DO [address] [address] PCP - General Internal Medicine 07/15/24
[2025-01-09 19:09] LABS: Hematocrit 41.0 % (42.0-52.0); Hemoglobin 13.4 g/dL (14.0-18.0); Immature Granulocyte Percent A 0.2 % (0-0.5); Lymphocytes Absolute Auto 1.35 K/mm3 (0.9-3.2); Mean Corpuscular HGB Conc 32.7 g/dl (32-36); Mean Corpuscular Hemoglobin 31.4 pg (26-34); Mean Corpuscular Volume 96.0 fl (80-100); Nucleated Red Blood Cells Absolute Auto 0.000 K/mm3 (0.0-0.012); Nucleated Red Blood Cells Perc 0.0 % (0.0-0.2); Platelet Count Result 112 k/mm3 (150-375); Red Blood Count 4.27 M/mm3 (4.6-6.20); White Blood Count 4.8 K/mm3 (4.5-10.0)
[2025-01-09 19:17] LABS: Iron 133 ug/dL (49-181)
[2025-01-09 19:28] LABS: Percent Iron Saturation 35 % (20-50)
[2025-01-09 19:58] LABS: Ferritin 30.20 ng/mL (11.1-264)
[2025-01-09 20:01] LABS: Vitamin B12 915.0 pg/mL (239-931)
== END 2025-01-09 15:37 | disposition home or self-care (01) ==
LOC: ANHGOSHLAB 15:37
PROVIDERS: PCP Internal Medicine; Visit Provider Internal Medicine Hematology & Oncology
DX: D64.9 Anemia, unspecified (principal)
CPT/HCPCS: 36415; 82607; 82728; 82746; 83540; 83550; 85025

== ENCOUNTER 2025-02-16 13:40 | Inpatient (IN) | payer OTHER, SELFPAY ==
[2025-02-16] VITALS (21 sets, daily range): BP systolic 103–128; BP diastolic 57–80; PULSE 62–85; RESP 12–22; TEMP 36.4–36.8; O2SAT 95–99; BMI 31.4
--- NOTE | 2025-02-16 14:00 | ED.NAVMDI ---
HPI - Nausea/Vomiting/Diarrhea General Chief complaint: Nausea/Vomiting/Diarrhea Stated complaint: hemoptysis Time Seen by Provider: 02/16/25 13:49 History of Present Illness HPI Narrative: Pt has history of MUÑOZ and cirrhosis with esophageal varices. 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 Pt had verices banded here about 18 months ago. Pt denies pain or nausea now. Related Data Home Medications ?Medication ?Instructions ?Recorded ?Confirmed ?Last Taken ?Type carvedilol 3.125 mg tablet 3.125 mg PO Q12H 10/15/23 02/16/25 02/16/25 History hydrochlorothiazide 12.5 mg tablet 12.5 mg PO DAILY 01/09/25 02/16/25 02/16/25 History ascorbic acid (vitamin C) 1,000 mg 1,000 mg PO DAILY 02/16/25 02/16/25 02/16/25 History capsule cholecalciferol (vitamin D3) 25 25 mcg PO DAILY 02/16/25 02/16/25 02/16/25 History mcg (1,000 unit) capsule (Vitamin D3) cyanocobalamin (vitamin B-12) 500 500 mcg PO DAILY 02/16/25 02/16/25 02/16/25 History mcg tablet (Vitamin B-12) ferrous sulfate 325 mg (65 mg 650 mg PO DAILY 02/16/25 02/16/25 02/16/25 History iron) tablet Allergies Allergy/AdvReac Type Severity Reaction Status Date / Time No Known Allergies Allergy Verified 02/16/25 15:01 Review of Systems Review of Systems: All systems reviewed & are unremarkable except as noted in HPI and below PMFSH Past Medical History Medical History (Updated 02/16/25 @ 19:06 by Avila Messer III, DO) Type 2 diabetes mellitus with hyperglycemia Non-alcoholic cirrhosis Pancytopenia Prediabetes Pseudogout Esophageal varices Obstructive sleep apnea on CPAP Cirrhosis of liver Suspected MUÑOZ per [facility] hepatology Thrombocytopenia Hypertension Heart disease Surgical History Surgical History History of vasectomy History of inguinal hernia repair History of umbilical hernia repair History of permanent cardiac pacemaker placement (2021) Family History Family History (Updated 02/16/25 @ 17:03 by Maribel S. Ratermann, RN) Sibling Diabetes mellitus Patient's brother is in good health Patient's sister is in good health Family history of migraine headaches Congestive heart failure Father Hypertension Mother Family history of lung cancer Patient's mother is Social History Social History Social History: Surrogate medical decision maker: Ayah Mason, significant other. Code status: Full code. Caffeine: pepsi Smoking status: Never smoker Second hand tobacco smoke exposure: Yes Alcohol intake: never Substance use: never Substance use type: does not use Do You Feel Safe in your Home?: Yes Lack of Transportation: No Lack of Food: Never True Current Housing: I Have Housing Concerned About Future Housing: No Difficulty Paying Gas/Electric Bills: No Difficulty Paying for Meds: No Currently Unemployed: No Education: High School Diploma/GED Difficulty w/ Childcare or Family Care: No Living arrangements: with family Additional living arrangements comments: Lives with significant other. 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 Gender identity (if verbalized by the patient): Male Sexual Orientation (if Verbalized by the Patient): Straight or Heterosexual Spiritual care concerns: No Agree to blood products: Yes Exam Const: General: no acute distress Nutritional Appearance: well nourished Orientation/consciousness: patient oriented x3 Limitations: no limitations HENMT: Throat: posterior oropharynx normal Eyes: Pupils: Equal, round and reactive pupils present EOM: EOMs intact bilaterally Neck: Neck: normal visual inspection Chest: Chest palpation & inspection: normal inspection of the chest Resp: Effort & Inspection: normal respiratory effort Auscultation: clear to auscultation bilaterally Cardio: Rate: regular rate Rhythm: regular rhythm GI: GI Palp: Yes Soft to palpation and No Tenderness to palpation present (GI) Auscultation: normal bowel sounds Back/Spine/Pelvis: Back: no CVA tenderness Skin: General skin exam: normal color Wounds: no wounds Neuro: General: patient oriented x3, moves all extremities, no meningeal signs and no focal motor deficits Cranial nerves: Yes Nystagmus not present Speech: normal speech Extrem: General: normal to inspection and no clubbing, cyanosis or edema Psych: Mental Status: mental status grossly normal Affect: normal affect Attitude: cooperative Course Vital Signs Vital signs: Vital Signs Temperature 97.6 F 02/16/25 13:41 Pulse Rate 74 02/16/25 13:41 Respiratory Rate 16 02/16/25 13:41 Blood Pressure 121/79 02/16/25 13:41 Pulse Oximetry 98 02/16/25 13:41 Temperature 98 F 02/16/25 16:10 Pulse Rate 81 02/16/25 18:00 Respiratory Rate 16 02/16/25 16:50 Blood Pressure 128/71 02/16/25 16:10 Pulse Oximetry 97 02/16/25 16:50 Oxygen Delivery Room Air 02/16/25 16:50 Oxygen Flow Rate 6 02/16/25 15:24 MDM - Nausea/Vomiting/Diarrhea MDM Narrative Medical decision making narrative: Pt with MUÑOZ and hx of varices presents after large episode of hematemesis. Pt not having complaints now. Discussed with Dr Henderson and says to admit and will take to endoscopy. Discussed with Renetta Jung and agrees to admit to IMU. Started Rocephin Protonix and gave some zofran. DDx liver failure/cirrhosis, variceal bleed, anemia, among others Lab Data 02/16/25 14:10 02/16/25 14:10 Labs: Lab Results 02/16/25 02/16/25 02/16/25 Range/Units 14:10 15:26 17:58 WBC 4.7 (4.5-10.0) K/mm3 RBC 3.85 L (4.6-6.20) M/mm3 Hgb 12.5 L (14.0-18.0) g/dL Hct 37.9 L (42.0-52.0) % MCV 98.4 (80-100) fl MCH 32.5 (26-34) pg MCHC 33.0 (32-36) g/dl RDW 14.6 H (11.5-14.5) % Plt Count 102 L (150-375) k/mm3 MPV 11.3 H (7.4-10.4) fl Immature Gran % (Auto) 0.4 (0-0.5) % Neut % (Auto) 61.8 (45.5-73.1) % Lymph % (Auto) 23.6 (18.3-44.2) % [place] % (Auto) 11.6 H (2.6-8.5) % Eos % (Auto) 1.7 (0-4.4) % Baso % (Auto) 0.9 (0.2-1.2) % Lymph # (Auto) 1.10 (0.9-3.2) K/mm3 [place] # (Auto) 0.5 (0.1-0.6) K/mm3 Eos # (Auto) 0.1 (0-0.3) K/mm3 Baso # (Auto) 0.0 (0.0-0.1) K/mm3 Abs Immat Gran (auto) 0.02 (0.00-0.031) K/mm3 Absolute Neuts (auto) 2.9 (1.3-6.7) K/mm3 Absolute Nucleated RBC 0.000 (0.0-0.012) K/mm3 Nucleated RBC % 0.0 (0.0-0.2) % % Immature Plt Fraction 5.7 (0.9-11.2) % PT 17.3 H (11.1-14.7) Seconds INR 1.4 APTT 31.5 (22.3-36.8) Seconds Sodium 137 (137-145) mmol/L Potassium 4.2 (3.4-5.0) mmol/L Chloride 106 (98-107) mmol/L Carbon Dioxide 22 (22-30) mmol/L Anion Gap 9 (4-12) mmol/L BUN 16 (9-20) mg/dL Creatinine 0.91 (0.7-1.3) mg/dL Estim Creat Clear Calc 80 ml/min Estimated GFR > 60 (59 - ) Glucose 147 H (65-110) mg/dL POC Capillary Glucose 118 H 114 H (65-105) mg/dl Lactic Acid 2.0 (0.7-2.0) mmol/L Calcium 8.3 L (8.4-10.2) mg/dL Total Bilirubin 2.9 H (0.2-1.3) mg/dL AST 55 (17-59) U/L ALT 33 (6-50) U/L Alkaline Phosphatase 120 (38-126) U/L Total Protein 7.6 (6.3-8.2) g/dL Albumin 3.5 (3.5-5.1) g/dL Blood Type B Positive Antibody Screen Negative Critical Care Time Critical Care Time Critical Care Time: Yes Total Critical Care Time: 33 Discharge Plan Discharge Clinical Impression: GI (gastrointestinal bleed), Bleeding esophageal varices Patient Disposition: Still a Patient Condition: Guarded Prognosis
[2025-02-16 14:18] LABS: Hematocrit 37.9 % (42.0-52.0); Hemoglobin 12.5 g/dL (14.0-18.0); Immature Granulocyte Percent A 0.4 % (0-0.5); Immature Platelet Fraction Pct 5.7 % (0.9-11.2); Lymphocytes Absolute Auto 1.10 K/mm3 (0.9-3.2); Mean Corpuscular HGB Conc 33.0 g/dl (32-36); Mean Corpuscular Hemoglobin 32.5 pg (26-34); Mean Corpuscular Volume 98.4 fl (80-100); Nucleated Red Blood Cells Absolute Auto 0.000 K/mm3 (0.0-0.012); Nucleated Red Blood Cells Perc 0.0 % (0.0-0.2); Platelet Count Result 102 k/mm3 (150-375); Red Blood Count 3.85 M/mm3 (4.6-6.20); White Blood Count 4.7 K/mm3 (4.5-10.0)
[2025-02-16] MEDS: ONDANSETRON INJ 4 MG/2 ML VIAL IV PUSH (14:21)
[2025-02-16] MEDS: PANTOPRAZOLE SODIUM IV 40 MG VIAL IV PUSH ×2 (14:23→20:30)
[2025-02-16] MEDS: cefTRIAXone 2 GM in SODIUM CHLORIDE 0.9% IV 100 ML 200 ML IVPB (14:26)
[2025-02-16 14:30] LABS: Alanine Aminotransferase 33 U/L (6-50); Albumin Level 3.5 g/dL (3.5-5.1); Alkaline Phosphatase 120 U/L (38-126); Anion Gap 9 mmol/L (4-12); Aspartate Amino Transferase 55 U/L (17-59); Bilirubin,Total 2.9 mg/dL (0.2-1.3); Blood Urea Nitrogen 16 mg/dL (9-20); Calcium 8.3 mg/dL (8.4-10.2); Carbon Dioxide 22 mmol/L (22-30); Chloride 106 mmol/L (98-107); Estimated CRCL calculation 80 ml/min; Estimated Glomerular Filt Rate > 60; Glucose 147 mg/dL (65-110); Potassium 4.2 mmol/L (3.4-5.0); Sodium 137 mmol/L (137-145); Total Protein 7.6 g/dL (6.3-8.2)
[2025-02-16 14:33] LABS: INR 1.4; Partial Thromboplastin Time 31.5 Seconds (22.3-36.8); Prothrombin Time 17.3 Seconds (11.1-14.7)
[2025-02-16] MEDS: LACTATED RINGERS 1,000 ML 150 ML IV CONT (14:51)
--- OUTSIDE RECORDS SUMMARY | 2025-02-16 15:57 | XMS_ITS | Encounter Summary ---
Author Organization [facility] Address [address] [facility] [address] [place] [address] Care Team Providers Care Metal Handler Name Role Phone Yeyo Barrera MD Primary Care Provider No, Physician Primary Care Provider [phone] Piyush Peguero Primary Care Provider Griffin Plaza DO Primary Care Provider [phone] Encounter Details Date Type Department Care Team (Late st Contact Info) Description 06/17/2016 Orders Only [facility] ProviderKriss MD [address] [place] [id number] Social History Tobacco Use Types Packs/Day Years Used Date Smoking Tobacco: Never Alcohol Use Standard Drinks/Week Comments Yes 0 (1 standard drink = 0.6 oz pur e alcohol) Sex and Gender Information Value Date Recorded Sex Assigned at Not on file Legal Sex Male 12:19 AM SURFACE 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
--- OUTSIDE RECORDS SUMMARY | 2025-02-16 15:57 | XMS_ITS | Clinical Summary ---
Author Organization [facility] Sanju l[facility]pez Shreyaslucia Address [address] [place] [address] Care Team Providers Care Fortune Teller Name Role Phone Unavailable Primary Care Provider [...] Encounters Date Type Department Care Team Description 01/10/2025 2:30 PM CDT Office Visit [facility] Oncology and Hematology - [address] [place] [address] Adryan Kauffman MD Chronic anemia (Primary Dx) 01/10/2025 Orders Only [facility] Oncology and Hematology - [address] [facility] [place] [address] Adryan Kauffman MD 01/09/2025 Telephone [facility] Oncology and Hematology [address] [facility] [place] [address] Adryan Kauffman MD Labs for [...] Not Answered Alcohol Use Standard Drinks/Week Comments Never 0 (1 standard drink = 0.6 oz pur e alcohol) Sex and Gender Information Value Date Recorded Sex Assigned at Not on file Legal Sex Male 9:26 AM FORESTER AIDE Gender Identity Not on file Sexual Orientation Not on file Last Filed Vital Signs Vital Sign Reading Time Taken Comments Blood Pressure 115/75 01/10/2025 2:25 PM CDT Pulse 78 01/10/2025 2:25 PM CDT Temperature 37.3 C (99.1 F) 01/10/2025 2:25 PM CDT Respiratory Rate 15 01/10/2025 2:25 PM CDT Oxygen Saturation 95% 01/10/2025 2:25 PM CDT Inhaled Oxygen Concentration - - Weight 104.3 kg (230 lb) 01/10/2025 2:25 PM CDT Height 185.4 cm (6' 1) 09/20/2024 2:47 PM CDT Body Mass Index 30.34 09/20/2024 2:47 PM CDT Plan of Treatment Upcoming Encounters Date Type Department Care Team (Late st Contact Info) Description 07/17/2025 2:15 PM FORESTER AIDE Office Visit [facility] Oncology and Hematology - [address] [facility] [address] [place] [address] Adryan Kauffman MD [address] [facility] [address] [place] [address] Health Maintenance Due Date Last [...] years 1-dose series) 2019 INFLUENZA VACCINE (#1) 2025 Procedures Procedure Name Priority Date/Time Associated Diagnosis Comments CBC WITH AUTODIFFERENTIAL Routine 2024 12:40 PM CDT from Last 3 Months Results * CBC WITH AUTODIFFERENTIAL (01/09/2025 12:40 PM CDT) Blood us Adryan Kauffman MD HEMATOLOGY ORDERABLES Final Res ult from Last 3 Months Insurance [place] [id number] [facility] CHOICE [id number]
--- OUTSIDE RECORDS SUMMARY | 2025-02-16 15:57 | XMS_ITS | Clinical Summary ---
Author Organization [facility] Address [address] [place] [phone] Care Team Providers Care Cloth Bale Header Name Role Phone Griffin Plaza DO Primary Care Provider [phone]- [phone] Allergies No known active allergies Medications lisinopriL [...] Encounters Date Type Department Care Team Description 01/17/2025 10:00 AM CDT Ancillary Procedure [facility] Cardiology [address] [place] [phone] Complete atrioventricular block (HCC) (Primary Dx); [...] on file Legal Sex Male 12:19 AM THERAPEUTIC RECREATION ASSISTANT Gender Identity Not on file Sexual Orientation Not on file Obstetrics History Last Filed Vital Signs Vital Sign Reading Time Taken Comments Blood Pressure 118/78 07/15/2024 10:51 AM THERAPEUTIC RECREATION ASSISTANT Pulse 66 07/15/2024 10:51 AM THERAPEUTIC RECREATION ASSISTANT Temperature - - Respiratory Rate - - Oxygen Saturation 97% 07/15/2024 10: 51 AM THERAPEUTIC RECREATION ASSISTANT Inhaled Oxygen Concentration - - Weight 108.8 kg (239 lb 15.4 oz) 2024 10:51 AM THERAPEUTIC RECREATION ASSISTANT Height 185.4 cm (6' 1) 07/15/2024 10:5 1 AM THERAPEUTIC RECREATION ASSISTANT Body Mass Index 31.66 07/15/2024 10:51 AM THERAPEUTIC RECREATION ASSISTANT Plan of Treatment Health Maintenance Due Date [...] Diagnosis Comments DEVICE CHECK - REMOTE Routine 01/17/2025 1:07 PM CDT NICM (nonischemic cardiomyopathy) (HCC) ICD (implantable cardioverter-defibril lator) in place Ventricular fibrillation (HCC) NSVT (nonsustained ventricular tachycardia) (HCC) from Last 3 Months Results * DEVICE CHECK - REMOTE (01/17/2025 1:07 PM CDT) Anatomical Region Laterality Modality Other Narrative 02/10/2025 12:40 PM CDT Cubikal Assurity Dual Pacemaker. Dx: CHB. DOI 05/23/2022. Chronic leads 06/17/2012. Marek remote monitoring, office pacer checks Q1 yr. Routine DDD Pacemaker Remote. Transmission attached. Battery status: 2.99 V , 5.7 years remaining battery life to XAVIER. Stable lead impedances, pacing and sensing thresholds. Presenting rhythm: /CABIN SERVICE AGENT AP-< 1%, CABIN SERVICE AGENT-> 99% No AMS episodes noted. No Ventricular high rate episodes detected. Medications: Carvedilol 3.125 mg, lisinopril 40 mg See scanned report. Office pacemaker follow up: 6 months Marek remote f/u 04/18/25. Yuan Blackwell RN Arron Mason MD CV CARDIAC SERVICES PROC EDURES Final Result from Last 3 Months Insurance [facility] [place] [address] [place] [address] [facility] Care Teams Cloth Bale Header Relationship Specialty Start Date End Date Griffin Plaza DO [address] [address] PCP - General Internal Medicine 07/15/24
--- NOTE | 2025-02-16 16:50 | ADMGEN ---
This patient, Tevin Huber, was admitted to IMU Room 212-01. Patient/family oriented to hospital policies and general routines including ID bracelet, bed and alarms, visiting hours, pain management, procedures, bathroom and other care routines, personal items, smoking policy, room service/diet, and visiting hours. Information on how to activate the Rapid Response Team has been discussed. Patient/Family are encouraged to report perceived risks to care and to ask questions if they do not understand what they are told or what they should do.
--- NOTE | 2025-02-16 17:01 | P.HP_ITS ---
H&P: HPI History of Present Illness Date/Time: 02/16/25 17:01 Chief Complaint: Hemoptysis Narrative: 64-year-old male with past medical history of MUÑOZ, diabetes, esophageal varices, hypertension and YOGESH presents the emergency room due to vomiting blood. 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 He was taken to the emergency room for evaluation. Patient denies fevers chills, black tardy stools, blood in stools, dizziness,. Lab work in the ED shows hemoglobin of 12.5, INR 1.4, glucose of 147, calcium of 8.3, total bili of 2.9. GI was consulted for alessio emesis a patient was taken to the GI lab for urgent EGD. EGD showed presence of antral erosion however the EGD could not be completed due to large amounts of retained dark blood in the fundus so GI will repeat the EGD tomorrow. Recommendations for Protonix b.i.d. and NPO. Review of Systems Review of Systems: 12 systems were reviewed and are negativ e except for as per HPI. [facility] Past Medical History Medical History (Updated 02/16/25 @ 19:06 by Avila Messer III, DO) Type 2 diabetes mellitus with hyperglycemia Non-alcoholic cirrhosis Pancytopenia Prediabetes Pseudogout Esophageal varices Obstructive sleep apnea on CPAP Cirrhosis of liver Suspected MUÑOZ per [facility] hepatology Thrombocytopenia Hypertension Heart disease Surgical History Surgical History History of vasectomy History of inguinal hernia repair History of umbilical hernia repair History of permanent cardiac pacemaker placement (2021) Family History Family History (Updated 02/16/25 @ 17:03 by Maribel Bolton RN) Sibling Diabetes mellitus Patient's brother is in good health Patient's sister is in good health Family history of migraine headaches Congestive heart failure Father Hypertension Mother Family history of lung cancer Patient's mother is Social History Social History Social History: Surrogate medical decision maker: Ayah Mason, significant other. Code status: Full code. Caffeine: pepsi Smoking status: Never smoker Second hand tobacco smoke exposure: Yes Alcohol intake: never Substance use: never Substance use type: does not use Do You Feel Safe in your Home?: Yes Lack of Transportation: No Lack of Food: Never True Current Housing: I Have Housing Concerned About Future Housing: No Difficulty Paying Gas/Electric Bills: No Difficulty Paying for Meds: No Currently Unemployed: No Education: High School Diploma/GED Difficulty w/ Childcare or Family Care: No Living arrangements: with family Additional living arrangements comments: Lives with significant other. 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 Gender identity (if verbalized by the patient): Male Sexual Orientation (if Verbalized by the Patient): Straight or Heterosexual Spiritual care concerns: No Agree to blood products: Yes Meds Home Medications and Allergies Home Medications ?Medication ?Instructions ?Recorded ?Confirmed ?Type carvedilol 3.125 mg tablet 3.125 mg PO Q12H 10/15/23 0 02/16/25 History blood sugar diagnostic (Blood #50 ea 12/07/23 02/16/25 Rx Glucose Test strips) blood-glucose meter #1 ea 12/07/23 02/16/25 Rx lancets 30 gauge (OneTouch Delica #100 ea 01/05/2405/02 Rx Plus Lancet) pantoprazole 40 mg tablet,delayed 40 mg PO QAM #30 tab s 05/13/24 02/16/25 Rx release hydrochlorothiazide 12.5 mg tablet 12.5 mg PO DAILY 02/16/25 History semaglutide 1 mg/dose (4 mg/3 mL) 1 mg (0.75 mL) subcu t WEEKLY #3 mL 01/23/25 02/16/25 Rx subcutaneous pen injector (Ozempic) lisinopril 10 mg tablet 10 mg PO DAILY #90 tabs 01/3002/16/25 Rx ascorbic acid (vitamin C) 1,000 mg 1,000 mg PO DAILY 0 02/16/25 02/16/25 History capsule cholecalciferol (vitamin D3) 25 25 mcg PO DAILY 02/16/25 History mcg (1,000 unit) capsule (Vitamin D3) cyanocobalamin (vitamin B-12) 500 500 mcg PO DAILY 05/0202/16/25 History mcg tablet (Vitamin B-12) ferrous sulfate 325 mg (65 mg 650 mg PO DAILY 02/16/25 02/16/25 History iron) tablet Allergies Allergy/AdvReac Type Severity Reaction Status Date / Time No Known Allergies Allergy Verified 02/16/25 15:01 Vital Signs Vital Signs - 24 hr 02/16/25 13:41 02/16/25 13:48 02/16/25 14:00 Temperature 97.6 F Pulse Rate 74 73 76 Respiratory Rate 16 12 13 Blood Pressure 121/79 Pulse Oximetry 98 98 96 Oxygen Delivery Oxygen Flow Rate 02/16/25 14:01 02/16/25 14:15 02/16/25 14:16 Temperature Pulse Rate 81 77 83 Respiratory Rate 19 15 21 H Blood Pressure 120/78 117/76 Pulse Oximetry 96 97 95 Oxygen Delivery Oxygen Flow Rate 02/16/25 14:35 02/16/25 15:14 02/16/25 15:24 Temperature 97.9 F Pulse Rate 78 81 80 Respiratory Rate 20 21 H 22 H Blood Pressure 119/80 116/63 108/57 L Pulse Oximetry 97 98 99 Oxygen Delivery Room Air Simple Face Mask Simple Face Mask Oxygen Flow Rate 6 6 02/16/25 15:34 02/16/25 15:44 02/16/25 15:54 Temperature Pulse Rate 77 78 76 Respiratory Rate 18 15 17 Blood Pressure 110/62 114/59 L 110/67 Pulse Oximetry 99 96 97 Oxygen Delivery Room Air Room Air Room Air Oxygen Flow Rate 02/16/25 16:04 02/16/25 16:10 Temperature 98 F Pulse Rate 72 73 Respiratory Rate 17 16 Blood Pressure 112/72 128/71 Pulse Oximetry 97 97 Oxygen Delivery Room Air Oxygen Flow Rate Exam Narrative: General: well appearing, appears stated age. HEENT: normocephalic, atraumatic. Mucous membranes moist. EOMI, PERRLA, bilateral sclera anicteric, no conjunctival injection. Neck supple without JVD, lymphadenopathy, or bruit. Respiratory: clear to ascultation bilaterally. No rales/rhonic/wheezes. Cardiovascular: Regular rate and rhythm, normal S1-S2 upon ascultation. No murmurs, rubs, or clicks. PMI is nondisplaced, capillary refill less than 3 second. Abdomen: Soft, round, no pulsatile masses, nondistended and nontender. No rebound, no guarding. No CVA tenderness, no hepatosplenomegaly. Bowel sounds present to all four quadrants. No high pitch or tinkling sounds, resonant to percussion. Extremities: No cyanosis, clubbing, or edema present. Pulses are palpable 2/2. Active ROM to all four extremities. Neuro: Alert and orientated x 4. PERRLA. Cranial nerves 2-12 intact without focal deficit. Skin: Warm, dry, and intact, without rash, erythema, or lesion. Psych: pleasant, cooperative, normal speech, normal affect, no hallucinations, no dysarthia H&P: Results Labs Labs: Short CBC 02/16/25 Range/Units 14:10 WBC 4.7 (4.5-10.0) K/mm3 Hgb 12.5 L (14.0-18.0) g/dL Hct 37.9 L (42.0-52.0) % Plt Count 102 L (150-375) k/mm3 BMP 02/16/25 14:10 Sodium 137 Potassium 4.2 Chloride 106 Carbon Dioxide 22 BUN 16 Creatinine 0.91 Glucose 147 H Calcium 8.3 L Liver Function 02/16/25 Range/Units 14:10 Total Bilirubin 2.9 H (0.2-1.3) mg/dL AST 55 (17-59) U/L ALT 33 (6-50) U/L Alkaline Phosphatase 120 (38-126) U/L Albumin 3.5 (3.5-5.1) g/dL Assessment and Plan Assessment and plan (1) Hematemesis/vomiting blood: Code(s): K92.0 - Hematemesis Status: Acute Assessment and Plan: GI consulted Repeat EGD tomorrow NPO Protonix b.i.d. IVF for hydration (2) Acute blood loss anemia: Code(s): D62 - Acute posthemorrhagic anemia Status: Acute Assessment and Plan: On iron deficiency anemia Monitor for acute bleeding, currently no signs Repeat CBC (3) Type 2 diabetes mellitus: Qualifiers: Diabetes mellitus complication status: with hyperglycemia Diabetes mellitus press tender long goods insulin use: without group home use Qualified Code(s): E11.65 - Type 2 diabetes mellitus with hyperglycemia Code(s): E11.9 - Type 2 diabetes mellitus without complications Status: Acute Assessment and Plan: NPO Q.6 hour Accu-Cheks and SSI (4) MUÑOZ (nonalcoholic steatohepatitis): Code(s): K75.81 - Nonalcoholic steatohepatitis (MUÑOZ) Status: Acute Assessment and Plan: Likely cause of GI bleed LFTs within normal limits (5) Hypertension: Qualifiers: Hypertension type: primary hypertension Qualified Code(s): I10 - Essential (primary) hypertension Code(s): I10 - Essential (primary) hypertension Status: Acute Assessment and Plan: Hold hydrochlorothiazide Quality VTE Prophylaxis VTE prophylaxis: mechanical ordered If No VTE Prophylaxis Answer both mechanical and pharmacologic: Reason no mechanical VTE proph: medical contraindication Hospitalist MIPS Advance Care Plan I have confirmed that the patient's Advanced Care Plan is present, code status is documented, or surrogate decision maker is listed in patient medical record.: Yes Medication Reconciliation I have utilized all available resources to obtain, update and review the patients current medications (includes all prescriptions, OTC, herbals, cannabis, and nutritional supplements).: Yes
[2025-02-16] MEDS: SODIUM CHLORIDE 0.9% IV 1,000 ML 125 ML IV CONT (20:30)
[2025-02-17] VITALS (13 sets, daily range): BP systolic 102–132; BP diastolic 58–79; PULSE 68–83; RESP 16–20; TEMP 36.4–36.8; O2SAT 93–99
[2025-02-17 04:35] LABS: Hematocrit 35.8 % (42.0-52.0); Hemoglobin 11.6 g/dL (14.0-18.0); Immature Granulocyte Percent A 0.4 % (0-0.5); Immature Platelet Fraction Pct 5.3 % (0.9-11.2); Lymphocytes Absolute Auto 1.45 K/mm3 (0.9-3.2); Mean Corpuscular HGB Conc 32.4 g/dl (32-36); Mean Corpuscular Hemoglobin 33.0 pg (26-34); Mean Corpuscular Volume 101.7 fl (80-100); Nucleated Red Blood Cells Absolute Auto 0.000 K/mm3 (0.0-0.012); Nucleated Red Blood Cells Perc 0.0 % (0.0-0.2); Platelet Count Result 94 k/mm3 (150-375); Red Blood Count 3.52 M/mm3 (4.6-6.20); White Blood Count 5.3 K/mm3 (4.5-10.0)
[2025-02-17] MEDS: SODIUM CHLORIDE 0.9% IV 1,000 ML 125 ML IV CONT (04:36)
[2025-02-17 04:45] LABS: Hemoglobin A1C 6.2 % (<5.7)
[2025-02-17 04:54] LABS: Anion Gap 8 mmol/L (4-12); Blood Urea Nitrogen 19 mg/dL (9-20); Calcium 8.1 mg/dL (8.4-10.2); Carbon Dioxide 20 mmol/L (22-30); Chloride 110 mmol/L (98-107); Estimated CRCL calculation 86 ml/min; Estimated Glomerular Filt Rate > 60; Glucose 95 mg/dL (65-110); Magnesium 2.0 mg/dL (1.6-2.3); Potassium 4.0 mmol/L (3.4-5.0); Sodium 138 mmol/L (137-145)
[2025-02-17] MEDS: PANTOPRAZOLE SODIUM IV 40 MG VIAL IV PUSH (09:27)
--- NOTE | 2025-02-17 11:58 | WPDANESEPPF ---
Anes - Initial Pre Proc Eval Procedure: Operation Date: 02/17/25 13:30 Proposed Procedures p Esophagogastroduodenoscopy - Kj Henderson MD Date/Time: 02/17/25 11:58 Surgeon: Daniel Velazquez MD Pre Op Diagnosis: hemoptysis Patient Data Age: 64 Gender: M Height: 1.85 m Weight: 103.8 kg Last Vital Signs Temp 36.8 C 02/17/25 08:00 Pulse 75 02/17/25 08:00 Resp 16 02/17/25 08:00 BP 128/77 02/17/25 08:00 Pulse Ox 99 02/17/25 08:00 O2 Del Method Room Air 02/17/25 08:00 O2 Flow Rate 6 02/16/25 15:24 Allergies Allergy/AdvReac Type Severity Reaction Status Date / Time No Known Allergies Allergy Verified 02/16/25 15:01 Home Medications ?Medication ?Instructions ?Recorded ?Confirmed ?Type carvedilol 3.125 mg tablet 3.125 mg PO Q12H 10/15/23 02/16/25 History blood sugar diagnostic (Blood #50 ea 12/07/23 02/16/25 Rx Glucose Test strips) blood-glucose meter #1 ea 12/07/23 02/16/25 Rx lancets 30 gauge (OneTouch Delica #100 ea 01/05/24 02/16/25 Rx Plus Lancet) pantoprazole 40 mg tablet,delayed 40 mg PO QAM #30 tabs 05/13/24 02/16/25 Rx release hydrochlorothiazide 12.5 mg tablet 12.5 mg PO DAILY 01/09/25 02/16/25 History semaglutide 1 mg/dose (4 mg/3 mL) 1 mg (0.75 mL) subcut WEEKLY #3 mL 01/23/25 02/16/25 Rx subcutaneous pen injector (Ozempic) lisinopril 10 mg tablet 10 mg PO DAILY #90 tabs 02/13/25 02/16/25 Rx ascorbic acid (vitamin C) 1,000 mg 1,000 mg PO DAILY 02/16/25 02/16/25 History capsule cholecalciferol (vitamin D3) 25 25 mcg PO DAILY 02/16/25 02/16/25 History mcg (1,000 unit) capsule (Vitamin D3) cyanocobalamin (vitamin B-12) 500 500 mcg PO DAILY 02/16/25 02/16/25 History mcg tablet (Vitamin B-12) ferrous sulfate 325 mg (65 mg 650 mg PO DAILY 02/16/25 02/16/25 History iron) tablet Laboratory Tests 02/16/25 02/16/25 02/16/25 14:10 15:26 17:58 WBC 4.7 K/mm3 (4.5-10.0) RBC 3.85 L M/mm3 (4.6-6.20) Hgb 12.5 L g/dL (14.0-18.0) Hct 37.9 L % (42.0-52.0) MCV 98.4 fl (80-100) MCH 32.5 pg (26-34) MCHC 33.0 g/dl (32-36) RDW 14.6 H % (11.5-14.5) Plt Count 102 L k/mm3 (150-375) MPV 11.3 H fl (7.4-10.4) Immature Gran % (Auto) 0.4 % (0-0.5) Neut % (Auto) 61.8 % (45.5-73.1) Lymph % (Auto) 23.6 % (18.3-44.2) Treg[place] % (Auto) 11.6 H % (2.6-8.5) Eos % (Auto) 1.7 % (0-4.4) Baso % (Auto) 0.9 % (0.2-1.2) Lymph # (Auto) 1.10 K/mm3 (0.9-3.2) Treg[place] # (Auto) 0.5 K/mm3 (0.1-0.6) Eos # (Auto) 0.1 K/mm3 (0-0.3) Baso # (Auto) 0.0 K/mm3 (0.0-0.1) Abs Immat Gran (auto) 0.02 K/mm3 (0.00-0.031) Absolute Neuts (auto) 2.9 K/mm3 (1.3-6.7) Absolute Nucleated RBC 0.000 K/mm3 (0.0-0.012) Nucleated RBC % 0.0 % (0.0-0.2) % Immature Plt Fraction 5.7 % (0.9-11.2) PT 17.3 H Seconds (11.1-14.7) INR 1.4 APTT 31.5 Seconds (22.3-36.8) Sodium 137 mmol/L (137-145) Potassium 4.2 mmol/L (3.4-5.0) Chloride 106 mmol/L (98-107) Carbon Dioxide 22 mmol/L (22-30) Anion Gap 9 mmol/L (4-12) BUN 16 mg/dL (9-20) Creatinine 0.91 mg/dL (0.7-1.3) Estim Creat Clear Calc 80 ml/min Estimated GFR > 60 (59 - ) Glucose 147 H mg/dL (65-110) POC Capillary Glucose 118 H mg/dl 114 H mg/dl (65-105) (65-105) Hemoglobin A1c Lactic Acid 2.0 mmol/L (0.7-2.0) Calcium 8.3 L mg/dL (8.4-10.2) Phosphorus Magnesium Total Bilirubin 2.9 H mg/dL (0.2-1.3) AST 55 U/L (17-59) ALT 33 U/L (6-50) Alkaline Phosphatase 120 U/L (38-126) Total Protein 7.6 g/dL (6.3-8.2) Albumin 3.5 g/dL (3.5-5.1) Blood Type B Positive Antibody Screen Negative 02/17/25 02/17/25 02/17/25 00:19 04:19 11:34 WBC 5.3 K/mm3 (4.5-10.0) RBC 3.52 L M/mm3 (4.6-6.20) Hgb 11.6 L g/dL (14.0-18.0) Hct 35.8 L % (42.0-52.0) MCV 101.7 H fl (80-100) MCH 33.0 pg (26-34) MCHC 32.4 g/dl (32-36) RDW 14.6 H % (11.5-14.5) Plt Count 94 L k/mm3 (150-375) MPV 11.7 H fl (7.4-10.4) Immature Gran % (Auto) 0.4 % (0-0.5) Neut % (Auto) 58.8 % (45.5-73.1) Lymph % (Auto) 27.4 % (18.3-44.2) Treg[place] % (Auto) 11.5 H % (2.6-8.5) Eos % (Auto) 1.3 % (0-4.4) Baso % (Auto) 0.6 % (0.2-1.2) Lymph # (Auto) 1.45 K/mm3 (0.9-3.2) Treg[place] # (Auto) 0.6 K/mm3 (0.1-0.6) Eos # (Auto) 0.1 K/mm3 (0-0.3) Baso # (Auto) 0.0 K/mm3 (0.0-0.1) Abs Immat Gran (auto) 0.02 K/mm3 (0.00-0.031) Absolute Neuts (auto) 3.1 K/mm3 (1.3-6.7) Absolute Nucleated RBC 0.000 K/mm3 (0.0-0.012) Nucleated RBC % 0.0 % (0.0-0.2) % Immature Plt Fraction 5.3 % (0.9-11.2) PT INR APTT Sodium 138 mmol/L (137-145) Potassium 4.0 mmol/L (3.4-5.0) Chloride 110 H mmol/L (98-107) Carbon Dioxide 20 L mmol/L (22-30) Anion Gap 8 mmol/L (4-12) BUN 19 mg/dL (9-20) Creatinine 0.85 mg/dL (0.7-1.3) Estim Creat Clear Calc 86 ml/min Estimated GFR > 60 (59 - ) Glucose 95 mg/dL (65-110) POC Capillary Glucose 103 mg/dl 95 mg/dl (65-105) (65-105) Hemoglobin A1c 6.2 H % (<5.7) Lactic Acid Calcium 8.1 L mg/dL (8.4-10.2) Phosphorus 3.1 mg/dL (2.5-4.5) Magnesium 2.0 mg/dL (1.6-2.3) Total Bilirubin AST ALT Alkaline Phosphatase Total Protein Albumin Blood Type Antibody Screen Patient hx anesthesia problems: none Family hx anesthesia problems: none Results Review: All pre-operative results and documents have been reviewed as part of the pre-operative evaluation. [facility] Past Medical History Medical History (Updated 02/16/25 @ 19:06 by Avila Messer III, DO) Type 2 diabetes mellitus with hyperglycemia Non-alcoholic cirrhosis Pancytopenia Prediabetes Pseudogout Esophageal varices Obstructive sleep apnea on CPAP Cirrhosis of liver Suspected MUÑOZ per [facility] Thrombocytopenia Hypertension Heart disease Surgical History Surgical History History of vasectomy History of inguinal hernia repair History of umbilical hernia repair History of permanent cardiac pacemaker placement (2021) Family History Family History (Updated 02/16/25 @ 17:03 by Maribel Bolton, EZE) Sibling Diabetes mellitus Patient's brother is in good health Patient's sister is in good health Family history of migraine headaches Congestive heart failure Father Hypertension Mother Family history of lung cancer Patient's mother is Social History Social History Social History: Surrogate medical decision maker: Ayah Mason, significant other. Code status: Full code. Caffeine: pepsi Smoking status: Never smoker Second hand tobacco smoke exposure: Yes Alcohol intake: never Substance use: never Substance use type: does not use Do You Feel Safe in your Home?: Yes Lack of Transportation: No Lack of Food: Never True Current Housing: I Have Housing Concerned About Future Housing: No Difficulty Paying Gas/Electric Bills: No Difficulty Paying for Meds: No Currently Unemployed: No Education: High School Diploma/GED Difficulty w/ Childcare or Family Care: No Living arrangements: with family Additional living arrangements comments: Lives with significant other. 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 Gender identity (if verbalized by the patient): Male Sexual Orientation (if Verbalized by the Patient): Straight or Heterosexual Spiritual care concerns: No Agree to blood products: Yes Anes - Eval Final PreProcedure Day of Procedure 02/17/25 11:58 Patient weight: obese Heart: regular rate and rhythm Lungs: clear to auscultation Airway: Mallampati scale class II Neurological: alert and oriented Last oral intake: >/= 8 hours ASA classification: IV Emergent: no Anesthetic plan: proceed Anesthesia type and monitoring: general GIVS and standard monitoring Results Review: All pre-operative results and documents have been reviewed as part of the pre-operative evaluation. Informed Consent: The patient's anesthetic plan and its attendant risks and benefits were discussed with the patient/family/POA. Questions were solicited and answers provided to the satisfaction of the patient/family/POA.
[2025-02-17] MEDS: AZITHROMYCIN 250 MG/NS 250 ML 250 MG/250 ML BAG IVPB (12:03)
[2025-02-17] MEDS: LACTATED RINGERS 1,000 ML 150 ML IV CONT (12:36)
[2025-02-17] MEDS: SIMETHICONE ORAL SUSPENSION 20 MG/0.3 ML 30 ML BOTTLE 1.8 ML PO (12:43)
[2025-02-17] MEDS: BENZOCAINE (*SP) 60 ML SPRAY CAN (HURRICAINE) 1 SPRAY MUCOUS MEM (13:29)
--- NOTE | 2025-02-17 13:43 | P.PNGI_ITS ---
Progress Note: A&P Assessment and Plan (1) Upper GI bleed: Code(s): K92.2 - Gastrointestinal hemorrhage, unspecified Status: Acute Assessment and Plan: See EGD report. The patient's etiology of bleeding is erosive gastritis, superimposed on portal hypertensive gastropathy. Will increase carvedilol dose to 6.25 mg b.i.d. and recommend pantoprazole 40 mg once a day in the mornings on an empty stomach. He should continue follow-up with his usual hepatology Clinic at [facility]. He can advance diet and is stable to be discharged home. Subjective Date/time seen: 02/17/25 13:43 Interval history: The patient did not have further episodes of hematemesis or melena. He remained hemodynamically stable. His hemoglobin remains stable as well. Objective Data Vital Signs Vital Signs: Vital Signs - 24 hr 02/16/25 13:48 02/16/25 14:00 02/16/25 14:01 Temperature Pulse Rate 73 76 81 Respiratory Rate 12 13 19 Blood Pressure 120/78 Pulse Oximetry 98 96 96 Oxygen Delivery Oxygen Flow Rate 02/16/25 14:15 02/16/25 14:16 02/16/25 14:35 Temperature Pulse Rate 77 83 78 Respiratory Rate 15 21 H 20 Blood Pressure 117/76 119/80 Pulse Oximetry 97 95 97 Oxygen Delivery Room Air Oxygen Flow Rate 02/16/25 15:14 02/16/25 15:24 02/16/25 15:34 Temperature 97.9 F Pulse Rate 81 80 77 Respiratory Rate 21 H 22 H 18 Blood Pressure 116/63 108/57 L 110/62 Pulse Oximetry 98 99 99 Oxygen Delivery Simple Face Mask Simple Face Mask Room Air Oxygen Flow Rate 6 6 02/16/25 15:44 02/16/25 15:54 02/16/25 16:04 Temperature Pulse Rate 78 76 72 Respiratory Rate 15 17 17 Blood Pressure 114/59 L 110/67 112/72 Pulse Oximetry 96 97 97 Oxygen Delivery Room Air Room Air Room Air Oxygen Flow Rate 02/16/25 16:10 02/16/25 16:50 02/16/25 18:00 Temperature 98 F Pulse Rate 73 73 81 Respiratory Rate 16 16 Blood Pressure 128/71 Pulse Oximetry 97 97 Oxygen Delivery Room Air Oxygen Flow Rate 02/16/25 20:00 02/16/25 20:00 02/16/25 20:03 Temperature 98.3 F Pulse Rate 84 83 Respiratory Rate 15 Blood Pressure 103/63 Pulse Oximetry 96 96 Oxygen Delivery Room Air Oxygen Flow Rate 02/16/25 20:30 02/16/25 22:00 02/16/25 23:58 Temperature 97.7 F Pulse Rate 62 85 82 Respiratory Rate 16 Blood Pressure 107/60 Pulse Oximetry 96 Oxygen Delivery Oxygen Flow Rate 02/17/25 00:00 02/17/25 00:00 02/17/25 02:00 Temperature Pulse Rate 83 78 Respiratory Rate Blood Pressure Pulse Oximetry 96 Oxygen Delivery Room Air Oxygen Flow Rate 02/17/25 03:39 02/17/25 04:00 02/17/25 04:42 Temperature 97.6 F Pulse Rate 77 77 Respiratory Rate 16 Blood Pressure 108/65 Pulse Oximetry 93 Oxygen Delivery Room Air Oxygen Flow Rate 02/17/25 06:00 02/17/25 08:00 02/17/25 08:00 Temperature 98.2 F Pulse Rate 79 75 Respiratory Rate 16 Blood Pressure 128/77 Pulse Oximetry 99 Oxygen Delivery Room Air Oxygen Flow Rate 02/17/25 08:00 02/17/25 10:00 02/17/25 12:00 Temperature 98.3 F Pulse Rate 78 75 71 Respiratory Rate 18 Blood Pressure 129/79 Pulse Oximetry 98 Oxygen Delivery Oxygen Flow Rate 02/17/25 12:29 02/17/25 13:37 Temperature 98.3 F Pulse Rate 71 74 Respiratory Rate 20 19 Blood Pressure 129/79 103/58 L Pulse Oximetry 98 94 Oxygen Delivery Room Air Room Air Oxygen Flow Rate Intake/Output Intake/Output: Intake & Output 02/14/25 02/15/25 02/16/25 02/17/25 23:59 23:59 23:59 23:59 Intake Total 300 1450 Balance 300 1450 Meds/Results Medications: Active Medications Generic Name Dose Route Start Last Admin Trade Name Freq PRN Reason Stop Dose Admin Carvedilol 6.25 mg 02/17/25 16:00 Carvedilol 3.125 Mg Tablet PO Q12H URBANO Dextrose 12.5 gm 02/16/25 17:07 Dextrose 50% 25 Gm/50 Ml Syringe IV PUSH PRN PRN Hypoglycemia Protocol Glucagon 1 mg 02/16/25 17:07 Glucagon For Inj 1 Mg Vial IM PRN PRN Hypoglycemia Protocol Glucose 15 gm 02/16/25 17:07 Glucose Oral Gel 15 Gm Of Glucse In 37.5 Gm Tube PO PRN PRN Hypoglycemia Protocol Dextrose 1,000 mls @ 100 mls/hr 02/16/25 17:07 Dextrose 5% 1,000 Ml IVPB PRN PRN Hypoglycemia Protocol Sodium Chloride 1,000 mls @ 125 mls/hr 02/16/25 19:30 02/17/25 04:36 Normal Saline Iv IV CONT 125 mls/hr .Q8H URBANO Administration Lactated Ringer's 1,000 mls @ 150 mls/hr 02/17/25 12:30 02/17/25 13:36 Lr - Lactated Ringers Iv IV CONT 150 mls/hr .Q6H40M URBANO Infusion Insulin Aspart 2 - 5 units 02/16/25 18:00 02/17/25 12:02 Insulin Aspart (*Bkc) 100 Units/Ml SUB-Q Not Given Q6HR [facility] Protocol Ondansetron HCl 4 mg 02/16/25 19:31 Ondansetron Inj 4 Mg/2 Ml Vial IV PUSH Q4H PRN Nausea And Vomiting Pantoprazole Sodium 40 mg 02/18/25 09:00 Pantoprazole 40 Mg Tablet PO QAM URBANO Simethicone 1.8 ml 02/17/25 12:41 02/17/25 12:43 Simethicone Oral Suspension 20 Mg/0.3 Ml 30 Ml Bottle PO 1.8 ml ONCE PRN Administration Gas Discomfort Labs Labs: Laboratory Results - last 24 hr 02/16/25 02/16/25 02/16/25 14:10 15:26 17:58 WBC 4.7 RBC 3.85 L Hgb 12.5 L Hct 37.9 L MCV 98.4 MCH 32.5 MCHC 33.0 RDW 14.6 H Plt Count 102 L MPV 11.3 H Immature Gran % (Auto) 0.4 Neut % (Auto) 61.8 Lymph % (Auto) 23.6 Sullivan % (Auto) 11.6 H Eos % (Auto) 1.7 Baso % (Auto) 0.9 Lymph # (Auto) 1.10 Sullivan # (Auto) 0.5 Eos # (Auto) 0.1 Baso # (Auto) 0.0 Abs Immat Gran (auto) 0.02 Absolute Neuts (auto) 2.9 Absolute Nucleated RBC 0.000 Nucleated RBC % 0.0 % Immature Plt Fraction 5.7 PT 17.3 H INR 1.4 APTT 31.5 Sodium 137 Potassium 4.2 Chloride 106 Carbon Dioxide 22 Anion Gap 9 BUN 16 Creatinine 0.91 Estim Creat Clear Calc 80 Estimated GFR > 60 Glucose 147 H POC Capillary Glucose 118 H 114 H Hemoglobin A1c Lactic Acid 2.0 Calcium 8.3 L Phosphorus Magnesium Total Bilirubin 2.9 H AST 55 ALT 33 Alkaline Phosphatase 120 Total Protein 7.6 Albumin 3.5 Blood Type B Positive Antibody Screen Negative 02/17/25 02/17/25 02/17/25 00:19 04:19 11:34 WBC 5.3 RBC 3.52 L Hgb 11.6 L Hct 35.8 L MCV 101.7 H MCH 33.0 MCHC 32.4 RDW 14.6 H Plt Count 94 L MPV 11.7 H Immature Gran % (Auto) 0.4 Neut % (Auto) 58.8 Lymph % (Auto) 27.4 Sullivan % (Auto) 11.5 H Eos % (Auto) 1.3 Baso % (Auto) 0.6 Lymph # (Auto) 1.45 Sullivan # (Auto) 0.6 Eos # (Auto) 0.1 Baso # (Auto) 0.0 Abs Immat Gran (auto) 0.02 Absolute Neuts (auto) 3.1 Absolute Nucleated RBC 0.000 Nucleated RBC % 0.0 % Immature Plt Fraction 5.3 PT INR APTT Sodium 138 Potassium 4.0 Chloride 110 H Carbon Dioxide 20 L Anion Gap 8 BUN 19 Creatinine 0.85 Estim Creat Clear Calc 86 Estimated GFR > 60 Glucose 95 POC Capillary Glucose 103 95 Hemoglobin A1c 6.2 H Lactic Acid Calcium 8.1 L Phosphorus 3.1 Magnesium 2.0 Total Bilirubin AST ALT Alkaline Phosphatase Total Protein Albumin Blood Type Antibody Screen
--- NOTE | 2025-02-17 13:50 | WPDANESPN ---
Anes - Prog Note Post-Op Date/Time: 02/17/25 13:50 Cardiovascular status: normal Respiratory status: normal Airway patency: baseline Mental status: baseline Post-Op hydration status: normal Vital Signs: Last Vital Signs Temp 36.8 C 02/17/25 12:29 Pulse 71 02/17/25 13:47 Resp 18 02/17/25 13:47 BP 102/59 L 02/17/25 13:47 Pulse Ox 94 02/17/25 13:47 O2 Del Method Room Air 02/17/25 13:47 O2 Flow Rate 6 02/16/25 15:24 Pain Score (VAS): 0 I/O: Intake & Output 02/16/25 02/17/25 02/17/25 23:59 07:59 15:59 Intake Total 0 1450 100 Balance 0 1450 100 Laboratory Tests 02/17/25 04:19 02/17/25 04:19 02/16/25 02/16/25 02/16/25 14:10 15:26 17:58 WBC 4.7 RBC 3.85 L Hgb 12.5 L Hct 37.9 L MCV 98.4 MCH 32.5 MCHC 33.0 RDW 14.6 H Plt Count 102 L MPV 11.3 H Immature Gran % (Auto) 0.4 Neut % (Auto) 61.8 Lymph % (Auto) 23.6 [place] % (Auto) 11.6 H Eos % (Auto) 1.7 Baso % (Auto) 0.9 Lymph # (Auto) 1.10 [place] # (Auto) 0.5 Eos # (Auto) 0.1 Baso # (Auto) 0.0 Abs Immat Gran (auto) 0.02 Absolute Neuts (auto) 2.9 Absolute Nucleated RBC 0.000 Nucleated RBC % 0.0 % Immature Plt Fraction 5.7 PT 17.3 H INR 1.4 APTT 31.5 Sodium 137 Potassium 4.2 Chloride 106 Carbon Dioxide 22 Anion Gap 9 BUN 16 Creatinine 0.91 Estim Creat Clear Calc 80 Estimated GFR > 60 Glucose 147 H POC Capillary Glucose 118 H 114 H Hemoglobin A1c Lactic Acid 2.0 Calcium 8.3 L Phosphorus Magnesium Total Bilirubin 2.9 H AST 55 ALT 33 Alkaline Phosphatase 120 Total Protein 7.6 Albumin 3.5 Blood Type B Positive Antibody Screen Negative 02/17/25 02/17/25 02/17/25 00:19 04:19 11:34 WBC 5.3 RBC 3.52 L Hgb 11.6 L Hct 35.8 L MCV 101.7 H MCH 33.0 MCHC 32.4 RDW 14.6 H Plt Count 94 L MPV 11.7 H Immature Gran % (Auto) 0.4 Neut % (Auto) 58.8 Lymph % (Auto) 27.4 [place] % (Auto) 11.5 H Eos % (Auto) 1.3 Baso % (Auto) 0.6 Lymph # (Auto) 1.45 [place] # (Auto) 0.6 Eos # (Auto) 0.1 Baso # (Auto) 0.0 Abs Immat Gran (auto) 0.02 Absolute Neuts (auto) 3.1 Absolute Nucleated RBC 0.000 Nucleated RBC % 0.0 % Immature Plt Fraction 5.3 PT INR APTT Sodium 138 Potassium 4.0 Chloride 110 H Carbon Dioxide 20 L Anion Gap 8 BUN 19 Creatinine 0.85 Estim Creat Clear Calc 86 Estimated GFR > 60 Glucose 95 POC Capillary Glucose 103 95 Hemoglobin A1c 6.2 H Lactic Acid Calcium 8.1 L Phosphorus 3.1 Magnesium 2.0 Total Bilirubin AST ALT Alkaline Phosphatase Total Protein Albumin Blood Type Antibody Screen Post-procedural complaints: none Patient Feedback: Patient satisfied with anesthetic care.
--- NOTE | 2025-02-17 14:59 | P.DS_ITS ---
DS: Admitting Diagnosis Discharge Date 02/17/2025 Admitting Diagnosis Hematemisis DS: Discharge Diagnosis Discharge Diagnosis (1) Hematemesis/vomiting blood: Code(s): K92.0 - Hematemesis Status: Acute Assessment and Plan: GI consulted Repeat EGD tomorrow NPO Protonix b.i.d. IVF for hydration (2) Acute blood loss anemia: Code(s): D62 - Acute posthemorrhagic anemia Status: Acute Assessment and Plan: On iron deficiency anemia Monitor for acute bleeding, currently no signs Repeat CBC (3) Type 2 diabetes mellitus: Qualifiers: Diabetes mellitus assisted insulin use: without x ray service technician use Diabetes mellitus complication status: with hyperglycemia Qualified Code(s): E11.65 - Type 2 diabetes mellitus with hyperglycemia Code(s): E11.9 - Type 2 diabetes mellitus without complications Status: Acute Assessment and Plan: NPO Q.6 hour Accu-Cheks and SSI (4) MUÑOZ (nonalcoholic steatohepatitis): Code(s): K75.81 - Nonalcoholic steatohepatitis (MUÑOZ) Status: Acute Assessment and Plan: Likely cause of GI bleed LFTs within normal limits (5) Hypertension: Qualifiers: Hypertension type: primary hypertension Qualified Code(s): I10 - Essential (primary) hypertension Code(s): I10 - Essential (primary) hypertension Status: Acute Assessment and Plan: Hold hydrochlorothiazide DS: Summary Hospital Course Reason for hospitalization: Hematemisis Hospital Course: 64 years old male was admitted for hematemesis. GI was consulted. Endoscopy was performed. GI recommended to continue pantoprazole for now. Outpatient follow-up scheduled. Patient discharged in stable condition. Repeat CBC outpatient next week. Status at Discharge Cognitive/behavioral status at discharge: Stable Time Spent with Patient Time attestation: Total time spent providing and/or coordinating discharge services: 30 minutes Exam Narrative: General: well appearing, appears stated age. HEENT: normocephalic, atraumatic. Mucous membranes moist. EOMI, PERRLA, bilateral sclera anicteric, no conjunctival injection. Neck supple without JVD, lymphadenopathy, or bruit. Respiratory: clear to ascultation bilaterally. No rales/rhonic/wheezes. Cardiovascular: Regular rate and rhythm, normal S1-S2 upon ascultation. No murmurs, rubs, or clicks. PMI is nondisplaced, capillary refill less than 3 second. Abdomen: Soft, round, no pulsatile masses, nondistended and nontender. No rebound, no guarding. No CVA tenderness, no hepatosplenomegaly. Bowel sounds present to all four quadrants. No high pitch or tinkling sounds, resonant to percussion. Extremities: No cyanosis, clubbing, or edema present. Pulses are palpable 2/2. Active ROM to all four extremities. Neuro: Alert and orientated x 4. PERRLA. Cranial nerves 2-12 intact without focal deficit. Skin: Warm, dry, and intact, without rash, erythema, or lesion. Psych: pleasant, cooperative, normal speech, normal affect, no hallucinations, no dysarthia DS: Data Data Completed and Pending Labs on day of discharge: Labs from last 24 hours 02/17/25 02/17/25 02/17/25 13:51 11:34 04:19 WBC 5.3 RBC 3.52 L Hgb 11.6 L Hct 35.8 L MCV 101.7 H MCH 33.0 MCHC 32.4 RDW 14.6 H Plt Count 94 L MPV 11.7 H Immature Gran % (Auto) 0.4 Neut % (Auto) 58.8 Lymph % (Auto) 27.4 [place] % (Auto) 11.5 H Eos % (Auto) 1.3 Baso % (Auto) 0.6 Lymph # (Auto) 1.45 [place] # (Auto) 0.6 Eos # (Auto) 0.1 Baso # (Auto) 0.0 Abs Immat Gran (auto) 0.02 Absolute Neuts (auto) 3.1 Absolute Nucleated RBC 0.000 Nucleated RBC % 0.0 % Immature Plt Fraction 5.3 Sodium 138 Potassium 4.0 Chloride 110 H Carbon Dioxide 20 L Anion Gap 8 BUN 19 Creatinine 0.85 Estim Creat Clear Calc 86 Estimated GFR > 60 Glucose 95 POC Capillary Glucose 88 95 Hemoglobin A1c 6.2 H Calcium 8.1 L Phosphorus 3.1 Magnesium 2.0 Blood Type Antibody Screen 02/17/25 02/16/25 02/16/25 00:19 17:58 15:26 WBC RBC Hgb Hct MCV MCH MCHC RDW Plt Count MPV Immature Gran % (Auto) Neut % (Auto) Lymph % (Auto) [place] % (Auto) Eos % (Auto) Baso % (Auto) Lymph # (Auto) [place] # (Auto) Eos # (Auto) Baso # (Auto) Abs Immat Gran (auto) Absolute Neuts (auto) Absolute Nucleated RBC Nucleated RBC % % Immature Plt Fraction Sodium Potassium Chloride Carbon Dioxide Anion Gap BUN Creatinine Estim Creat Clear Calc Estimated GFR Glucose POC Capillary Glucose 103 114 H 118 H Hemoglobin A1c Calcium Phosphorus Magnesium Blood Type Antibody Screen 02/16/25 14:10 WBC RBC Hgb Hct MCV MCH MCHC RDW Plt Count MPV Immature Gran % (Auto) Neut % (Auto) Lymph % (Auto) [place] % (Auto) Eos % (Auto) Baso % (Auto) Lymph # (Auto) [place] # (Auto) Eos # (Auto) Baso # (Auto) Abs Immat Gran (auto) Absolute Neuts (auto) Absolute Nucleated RBC Nucleated RBC % % Immature Plt Fraction Sodium Potassium Chloride Carbon Dioxide Anion Gap BUN Creatinine Estim Creat Clear Calc Estimated GFR Glucose POC Capillary Glucose Hemoglobin A1c Calcium Phosphorus Magnesium Blood Type B Positive Antibody Screen Negative Discharge Plan Discharge Attending physician on discharge: Darrell Sexton Discharging Clinician: Darrell Sexton Patient Disposition: Home Activity: as tolerated Diet: as tolerated Patient Instructions: Antibiotic Form Patient Language: Spanish Stand Alone Forms: General Discharge Information Follow-up/Referrals: Griffin Plaza DO [Primary Care Provider, Internal Medicine] Discharge Medications: Continued carvedilol 3.125 mg tablet 3.125 mg PO Q12H Rx Instructions: must administer with a meal/food pantoprazole 40 mg tablet,delayed release (DR/EC) 40 mg PO QAM Qty: 30 11RF (DME) blood-glucose meter Misc See Rx Instructions .ROUTE .MEDSUPPLY Qty: 1 0RF Rx Instructions: To check glucose three times per day (DME) Blood Glucose Test Strip See Rx Instructions .ROUTE .MEDSUPPLY Qty: 50 1RF Rx Instructions: To check glucose three times per day hydrochlorothiazide 12.5 mg tablet 12.5 mg PO DAILY cyanocobalamin (vitamin B-12) [Vitamin B-12] 500 mcg tablet 500 mcg PO DAILY ascorbic acid (vitamin C) 1,000 mg capsule 1,000 mg PO DAILY cholecalciferol (vitamin D3) [Vitamin D3] 25 mcg (1,000 unit) capsule 25 mcg PO DAILY ferrous sulfate 325 mg (65 mg iron) tablet 650 mg PO DAILY (DME) lancets [OneTouch Delica Plus Lancet] 30 gauge misc See Rx Instructions .ROUTE .COMPLEX Qty: 100 5RF Dose Instruction: USE TO TEST BLOOD SUGAR THREE TIMES DAILY Rx Instructions: USE TO TEST BLOOD SUGAR THREE TIMES DAILY lisinopril 10 mg tablet 10 mg PO DAILY Qty: 90 1RF Held Ozempic 1 mg/dose (4 mg/3 mL) pen injector 1 mg subcut WEEKLY Qty: 3 0RF Hold Instructions: Resume on 03/07/25. Patient Comments: Pt takes on Sundays Date of admission: 02/16/25 14:12 Primary Care Provider: Griffin Plaza Admitting Provider: Daniel Velazquez Attending physician on admission: Daniel Velazquez Condition: Guarded Prognosis Quality VTE Prophylaxis VTE prophylaxis: mechanical ordered
== END 2025-02-17 17:41 | disposition home or self-care (01) | DRG 441 ==
LOC: ANHED 14:19 → ANHSURGERY 14:30 → ANHED 02-17 06:21 → ANHIMU 02-17 06:22
PROVIDERS: Internal Medicine Gastroenterology; Nurse Practitioner Gerontology; Admitting Provider Family Medicine; Emergency Provider Emergency Medicine; PCP Internal Medicine; Visit Provider Internal Medicine
PROC: 0DJ08ZZ Inspection of Upper Intestinal Tract, Via Natural or Artificial Opening Endoscopic (ICD-10-PCS; principal; 2025-02-16 14:15)
DX: K76.6 Portal hypertension (principal); K29.61 Other gastritis with bleeding; D62 Acute posthemorrhagic anemia; I85.00 Esophageal varices without bleeding; K75.81 Nonalcoholic steatohepatitis (NASH); K31.89 Other diseases of stomach and duodenum; K74.60 Unspecified cirrhosis of liver; I10 Essential (primary) hypertension; D69.6 Thrombocytopenia, unspecified; E11.9 Type 2 diabetes mellitus without complications; G47.33 Obstructive sleep apnea (adult) (pediatric); Z95.0 Presence of cardiac pacemaker
CPT/HCPCS: 36415; 80048; 80053; 82948; 83036; 83605; 83735; 84100; 85025; 85055; 85610; 85730; 86850; 86900; 86901; 99285; A9270; J0330; J0456; J0696; J2003; J2405; J2470; J2704; J7030; J7120